=== PATIENT | female | born 1935 | race Caucasian/White ===

== ENCOUNTER 2017-09-20 12:05 | Inpatient (IN) ==
[2017-09-20] MEDS ORDERED: 0.9 % Sodium Chloride 1,000 ML IVC ONE (13:29)
--- NOTE | 2017-09-20 13:34 | Emergency Department Note ---
Disposition Clinical Impression: Confusion, Acute kidney injury, Weakness of both lower extremities, Cannot walk , NSTEMI (non-ST elevated myocardial infarction) Disposition: Admitted As Inpatient Condition: Fair Time of Disposition: 15:50 Weakness HPI - General Chief complaint: ED Weakness Stated complaint: Unable to ambulate x1 days Time Seen by Provider: 09/20/17 13:05 Source: patient, family Limitations: physical limitation Nursing Notes Reviewed: Yes Vital Signs Reviewed: Yes - History of Present Illness HPI Narrative: 82-year-old female brought in by family members for worsening weakness over the past 2 days. Patient is diagnosed with a UTI 2 days ago at [facility] after complains of abdominal pain for which she received a CT scan of her abdomen and pelvis. CT scan was negative but they were able to find a UTI. Patient is placed on Keflex. After starting the Keflex patient's symptoms continue to worsen. One day ago patient was taken back to emergency department at [facility] for complaint of worsening weakness, confusion, and reviewing of the right corner of patient's mouth and hematuria earlier that day. Patient was discharged home. They returned today because he stated patient is unable to stand and worsening confusion today. He also knows the patient's bilateral lower extremities are very swollen. He stated patient's symptoms presenting are with a seen in the past when patient has had a very bad UTI. They spoke to her PCP Dr. Bermeo last night who changed her antibiotics. Patient has not started the new antibiotics Patient patient continues to complain about her bilateral lower extremity edema , and the family states that she is far from her normal baseline concerning her mental state. Pain Scale: 0 - Related Data Home Medications Medication Instructions Recorded Confirmed Carvedilol 12.5 mg PO BID 04/22/15 09/20/17 Furosemide [Lasix] 40 mg PO BID 04/22/15 09/20/17 Pregabalin [Lyrica] 75 mg PO BID 04/22/15 09/20/17 Simvastatin [Zocor] 20 mg PO HS 04/22/15 09/20/17 SitaGLIPtin [Januvia] 100 mg PO DAILY 04/22/15 09/20/17 Capsaicin [Capsaicin Hot Patch] 1 patch TP BID 09/20/17 09/20/17 Insulin Glargine [Lantus] 76 unit IJ BID 04/12/18 04/12/18 Allergies Allergy/AdvReac Type Severity Reaction Status Date / Time canagliflozin [From Invokana] Allergy Hives Verified 09/20/17 16:03 gabapentin Allergy See Verified 09/20/17 14:11 Comments All systems ED: reviewed and negative except as stated. Review of Systems: As Per HPI Constitutional: Denies: fever, chills, weakness ENT ED: Denies: congestion Cardiovascular: Denies: chest pain, palpitations Respiratory: Denies: cough, dyspnea Gastrointestinal: Reports: abdominal pain. Denies: nausea, vomiting, diarrhea Genitourinary: Reports: hematuria Neurological: Reports: weakness Past Medical History - Past Medical History Attestation: Yes The following information was validated with the patient. Source: patient, nursing notes reviewed Medical history: Reports: diabetes, hyperlipidemia, hypertension Surgical history: Reports: , cholecystectomy, other Psychiatric history: Reports: no psych history CUSTOMER LOYALTY REPRESENTATIVE history: Reports: no CUSTOMER LOYALTY REPRESENTATIVE history - Social History Smoking Status: Never smoker Smokeless Tobacco Status: No Alcohol use: Reports: none Drug use: Reports: none Physical Exam Vital Signs Temperature 98.6 F 09/20/17 12:09 Pulse Rate 78 09/20/17 12:09 Respiratory Rate 18 09/20/17 12:09 Blood Pressure 110/53 09/20/17 12:09 O2 Sat by Pulse Oximetry 91 09/20/17 12:09 Temperature 98.6 F 09/20/17 12:09 Pulse Rate 78 09/20/17 12:09 Respiratory Rate 18 09/20/17 12:09 Blood Pressure 110/53 09/20/17 12:09 O2 Sat by Pulse Oximetry 91 09/20/17 12:09 Oxygen Delivery Oxygen Delivery Room Air CONSTITUTIONAL: Well-appearing; well-nourished; A&O X 3, in no apparent distress. Patient is morbidly obese 44.9 BMI, and is 126 kilograms. HEAD: Normocephalic; atraumatic EYES: PERRL, no scleral icterus NOSE: The nose is normal in appearance without rhinorrhea NECK: No JVD or distended neck veins RESP: Normal chest excursion with respiration; breath sounds clear on the right but has basilar rales on the left. Upper lung angel clear to auscultation bilaterally no wheezing. CARD: Regular rhythm, without murmurs, rub or gallop ABD: Non-distended; non-tender, soft, without rigidity, rebound or guarding,no pulsatile mass CHEST: No pain with palpation SKIN: Normal for age and race; warm and dry without diaphoresis ; no apparent lesions EXTREMITIES: Pulses are 2 plus and equal times upper extremities, bilateral lower extremities swollen and has very mild pitting edema less than 1+. There are petechiae on both lower extremities just past the knee. Skin on the bilateral lower extremities have thickened skin for venous insufficiency. Pulses intact bilaterally. NEUROLOGICAL: Patient is alert and oriented times three. Cranial nerves III- XII are intact. Sensory and motor functions are intact. Strength is 5/5 for flexion and extension in bilateral upper extremities, but patient is unable to move her lower extremities. Finger to nose testing is equal and normal bilaterally. No dysdiadochokinesis - General Limitations: physical limitation General appearance: alert, in no apparent distress Course - Reevaluation(s) Reevaluation #1: Patient still well. No pain symptoms. Patient is being transferred from all bed to telemetry bed in room 3. Time: 14:11 Reevaluation #2: Lab called for troponin is critically high at 0.72. Patient has no change in her condition. And has no chest pain Time: 14:53 - Consultations Consultation #1: Patient was accepted for admission by Dr. Lea to a telemetry bed. Time: 15:48 Consultation #2: Dr. Loza of cardiology has been notified of patient's condition. He states that he will see the patient and trend her troponins to investigate her NSTEMI. Time: 15:58 Vital Signs Temperature 98.6 F 09/20/17 12:09 Pulse Rate 78 09/20/17 12:09 Respiratory Rate 18 09/20/17 12:09 Blood Pressure 110/53 09/20/17 12:09 O2 Sat by Pulse Oximetry 91 09/20/17 12:09 Temperature 97.9 F 09/20/17 16:46 Pulse Rate 70 09/20/17 16:46 Respiratory Rate 18 09/20/17 16:46 Blood Pressure 96/60 09/20/17 16:46 O2 Sat by Pulse Oximetry 93 09/20/17 16:46 Oxygen Delivery Oxygen Delivery Room Air Weakness - MDM Narrative Medical decision making narrative: Multiple mental status of bilateral lower extremity weakness. Suspected worsening UTI since family states that this has happened before, but he did not mention some neurologic deficit one night ago. Patient will receive head CT as well as CBC, BMP, LFTs, electrolytes, ammonia, EKG and chest x-ray as well as troponin workup. Patient will need Moreno catheter due to patient's bilateral lower externa new weakness which impairs her ability to walk. Patient is also confused. Patient's labs resulted with a critical high troponin is 0.72. No acute ischemic changes on EKG. Patient has an NSTEMI, and has been given full dose aspirin, and started on low-dose heparin. Patient and family has been updated on patient's progress and understands that patient needs to be admitted. Patient does not have a UTI, seen on urinalysis most likely because patient has been on antibiotic treatment for her UTI 2 days ago. Patient does have newly elevated creatinine for acute kidney injury with a reduction in her GFR. Chest x-ray per radiology shows: Enlarged cardiac silhouette with mild vascular congestion. No overt pulmonary edema. Head CT per radiology shows no acute intracranial abnormalities. Patient's currently doing well and asymptomatic of chest pain, with the exception that patient is unable to walk at this time due to bilateral lower extremity weakness. Vital signs have remained in good ranges. Patient was accepted for admission by Dr. Lea to a telemetry bed. Dr. Loza of cardiology has been consulted. - Lab Data Lab results reviewed: Yes I reviewed the patient's lab results. Lab results narrative: Short CBC 09/20/17 Range/Units 13:51 WBC 7.0 (4.3-11.1) K/mcL Hgb 12.7 (11.5-15.4) g/dL Hct 39.9 (35.3-44.9) % Plt Count 165 (140-400) K/mcL Neutrophils # 5.0 (1.6-8.9) K/mcL BMP 09/20/17 Range/Units 13:51 Sodium 135 L (136-145) mEq/L Potassium 4.0 (3.5-5.1) mEq/L Chloride 98 (98-107) mEq/L Carbon Dioxide 30 H (23-29) mEq/L BUN 27 H (8-23) mg/dL Creatinine 1.74 H (0.60-1.20) mg/dL Glucose 312 H (70-105) mg/dL Calcium 8.9 (8.6-10.3) mg/dL Cardiac Enzymes 09/20/17 Range/Units 13:51 Troponin I 0.72 H* (< 0.04) ng/mL Liver Function 09/20/17 Range/Units 13:51 Total Bilirubin 0.6 (0.3-1.0) mg/dL AST 33 (13-39) Units/L ALT 20 (7-52) Units/L Alkaline Phosphatase 81 (34-104) Units/L Albumin 3.4 L (3.5-5.7) g/dL Urine 09/20/17 Range/Units 14:50 Urine Color Dark Yellow (Yellow) Urine Clarity Slightly Hazy (Clear) Urine pH 5.0 (5.0-8.0) pH Units Ur Specific [place] 1.023 (1.010-1.025) Urine Protein Negative (Neg-Trace) mg/dL Urine Glucose (UA) Normal (Normal) mg/dL Result diagrams: 09/20/17 15:29 09/20/17 13:51 Lab Results 09/20/17 09/20/17 09/20/17 Range/Units 13:51 13:51 14:50 WBC 7.0 (4.3-11.1) K/mcL RBC 4.49 (3.82-4.97) M/mcL Hgb 12.7 (11.5-15.4) g/dL Hct 39.9 (35.3-44.9) % MCV 88.9 (83.0-100.0) fL MCH 28.3 (28.0-33.3) pg MCHC 31.8 (31.6-35.5) g/dL RDW 15.7 H (11.5-14.5) % Plt Count 165 (140-400) K/mcL MPV 11.1 (9.4-12.4) fL Immature Gran % 1.0 (0-4) % Seg Neutrophils % 71.4 % Lymphocytes % 6.6 % Monocytes % 15.0 % Eosinophils % 5.6 % Basophils % 0.4 % Neutrophils # 5.0 (1.6-8.9) K/mcL Lymphocytes # 0.5 L (0.6-4.6) K/mcL Monocytes # 1.1 (0.0-1.3) K/mcL Eosinophils # 0.4 (0.0-0.6) K/mcL Basophils # 0.0 (0.0-0.2) K/mcL PT (9.4-12.1) Seconds INR APTT (26.0-36.0) Seconds Sodium 135 L (136-145) mEq/L Potassium 4.0 (3.5-5.1) mEq/L Chloride 98 (98-107) mEq/L Carbon Dioxide 30 H (23-29) mEq/L BUN 27 H (8-23) mg/dL Creatinine 1.74 H (0.60-1.20) mg/dL Est GFR ( Amer) 34 L (> 60) Est GFR (Non-Af Amer) 28 L (> 60) BUN/Creatinine Ratio 16 (6-26) Glucose 312 H (70-105) mg/dL Calculated Osmolality 297 (280-300) Calcium 8.9 (8.6-10.3) mg/dL Phosphorus 3.6 (2.7-4.5) mg/dL Magnesium 2.3 (1.6-2.6) mg/dL Total Bilirubin 0.6 (0.3-1.0) mg/dL AST 33 (13-39) Units/L ALT 20 (7-52) Units/L Alkaline Phosphatase 81 (34-104) Units/L Troponin I 0.72 H* (< 0.04) ng/mL B-Natriuretic Peptide (Less than 100) pg/mL Serum Total Protein 6.4 (6.4-8.9) g/dL Albumin 3.4 L (3.5-5.7) g/dL Globulin 3.0 (2.4-3.5) g/dL Albumin/Globulin Ratio 1.1 (1.1-2.2) TSH 2.927 (0.340-5.600) mcIU/mL Urine Color Dark Yellow (Yellow) Urine Clarity Slightly Hazy (Clear) Urine pH 5.0 (5.0-8.0) pH Units Ur Specific [place] 1.023 (1.010-1.025) Urine Protein Negative (Neg-Trace) mg/dL Urine Glucose (UA) Normal (Normal) mg/dL Urine Ketones Negative (Negative) mg/dL Urine Blood Negative (Negative) Urine Nitrite Negative (Negative) Urine Bilirubin Small H (Negative) Urine Urobilinogen Normal (Normal) mg/dL Ur Leukocyte Esterase Small H (Negative) Urine Microscopic RBC 0-3 (0-3) per hpf Urine Microscopic WBC 5-15 H (0-3) per hpf Ur Squamous Epith Cells Many H (None-Few) per lpf Amorphous Sediment Moderate H (Few) Urine Bacteria None Seen (None-Few) per hpf Hyaline Casts Many H (None-Few) per lpf Ur Culture Indicated? NO. (NO) 09/20/17 09/20/17 09/20/17 Range/Units 15:29 15:29 15:35 WBC 6.8 (4.3-11.1) K/mcL RBC 4.60 (3.82-4.97) M/mcL Hgb 12.9 (11.5-15.4) g/dL Hct 40.8 (35.3-44.9) % MCV 88.7 (83.0-100.0) fL MCH 28.0 (28.0-33.3) pg MCHC 31.6 (31.6-35.5) g/dL RDW 15.7 H (11.5-14.5) % Plt Count 171 (140-400) K/mcL MPV 11.2 (9.4-12.4) fL Immature Gran % (0-4) % Seg Neutrophils % % Lymphocytes % % Monocytes % % Eosinophils % % Basophils % % Neutrophils # (1.6-8.9) K/mcL Lymphocytes # (0.6-4.6) K/mcL Monocytes # (0.0-1.3) K/mcL Eosinophils # (0.0-0.6) K/mcL Basophils # (0.0-0.2) K/mcL PT 13.7 H (9.4-12.1) Seconds INR 1.3 APTT 32.9 (26.0-36.0) Seconds Sodium (136-145) mEq/L Potassium (3.5-5.1) mEq/L Chloride (98-107) mEq/L Carbon Dioxide (23-29) mEq/L BUN (8-23) mg/dL Creatinine (0.60-1.20) mg/dL Est GFR ( Amer) (> 60) Est GFR (Non-Af Amer) (> 60) BUN/Creatinine Ratio (6-26) Glucose (70-105) mg/dL Calculated Osmolality (280-300) Calcium (8.6-10.3) mg/dL Phosphorus (2.7-4.5) mg/dL Magnesium (1.6-2.6) mg/dL Total Bilirubin (0.3-1.0) mg/dL AST (13-39) Units/L ALT (7-52) Units/L Alkaline Phosphatase (34-104) Units/L Troponin I (< 0.04) ng/mL B-Natriuretic Peptide 267 H (Less than 100) pg/mL Serum Total Protein (6.4-8.9) g/dL Albumin (3.5-5.7) g/dL Globulin (2.4-3.5) g/dL Albumin/Globulin Ratio (1.1-2.2) TSH (0.340-5.600) mcIU/mL Urine Color (Yellow) Urine Clarity (Clear) Urine pH (5.0-8.0) pH Units Ur Specific [place] (1.010-1.025) Urine Protein (Neg-Trace) mg/dL Urine Glucose (UA) (Normal) mg/dL Urine Ketones (Negative) mg/dL Urine Blood (Negative) Urine Nitrite (Negative) Urine Bilirubin (Negative) Urine Urobilinogen (Normal) mg/dL Ur Leukocyte Esterase (Negative) Urine Microscopic RBC (0-3) per hpf Urine Microscopic WBC (0-3) per hpf Ur Squamous Epith Cells (None-Few) per lpf Amorphous Sediment (Few) Urine Bacteria (None-Few) per hpf Hyaline Casts (None-Few) per lpf Ur Culture Indicated? (NO) - Radiology Data Radiology results reviewed: Yes I reviewed the patient's radiology results. Chest X-Ray 09/20/17 13:29 IMPRESSION: Enlarged cardiac silhouette with mild vascular congestion. No overt pulmonary edema. D/ / Richie Brantley MD / Richie Brantley MD Interpreting Provider: Richie Brantley MD Head CT 09/20/17 13:31 IMPRESSION: No acute intracranial abnormality. D/ / Maksim Zambrano MD / Maksim Zambrano MD Interpreting Provider: Maksim Zambrano MD - EKG Data EKG attestation: Yes I reviewed and interpreted this EKG. EKG results narrative: EKG taken 09/20/2017 at 1413 hrs. shows sinus rhythm at a rate of 75 bpm with a first-degree AV block, mild ST elevation in V2 but does not meet STEMI criteria , and mild depression in V5 and V6 leads 2, and aVL. EKG when compared to previous EKG taken 09/19/2017 shows no changes.
--- NOTE | 2017-09-20 13:47 | Emergency Department Note ---
Disposition Clinical Impression: Edema extremities, Confusion Disposition: Still a Patient Forms: ED Satisfaction Letter General Adult HPI - General Chief complaint: ED Weakness Stated complaint: Unable to ambulate x1 days Time Seen by Provider: 09/20/17 13:05 Source: patient, family Limitations: physical limitation - History of Present Illness Pain Scale: 0 - Related Data Home Medications Medication Instructions Recorded Confirmed Carvedilol 12.5 mg PO BID 04/22/15 09/19/17 Furosemide [Lasix] 40 mg PO BID 04/22/15 09/19/17 Pregabalin [Lyrica] 75 mg PO BID 04/22/15 09/19/17 Simvastatin [Zocor] 20 mg PO HS 04/22/15 09/19/17 SitaGLIPtin [Januvia] 100 mg PO DAILY 04/22/15 09/19/17 Previous Rx's Medication Instructions Recorded Capsaicin [Capsaicin Hot Patch] 1 each TP BID #1 pack 09/18/17 Nitrofurantoin (BID) [Macrobid] 100 mg PO BID #10 capsule 09/20/17 Allergies Allergy/AdvReac Type Severity Reaction Status Date / Time gabapentin Allergy See Verified 09/20/17 12:08 Comments Constitutional: Denies: fever, chills, weakness ENT ED: Denies: congestion Cardiovascular: Denies: chest pain, palpitations Respiratory: Denies: cough, dyspnea Gastrointestinal: Reports: abdominal pain. Denies: nausea, vomiting, diarrhea Genitourinary: Reports: hematuria Neurological: Reports: weakness Past Medical History - Past Medical History Medical history: Reports: diabetes, hyperlipidemia, hypertension Surgical history: Reports: , cholecystectomy, other Psychiatric history: Reports: no psych history REPORT MANAGER history: Reports: no REPORT MANAGER history - Social History Smoking Status: Never smoker Smokeless Tobacco Status: No Alcohol use: Reports: none Drug use: Reports: none Physical Exam - General Limitations: physical limitation General appearance: alert, in no apparent distress Course - Reevaluation(s) Reevaluation #1: Attestation note I examined this patient and my medical decision-making was reviewed with the emergency medicine resident. I agree with the documented findings, disposition and treatment plan as described except to the extent set forth below. Patient seen with emergency medicine resident Dr. Stanley Stallworth, Please see a copy of his note for details of the H&P, ED evaluation, management and disposition. I have independently evaluated the patient and confirmed appropriate portions of the history and physical exam. Briefly: 82-year-old female presents a Holter with family members for 2 days of increasing difficulty walking leg swelling and some confusion. Family states she gets when she has a bladder infection. Patient denies dysuria at this time. Physical examination is otherwise benign aside from the 4+ edema to the mid thigh. Slight basilar rales. Patient EKG chest x-ray screening labs and catheter UA. Disposition pending with admission anticipated. Time: 13:42 Vital Signs Temperature 98.6 F 09/20/17 12:09 Pulse Rate 78 09/20/17 12:09 Respiratory Rate 18 09/20/17 12:09 Blood Pressure 110/53 09/20/17 12:09 O2 Sat by Pulse Oximetry 91 09/20/17 12:09 Temperature 98.6 F 09/20/17 12:09 Pulse Rate 78 09/20/17 12:09 Respiratory Rate 18 09/20/17 12:09 Blood Pressure 110/53 09/20/17 12:09 O2 Sat by Pulse Oximetry 91 09/20/17 12:09 Oxygen Delivery Oxygen Delivery Room Air
[2017-09-20 14:17] LABS: Basophils % 0.4 %; Eosinophils # 0.4 K/mcL (0.0-0.6); Eosinophils % 5.6 %; Hematocrit 39.9 % (35.3-44.9); Hemoglobin 12.7 g/dL (11.5-15.4); Lymphocytes # 0.5 K/mcL (0.6-4.6); Lymphocytes % 6.6 %; Mean Corpuscular HGB Conc 31.8 g/dL (31.6-35.5); Mean Corpuscular Hemoglobin 28.3 pg (28.0-33.3); Mean Corpuscular Volume 88.9 fL (83.0-100.0); Mean Platelet Volume 11.1 fL (9.4-12.4); Monocytes # 1.1 K/mcL (0.0-1.3); Platelet Count 165 K/mcL (140-400); Red Blood Count 4.49 M/mcL (3.82-4.97); Red Cell Distribution Width 15.7 % (11.5-14.5); Segmented Neutrophils % 71.4 %
[2017-09-20 14:44] LABS: Albumin 3.4 g/dL (3.5-5.7); Albumin/Globulin Ratio 1.1 (1.1-2.2); Bilirubin,Total 0.6 mg/dL (0.3-1.0); Calcium 8.9 mg/dL (8.6-10.3); Magnesium 2.3 mg/dL (1.6-2.6); Phosphorous 3.6 mg/dL (2.7-4.5); Total Protein 6.4 g/dL (6.4-8.9)
[2017-09-20 14:50] LABS: Troponin I 0.72 ng/mL (< 0.04)
[2017-09-20] MEDS ORDERED: Aspirin 81 MG TAB.CHEW PO STA (14:54)
[2017-09-20 14:56] LABS: Bilirubin,Urine Small (Negative); Blood,Urine Negative (Negative); Color,Urine Dark Yellow (Yellow); Glucose,Urine (UA) Normal (Normal); Ketones,Urine Negative (Negative); Leukocyte Esterase,Urine Small (Negative); Nitrite,Urine Negative (Negative); Protein,Urine Negative (Neg-Trace); Specific Gravity,Urine 1.023 (1.010-1.025); Urobilinogen,Urine Normal (Normal)
[2017-09-20 14:57] LABS: Thyroid Stimulating Hormone 2.927 mcIU/mL (0.340-5.600)
[2017-09-20 14:59] LABS: Bacteria,Urine None Seen per hpf (None-Few); RBC,Urine 0-3 per hpf (0-3); Squamous Epithelial Cell,Urine Many per lpf (None-Few)
[2017-09-20 15:00] LABS: Clarity,Urine Slightly Hazy (Clear)
[2017-09-20] MEDS ORDERED: *HR* Heparin 5,000 UNIT/ML VIAL IVP PRN ×2 (15:13)
[2017-09-20] MEDS ORDERED: *HR* Heparin 5,000 UNIT/ML VIAL IVP ONE (15:13)
[2017-09-20 15:18] LABS: Hyaline Casts,Urine Many per lpf (None-Few)
[2017-09-20 15:19] LABS: Amorphous Sediment,Urine Moderate (Few)
[2017-09-20 16:12] LABS: Hematocrit 40.8 % (35.3-44.9); Hemoglobin 12.9 g/dL (11.5-15.4); Mean Corpuscular HGB Conc 31.6 g/dL (31.6-35.5); Mean Corpuscular Volume 88.7 fL (83.0-100.0); Mean Platelet Volume 11.2 fL (9.4-12.4); Platelet Count 171 K/mcL (140-400); Red Cell Distribution Width 15.7 % (11.5-14.5)
[2017-09-20 16:21] LABS: INR 1.3; Prothrombin Time 13.7 Seconds (9.4-12.1)
[2017-09-20 16:24] LABS: Activated Partial Thrombo Time 32.9 Seconds (26.0-36.0)
[2017-09-20] MEDS: Heparin 25,000 UNIT/500 ML D5W 25,000 UNIT/500 ML BAG IVC SCH (18:50)
[2017-09-20] MEDS ORDERED: Naloxone 0.4 MG/ML INJ IVP PRN (22:31)
[2017-09-20] MEDS ORDERED: *HR* Dextrose 50 % in Water (Syg) 50 ML SYRINGE IVP PRN (22:37)
[2017-09-20] MEDS ORDERED: Dextrose Gel 15 GM/37.5 ML TUBE PO PRN ×2 (22:37)
[2017-09-20] MEDS ORDERED: D5% in Water 1,000 ML IVC PRN (22:37)
--- NOTE | 2017-09-20 22:49 | Internal Med History&Physical ---
Date of Encounter: 09/20/17 Time of Encounter: 22:40 Internal Medicine - H&P: HPI Chief complaint: difficulty in ambulation. Admitted From: Emergency Dept Plans for Post Hospital Care: Home History of present illness: Ms. Pop is a 82 year old female who has a background medical history of her diabetes, hypertension, hyperlipidemia,. It was noted that patient has a worsening urinary tract infection since Sunday. Patient contacted her primary care doctor Dr. Alarcon who recommended antibiotics. Patient was gradually worsening. Since last 24-36 hours it was difficult for patient to even ambulate. For this worsening fatigue/inability to ambulate family decided to get patient to the emergency room for further evaluation. Patient denies chest pain, nausea, vomiting, abdominal pain, diarrhea and dizziness. Workup in the emergency room: Patient was evaluated in the emergency room. Basic labs were drawn. Noted that patient's troponin was 0.7. Also noted that patient has a UA if positive for urinary tract infection. Cardiology was consulted. Reason for admission: Non-ST elevation CT, possible demand ischemia: Reason for elevated troponin, urinary tract infection. Past Med Surg Social Fam HX - Past Medical History Medical history: diabetes, hyperlipidemia, hypertension Psychiatric history: no psych history - Past Surgical History Surgical History: , cholecystectomy, other - Social History Smoking Status: Never smoker Smokeless Tobacco Status: No Alcohol use: none Drug use: none - Family History Mother Hx Family Cancer: Yes Sister Hx Family Cancer: Yes Internal Medicine - H&P: Meds Carvedilol 12.5 mg PO BID 04/22/15 [History] Furosemide [Lasix] 40 mg PO BID 04/22/15 [History] Pregabalin [Lyrica] 75 mg PO BID 04/22/15 [History] Simvastatin [Zocor] 20 mg PO HS 04/22/15 [History] SitaGLIPtin [Januvia] 100 mg PO DAILY 04/22/15 [History] Capsaicin [Capsaicin Hot Patch] 1 patch TP BID 09/20/17 [History] Insulin Glargine [Lantus] 76 unit IJ BID 09/20/17 [History] 3 Allergy/AdvReac Type Severity Reaction Status Date / Time canagliflozin [From Invokana] Allergy Hives Verified 09/20/17 16:03 gabapentin Allergy See Verified 09/20/17 14:11 Comments All Systems PM: A 10-system review of systems was performed and is negative for pertinent findings except as documented above in the HPI. - Constitutional Constitutional: fatigue, lethargy, no chills, no fever(s), no night sweats - EENT Eyes: no change in vision, no discharge, no pain, no photophobia Ears: no ear discharge, no ear pain, no tinnitus Nose, mouth and throat: no dysphagia, no nasal discharge, no neck pain, no sore throat - Cardiovascular Cardiovascular ROS IM: dyspnea, no chest pain, no diaphoresis, no lightheadedness, no palpitations, no syncope - Respiratory Respiratory: cough, dyspnea, no wheezing, no excessive phlegm production - Gastrointestinal Gastrointestinal: no abdominal pain, no diarrhea, no hematemesis, no hematochezia, no melena, no nausea, no vomiting - Genitourinary Genitourinary: no change in urinary stream, no dysuria, no flank pain, no hematuria - Musculoskeletal Musculoskeletal ROS IM: no numbness, no tingling - Integumentary Integumentary IM: no rash, no unusual bruising - Neurological Neurological ROS: no confusion, no convulsions, no focal weakness, no numbness, no tingling, no tremor(s) - Hematologic/Lymphatic Hematologic/Lymphatic: no easy bruising - Constitutional Vitals: Temp Pulse Resp BP Pulse Ox 98.1 F 75 16 107/48 90 09/20/17 19:51 09/20/17 19:51 09/20/17 19:51 09/20/17 19:51 09/20/17 19:51 General appearance: Present: A&O X 3, pleasant, no acute distress, answers questions appropriately - Head Head exam: Present: atraumatic, normocephalic - Eye Eye exam: Present: PERRL, conjuntiva pink, sclera anicteric Pupils: Present: PERRL - Neck Neck exam general surgery: Present: supple, trachea midline. Absent: lymphadenopathy - Respiratory Respiratory exam: Present: CTAB. Absent: accessory muscle use, rales, rhonchi, wheezes - Cardiovascular Cardiovascular exam: Present: RRR, +S1, +S2. Absent: diastolic murmur, gallop, rubs, systolic murmur - GI/Abdominal GI/Abdominal exam: Present: normal bowel sounds, soft, no peritoneal signs. Absent: distended, tenderness - Extremities Exam Extremities exam: Present: warm, radial pulses palpable and symmetrical. Absent : calf tenderness, cyanotic, pedal edema - Neurological Exam Neurological exam: Present: CN II-XII intact, oriented X3, no focal deficits. Absent: pronater drift, facial droop, speech deficit - Skin Skin exam: Present: dry, intact Internal Med - H&P Results - Labs CBC & Chem 7: 09/20/17 15:29 09/20/17 13:51 - Assessment and plan (1) NSTEMI (non-ST elevated myocardial infarction) Current Visit: Yes Status: Acute Assessment and plan: 82/female Admitted with profound weakness. Noted that patient has elevated troponin. Emergency room physician started on heparin drip. And his chest pain-free now. Heparin drip/statin/beta gena Cardiology on the board. We will follow the recommendations from cardiology. (2) UTI (urinary tract infection) Current Visit: No Status: Acute Assessment and plan: See below Qualifiers: Urinary tract infection type: acute cystitis Hematuria presence: without hematuria Qualified Code(s): N30.00 - Acute cystitis without hematuria (3) Cystitis Current Visit: No Status: Acute Assessment and plan: Patient does likely have a cystitis. We will continue ceftriaxone. Blood cultures/urine culture ordered. (4) Weakness of both lower extremities Current Visit: Yes Status: Acute Assessment and plan: Bilateral lower extremity weakness is likely secondary to the fatigue. If the weakness progressively gets worse then we will consider neurology opinion. (5) Diabetes Current Visit: No Status: Acute Assessment and plan: Patient is known to have a type 2 diabetes mellitus. We will closely monitoring her blood sugar. We will follow the recommendations from subcutaneous insulin order chart. Qualifiers: Diabetes mellitus type: type 2 Diabetes mellitus group home insulin use: without group home use Diabetes mellitus complication status: with unspecified complications Qualified Code(s): E11.8 - Type 2 diabetes mellitus with unspecified complications (6) Hypertension Current Visit: No Status: Acute Assessment and plan: Patient is known to have hypertension. We will resume home medication. Close monitoring of the blood pressure. Qualifiers: Hypertension type: essential hypertension Qualified Code(s): I10 - Essential (primary) hypertension (7) DVT prophylaxis Current Visit: No Status: Acute Assessment and plan: Heparin drip Rayna making: This patient has a moderate to severe risk of worsening in spite of being on appropriate medication due to the underlying chronic comorbid conditions. - Time Spent With Patient Total time spent is greater than 50% in coordination of care (as documented) at patient's floor/unit and/or counseling patient:
[2017-09-21] MEDS ORDERED: cefTRIAXone 1,000 MG in Water for inj. (sterile) 20 ML 10 ML IVP SCH
[2017-09-21 06:14] LABS: Basophils % 0.8 %; Eosinophils # 0.4 K/mcL (0.0-0.6); Eosinophils % 8.7 %; Hematocrit 38.7 % (35.3-44.9); Hemoglobin 12.3 g/dL (11.5-15.4); Lymphocytes # 0.9 K/mcL (0.6-4.6); Lymphocytes % 17.8 %; Mean Corpuscular HGB Conc 31.8 g/dL (31.6-35.5); Mean Corpuscular Hemoglobin 28.1 pg (28.0-33.3); Mean Corpuscular Volume 88.4 fL (83.0-100.0); Mean Platelet Volume 11.1 fL (9.4-12.4); Monocytes # 0.9 K/mcL (0.0-1.3); Monocytes % 19.1 %; Neutrophils # 2.6 K/mcL (1.6-8.9); Platelet Count 137 K/mcL (140-400); Red Blood Count 4.38 M/mcL (3.82-4.97); Red Cell Distribution Width 15.6 % (11.5-14.5); Segmented Neutrophils % 52.6 %
[2017-09-21 06:30] LABS: Platelet Estimate Normal (Normal)
[2017-09-21 06:39] LABS: Albumin 3.1 g/dL (3.5-5.7); Albumin/Globulin Ratio 1.1 (1.1-2.2); Bilirubin,Total 0.5 mg/dL (0.3-1.0); Calcium 8.3 mg/dL (8.6-10.3); Chol/HDL Ratio 4.5 (0-4.9); Globulin 2.9 g/dL (2.4-3.5); Magnesium 2.2 mg/dL (1.6-2.6); Potassium 3.7 mEq/L (3.5-5.1)
[2017-09-21] MEDS: Insulin LISPRO 300 UNITS/3 ML VIAL SQ SCH ×4 (08:32→21:20)
[2017-09-21 08:33] LABS: Estimated Average Glucose 229 mg/dl; Hemoglobin A1C 9.6 %
[2017-09-21] MEDS: Pregabalin 75 MG CAPSULE PO SCH ×2 (08:34→20:44)
[2017-09-21] MEDS: Insulin DETEMIR 100 UNIT/ML X5UNITS SQ SCH ×2 (08:34→20:44)
--- NOTE | 2017-09-21 10:18 | Cardiology Consult Note ---
<Neha Cortez Jim - Last Filed: 09/21/17 10:14> Date of Encounter: 09/21/17 Time of Encounter: 09:30 Assessment and Plan (1) Elevated troponin Current Visit: Yes Status: Acute Elevated troponin 0.72, 0.71, and 0.50 in the setting of UTI and CHRISTIAN on CKD; suspect demand ischemia. No ST/T wave changes noted on ECG. Patient is pain free upon exam. Can d/c heparin gtt after 24 hours. Will add asa. Continue betablocker, statin. No indication for cardiac rehab at this time. Recommend medical mgmt. Check TTE to eval LVEF. Of note, patient reports she only wants medical therapy. If no significant abnormalities on echo noted, anticipate sign-off. (2) Acute kidney injury Current Visit: Yes Status: Acute CHRISTIAN on CKD upon admission, 1.74. SCr today 1.66. Baseline appears to be 1.3-1.4 (3) Peripheral edema Current Visit: Yes Status: Chronic Significant LE edema with possible cellulitis. Upon review, appears chronic in etiology. Defer further mgmt to primary service. Discussion w patient/family: The assessment and plan as outlined above was discussed with the patient and/or family members who expressed understanding and agreement. All questions were answered. Thank you for involving us in the care of your patient. Please call with any questions. The patient will be discussed and reviewed with Dr. Loza; changes to be made accordingly. History of Present Illness Consult date: 09/21/17 Requesting physician: Ramiro Molina Consult reason: Elevated troponin Chief complaint: AMS History of present illness: Ms. Pop is a 82 year old female with PMHx significant for DMII, HTN, and HLD who was brought to [facility] ED for AMS. Reportedly was treated as outpatient for UTI several days ago with Keflex; symptoms--weakness, confusion--worsened and which prompted evaluation. Upon exam, she is alert to self and location only. She denies chest pain or discomfort. Troponin level was checked and found to be elevation with peak 0.72. No acute ST /T wave changes noted. Prior CV testing: TTE 03/2015: LVEF 60%, mild LVDD, mild PH, mildly enlarged LA size, normal wall motion Past Med Surg Social Fam HX - Past Medical History Attestation: Yes The following information was validated with the patient. Source: patient, old records reviewed Medical history: diabetes, hyperlipidemia, hypertension Psychiatric history: no psych history - Past Surgical History Surgical History: , cholecystectomy, other - Social History Smoking Status: Never smoker Smokeless Tobacco Status: No Alcohol use: none Drug use: none - Family History Mother Hx Family Cancer: Yes Sister Hx Family Cancer: Yes Medications and Allergies Carvedilol 12.5 mg PO BID 04/22/15 [History] Furosemide [Lasix] 40 mg PO BID 04/22/15 [History] Pregabalin [Lyrica] 75 mg PO BID 04/22/15 [History] Simvastatin [Zocor] 20 mg PO HS 04/22/15 [History] SitaGLIPtin [Januvia] 100 mg PO DAILY 04/22/15 [History] Capsaicin [Capsaicin Hot Patch] 1 patch TP BID 09/20/17 [History] Insulin Glargine [Lantus] 76 unit IJ BID 09/20/17 [History] 3 Allergy/AdvReac Type Severity Reaction Status Date / Time canagliflozin [From Invokana] Allergy Hives Verified 09/20/17 16:03 gabapentin Allergy See Verified 09/20/17 14:11 Comments All Systems Review: The remainder of the systems were reviewed and are negative - Cardiovascular Cardiovascular: as per HPI Physical Examination Vital Signs, Last 4 Hours Temp Pulse Resp BP Pulse Ox 09/21/17 08:40 94 09/21/17 07:15 97.8 F 67 17 125/65 94 General: Conversant, Other (morbily obese) HEENT: Atraumatic, Normocephaly Cardiac: Reg Rate and Rhythm, Normal S1 and S2 Lungs: Normal Breath Sounds Neuro: Alert and responsive (x2) Abdomen: Soft Musculoskeletal: No Chest Wall Tenderness Extremities: Other (large LE, redness, with 2-3+ pitting edema. ) Results 09/21/17 05:42 09/21/17 05:42 Lab Results 09/20/17 09/21/17 09/21/17 23:51 01:41 05:42 WBC 4.9 Hgb 12.3 Hct 38.7 Plt Count 137 L APTT 59.7 H D Sodium Potassium Chloride Carbon Dioxide BUN Creatinine Glucose Calcium Magnesium Total Bilirubin AST ALT Alkaline Phosphatase Troponin I 0.71 H* B-Natriuretic Peptide 09/21/17 09/21/17 09/21/17 05:42 05:42 05:42 WBC Hgb Hct Plt Count APTT Sodium 137 Potassium 3.7 Chloride 100 Carbon Dioxide 28 BUN 28 H Creatinine 1.66 H Glucose 304 H Calcium 8.3 L Magnesium 2.2 Total Bilirubin 0.5 AST 29 ALT 21 Alkaline Phosphatase 70 Troponin I 0.50 H* B-Natriuretic Peptide 141 H 09/21/17 09:09 WBC Hgb Hct Plt Count APTT 48.2 H Sodium Potassium Chloride Carbon Dioxide BUN Creatinine Glucose Calcium Magnesium Total Bilirubin AST ALT Alkaline Phosphatase Troponin I B-Natriuretic Peptide Active Medications Atorvastatin Calcium (Lipitor) 40 mg PO HS RICARDA Stop: 03/22/18 22:46 Last Admin: 09/21/17 00:00 Dose: Not Given Carvedilol (Coreg) 12.5 mg PO BIDWM RICARDA Stop: 03/23/18 08:01 Last Admin: 09/21/17 08:34 Dose: 12.5 mg Dextrose/Water (Dextrose 50% (Syg)) 25 ml IVP AD PRN PRN Reason: Hypoglycemia Stop: 03/22/18 22:38 Glucagon (Glucagen) 1 mg IM ONCE PRN PRN Reason: Hypoglycemia Stop: 03/22/18 22:38 Glucose (Gluctose) 15 gm PO ONCE PRN PRN Reason: Hypoglycemia Stop: 03/22/18 22:38 Glucose (Gluctose) 30 gm PO ONCE PRN PRN Reason: Hypoglycemia Stop: 03/22/18 22:38 Heparin Sodium (Porcine) (Heparin) 4,000 unit IVP Q6HR PRN PRN Reason: SEE COMMENTS Stop: 03/22/18 15:14 Heparin Sodium (Porcine) (Heparin) 2,000 unit IVP Q6H PRN PRN Reason: SEE COMMENTS Stop: 03/22/18 15:14 Heparin Sodium/Dextrose (Heparin 25,000 Unit/500 Ml D5w) 25,000 unit in 500 mls @ 19.997 mls/hr IVC .Q24H RICARDA; 7.922 UNIT/KG/HR PRN Reason: Protocol Stop: 03/22/18 15:16 Last Admin: 09/20/17 18:50 Dose: 7.922 unit/kg/hr, 19.997 mls/hr Dextrose (Dextrose 5%) 1,000 mls @ 100 mls/hr IVC .Q10H PRN PRN Reason: HYPOGLYCEMIA Stop: 03/22/18 22:38 Ceftriaxone Sodium 1,000 mg/ (Sterile Water) 10 mls @ 300 mls/hr IVP Q24H RICARDA Stop: 03/24/18 06:01 Insulin Detemir (Levemir) 76 unit SQ BID RICARDA Stop: 03/23/18 09:01 Last Admin: 09/21/17 08:34 Dose: 38 unit Insulin Human Lispro (Humalog) 0 units SQ TIDAC RICARDA PRN Reason: Protocol Stop: 03/23/18 07:31 Last Admin: 09/21/17 08:32 Dose: 8 units Insulin Human Lispro (Humalog) 0 units SQ HS RICARDA PRN Reason: Protocol Stop: 03/23/18 21:01 Naloxone HCl (Narcan) 0.4 mg IVP Q2MIN PRN PRN Reason: SEE COMMENTS Stop: 03/22/18 22:32 Pregabalin (Lyrica) 75 mg PO BID [facility] Stop: 03/23/18 09:01 Last Admin: 09/21/17 08:34 Dose: 75 mg - Imaging and Cardiology Echo: report reviewed Other Results: 12 hour tele: avg HR=67 SR with RBBB. No event noted. - EKG Interpretation EKG results cardiology: personally reviewed Consult Discharge Plan - Plan Referrals: Stevan Bermeo MD [Primary Care Provider] - <Booker Loza - Last Filed: 09/22/17 19:37> Date of Encounter: 09/22/17 Time of Encounter: 17:00 - Attending Attestation I have personally performed a face to face evaluation on this patient. I have reviewed and agree with the care plan. History and Exam by me shows: CC: confusion Pt brought to ER for acute mental status changes. She is not a reliable historian, hx from medical records. She denies chest pain or palpitations at present, is not sure how she ended up in hospital. In the course of her evaluation was found to have elevated troponins, we are consulted for evaluation of NSTEMI. PMH: reviewed PE: pt seen and examined, agree with above. IMP:plan 1.Elevated Troponin: minimal elevation most consistent with demand ischemia and poor renal clearence due to acute on chronic kidney injury. No acute changes on EKG, however will trend overnight. She is declining any consideration of invasive strategy, medical management only. 2. Acute kidney injury: hold potential nephrotoxins, continue to monitor. 3. UTI: recovering, with recent undefined course of antibiotics. REC: 1. Trend enzemes, medical tx only' 2. Obtain old records 3. Repeat echocardiogram. Assessment and Plan Discussion w patient/family: The assessment and plan as outlined above was discussed with the patient and/or family members who expressed understanding and agreement. All questions were answered. Thank you for involving us in the care of your patient. Please call with any questions. History of Present Illness History of present illness: Ms. Pop is a 82 year old female All Systems Review: The remainder of the systems were reviewed and are negative Physical Examination Vital Signs, Last 4 Hours Temp Pulse Resp BP Pulse Ox 09/22/17 18:50 97.6 F 60 18 135/63 92 09/22/17 15:41 97.5 F L 64 18 158/77 92 Results 09/22/17 05:52 09/22/17 05:52 Lab Results 09/21/17 09/22/17 09/22/17 22:15 05:52 05:52 WBC 6.2 Hgb 12.2 Hct 38.0 Plt Count 169 APTT 58.2 H Sodium 137 Potassium 3.5 Chloride 103 Carbon Dioxide 28 BUN 27 H Creatinine 1.33 H Glucose 205 H Calcium 8.7 Magnesium 2.2
[2017-09-21] MEDS: Aspirin Enteric Coated 81 MG Tablet PO SCH (12:01)
[2017-09-21 12:04] LABS: Bilirubin,Urine Negative (Negative); Blood,Urine Large (Negative); Clarity,Urine Cloudy (Clear); Color,Urine Yellow (Yellow); Glucose,Urine (UA) Normal (Normal); Ketones,Urine Negative (Negative); Leukocyte Esterase,Urine Trace (Negative); Nitrite,Urine Negative (Negative); PH,Urine 5.5 pH Units (5.0-8.0); Protein,Urine 30 mg/dL (Neg-Trace); Specific Gravity,Urine 1.023 (1.010-1.025); Urobilinogen,Urine Normal (Normal)
[2017-09-21 12:10] LABS: Bacteria,Urine None Seen per hpf (None-Few); Hyaline Casts,Urine None Seen per lpf (None-Few); RBC,Urine TNTC per hpf (0-3); Squamous Epithelial Cell,Urine Few per lpf (None-Few)
--- NOTE | 2017-09-21 12:54 | Internal Med Progress Note ---
Date of Encounter: 09/21/17 Time of Encounter: 12:54 - Assessment and plan (1) NSTEMI (non-ST elevated myocardial infarction) Current Visit: Yes Status: Acute Assessment and plan: Continue heparin drip for 24 hours. According to cardiology we will just do medical management. Echo pending. Aspirin and Plavix. Continue with Coreg. (2) Edema Current Visit: Yes Status: Acute Assessment and plan: Patient has lower extremity edema. She takes Lasix 40 mg at home. We will start Lasix IV 40 twice a day and see how she does. Qualifiers: Edema type: unspecified Qualified Code(s): R60.9 - Edema, unspecified (3) Acute kidney injury Current Visit: Yes Status: Acute Assessment and plan: Patient has what seems like chronic kidney disease based on labs. We will see if some diuresis would help her kidneys. She had a creatinine of 1.12 back on however her kidney function has always been around which she is at today. I suspect she has some underlying kidney disease and this may be her baseline. (4) UTI (urinary tract infection) Current Visit: No Status: Acute Assessment and plan: Continue with ceftriaxone. Follow up on cultures. Qualifiers: Urinary tract infection type: acute cystitis Hematuria presence: without hematuria Qualified Code(s): N30.00 - Acute cystitis without hematuria (5) Diabetes Current Visit: No Status: Acute Assessment and plan: Patient is on Levemir 76 units twice a day as well as sliding scale. Glucose is uncontrolled. Patient was nothing by mouth and we only gave half the dose of her Levemir this morning. We will see what her glucoses like this in the day. A1c 9.6. 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 Continue home meds. Qualifiers: Hypertension type: essential hypertension Qualified Code(s): I10 - Essential (primary) hypertension (7) Weakness of both lower extremities Current Visit: Yes Status: Acute Assessment and plan: Bilateral lower extremity weakness is likely secondary to the fatigue and edema. PTOT to see. (8) DVT prophylaxis Current Visit: No Status: Acute Assessment and plan: Heparin drip - Time Spent With Patient Total time spent is greater than 50% in coordination of care (as documented) at patient's floor/unit and/or counseling patient: - Subjective Interval history: Patient was seen and examined. No acute events overnight. Afebrile. On room air. Feels well. Patient is admitted with NSTEMI and UTI. Currently on heparin drip. - Constitutional Vitals: Temp Pulse Resp BP Pulse Ox 98.2 F 58 17 134/73 92 09/21/17 11:24 09/21/17 11:24 09/21/17 11:24 09/21/17 11:24 09/21/17 11:24 General appearance: Present: A&O X 3, pleasant, no acute distress, answers questions appropriately Exam: GEN: NAD CVS: RRR. S1, S2, No m/r/g RESP: CTAB ABD: Soft, NT, ND, +BS EXT: 2+ edema. 2+ DP. No rashes NEURO: Nonfocal Internal Medicine: Result - Labs CBC & Chem 7: 09/21/17 05:42 09/21/17 05:42 Labs: Short CBC 09/21/17 Range/Units 05:42 WBC 4.9 (4.3-11.1) K/mcL Hgb 12.3 (11.5-15.4) g/dL Hct 38.7 (35.3-44.9) % Plt Count 137 L (140-400) K/mcL Neutrophils # 2.6 (1.6-8.9) K/mcL BMP 09/21/17 05:42 Sodium 137 Potassium 3.7 Chloride 100 Carbon Dioxide 28 BUN 28 H Creatinine 1.66 H Glucose 304 H Calcium 8.3 L Cardiac Enzymes 09/20/17 09/21/17 Range/Units 23:51 05:42 Troponin I 0.71 H* 0.50 H* (< 0.04) ng/mL Liver Function 09/21/17 Range/Units 05:42 Total Bilirubin 0.5 (0.3-1.0) mg/dL AST 29 (13-39) Units/L ALT 21 (7-52) Units/L Alkaline Phosphatase 70 (34-104) Units/L Albumin 3.1 L (3.5-5.7) g/dL Urine 09/21/17 Range/Units 11:50 Urine Color Yellow (Yellow) Urine Clarity Cloudy A (Clear) Urine pH 5.5 (5.0-8.0) pH Units Ur Specific [place] 1.023 (1.010-1.025) Urine Protein 30 H (Neg-Trace) mg/dL Urine Glucose (UA) Normal (Normal) mg/dL - ABG Interpretation ABG results: PT/INR, D-dimer PT 13.7 Seconds (9.4-12.1) H 09/20/17 15:29 Consult Discharge Plan - Plan Referrals: Stevan Bermeo MD [Primary Care Provider] -
[2017-09-21] MEDS ORDERED: Insulin DETEMIR 100 UNIT/ML X5UNITS SQ ONE (12:58)
[2017-09-21] MEDS: Furosemide 40 MG/4 ML VIAL IVP SCH ×2 (14:30→20:44)
[2017-09-21] MEDS: Heparin 25,000 UNIT/500 ML D5W 25,000 UNIT/500 ML BAG IVC SCH (18:11)
[2017-09-21] MEDS ORDERED: Perflutren Lipid Microsphere 1.3 ML in 0.9 % Sodium Chloride 8.7 ML IVP ONE (19:57)
[2017-09-22] MEDS: cefTRIAXone 1,000 MG in Water for inj. (sterile) 20 ML 10 ML IVP SCH (05:46)
[2017-09-22 06:05] LABS: Basophils % 0.6 %; Eosinophils # 0.4 K/mcL (0.0-0.6); Eosinophils % 7.1 %; Hemoglobin 12.2 g/dL (11.5-15.4); Immature Granulocytes % 1.5 % (0-4); Lymphocytes # 1.5 K/mcL (0.6-4.6); Lymphocytes % 24.5 %; Mean Corpuscular HGB Conc 32.1 g/dL (31.6-35.5); Mean Corpuscular Hemoglobin 28.2 pg (28.0-33.3); Mean Corpuscular Volume 87.8 fL (83.0-100.0); Mean Platelet Volume 11.1 fL (9.4-12.4); Monocytes # 0.9 K/mcL (0.0-1.3); Monocytes % 14.2 %; Neutrophils # 3.2 K/mcL (1.6-8.9); Nucleated Red Blood Cells 0.6 /100 WBC (0); Platelet Count 169 K/mcL (140-400); Red Blood Count 4.33 M/mcL (3.82-4.97); Red Cell Distribution Width 15.2 % (11.5-14.5); Segmented Neutrophils % 52.1 %
[2017-09-22 06:30] LABS: Calcium 8.7 mg/dL (8.6-10.3); Magnesium 2.2 mg/dL (1.6-2.6); Potassium 3.5 mEq/L (3.5-5.1)
--- NOTE | 2017-09-22 07:04 | Electrocardiograph Report ---
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 : [id number] Requested By: Stanley Stallworth Order Number: [id number] Reading MD: Estella Forman Measurements Intervals [place] Rate: 75 P: 38 DC: 243 QRS: -52 QRSD: 171 T: 30 QT: 415 QTc: 443 Interpretive Statements SINUS RHYTHM WITH FIRST DEGREE AV BLOCK RIGHT BUNDLE BRANCH BLOCK [120+ ms QRS DURATION, UPRIGHT V1, 40+ ms S IN I/aVL/V4/V5/V6] LEFT ANTERIOR FASCICULAR BLOCK [QRS AXIS <= -45, QR IN I, RS IN II] MODERATE VOLTAGE CRITERIA FOR LVH, CONSIDER NORMAL VARIANT [MEETS CRITERIA IN ONE OF: R(aVL), S(V1), R(V5), R(V5/V6)+S(V1)] Left axis deviation POOR R WAVE PROGRESSION Electronically Signed On 09-22-2017 7:02:55 EDT by Estella Forman
[2017-09-22] MEDS: Pregabalin 75 MG CAPSULE PO SCH ×2 (09:32→22:50)
[2017-09-22] MEDS: Insulin LISPRO 300 UNITS/3 ML VIAL SQ SCH ×4 (09:32→23:00)
[2017-09-22] MEDS: Furosemide 40 MG/4 ML VIAL IVP SCH ×2 (09:32→22:49)
[2017-09-22] MEDS: Aspirin Enteric Coated 81 MG Tablet PO SCH (09:32)
[2017-09-22] MEDS: Insulin DETEMIR 100 UNIT/ML X5UNITS SQ SCH ×2 (09:32→22:49)
--- NOTE | 2017-09-22 12:03 | Internal Med Progress Note ---
Date of Encounter: 09/22/17 Time of Encounter: 12:01 - Assessment and plan (1) NSTEMI (non-ST elevated myocardial infarction) Current Visit: Yes Status: Acute Assessment and plan: Stop heparin drip. According to cardiology we will just do medical management. Echo still pending. Aspirin and Plavix. Continue with Coreg. (2) Edema Current Visit: Yes Status: Acute Assessment and plan: Patient has lower extremity edema. c/w Lasix IV 40 BID Qualifiers: Edema type: unspecified Qualified Code(s): R60.9 - Edema, unspecified (3) Acute kidney injury Current Visit: Yes Status: Acute Assessment and plan: Patient has what seems like chronic kidney disease based on labs. Improving with diuresis. will continue. She had a creatinine of 1.12 back on 09/18 however her kidney function has always been around what she is at this visit. I suspect she has some underlying kidney disease and this may be her baseline. (4) UTI (urinary tract infection) Current Visit: No Status: Acute Assessment and plan: Continue with ceftriaxone. Follow up on cultures. Qualifiers: Urinary tract infection type: acute cystitis Hematuria presence: without hematuria Qualified Code(s): N30.00 - Acute cystitis without hematuria (5) Diabetes Current Visit: No Status: Acute Assessment and plan: Patient is on Levemir 76 units twice a day as well as sliding scale. Glucose is uncontrolled. Patient was nothing by mouth and we only gave half the dose of her Levemir this morning. We will see what her glucoses like this in the day. A1c 9.6. Qualifiers: Diabetes mellitus type: type 2 Diabetes mellitus long-term insulin use: without long-term use Diabetes mellitus complication status: with unspecified complications Qualified Code(s): E11.8 - Type 2 diabetes mellitus with unspecified complications (6) Hypertension Current Visit: No Status: Acute Qualifiers: Hypertension type: essential hypertension Qualified Code(s): I10 - Essential (primary) hypertension (7) Weakness of both lower extremities Current Visit: Yes Status: Acute (8) DVT prophylaxis Current Visit: No Status: Acute - Time Spent With Patient Total time spent is greater than 50% in coordination of care (as documented) at patient's floor/unit and/or counseling patient: - Subjective Interval history: Patient was seen and examined. No acute events overnight. Afebrile. On room air. Feels well again. Patient is admitted with NSTEMI and UTI. Currently on heparin drip. - Constitutional Vitals: Temp Pulse Resp BP Pulse Ox 97.5 F L 60 20 158/63 94 09/22/17 11:28 09/22/17 11:28 09/22/17 11:28 09/22/17 11:28 09/22/17 11:28 General appearance: Present: A&O X 3, pleasant, no acute distress, answers questions appropriately Exam: GEN: NAD CVS: RRR. S1, S2, No m/r/g RESP: CTAB ABD: Soft, NT, ND, +BS EXT: 2+ edema. 2+ DP. No rashes NEURO: Nonfocal Internal Medicine: Result - Labs CBC & Chem 7: 09/22/17 05:52 09/22/17 05:52 Labs: Short CBC 09/22/17 Range/Units 05:52 WBC 6.2 (4.3-11.1) K/mcL Hgb 12.2 (11.5-15.4) g/dL Hct 38.0 (35.3-44.9) % Plt Count 169 (140-400) K/mcL Neutrophils # 3.2 (1.6-8.9) K/mcL BMP 09/22/17 05:52 Sodium 137 Potassium 3.5 Chloride 103 Carbon Dioxide 28 BUN 27 H Creatinine 1.33 H Glucose 205 H Calcium 8.7 Cardiac Enzymes 09/21/17 Range/Units 12:11 Troponin I 0.43 H* (< 0.04) ng/mL Urine 09/21/17 Range/Units 11:50 Urine Color Yellow (Yellow) Urine Clarity Cloudy A (Clear) Urine pH 5.5 (5.0-8.0) pH Units Ur Specific [place] 1.023 (1.010-1.025) Urine Protein 30 H (Neg-Trace) mg/dL Urine Glucose (UA) Normal (Normal) mg/dL - ABG Interpretation ABG results: PT/INR, D-dimer PT 13.7 Seconds (9.4-12.1) H 09/20/17 15:29 Consult Discharge Plan - Plan Referrals: Stevan Bermeo MD [Primary Care Provider] -
[2017-09-22] MEDS ORDERED: *HR* Heparin 5,000 UNIT/ML VIAL SQ SCH (14:00)
[2017-09-22] MEDS: *HR* Heparin 5,000 UNIT/ML VIAL SQ SCH ×2 (15:12→22:50)
[2017-09-23] MEDS: cefTRIAXone 1,000 MG in Water for inj. (sterile) 20 ML 10 ML IVP SCH (06:57)
[2017-09-23] MEDS: *HR* Heparin 5,000 UNIT/ML VIAL SQ SCH ×3 (06:57→21:33)
[2017-09-23] MEDS: Pregabalin 75 MG CAPSULE PO SCH ×2 (08:08→21:32)
[2017-09-23] MEDS: Insulin DETEMIR 100 UNIT/ML X5UNITS SQ SCH ×2 (08:08→21:33)
[2017-09-23] MEDS: Furosemide 40 MG/4 ML VIAL IVP SCH ×2 (08:08→21:33)
[2017-09-23] MEDS: Aspirin Enteric Coated 81 MG Tablet PO SCH (08:08)
[2017-09-23] MEDS: Insulin LISPRO 300 UNITS/3 ML VIAL SQ SCH ×4 (08:09→21:34)
[2017-09-23] MEDS ORDERED: Insulin DETEMIR 100 UNIT/ML X5UNITS SQ ONE (11:07)
--- NOTE | 2017-09-23 11:07 | Internal Med Progress Note ---
Date of Encounter: 09/23/17 Time of Encounter: 11:05 - Assessment and plan (1) Goals of care, counseling/discussion Current Visit: Yes Status: Acute Assessment and plan: Patient will need placement. (2) NSTEMI (non-ST elevated myocardial infarction) Current Visit: Yes Status: Acute Assessment and plan: Stopped heparin drip 09/22. According to cardiology we will just do medical management. Echo still pending. Aspirin and Plavix. Continue with Coreg. (3) Edema Current Visit: Yes Status: Acute Assessment and plan: Patient has lower extremity edema. c/w Lasix IV 40 BID. net neg about 5L for stay. f/u on todays kidney function and electrolytes. Qualifiers: Edema type: unspecified Qualified Code(s): R60.9 - Edema, unspecified (4) Acute kidney injury Current Visit: Yes Status: Acute Assessment and plan: Patient has what seems like chronic kidney disease based on labs. Improving with diuresis. will continue. She had a creatinine of 1.12 back on 09/18 however her kidney function has always been around what she is at this visit. I suspect she has some underlying kidney disease and this may be her baseline. (5) UTI (urinary tract infection) Current Visit: No Status: Acute Assessment and plan: Continue with ceftriaxone. Follow up on cultures. Qualifiers: Urinary tract infection type: acute cystitis Hematuria presence: without hematuria Qualified Code(s): N30.00 - Acute cystitis without hematuria (6) Diabetes Current Visit: No Status: Acute Assessment and plan: Patient is on Levemir 76 units twice a day as well as sliding scale. Will give 10 more units this morning. Glucose is in the 200s. A1c 9.6. Qualifiers: Diabetes mellitus type: type 2 Diabetes mellitus nursing home insulin use: without ferry terminal agent use Diabetes mellitus complication status: with unspecified complications Qualified Code(s): E11.8 - Type 2 diabetes mellitus with unspecified complications (7) Hypertension Current Visit: No Status: Acute Assessment and plan: Blood pressure can be better controlled. Will add norvasc 5 mg. c/w current coreg 12.5 mg BID. HR is borderline and I will not increase it. Qualifiers: Hypertension type: essential hypertension Qualified Code(s): I10 - Essential (primary) hypertension (8) Weakness of both lower extremities Current Visit: Yes Status: Acute Assessment and plan: Bilateral lower extremity weakness is likely secondary to the fatigue and edema. PTOT to see. (9) DVT prophylaxis Current Visit: No Status: Acute Assessment and plan: Heparin drip - Time Spent With Patient Total time spent is greater than 50% in coordination of care (as documented) at patient's floor/unit and/or counseling patient: - Subjective Interval history: Patient was seen and examined. No acute events overnight. Afebrile. On room air. Feels well again. Patient is admitted with NSTEMI and UTI. Currently on heparin drip. - Constitutional Vitals: Temp Pulse Resp BP Pulse Ox 97.6 F 64 17 163/69 93 09/23/17 10:52 09/23/17 10:52 09/23/17 10:52 09/23/17 10:52 09/23/17 10:52 General appearance: Present: A&O X 3, pleasant, no acute distress, answers questions appropriately Exam: GEN: NAD CVS: RRR. S1, S2, No m/r/g RESP: CTAB ABD: Soft, NT, ND, +BS EXT: 2+ edema. 2+ DP. No rashes NEURO: Nonfocal Internal Medicine: Result - Labs CBC & Chem 7: 09/22/17 05:52 09/22/17 05:52 - ABG Interpretation ABG results: PT/INR, D-dimer PT 13.7 Seconds (9.4-12.1) H 09/20/17 15:29 Consult Discharge Plan - Plan Referrals: Stevan Bermeo MD [Primary Care Provider] -
[2017-09-23] MEDS: amLODIPine 5 MG TABLET PO SCH (12:09)
[2017-09-23 13:40] LABS: Calcium 9.3 mg/dL (8.6-10.3); Potassium 4.5 mEq/L (3.5-5.1)
--- NOTE | 2017-09-23 14:25 | Cardiology Progress Note ---
Date of Encounter: 09/23/17 Time of Encounter: 14:00 Assessment and Plan (1) Elevated troponin Current Visit: Yes Status: Acute Elevated troponin 0.72, 0.71, and 0.50 in the setting of UTI and CHRISTIAN on CKD; suspect demand ischemia. No ST/T wave changes noted on ECG. Patient is pain free upon exam. Can d/c heparin gtt after 24 hours. Will add asa. Continue betablocker, statin. No indication for cardiac rehab at this time. Recommend medical mgmt. Prelim TTE findings reviewed with Dr. Loza, EF normal. No further inpatient recommendations from CV standpoint, will sign-off. (2) Acute kidney injury Current Visit: Yes Status: Acute CHRISTIAN on CKD upon admission, 1.74. Baseline appears to be 1.3-1.4 (3) Peripheral edema Current Visit: Yes Status: Chronic Significant LE edema with possible cellulitis. Upon review, appears chronic in etiology. Defer further mgmt to primary service. Discussion w patient/family: The assessment and plan as outlined above was discussed with the patient and/or family members who expressed understanding and agreement. All questions were answered. Thank you for involving us in the care of your patient. Please call with any questions. The patient will be discussed and reviewed with Dr. Loza; changes to be made accordingly. Subjective Principal diagnosis: Elevated troponin, UTI Interval history: Seen and examined. No chest pain reported. Concern with bilateral lower extremity redness Objective Vital Signs, Last 4 Hours Temp Pulse Resp BP Pulse Ox 09/23/17 10:52 97.6 F 64 17 163/69 93 General: Conversant HEENT: Atraumatic, Normocephaly Cardiac: Reg Rate and Rhythm, Normal S1 and S2 Lungs: Normal Breath Sounds Neuro: Alert and responsive Abdomen: Soft Skin: No rashes noted on visualized skin Musculoskeletal: No Chest Wall Tenderness Extremities: Other (BLE edema/redness) Results 09/22/17 05:52 09/23/17 12:54 Lab Results 09/23/17 12:54 Sodium 141 Potassium 4.5 Chloride 102 Carbon Dioxide 32 H BUN 26 H Creatinine 1.42 H Glucose 253 H Calcium 9.3 Active Medications Amlodipine Besylate (Norvasc) 5 mg PO DAILY [facility] PRN Reason: Protocol Stop: 03/25/18 11:16 Last Admin: 09/23/17 12:09 Dose: 5 mg Aspirin (Aspirin Ec) 81 mg PO DAILY [facility] Stop: 03/23/18 10:31 Last Admin: 09/23/17 08:08 Dose: 81 mg Atorvastatin Calcium (Lipitor) 40 mg PO HS [facility] Stop: 03/22/18 22:46 Last Admin: 09/22/17 22:50 Dose: 40 mg Carvedilol (Coreg) 12.5 mg PO BIDWM [facility] Stop: 03/23/18 08:01 Last Admin: 09/23/17 08:09 Dose: Not Given Dextrose/Water (Dextrose 50% (Syg)) 25 ml IVP AD PRN PRN Reason: Hypoglycemia Stop: 03/22/18 22:38 Furosemide (Lasix) 40 mg IVP BID [facility] Stop: 03/23/18 13:01 Last Admin: 09/23/17 08:08 Dose: 40 mg Glucagon (Glucagen) 1 mg IM ONCE PRN PRN Reason: Hypoglycemia Stop: 03/22/18 22:38 Glucose (Gluctose) 15 gm PO ONCE PRN PRN Reason: Hypoglycemia Stop: 03/22/18 22:38 Glucose (Gluctose) 30 gm PO ONCE PRN PRN Reason: Hypoglycemia Stop: 03/22/18 22:38 Heparin Sodium (Porcine) (Heparin) 5,000 unit SQ Q8HCO [facility] Stop: 03/24/18 14:01 Last Admin: 09/23/17 06:57 Dose: 5,000 unit Dextrose (Dextrose 5%) 1,000 mls @ 100 mls/hr IVC .Q10H PRN PRN Reason: HYPOGLYCEMIA Stop: 03/22/18 22:38 Ceftriaxone Sodium 1,000 mg/ (Sterile Water) 10 mls @ 300 mls/hr IVP Q24H [facility] Stop: 03/24/18 06:01 Last Admin: 09/23/17 06:57 Dose: 300 mls/hr Insulin Detemir (Levemir) 76 unit SQ BID [facility] Stop: 03/23/18 09:01 Last Admin: 09/23/17 08:08 Dose: 76 unit Insulin Human Lispro (Humalog) 0 units SQ TIDAC [facility] PRN Reason: Protocol Stop: 03/23/18 07:31 Last Admin: 09/23/17 12:09 Dose: 6 units Insulin Human Lispro (Humalog) 0 units SQ HS [facility] PRN Reason: Protocol Stop: 03/23/18 21:01 Last Admin: 09/22/17 23:00 Dose: 2 units Naloxone HCl (Narcan) 0.4 mg IVP Q2MIN PRN PRN Reason: SEE COMMENTS Stop: 03/22/18 22:32 Pregabalin (Lyrica) 75 mg PO BID [facility] Stop: 03/23/18 09:01 Last Admin: 09/23/17 08:08 Dose: 75 mg - Imaging and Cardiology Echo: report reviewed - EKG Interpretation EKG results cardiology: personally reviewed Consult Discharge Plan - Plan Referrals: Stevan Bermeo MD [Primary Care Provider] -
[2017-09-24 04:08] LABS: Basophils # 0.1 K/mcL (0.0-0.2); Eosinophils # 0.3 K/mcL (0.0-0.6); Eosinophils % 3.9 %; Hemoglobin 13.4 g/dL (11.5-15.4); Immature Granulocytes % 1.6 % (0-4); Lymphocytes # 2.3 K/mcL (0.6-4.6); Mean Corpuscular HGB Conc 31.9 g/dL (31.6-35.5); Mean Corpuscular Hemoglobin 27.9 pg (28.0-33.3); Mean Corpuscular Volume 87.5 fL (83.0-100.0); Mean Platelet Volume 11.2 fL (9.4-12.4); Monocytes # 0.8 K/mcL (0.0-1.3); Platelet Count 204 K/mcL (140-400); Red Cell Distribution Width 15.1 % (11.5-14.5); Segmented Neutrophils % 52.5 %
[2017-09-24 04:39] LABS: Potassium 3.6 mEq/L (3.5-5.1)
[2017-09-24] MEDS: cefTRIAXone 1,000 MG in Water for inj. (sterile) 20 ML 10 ML IVP SCH (06:29)
[2017-09-24] MEDS: *HR* Heparin 5,000 UNIT/ML VIAL SQ SCH ×3 (06:30→20:44)
[2017-09-24] MEDS: Furosemide 40 MG/4 ML VIAL IVP SCH ×2 (08:18→17:42)
[2017-09-24] MEDS: Aspirin Enteric Coated 81 MG Tablet PO SCH (08:18)
[2017-09-24] MEDS: Pregabalin 75 MG CAPSULE PO SCH ×2 (08:18→20:44)
[2017-09-24] MEDS: amLODIPine 5 MG TABLET PO SCH (08:18)
[2017-09-24] MEDS: Insulin DETEMIR 100 UNIT/ML X5UNITS SQ SCH ×2 (08:18→21:42)
[2017-09-24] MEDS: Insulin LISPRO 300 UNITS/3 ML VIAL SQ SCH ×4 (08:19→20:45)
--- NOTE | 2017-09-24 11:49 | Internal Med Progress Note ---
Date of Encounter: 09/24/17 Time of Encounter: 11:47 - Assessment and plan (1) Goals of care, counseling/discussion Current Visit: Yes Status: Acute Assessment and plan: Patient will need placement. (2) NSTEMI (non-ST elevated myocardial infarction) Current Visit: Yes Status: Acute Assessment and plan: Stopped heparin drip 09/22. According to cardiology we will just do medical management. Echo was a difficult study. EF 60%. mild LVH. trace MR. Aspirin and Plavix. Continue with Coreg. (3) Edema Current Visit: Yes Status: Acute Assessment and plan: Patient has lower extremity edema. c/w Lasix IV 40 BID. net neg about 7L for stay. will keep going with IV lasix as long as she is here and her kidneys tolerate. Qualifiers: Edema type: unspecified Qualified Code(s): R60.9 - Edema, unspecified (4) Abdominal pain Current Visit: No Status: Acute Assessment and plan: Unclear etiology. Not tender. Will get a CT A/P. Qualifiers: Abdominal location: left upper quadrant Qualified Code(s): R10.12 - Left upper quadrant pain (5) Acute kidney injury Current Visit: Yes Status: Acute Assessment and plan: Patient has what seems like chronic kidney disease based on labs. Improving with diuresis. will continue. She had a creatinine of 1.12 back on 09/18 however her kidney function has always been around what she is at this visit. I suspect she has some underlying kidney disease and this may be her baseline. (6) CKD (chronic kidney disease) stage 3, GFR 30-59 ml/min Current Visit: Yes Status: Acute Assessment and plan: Improving with diuresis. As above (7) UTI (urinary tract infection) Current Visit: No Status: Acute Assessment and plan: Continue with ceftriaxone. Follow up on cultures. Qualifiers: Urinary tract infection type: acute cystitis Hematuria presence: without hematuria Qualified Code(s): N30.00 - Acute cystitis without hematuria (8) Diabetes Current Visit: No Status: Acute Assessment and plan: Patient is on Levemir 76 units twice a day as well as sliding scale. Will increase to 85 units BID. A1c 9.6. Qualifiers: Diabetes mellitus type: type 2 Diabetes mellitus [facility] insulin use: without [facility] use Diabetes mellitus complication status: with unspecified complications Qualified Code(s): E11.8 - Type 2 diabetes mellitus with unspecified complications (9) Hypertension Current Visit: No Status: Acute Assessment and plan: Blood pressure better controlled. c/w norvasc 5 mg added 09/23. c/w current coreg 12.5 mg BID. HR is borderline and I will not increase it. Qualifiers: Hypertension type: essential hypertension Qualified Code(s): I10 - Essential (primary) hypertension (10) Weakness of both lower extremities Current Visit: Yes Status: Acute Assessment and plan: Bilateral lower extremity weakness is likely secondary to the fatigue and edema. PTOT to see. (11) DVT prophylaxis Current Visit: No Status: Acute Assessment and plan: Heparin drip - Time Spent With Patient Total time spent is greater than 50% in coordination of care (as documented) at patient's floor/unit and/or counseling patient: - Subjective Interval history: Patient was seen and examined. No acute events overnight. She is complaining of left sided flank pain that goes into below the rib cage. No nausea. Afebrile. On room air. Feels well again. continues to diurese well. Patient is admitted with NSTEMI and UTI. Currently on heparin drip. - Constitutional Vitals: Temp Pulse Resp BP Pulse Ox 97.5 F L 59 20 159/78 94 09/24/17 07:44 09/24/17 07:44 09/24/17 07:44 09/24/17 07:44 09/24/17 09:28 General appearance: Present: A&O X 3, pleasant, no acute distress, answers questions appropriately Exam: GEN: NAD CVS: RRR. S1, S2, No m/r/g RESP: CTAB ABD: Soft, NT, ND, +BS EXT: No edema. 2+ DP. No rashes NEURO: Nonfocal Internal Medicine: Result - Labs CBC & Chem 7: 09/24/17 03:38 09/24/17 03:38 Labs: Short CBC 09/24/17 Range/Units 03:38 WBC 7.7 (4.3-11.1) K/mcL Hgb 13.4 (11.5-15.4) g/dL Hct 42.0 (35.3-44.9) % Plt Count 204 (140-400) K/mcL Neutrophils # 4.0 (1.6-8.9) K/mcL BMP 09/23/17 09/24/17 12:54 03:38 Sodium 141 140 Potassium 4.5 3.6 Chloride 102 101 Carbon Dioxide 32 H 33 H BUN 26 H 26 H Creatinine 1.42 H 1.22 H Glucose 253 H 216 H Calcium 9.3 9.0 - ABG Interpretation ABG results: PT/INR, D-dimer PT 13.7 Seconds (9.4-12.1) H 09/20/17 15:29 - Impressions Impressions Echocardiogram 09/21/17 10:26 Impressions: Findings: ADDENDUM: 09/24/17 0927 Impressions: Technically sub-optimal due to poor echocardiographic windows. Paced rhythm. Mildly dilated left atrium. Trileaflet aortic valve. Trileaflet aortic valve with normal function. Trace mitral regurgitation. Mild mitral annular calcification Mild concentric left ventricular hypertrophy. Definity used, no thrombus Trace tricuspid regurgitation. LVEF 60%., mild diastolic dysfunction Left Ventricular Wall Motion: Rest Echo Findings All wall segments showed normal motion. Findings: Study Quality * Technically adequate exam. * Technically sub-optimal due to poor echocardiographic windows. ECG Findings * Paced rhythm. Left Ventricle * LVEF 60%. * Mild concentric left ventricular hypertrophy. * There is no LV thrombus. Right Ventricle * Normal right ventricular structure and function. Left Atrium * Mildly dilated left atrium. Right Atrium * Normal right atrial size. Aortic Valve * Trileaflet aortic valve. * Trileaflet aortic valve with normal function. Mitral Valve * Normal mitral valve structure. * Trace mitral regurgitation. * Mild mitral annular calcification Tricuspid Valve * Normal tricuspid valve structure. * Trace tricuspid regurgitation. Pulmonic Valve * Pulmonic valve is not well visualized. Aorta * Normally sized aortic root. Pericardium * The pericardium appears normal. Consult Discharge Plan - Plan Referrals: Stevan Bermeo MD [Primary Care Provider] -
[2017-09-24] MEDS ORDERED: Insulin DETEMIR 100 UNIT/ML X5UNITS SQ ONE (11:52)
--- NOTE | 2017-09-25 00:19 | Event Note ---
Date of Encounter: 09/25/17 Time of Encounter: 21:41 Alerted by patient's nurse of bright red blood in patient's [place] and slight confusion which was new. Patient was on heparin drip on 09/22/17 but has since been discontinued. Patient also has subcutaneous heparin for DVT prophylaxis. Subcutaneous heparin discontinued and replaced with bilateral SCDs on LEs for DVT prophylaxis. Stat CT of the head ordered. Urology consult ordered. CT of head shows no acute abnormality. Patient will continue to be monitored closely.
[2017-09-25] MEDS: cefTRIAXone 1,000 MG in Water for inj. (sterile) 20 ML 10 ML IVP SCH (04:58)
[2017-09-25 06:25] LABS: Basophils # 0.1 K/mcL (0.0-0.2); Basophils % 0.9 %; Eosinophils # 0.3 K/mcL (0.0-0.6); Eosinophils % 3.3 %; Hematocrit 45.7 % (35.3-44.9); Hemoglobin 14.5 g/dL (11.5-15.4); Immature Granulocytes % 1.5 % (0-4); Lymphocytes # 2.3 K/mcL (0.6-4.6); Lymphocytes % 28.2 %; Mean Corpuscular HGB Conc 31.7 g/dL (31.6-35.5); Mean Corpuscular Hemoglobin 28.1 pg (28.0-33.3); Mean Corpuscular Volume 88.6 fL (83.0-100.0); Monocytes # 0.7 K/mcL (0.0-1.3); Monocytes % 8.6 %; Neutrophils # 4.6 K/mcL (1.6-8.9); Platelet Count 225 K/mcL (140-400); Red Blood Count 5.16 M/mcL (3.82-4.97); Red Cell Distribution Width 15.1 % (11.5-14.5); Segmented Neutrophils % 57.5 %
[2017-09-25 06:50] LABS: Calcium 9.6 mg/dL (8.6-10.3); Magnesium 2.4 mg/dL (1.6-2.6); Potassium 3.9 mEq/L (3.5-5.1)
--- NOTE | 2017-09-25 07:33 | Urology - Consult Note ---
Date of Encounter: 09/25/17 Time of Encounter: 07:33 - Assessment and Plan (1) Gross hematuria Current Visit: Yes Status: Acute Assessment and plan: gross hematuria has resolved today after stopping anticoagulation. recommend holding anticoagulation in future if possible. ASA should be OK. Agree with ABX but do not see a urine culture result. will send today but likely will not be positive bc ABX started prior. continue for 7 days (PO ok). Unsure why cath is iin place (immobility?). OK to remove catheter per standpoint when primary service feels no longer clinically necessary. I reviewed CT scan and agree no concerning findings. renal function has improved. no urgent cystoscopy needed. OK to follow in urology office nonurgently 4-8 weeks. will recheck urine, if persistant microhematuria may consider outpatient cystoscopy. Urology CN:CLARA Consult date: 09/25/17 Reason for consult Urology: Gross Hematuria History of present illness: new pt to the urology service. pt was on heparin drip and developed bright red blood in rhoades cath yesterday. some reported confusion. pt states that she has never seen blood in the urine. rhoades was placed at admission. ct scan yesterday was neg for any concerning abnormalities. Past Med Surg Social Fam HX - Past Medical History Medical history: diabetes, hyperlipidemia, hypertension Psychiatric history: no psych history - Past Surgical History Surgical History: , cholecystectomy, other - Social History Smoking Status: Never smoker Smokeless Tobacco Status: No Alcohol use: none Drug use: none - Family History Mother Hx Family Cancer: Yes Sister Hx Family Cancer: Yes Medications and Allergies Carvedilol 12.5 mg PO BID 04/22/15 [History] Furosemide [Lasix] 40 mg PO BID 04/22/15 [History] Pregabalin [Lyrica] 75 mg PO BID 04/22/15 [History] Simvastatin [Zocor] 20 mg PO HS 04/22/15 [History] SitaGLIPtin [Januvia] 100 mg PO DAILY 04/22/15 [History] Capsaicin [Capsaicin Hot Patch] 1 patch TP BID 09/20/17 [History] Insulin Glargine [Lantus] 76 unit IJ BID 09/20/17 [History] 3 Allergy/AdvReac Type Severity Reaction Status Date / Time canagliflozin [From Invokana] Allergy Hives Verified 09/20/17 16:03 gabapentin Allergy See Verified 09/20/17 14:11 Comments Review of Systems - Constitutional fatigue, weakness, no chills, no fever(s) - EENT Nose, mouth and throat: no dizziness - Cardiovascular no chest pain - Gastrointestinal no abdominal pain - Genitourinary Genitourinary: difficulty voiding - Musculoskeletal back pain - Integumentary no erythema - Neurological confusion - Psychiatric confusion - Hematologic/Lymphatic easy bleeding - Allergic/Immunologic no throat swelling Exam Initial Vital Signs Temp Pulse Resp BP Pulse Ox 98.6 F 78 18 110/53 91 09/20/17 12:09 09/20/17 12:09 09/20/17 12:09 09/20/17 12:09 09/20/17 12:09 - General physical appearance Present: no distress, chronically ill - Eyes Present: PERRL, conjunctiva is clear - ENT Present: normal nares, no hearing loss - Neck Present: no masses, no lymphadenopathy - Respiratory Present: normal respiratory effort - Abdomen Abdomen: Present: soft - Genitourinary Present: other (rhoades cath in place with clear urine. ) - Integumentary Present: no rash - Neurologic Present: normal coordination. Absent: disoriented, confused - Additional Findings obese. Urology Results - Labs 09/25/17 06:07 09/25/17 06:07 Abnormal lab results RBC 5.16 M/mcL (3.82-4.97) H 09/25/17 06:07 Hct 45.7 % (35.3-44.9) H 09/25/17 06:07 RDW 15.1 % (11.5-14.5) H 09/25/17 06:07 Nucleated RBCs/100 WBC 0.6 /100 WBC (0) H 09/22/17 05:52 PT 13.7 Seconds (9.4-12.1) H 09/20/17 15:29 APTT 58.2 Seconds (26.0-36.0) H 09/21/17 22:15 Carbon Dioxide 33 mEq/L (23-29) H 09/25/17 06:07 BUN 27 mg/dL (8-23) H 09/25/17 06:07 Creatinine 1.26 mg/dL (0.60-1.20) H 09/25/17 06:07 Est GFR ( Amer) 50 (> 60) L 09/25/17 06:07 Est GFR (Non-Af Amer) 41 (> 60) L 09/25/17 06:07 Glucose 137 mg/dL (70-105) H 09/25/17 06:07 POC Glucose 184 mg/dL (70-99) H 09/24/17 17:23 Hemoglobin A1c 9.6 % (-5.6) H 09/20/17 23:51 Troponin I 0.43 ng/mL (< 0.04) H* 09/21/17 12:11 B-Natriuretic Peptide 141 pg/mL (Less than 100) H 09/21/17 05:42 Serum Total Protein 6.0 g/dL (6.4-8.9) L 09/21/17 05:42 Albumin 3.1 g/dL (3.5-5.7) L 09/21/17 05:42 Triglycerides 154 mg/dL (< 150) H 09/21/17 05:42 VLDL Cholesterol, Calc 31 mg/dL (< 31) H 09/21/17 05:42 HDL Cholesterol 21 mg/dL (40-59) L 09/21/17 05:42 Urine Clarity Cloudy (Clear) A 09/21/17 11:50 Urine Protein 30 mg/dL (Neg-Trace) H 09/21/17 11:50 Urine Blood Large (Negative) H 09/21/17 11:50 Ur Leukocyte Esterase Trace (Negative) H 09/21/17 11:50 Urine Microscopic RBC TNTC per hpf (0-3) H 09/21/17 11:50 Urine Microscopic WBC 3-5 per hpf (0-3) H 09/21/17 11:50 Amorphous Sediment Moderate (Few) H 09/20/17 14:50 Ur Culture Indicated? YES (NO) A 09/21/17 11:50 Diabetes panel 09/25/17 Range/Units 06:07 Sodium 141 (136-145) mEq/L Potassium 3.9 (3.5-5.1) mEq/L Chloride 100 (98-107) mEq/L Carbon Dioxide 33 H (23-29) mEq/L BUN 27 H (8-23) mg/dL Creatinine 1.26 H (0.60-1.20) mg/dL Glucose 137 H (70-105) mg/dL Calcium 9.6 (8.6-10.3) mg/dL Calcium panel 09/25/17 Range/Units 06:07 Calcium 9.6 (8.6-10.3) mg/dL Pituitary panel 09/25/17 Range/Units 06:07 Sodium 141 (136-145) mEq/L Potassium 3.9 (3.5-5.1) mEq/L Chloride 100 (98-107) mEq/L Carbon Dioxide 33 H (23-29) mEq/L BUN 27 H (8-23) mg/dL Creatinine 1.26 H (0.60-1.20) mg/dL Glucose 137 H (70-105) mg/dL Calcium 9.6 (8.6-10.3) mg/dL Adrenal panel 09/25/17 Range/Units 06:07 Sodium 141 (136-145) mEq/L Potassium 3.9 (3.5-5.1) mEq/L Chloride 100 (98-107) mEq/L Carbon Dioxide 33 H (23-29) mEq/L BUN 27 H (8-23) mg/dL Creatinine 1.26 H (0.60-1.20) mg/dL Glucose 137 H (70-105) mg/dL Calcium 9.6 (8.6-10.3) mg/dL All other labs normal. Consult Discharge Plan - Plan Referrals: Stevan Bermeo MD [Primary Care Provider] -
[2017-09-25] MEDS: Insulin LISPRO 300 UNITS/3 ML VIAL SQ SCH ×3 (08:15→17:09)
[2017-09-25] MEDS: Aspirin Enteric Coated 81 MG Tablet PO SCH (08:16)
[2017-09-25] MEDS: amLODIPine 5 MG TABLET PO SCH (08:16)
[2017-09-25] MEDS: Furosemide 40 MG/4 ML VIAL IVP SCH ×2 (08:16→16:05)
[2017-09-25] MEDS: Pregabalin 75 MG CAPSULE PO SCH (08:16)
[2017-09-25] MEDS: Insulin DETEMIR 100 UNIT/ML X5UNITS SQ SCH (08:22)
[2017-09-25] MEDS ORDERED: Nystatin POWDER 30 GM BOTTLE TP SCH (09:00)
--- NOTE | 2017-09-25 09:22 | Discharge Summary ---
Orders not resulted at time of discharge: Pending orders 09/20/17 23:51 Culture,Blood [BC] Routine Culture,Blood,Additional [BC] Routine 09/25/17 07:39 Culture,Urine [RM] Routine Date of Encounter: 09/25/17 Time of Encounter: 09:20 - Discharge Diagnosis (1) NSTEMI (non-ST elevated myocardial infarction) Priority: Primary Status: Acute (2) Edema Priority: Primary Status: Acute Qualifiers: Edema type: unspecified Qualified Code(s): R60.9 - Edema, unspecified (3) Abdominal pain Priority: Primary Status: Acute Qualifiers: Abdominal location: left upper quadrant Qualified Code(s): R10.12 - Left upper quadrant pain (4) Acute kidney injury Priority: Primary Status: Acute (5) CKD (chronic kidney disease) stage 3, GFR 30-59 ml/min Priority: Secondary Status: Acute (6) UTI (urinary tract infection) Priority: Primary Status: Acute Qualifiers: Urinary tract infection type: acute cystitis Hematuria presence: without hematuria Qualified Code(s): N30.00 - Acute cystitis without hematuria (7) Diabetes Priority: Secondary Status: Acute Qualifiers: Diabetes mellitus type: type 2 Diabetes mellitus half-way insulin use: without half-way use Diabetes mellitus complication status: with unspecified complications Qualified Code(s): E11.8 - Type 2 diabetes mellitus with unspecified complications (8) Hypertension Priority: Secondary Status: Acute Qualifiers: Hypertension type: essential hypertension Qualified Code(s): I10 - Essential (primary) hypertension (9) Weakness of both lower extremities Priority: Secondary Status: Acute Hospital course: Ms. Pop is a 82 year old female who past medical history diabetes, hypertension, hyperlipidemia who presented with worsening UTI. She was being treated as a urinary tract infection by her primary care and noticed that his symptoms were worsening and was feeling more weak. When she presented to the emergency department she had workup that showed elevated troponins as well as a positive UA. She was put on IV antibiotics but cultures remained negative. She was admitted with a consult to cardiology. An echocardiogram showed an EF of 60%. Cardiology suspected that the patient's elevation in her troponins were in the setting of UTI, CHRISTIAN on CKD representing demand ischemia. Heparin drip that was started on initial presentation was stopped 24 hours later. Aspirin was added to her beta gena and statin. They had no further recommendations from their standpoint. As hospitalist we continue to treat her urine infection and ended up discharging her on oral Levaquin. She only has 2 more doses of that. The patient was also noted to have some generalized edema for which she was diuresed. Initial chest x-ray did show some signs of mild vascular congestion. The patient had initial CT head that was negative. She also had a repeat of the CT had while she was hospitalized for signs of confusion that happen at night which was also negative. The patient had some episode of hematuria while hospitalized for which urology saw and the hematuria was transient and resolved. She was on aspirin and urology had no issues with continuing that. She was discharged to half-way facility on 09/25 in a stable condition. - Time Spent with Patient Total time spent providing and/or coordinating discharge services: Greater than 30 minutes - Discharge Medications Prescriptions: Aspirin Enteric Coated [Aspirin EC] 81 mg PO DAILY #30 tablet. Levofloxacin [Levaquin] 500 mg PO DAILY #2 tablet Home Medications: Carvedilol 12.5 mg PO BID 04/22/15 [History] Furosemide [Lasix] 40 mg PO BID 04/22/15 [History] Pregabalin [Lyrica] 75 mg PO BID 04/22/15 [History] Simvastatin [Zocor] 20 mg PO HS 04/22/15 [History] SitaGLIPtin [Januvia] 100 mg PO DAILY 04/22/15 [History] Capsaicin [Capsaicin Hot Patch] 1 patch TP BID 09/20/17 [History] Insulin Glargine [Lantus] 76 unit IJ BID 09/20/17 [History] Aspirin Enteric Coated [Aspirin EC] 81 mg PO DAILY #30 tablet. 09/25/17 [Rx] Levofloxacin [Levaquin] 500 mg PO DAILY #2 tablet 09/25/17 [Rx] Allergies/Adverse Reactions: 3 Allergy/AdvReac Type Severity Reaction Status Date / Time canagliflozin [From Invokana] Allergy Hives Verified 09/20/17 16:03 gabapentin Allergy See Verified 09/20/17 14:11 Comments Date of admission: 09/20/17 15:55 Primary care physician: Stevan Bermeo MD Consults: 09/20/17 15:56 Consult to Cardiology [CONS] Stat Comment: Consulting Provider: [facility] [place] Reason for Consult: NSTEMI Trop 0.72 Time Notified: 15:56 Call Completed: Yes 09/21/17 08:38 Consult to Occupational Therapy [CONS] Routine Comment: Evaluate, develop and implement POC Reason for Consult: ble weak and cannot amb now Does patient have active BEDREST order?: No Is patient medically & hemodynamically stable?: Yes Consult to Physical Therapy [CONS] Routine Comment: Evaluate, develop and implement POC Reason for Consult: ble weak and cannot walk now Does patient have active BEDREST order?: No Is patient medically & hemodynamically stable?: Yes 09/24/17 21:49 Consult to Urology [CONS] Routine Consulting Provider: Urology [facility] Reason for Consult: Patient is beginning to have bright red in [place] bag. Admitted w/UTI. Was on heparin drip that was DCd on the . SQ heparin stopped for DVT prophylaxis and replaced w/SCDs bilaterally. Call Completed: Yes - Constitutional Vitals: Temp Pulse Resp BP Pulse Ox 97.5 F L 60 20 123/69 92 09/25/17 06:40 09/25/17 06:40 09/25/17 06:40 09/25/17 06:40 09/25/17 06:40 General appearance: Present: A&O X 3, pleasant, no acute distress, answers questions appropriately Exam: GEN: NAD CVS: RRR. S1, S2, No m/r/g RESP: CTAB ABD: Soft, NT, ND, +BS EXT: No edema. 2+ DP. No rashes NEURO: Nonfocal - Patient Status Disposition: Transfer SNF Condition: Fair Overall status at discharge: patient is progressing back to baseline - Discharge Instructions Follow Up With: Booker Loza DO [Partnered Physician] - (2 weeks) Stevan Bermeo MD [Primary Care Provider] - (Please follow up as schedule... Office will call patient for an appt.) - Diet and Activity Activity: increase activity as tolerated Diet: diabetic diet, low salt diet - VTE Documentation of Mechanical Device: Intermittent pneumatic compression device
[2017-09-25 15:15] VITALS: BP 132/70
--- NOTE | 2017-09-25 15:56 | Physician Discharge Referral ---
ExtendedCare Referral Info Institutional Level of Care: Skilled - Diagnosis (1) NSTEMI (non-ST elevated myocardial infarction) Priority: Primary Status: Acute (2) Edema Priority: Primary Status: Acute (3) Abdominal pain Priority: Primary Status: Acute (4) Acute kidney injury Priority: Primary Status: Acute (5) CKD (chronic kidney disease) stage 3, GFR 30-59 ml/min Priority: Secondary Status: Acute (6) UTI (urinary tract infection) Priority: Primary Status: Acute (7) Diabetes Priority: Secondary Status: Acute (8) Hypertension Priority: Secondary Status: Acute (9) Weakness of both lower extremities Priority: Primary Status: Acute - Transfer Medications Prescriptions: Aspirin Enteric Coated [Aspirin EC] 81 mg PO DAILY #30 tablet. Levofloxacin [Levaquin] 500 mg PO DAILY #2 tablet Home Medications: Carvedilol 12.5 mg PO BID 04/22/15 [History] Furosemide [Lasix] 40 mg PO BID 04/22/15 [History] Pregabalin [Lyrica] 75 mg PO BID 04/22/15 [History] Simvastatin [Zocor] 20 mg PO HS 04/22/15 [History] SitaGLIPtin [Januvia] 100 mg PO DAILY 04/22/15 [History] Capsaicin [Capsaicin Hot Patch] 1 patch TP BID 09/20/17 [History] Insulin Glargine [Lantus] 76 unit IJ BID 09/20/17 [History] Aspirin Enteric Coated [Aspirin EC] 81 mg PO DAILY #30 tablet. 09/25/17 [Rx] Levofloxacin [Levaquin] 500 mg PO DAILY #2 tablet 09/25/17 [Rx] Allergies/Adverse Reactions: 3 Allergy/AdvReac Type Severity Reaction Status Date / Time canagliflozin [From Invokana] Allergy Hives Verified 09/20/17 16:03 gabapentin Allergy See Verified 09/20/17 14:11 Comments - Respiratory Orders Smoking Cessation: Smoking cessation has been advised. For more information, call the [place] [employer] Quit Line at 4-179-QLWG-NOW. - Diet Orders Regular (Diabetic/cardiac diet), Cardiac CERTIFICATION: I certify that the transfer of the above named patient to an Extended Care Facility is necessary for the continuing treatment of the diagnosis listed. The above information is true and accurate reflection of patient's current condition. Confidential - Redisclosure prohibited without a patient's written consent.
--- NOTE | 2017-09-28 12:10 | Electrocardiograph Report ---
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
== END 2017-09-25 17:55 | DRG 281 ==
LOC: EMEROO 12:05 → 2ANU 15:55
PROVIDERS: ADMIT Internal Medicine; ATTEND Internal Medicine

== ENCOUNTER 2017-10-31 10:01 | Inpatient (IN) ==
[2017-10-31] MEDS ORDERED: Nitroglycerin 1 INCH/GM PACKET TP ONE (10:26)
[2017-10-31] MEDS ORDERED: Nitroglycerin 0.4 MG TAB.SUBL SL ONE (10:26)
[2017-10-31] MEDS ORDERED: Furosemide 40 MG/4 ML VIAL IVP ONE (10:27)
[2017-10-31 10:43] LABS: Basophils % 0.5 %; Eosinophils % 0.5 %; Hematocrit 41.9 % (35.3-44.9); Hemoglobin 13.5 g/dL (11.5-15.4); Immature Granulocytes % 1.1 % (0-4); Lymphocytes # 0.9 K/mcL (0.6-4.6); Lymphocytes % 13.5 %; Mean Corpuscular HGB Conc 32.2 g/dL (31.6-35.5); Mean Corpuscular Hemoglobin 28.8 pg (28.0-33.3); Mean Corpuscular Volume 89.3 fL (83.0-100.0); Mean Platelet Volume 11.5 fL (9.4-12.4); Monocytes # 0.9 K/mcL (0.0-1.3); Monocytes % 14.6 %; Neutrophils # 4.4 K/mcL (1.6-8.9); Platelet Count 186 K/mcL (140-400); Red Blood Count 4.69 M/mcL (3.82-4.97); Red Cell Distribution Width 15.6 % (11.5-14.5); Segmented Neutrophils % 69.8 %
[2017-10-31 10:54] LABS: Troponin I < 0.03 ng/mL (< 0.04)
[2017-10-31 10:55] LABS: BUN/Creatinine Ratio 36 (6-26); Blood Urea Nitrogen 69 mg/dL (8-23); Calcium 9.4 mg/dL (8.6-10.3); Carbon Dioxide 35 mEq/L (23-29); Chloride 93 mEq/L (98-107); Glucose 220 mg/dL (70-105); Osmolality,Calculated 311 (280-300); Potassium 3.7 mEq/L (3.5-5.1); Sodium 137 mEq/L (136-145); eGFR For African Americans 31 (> 60); eGFR For Non-African Americans 25 (> 60)
[2017-10-31 11:06] LABS: Bilirubin,Urine Negative (Negative); Blood,Urine Negative (Negative); Clarity,Urine Clear (Clear); Color,Urine Yellow (Yellow); Glucose,Urine (UA) Normal (Normal); Ketones,Urine Negative (Negative); Leukocyte Esterase,Urine Negative (Negative); Nitrite,Urine Negative (Negative); Protein,Urine Negative (Neg-Trace); Specific Gravity,Urine 1.021 (1.010-1.025); Urobilinogen,Urine Normal (Normal)
--- NOTE | 2017-10-31 11:38 | Emergency Department Note ---
Disposition Clinical Impression: Second degree AV block, Peripheral edema, CKD (chronic kidney disease) stage 4 , GFR 15-29 ml/min Toe injury Qualifiers: Encounter type: initial encounter Laterality: left Qualified Code(s): S99.922A - Unspecified injury of left foot, initial encounter CHF exacerbation Qualifiers: Heart failure type: unspecified Qualified Code(s): I50.9 - Heart failure, unspecified Disposition: Admitted As Inpatient Condition: Good General Adult HPI - General Chief complaint: ED Shortness of Breath/Dyspnea Stated complaint: BRENDAN Time Seen by Provider: 10/31/17 10:14 Source: patient, family Limitations: no limitations - History of Present Illness Pain Scale: 0 - Related Data Home Medications Medication Instructions Recorded Confirmed Carvedilol 12.5 mg PO BID 04/22/15 10/31/17 Insulin Glargine [Lantus] 68 unit SQ DAILY PRN 09/20/17 10/31/17 Albuterol Sulfate [Proair Hfa] 2 puff IH Q4-6H PRN 10/31/17 10/31/17 Bumetanide 2 mg PO BID 10/31/17 10/31/17 Donepezil [Aricept] 10 mg PO HS 10/31/17 10/31/17 Guaifenesin [Mucinex] 600 - 1,200 mg PO QPM 10/31/17 10/31/17 Pregabalin [Lyrica] 75 mg PO BID 10/31/17 10/31/17 Simvastatin [Zocor] 20 mg PO HS 10/31/17 10/31/17 SitaGLIPtin [Januvia] 100 mg PO DAILY 10/31/17 10/31/17 Previous Rx's Medication Instructions Recorded Aspirin Enteric Coated [Aspirin EC] 81 mg PO DAILY #30 tablet. 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: Reports: no MANAGER [employer] history - Social History Smoking Status: Never smoker Smokeless Tobacco Status: No Alcohol use: Reports: none Drug use: Reports: none Physical Exam - General Limitations: no limitations General appearance: alert, in no apparent distress Course Vital Signs Temperature 97.7 F 10/31/17 10:02 Pulse Rate 70 10/31/17 10:02 Respiratory Rate 22 10/31/17 10:02 Blood Pressure 156/62 10/31/17 10:02 O2 Sat by Pulse Oximetry 75 10/31/17 10:02 Temperature 97.5 F L 10/31/17 16:45 Pulse Rate 63 10/31/17 16:45 Respiratory Rate 18 10/31/17 17:14 Blood Pressure 148/76 10/31/17 16:45 O2 Sat by Pulse Oximetry 98 10/31/17 17:14 Oxygen Delivery Oxygen Delivery Nasal Cannula Medical Decision Making - Lab Data Result diagrams: 10/31/17 10:20 10/31/17 10:20 Lab Results 10/31/17 10/31/17 10/31/17 Range/Units 10:20 10:20 10:20 WBC 6.3 (4.3-11.1) K/mcL RBC 4.69 (3.82-4.97) M/mcL Hgb 13.5 (11.5-15.4) g/dL Hct 41.9 (35.3-44.9) % MCV 89.3 (83.0-100.0) fL MCH 28.8 (28.0-33.3) pg MCHC 32.2 (31.6-35.5) g/dL RDW 15.6 H (11.5-14.5) % Plt Count 186 (140-400) K/mcL MPV 11.5 (9.4-12.4) fL Immature Gran % 1.1 (0-4) % Seg Neutrophils % 69.8 % Lymphocytes % 13.5 % Monocytes % 14.6 % Eosinophils % 0.5 % Basophils % 0.5 % Neutrophils # 4.4 (1.6-8.9) K/mcL Lymphocytes # 0.9 (0.6-4.6) K/mcL Monocytes # 0.9 (0.0-1.3) K/mcL Eosinophils # 0.0 (0.0-0.6) K/mcL Basophils # 0.0 (0.0-0.2) K/mcL Sodium 137 (136-145) mEq/L Potassium 3.7 (3.5-5.1) mEq/L Chloride 93 L (98-107) mEq/L Carbon Dioxide 35 H (23-29) mEq/L BUN 69 H (8-23) mg/dL Creatinine 1.90 H (0.60-1.20) mg/dL Est GFR ( Amer) 31 L (> 60) Est GFR (Non-Af Amer) 25 L (> 60) BUN/Creatinine Ratio 36 H (6-26) Glucose 220 H (70-105) mg/dL Calculated Osmolality 311 H (280-300) Lactic Acid (0.5-2.2) mmol/L Calcium 9.4 (8.6-10.3) mg/dL Troponin I < 0.03 (< 0.04) ng/mL B-Natriuretic Peptide 287 H (Less than 100) pg/mL Urine Color (Yellow) Urine Clarity (Clear) Urine pH (5.0-8.0) pH Units Ur Specific [place] (1.010-1.025) Urine Protein (Neg-Trace) mg/dL Urine Glucose (UA) (Normal) mg/dL Urine Ketones (Negative) mg/dL Urine Blood (Negative) Urine Nitrite (Negative) Urine Bilirubin (Negative) Urine Urobilinogen (Normal) mg/dL Ur Leukocyte Esterase (Negative) Ur Culture Indicated? (NO) 10/31/17 10/31/17 Range/Units 10:33 10:45 WBC (4.3-11.1) K/mcL RBC (3.82-4.97) M/mcL Hgb (11.5-15.4) g/dL Hct (35.3-44.9) % MCV (83.0-100.0) fL MCH (28.0-33.3) pg MCHC (31.6-35.5) g/dL RDW (11.5-14.5) % Plt Count (140-400) K/mcL MPV (9.4-12.4) fL Immature Gran % (0-4) % Seg Neutrophils % % Lymphocytes % % Monocytes % % Eosinophils % % Basophils % % Neutrophils # (1.6-8.9) K/mcL Lymphocytes # (0.6-4.6) K/mcL Monocytes # (0.0-1.3) K/mcL Eosinophils # (0.0-0.6) K/mcL Basophils # (0.0-0.2) K/mcL Sodium (136-145) mEq/L Potassium (3.5-5.1) mEq/L Chloride (98-107) mEq/L Carbon Dioxide (23-29) mEq/L BUN (8-23) mg/dL Creatinine (0.60-1.20) mg/dL Est GFR ( Amer) (> 60) Est GFR (Non-Af Amer) (> 60) BUN/Creatinine Ratio (6-26) Glucose (70-105) mg/dL Calculated Osmolality (280-300) Lactic Acid 0.9 (0.5-2.2) mmol/L Calcium (8.6-10.3) mg/dL Troponin I (< 0.04) ng/mL B-Natriuretic Peptide (Less than 100) pg/mL Urine Color Yellow (Yellow) Urine Clarity Clear (Clear) Urine pH 5.0 (5.0-8.0) pH Units Ur Specific [place] 1.021 (1.010-1.025) Urine Protein Negative (Neg-Trace) mg/dL Urine Glucose (UA) Normal (Normal) mg/dL Urine Ketones Negative (Negative) mg/dL Urine Blood Negative (Negative) Urine Nitrite Negative (Negative) Urine Bilirubin Negative (Negative) Urine Urobilinogen Normal (Normal) mg/dL Ur Leukocyte Esterase Negative (Negative) Ur Culture Indicated? NO (NO) Attestation Statement - Attestation Attestation: I examined this patient and my medical decision-making was reviewed with the COMMERCIAL REAL ESTATE ASSOCIATE/PA/Advanced Practice Nurse/Resident Physician. I agree with the documented findings, disposition and treatment plan as described except to the extent set forth below. I did see the patient is spoke with an examine her. Bilateral wheezing and crackles, I did review the past record, recent echocardiogram 60% ejection fraction however the patient has had a 40 pound weight gain in the last 1-2 weeks and she does have massive lower extremity edema and cardiomegaly with vascular congestion on her chest x-ray and the patient did receive IV Lasix, sublingual nitroglycerin, nitroglycerin paste will be admitted to the hospital. Initial oxygen saturation 70%. She is not on home oxygen. [id number]
--- NOTE | 2017-10-31 12:11 | Emergency Department Note ---
Disposition Clinical Impression: Second degree AV block, Peripheral edema, CKD (chronic kidney disease) stage 4 , GFR 15-29 ml/min Toe injury Qualifiers: Encounter type: initial encounter Laterality: left Qualified Code(s): S99.922A - Unspecified injury of left foot, initial encounter CHF exacerbation Qualifiers: Heart failure type: unspecified Qualified Code(s): I50.9 - Heart failure, unspecified Disposition: Admitted As Inpatient Condition: Good Referrals: Stevan Bermeo [Other] - 11/09/17 3:00 pm Time of Disposition: 13:00 General Adult HPI - General Chief complaint: ED Shortness of Breath/Dyspnea Stated complaint: BRENDAN Time Seen by Provider: 10/31/17 10:14 Source: patient, family Limitations: no limitations Nursing Notes Reviewed: Yes Vital Signs Reviewed: Yes - History of Present Illness HPI Narrative: Patient is an 82-year-old female that presents the emergency department for shortness of breath. Patient states that she has had increase in weight gain, increased swelling in her legs and her symptoms are worse when she lays flat. Patient denies any chest pain but states that she has been feeling more short of breath over the past few days. Family at bedside says that she has a history of CHF. Patient does state that she has been coughing. Family member states that she has been having to sleep in a recliner due to becoming short of breath when she lays completely flat. Patient denies any fevers or chills or any other symptoms at this time. Pain Scale: 0 - Related Data Home Medications Medication Instructions Recorded Confirmed Carvedilol 12.5 mg PO BID 04/22/15 09/20/17 Insulin Glargine [Lantus] 76 unit IJ BID 09/20/17 09/20/17 Albuterol Sulfate [Proair Hfa] 2 puff IH Q4-6H PRN 10/31/17 10/31/17 Bumetanide 2 mg PO BID 10/31/17 10/31/17 Donepezil [Aricept] 10 mg PO HS 10/31/17 10/31/17 Guaifenesin [Mucinex] 600 - 1,200 mg PO QPM 10/31/17 10/31/17 Pregabalin [Lyrica] 75 mg PO BID 10/31/17 10/31/17 Simvastatin [Zocor] 20 mg PO HS 10/31/17 10/31/17 SitaGLIPtin [Januvia] 100 mg PO DAILY 10/31/17 10/31/17 Previous Rx's Medication Instructions Recorded Aspirin Enteric Coated [Aspirin EC] 81 mg PO DAILY #30 tablet. 09/25/17 Allergies Allergy/AdvReac Type Severity Reaction Status Date / Time canagliflozin [From Invokana] Allergy Hives Verified 10/31/17 10:05 gabapentin Allergy See Verified 10/31/17 10:05 Comments All systems ED: reviewed and negative except as stated. Constitutional: Denies: fever, chills Cardiovascular: Reports: dyspnea on exertion, orthopnea, edema. 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 history - Social History Smoking Status: Never smoker Smokeless Tobacco Status: No Alcohol use: Reports: none Drug use: Reports: none Physical Exam - General Limitations: no limitations General appearance: alert, in no apparent distress - Head Head exam: atraumatic, normocephalic - Eye Eye exam: Present: normal appearance, EOMI - Neck Neck exam: Present: normal inspection, full ROM, trachea midline - Respiratory Respiratory exam: Present: other (crackels bilaterally) - Cardiovascular Cardiovascular exam: Present: irregular rhythm, normal heart sounds, +S2 - Abdominal Exam Abdominal exam: Present: soft, Non-Tender, normal bowel sounds - Extremities Exam Extremities exam: Present: other (She has 2+ pedal edema bilateral lower extremities with chronic stasis changes to bilateral lower extremities. Patient does have an injury to the left great toe.) - Neurological Exam Neurological exam: Present: alert, oriented X3 - Psychiatric Psychiatric exam: Present: normal affect, normal mood - Skin Skin exam: Present: warm, dry, other (break in the skin on the left great toe) Course - Consultations Consultation #1: Called and spoke with Dr. Vanessa and he is aware of the patient and stated that he would see her in consult. A consult has been placed in [facility] Time: 14:34 Vital Signs Temperature 97.7 F 10/31/17 10:02 Pulse Rate 70 10/31/17 10:02 Respiratory Rate 22 10/31/17 10:02 Blood Pressure 156/62 10/31/17 10:02 O2 Sat by Pulse Oximetry 75 10/31/17 10:02 Temperature 97.5 F L 10/31/17 16:45 Pulse Rate 63 10/31/17 16:45 Respiratory Rate 18 10/31/17 17:14 Blood Pressure 148/76 10/31/17 16:45 O2 Sat by Pulse Oximetry 98 10/31/17 17:14 Oxygen Delivery Oxygen Delivery Nasal Cannula Medical Decision Making - MDM Narrative Medical decision making narrative: Due to the patient having significant worsening of her shortness of breath and requiring oxygen upon arrival here at the emergency Department feel that the patient will need admission to the hospital for further evaluation and management. Basic laboratory testing will be obtained. CBC, BMP, troponin chest x-ray and EKG. The patient has a negative troponin, an elevated BNP, her creatinine is elevated this appears to be chronic for her. The patient's EKG showed possible second-degree AV block. There is intermittent second degree type I versus second-degree type II AV block. Cardiology was called and notified that there was concern for possible second-degree AV block. The patient was placed on pacer pads and atropine was brought to bedside. The patient will need to be admitted to the hospital for further evaluation and management. I spoke with Dr. Allen and she has accepted the patient to their service. The patient will be admitted to the hospital for further evaluation and management. Due to the patient also having a injury to her left great toe patient was started on IV antibiotics here in the emergency department and podiatry was consult and. Dr. Vanessa was called and notified of the patient he stated that he would see the patient in consult. - Medical Records Medical records reviewed: Yes I reviewed the patient's medical records. - Lab Data Lab results reviewed: Yes I reviewed the patient's lab results. Result diagrams: 10/31/17 10:20 10/31/17 10:20 Lab Results 10/31/17 10/31/17 10/31/17 Range/Units 10:20 10:20 10:20 WBC 6.3 (4.3-11.1) K/mcL RBC 4.69 (3.82-4.97) M/mcL Hgb 13.5 (11.5-15.4) g/dL Hct 41.9 (35.3-44.9) % MCV 89.3 (83.0-100.0) fL MCH 28.8 (28.0-33.3) pg MCHC 32.2 (31.6-35.5) g/dL RDW 15.6 H (11.5-14.5) % Plt Count 186 (140-400) K/mcL MPV 11.5 (9.4-12.4) fL Immature Gran % 1.1 (0-4) % Seg Neutrophils % 69.8 % Lymphocytes % 13.5 % Monocytes % 14.6 % Eosinophils % 0.5 % Basophils % 0.5 % Neutrophils # 4.4 (1.6-8.9) K/mcL Lymphocytes # 0.9 (0.6-4.6) K/mcL Monocytes # 0.9 (0.0-1.3) K/mcL Eosinophils # 0.0 (0.0-0.6) K/mcL Basophils # 0.0 (0.0-0.2) K/mcL Sodium 137 (136-145) mEq/L Potassium 3.7 (3.5-5.1) mEq/L Chloride 93 L (98-107) mEq/L Carbon Dioxide 35 H (23-29) mEq/L BUN 69 H (8-23) mg/dL Creatinine 1.90 H (0.60-1.20) mg/dL Est GFR ( Amer) 31 L (> 60) Est GFR (Non-Af Amer) 25 L (> 60) BUN/Creatinine Ratio 36 H (6-26) Glucose 220 H (70-105) mg/dL Calculated Osmolality 311 H (280-300) Lactic Acid (0.5-2.2) mmol/L Calcium 9.4 (8.6-10.3) mg/dL Troponin I < 0.03 (< 0.04) ng/mL B-Natriuretic Peptide 287 H (Less than 100) pg/mL Urine Color (Yellow) Urine Clarity (Clear) Urine pH (5.0-8.0) pH Units Ur Specific [place] (1.010-1.025) Urine Protein (Neg-Trace) mg/dL Urine Glucose (UA) (Normal) mg/dL Urine Ketones (Negative) mg/dL Urine Blood (Negative) Urine Nitrite (Negative) Urine Bilirubin (Negative) Urine Urobilinogen (Normal) mg/dL Ur Leukocyte Esterase (Negative) Ur Culture Indicated? (NO) 10/31/17 10/31/17 10/31/17 Range/Units 10:33 10:45 15:42 WBC (4.3-11.1) K/mcL RBC (3.82-4.97) M/mcL Hgb (11.5-15.4) g/dL Hct (35.3-44.9) % MCV (83.0-100.0) fL MCH (28.0-33.3) pg MCHC (31.6-35.5) g/dL RDW (11.5-14.5) % Plt Count (140-400) K/mcL MPV (9.4-12.4) fL Immature Gran % (0-4) % Seg Neutrophils % % Lymphocytes % % Monocytes % % Eosinophils % % Basophils % % Neutrophils # (1.6-8.9) K/mcL Lymphocytes # (0.6-4.6) K/mcL Monocytes # (0.0-1.3) K/mcL Eosinophils # (0.0-0.6) K/mcL Basophils # (0.0-0.2) K/mcL Sodium (136-145) mEq/L Potassium (3.5-5.1) mEq/L Chloride (98-107) mEq/L Carbon Dioxide (23-29) mEq/L BUN (8-23) mg/dL Creatinine (0.60-1.20) mg/dL Est GFR ( Amer) (> 60) Est GFR (Non-Af Amer) (> 60) BUN/Creatinine Ratio (6-26) Glucose (70-105) mg/dL Calculated Osmolality (280-300) Lactic Acid 0.9 (0.5-2.2) mmol/L Calcium (8.6-10.3) mg/dL Troponin I 0.03 (< 0.04) ng/mL B-Natriuretic Peptide (Less than 100) pg/mL Urine Color Yellow (Yellow) Urine Clarity Clear (Clear) Urine pH 5.0 (5.0-8.0) pH Units Ur Specific [place] 1.021 (1.010-1.025) Urine Protein Negative (Neg-Trace) mg/dL Urine Glucose (UA) Normal (Normal) mg/dL Urine Ketones Negative (Negative) mg/dL Urine Blood Negative (Negative) Urine Nitrite Negative (Negative) Urine Bilirubin Negative (Negative) Urine Urobilinogen Normal (Normal) mg/dL Ur Leukocyte Esterase Negative (Negative) Ur Culture Indicated? NO (NO) - Radiology Data Radiology results reviewed: Yes I reviewed the patient's radiology results. Chest X-Ray 10/31/17 10:22 IMPRESSION: Cardiomegaly with vascular congestion. D/ / 10/31/2017 10:53:54 Jerome Hillman MD / bcarter Interpreting Provider: Jerome Hillman MD - EKG Data EKG #1 EKG attestation: Yes I reviewed and interpreted this EKG. EKG results narrative: EKG showed a second degree type II AV block at a rate of 65 bpm, QRS duration of 172, QTC of 475 with a right bundle branch block. No evidence of STEMI on EKG. There was question whether or not this was a second-degree AV block so obtained a continuous EKG at 1202. On the continuous EKG strip it appears that the patient alternates between winky block and second degree type II AV block.
[2017-10-31] MEDS ORDERED: Piperacillin/Tazobactam 3.375 GM in 0.9 % Sodium Chloride Mini Bag 100 ML IVPB ONE (13:01)
--- NOTE | 2017-10-31 13:08 | Cardiology Consult Note ---
Date of Encounter: 10/31/17 Time of Encounter: 13:04 Assessment and Plan (1) Second degree atrioventricular block, Mobitz (type) I Current Visit: Yes Status: Acute Intermittent second degree mobitz type I (wenckebach). Recommend decreasing carvedilol. TTE 09/21/17 showed preserved EF 60%, mild LVH. Noted at recent out-pt visit that LISBET is suspected. Denies prior sleep study. Consider overnight pulse ox. Continue to monitor to correlate symptoms. Plan for stress test tomorrow. (2) CHF (congestive heart failure) Current Visit: Yes Status: Acute Fluid overload on exam. May have some diastolic dysfunction. EF 60% on recent echo. CHFpEF , also noted to have CHRISTIAN. IV lasix given today and responding well, rhoades catheter in place. Monitor BMP. Low sodium diet and daily weights. Qualifiers: Heart failure type: diastolic Heart failure chronicity: acute on chronic Qualified Code(s): I50.33 - Acute on chronic diastolic (congestive) heart failure (3) Peripheral edema Current Visit: No Status: Chronic Noted to have BLE pedal and leg edema, appears to be associated with cellulitis and left foot big toe wound. (4) Acute kidney injury Current Visit: No Status: Acute Monitor BMP. Consider nephrology consult. Discussion w patient/family: The assessment and plan as outlined above was discussed with the patient and/or family members who expressed understanding and agreement. All questions were answered. Thank you for involving us in the care of your patient. Please call with any questions. History of Present Illness Consult date: 10/31/17 Requesting physician: Otto Dorman Consult reason: type II AV block Chief complaint: SOB, dizziness, weakenss History of present illness: Ms. Pop is a 82 year old female with past medical history of HTN. HLD, obesity, DM, and CKD who presents with the c/o weakness, dizziness, and SOB. She states "I just can't push my cart anymore." She uses a walker at home and she has difficulty moving around her home due to her symptoms. She lives with her daughter who is at her bedside. She states that her mother becomes diaphoretic and pale. She denies chest pain. Denies syncopal event. Cardiology consulted for second degree AV block and fluid overload concerning for CHF. Denies previous cardiac history. She was seen in September of this year with CHRISTIAN/ CKD and was noted to have elevated troponin up to 0.72. Medical management was recommended for demand ischemia. At her cardiology f/u visit on 10/24/17 a stress test was ordered. Past Med Surg Social Fam HX - Past Medical History Medical history: diabetes, hyperlipidemia, hypertension Psychiatric history: no psych history - Past Surgical History Surgical History: , cholecystectomy, other - Social History Smoking Status: Never smoker Smokeless Tobacco Status: No Alcohol use: none Drug use: none - Family History Mother Hx Family Cancer: Yes Sister Hx Family Cancer: Yes Medications and Allergies Carvedilol 12.5 mg PO BID 04/22/15 [History] Insulin Glargine [Lantus] 68 unit SQ DAILY PRN 09/20/17 [History] Aspirin Enteric Coated [Aspirin EC] 81 mg PO DAILY #30 tablet. 09/25/17 [Rx] Albuterol Sulfate [Proair Hfa] 2 puff IH Q4-6H PRN 10/31/17 [History] Bumetanide 2 mg PO BID 10/31/17 [History] Donepezil [Aricept] 10 mg PO HS 10/31/17 [History] Furosemide [Lasix] 40 mg PO BID 10/31/17 [History] Guaifenesin [Mucinex] 600 - 1,200 mg PO QPM 10/31/17 [History] Pregabalin [Lyrica] 75 mg PO BID 10/31/17 [History] Simvastatin [Zocor] 20 mg PO HS 10/31/17 [History] SitaGLIPtin [Januvia] 100 mg PO DAILY 10/31/17 [History] 3 Allergy/AdvReac Type Severity Reaction Status Date / Time canagliflozin [From Invokana] Allergy Hives Verified 10/31/17 10:05 gabapentin Allergy See Verified 10/31/17 10:05 Comments All Systems Review: The remainder of the systems were reviewed and are negative Physical Examination Vital Signs, Last 4 Hours Temp Pulse Resp BP Pulse Ox 10/31/17 12:08 65 18 142/103 98 10/31/17 10:40 78 18 140/99 99 10/31/17 10:06 80 10/31/17 10:02 97.7 F 70 22 156/62 75 General: Conversant, No Apparent Distress HEENT: Atraumatic, Normocephaly, Mucus Membranes Moist Neck: No JVD, Normal carotid pulses Cardiac: Reg Rate and Rhythm, Normal S1 and S2, No Murmur, Other (Intermittent second degree mobitz type I AV block.) Lungs: Normal Breath Sounds, No Wheeze, Rales, Rhonchi Neuro: Alert and responsive, No focal deficits noted Abdomen: Soft, Non-Tender Skin: Other (BLE with redness and swelling. Noted to have cellulitis.) Musculoskeletal: No Chest Wall Tenderness Extremities: No Clubbing, No Cyanosis, Normal Pulses, Other (2+ pedal edema, BLE redness and swelling. Redness noted RLE.) Results 10/31/17 10:20 10/31/17 10:20 Lab Results 10/31/17 10/31/17 10/31/17 10:20 10:20 10:20 WBC 6.3 Hgb 13.5 Hct 41.9 Plt Count 186 Sodium 137 Potassium 3.7 Chloride 93 L Carbon Dioxide 35 H BUN 69 H Creatinine 1.90 H Glucose 220 H Calcium 9.4 Troponin I < 0.03 B-Natriuretic Peptide 287 H - Imaging and Cardiology Echo: report reviewed - EKG Interpretation EKG results cardiology: personally reviewed Consult Discharge Plan - Plan Referrals: Stevan Bermeo MD [Primary Care Provider] -
--- NOTE | 2017-10-31 13:22 | Internal Med History&Physical ---
Date of Encounter: 10/31/17 Time of Encounter: 13:22 Internal Medicine - H&P: HPI Chief complaint: SOB History of present illness: Patient is an 82-year-old female that presents the emergency department for progressive worsening of shortness of breath associated with progressive worsening of lower Extremities and weight gain. she also complaining of erythema and redness and tenderness of left big toe. she was evaluated by the ER staff and had EKGs shows second-degree heart block, a cutaneous pacer was placed and cardiology was consulted for further evaluation and management Past Med Surg Social Fam HX - Past Medical History Medical history: diabetes, hyperlipidemia, hypertension Psychiatric history: no psych history - Past Surgical History Surgical History: , cholecystectomy, other - Social History Smoking Status: Never smoker Smokeless Tobacco Status: No Alcohol use: none Drug use: none - Family History Mother Hx Family Cancer: Yes Sister Hx Family Cancer: Yes Internal Medicine - H&P: Meds Carvedilol 12.5 mg PO BID 04/22/15 [History] Insulin Glargine [Lantus] 68 unit SQ DAILY PRN 09/20/17 [History] Aspirin Enteric Coated [Aspirin EC] 81 mg PO DAILY #30 tablet. 09/25/17 [Rx] Albuterol Sulfate [Proair Hfa] 2 puff IH Q4-6H PRN 10/31/17 [History] Bumetanide 2 mg PO BID 10/31/17 [History] Donepezil [Aricept] 10 mg PO HS 10/31/17 [History] Guaifenesin [Mucinex] 600 - 1,200 mg PO QPM 10/31/17 [History] Pregabalin [Lyrica] 75 mg PO BID 10/31/17 [History] Simvastatin [Zocor] 20 mg PO HS 10/31/17 [History] SitaGLIPtin [Januvia] 100 mg PO DAILY 10/31/17 [History] 3 Allergy/AdvReac Type Severity Reaction Status Date / Time canagliflozin [From Invokana] Allergy Hives Verified 10/31/17 10:05 gabapentin Allergy See Verified 10/31/17 10:05 Comments All Systems PM: A 10-system review of systems was performed and is negative for pertinent findings except as documented above in the HPI. - Constitutional Constitutional: fatigue, no chills, no fever(s), no night sweats - Cardiovascular Cardiovascular ROS IM: dyspnea, dyspnea on exertion, edema, paroxysmal nocturnal dyspnea, no chest pain, no diaphoresis, no lightheadedness, no palpitations, no syncope - Respiratory Respiratory: dyspnea, no cough, no wheezing, no excessive phlegm production - Gastrointestinal Gastrointestinal: no abdominal pain, no diarrhea, no hematemesis, no hematochezia, no melena, no nausea, no vomiting - Neurological Neurological ROS: no confusion, no convulsions, no focal weakness, no numbness, no tingling, no tremor(s) - Constitutional Vitals: Temp Pulse Resp BP Pulse Ox 97.7 F 61 16 142/54 99 10/31/17 10:02 10/31/17 13:14 10/31/17 13:14 10/31/17 13:14 10/31/17 13:14 General appearance: Present: A&O X 3 - Head Head exam: Present: atraumatic, normocephalic - Neck Neck exam general surgery: Present: supple, trachea midline. Absent: lymphadenopathy - Respiratory Respiratory exam: Present: decreased breath sounds, rales. Absent: accessory muscle use, rhonchi, wheezes - Cardiovascular Cardiovascular exam: Present: RRR, +S1, +S2. Absent: diastolic murmur, gallop, rubs, systolic murmur - GI/Abdominal GI/Abdominal exam: Present: normal bowel sounds, soft, no peritoneal signs. Absent: distended, tenderness - Extremities Exam Extremities exam: Present: pedal edema, warm, radial pulses palpable and symmetrical. Absent: calf tenderness, cyanotic Internal Med - H&P Results - Labs CBC & Chem 7: 11/08/17 04:05 11/08/17 04:05 Labs: Short CBC 10/31/17 Range/Units 10:20 WBC 6.3 (4.3-11.1) K/mcL Hgb 13.5 (11.5-15.4) g/dL Hct 41.9 (35.3-44.9) % Plt Count 186 (140-400) K/mcL Neutrophils # 4.4 (1.6-8.9) K/mcL BMP 10/31/17 10:20 Sodium 137 Potassium 3.7 Chloride 93 L Carbon Dioxide 35 H BUN 69 H Creatinine 1.90 H Glucose 220 H Calcium 9.4 Cardiac Enzymes 10/31/17 Range/Units 10:20 Troponin I < 0.03 (< 0.04) ng/mL Urine 10/31/17 Range/Units 10:45 Urine Color Yellow (Yellow) Urine Clarity Clear (Clear) Urine pH 5.0 (5.0-8.0) pH Units Ur Specific [place] 1.021 (1.010-1.025) Urine Protein Negative (Neg-Trace) mg/dL Urine Glucose (UA) Normal (Normal) mg/dL - Impressions ITS Impressions Chest X-Ray 10/31/17 10:22 IMPRESSION: Cardiomegaly with vascular congestion. D/ / 10/31/2017 10:53:54 Jerome Hillman MD / [email or web address] Interpreting Provider: Jerome Hillman MD - Assessment and plan (1) Second degree atrioventricular block, Mobitz (type) I Current Visit: Yes Status: Acute Assessment and plan: Intermittent second degree mobitz type I (wenckebach). creatinine pacing was started by Cardiolohy recommended decreasing carvedilol. TTE 09/21/17 showed preserved EF 60%, mild LVH. Plan for stress test tomorrow. 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 use Diabetes mellitus complication status: with unspecified complications Qualified Code(s): E11.8 - Type 2 diabetes mellitus with unspecified complications (4) Hypertension Current Visit: No Status: Acute Assessment and plan: We will continue home meds Qualifiers: Hypertension type: essential hypertension Qualified Code(s): I10 - Essential (primary) hypertension (5) CHF (congestive heart failure) Current Visit: Yes Status: Acute Assessment and plan: Most likely secondary to decreased flow in the sitting of cardiorenal syndrome , we will start Bumex IV dose for volume control , may consider adding metolazone optimize fluid control Qualifiers: Heart failure type: diastolic Heart failure chronicity: acute on chronic Qualified Code(s): I50.33 - Acute on chronic diastolic (congestive) heart failure (6) Left foot infection Current Visit: Yes Status: Acute Assessment and plan: We will start ABs , consult Dr. Vanessa for further evaluation. (7) CKD (chronic kidney disease) Current Visit: Yes Status: Acute Assessment and plan: Most likely secondary to diabetic nephropathy, renal dosing of medication but current EGFR, strict I and O's, avoid nephrotoxic drugs Qualifiers: Qualified Code(s): N18.9 - Chronic kidney disease, unspecified (8) DVT prophylaxis Current Visit: Yes Status: Acute Assessment and plan: SC heparin - Time Spent With Patient Total time spent is greater than 50% in coordination of care (as documented) at patient's floor/unit and/or counseling patient:
[2017-10-31] MEDS ORDERED: SODIUM CHLORIDE 0.9% IVPB SCH (14:00)
[2017-10-31] MEDS ORDERED: VANCOMYCIN IVPB SCH (14:00)
[2017-10-31] MEDS ORDERED: Insulin DETEMIR 100 UNIT/ML X5UNITS SQ PRN (15:18)
[2017-10-31] MEDS ORDERED: Naloxone 0.4 MG/ML INJ IVP PRN (15:28)
[2017-10-31] MEDS ORDERED: Dextrose Gel 15 GM/37.5 ML TUBE PO PRN ×2 (17:36)
[2017-10-31] MEDS ORDERED: *HR* Dextrose 50 % in Water (Syg) 50 ML SYRINGE IVP PRN (17:36)
[2017-10-31] MEDS ORDERED: D5% in Water 1,000 ML IVC PRN (17:36)
[2017-10-31] MEDS: Insulin LISPRO 300 UNITS/3 ML VIAL SQ SCH (17:52)
[2017-10-31] MEDS: *HR* Heparin 5,000 UNIT/ML VIAL SQ SCH (17:52)
[2017-10-31] MEDS ORDERED: Chloraseptic Spray 177 ML BOTTLE MM PRN (18:25)
[2017-10-31 18:32] LABS: Bilirubin,Urine Negative (Negative); Blood,Urine Moderate (Negative); Clarity,Urine Clear (Clear); Color,Urine Yellow (Yellow); Glucose,Urine (UA) Normal (Normal); Ketones,Urine Negative (Negative); Leukocyte Esterase,Urine Negative (Negative); Nitrite,Urine Negative (Negative); Protein,Urine Negative (Neg-Trace); Specific Gravity,Urine 1.019 (1.010-1.025); Urobilinogen,Urine Normal (Normal)
[2017-10-31 18:35] LABS: Bacteria,Urine None Seen per hpf (None-Few); Hyaline Casts,Urine None Seen per lpf (None-Few); RBC,Urine 15-30 per hpf (0-3); Squamous Epithelial Cell,Urine Moderate per lpf (None-Few); WBC,Urine 0-3 per hpf (0-3)
[2017-10-31] MEDS: Pregabalin 75 MG CAPSULE PO SCH (20:38)
[2017-10-31] MEDS ORDERED: Furosemide 40 MG TABLET PO SCH (21:00)
[2017-10-31] MEDS ORDERED: Bumetanide 1 MG TABLET PO SCH (21:00)
[2017-10-31] MEDS: Nitroglycerin 25 MG/250 ML INFUS..BTL IVC SCH (23:06)
[2017-11-01] MEDS ORDERED: Albuterol 2.5 MG/3 ML NEBULIZER IH SCH
[2017-11-01] MEDS: Insulin LISPRO 300 UNITS/3 ML VIAL SQ SCH ×4 (00:24→16:34)
[2017-11-01 04:24] LABS: Basophils % 0.6 %; Eosinophils % 0.4 %; Hematocrit 43.2 % (35.3-44.9); Hemoglobin 13.3 g/dL (11.5-15.4); Immature Granulocytes % 1.7 % (0-4); Lymphocytes # 1.1 K/mcL (0.6-4.6); Lymphocytes % 15.9 %; Mean Corpuscular HGB Conc 30.8 g/dL (31.6-35.5); Mean Corpuscular Hemoglobin 27.7 pg (28.0-33.3); Mean Corpuscular Volume 89.8 fL (83.0-100.0); Mean Platelet Volume 11.2 fL (9.4-12.4); Monocytes % 14.9 %; Neutrophils # 4.6 K/mcL (1.6-8.9); Platelet Count 191 K/mcL (140-400); Red Blood Count 4.81 M/mcL (3.82-4.97); Red Cell Distribution Width 15.4 % (11.5-14.5); Segmented Neutrophils % 66.5 %
[2017-11-01 04:34] LABS: INR 1.2; Prothrombin Time 12.8 Seconds (9.4-12.1)
[2017-11-01 04:37] LABS: Activated Partial Thrombo Time 34.8 Seconds (26.0-36.0)
[2017-11-01 04:49] LABS: Albumin/Globulin Ratio 1.1 (1.1-2.2); Bilirubin,Total 0.4 mg/dL (0.3-1.0); Calcium 9.2 mg/dL (8.6-10.3); Chol/HDL Ratio 3.9 (0-4.9); Globulin 3.6 g/dL (2.4-3.5); Magnesium 2.9 mg/dL (1.6-2.6); Phosphorous 5.5 mg/dL (2.7-4.5); Potassium 3.3 mEq/L (3.5-5.1); Total Protein 7.6 g/dL (6.4-8.9)
[2017-11-01] MEDS: *HR* Heparin 5,000 UNIT/ML VIAL SQ SCH ×2 (05:23→16:34)
[2017-11-01] MEDS ORDERED: Regadenoson 0.4 MG/5 ML SYRINGE IVP ONE (05:37)
[2017-11-01] MEDS ORDERED: Piperacillin/Tazobactam 3.375 GM in 0.9 % Sodium Chloride Mini Bag 100 ML IVPB SCH (08:00)
[2017-11-01] MEDS ORDERED: *HR* SitaGLIPtin 100 MG TABLET PO SCH (09:00)
[2017-11-01] MEDS ORDERED: Aminoglycoside Consult 1 EACH MC ONE (09:04)
--- NOTE | 2017-11-01 10:14 | Cardiology Progress Note ---
Date of Encounter: 11/01/17 Time of Encounter: 09:30 Assessment and Plan (1) Second degree atrioventricular block, Mobitz (type) I Current Visit: Yes Status: Acute Intermittent second degree mobitz type I (wenckebach). Carvedilol held. Telemetry review shows avg HR 58 bpm. Less mobitz type I block seen overnight. Occasional 2:1 block seen. TTE 09/21/17 showed preserved EF 60%, mild LVH. Noted at recent out-pt visit that LISBET is suspected. Denies prior sleep study. Consider overnight pulse ox. Continue to monitor to correlate symptoms. Plan for stress test when able. (2) CHF (congestive heart failure) Current Visit: Yes Status: Acute Fluid overload on exam. May have some diastolic dysfunction. EF 60% on recent echo. CHFpEF , also noted to have CHRISTIAN. IV lasix given yesterday and responding well, rhoades catheter in place. Net negative 1100ml. Continue IV lasix. Scr mildly improved. Low sodium diet and daily weights. Qualifiers: Heart failure type: diastolic Heart failure chronicity: acute on chronic Qualified Code(s): I50.33 - Acute on chronic diastolic (congestive) heart failure (3) Peripheral edema Current Visit: Yes Status: Chronic Noted to have BLE pedal and leg edema, appears to be associated with cellulitis and left foot big toe wound. (4) Acute kidney injury Current Visit: No Status: Acute Monitor BMP. Consider nephrology consult. Discussion w patient/family: The assessment and plan as outlined above was discussed with the patient and/or family members who expressed understanding and agreement. All questions were answered. Thank you for involving us in the care of your patient. Please call with any questions. Subjective Principal diagnosis: second degree AV block, mobitz type II, dyspnea Interval history: Ms. Pop was placed on bipap overnight due to low oxygen saturation per nurse. Now spo2 98% on 5l NC. Patient denies chest pain or SOB. Denies dizziness. Objective Vital Signs, Last 4 Hours Temp Pulse Resp BP Pulse Ox 11/01/17 08:06 94.2 F L 55 19 161/73 98 General: Conversant, No Apparent Distress HEENT: Atraumatic, Normocephaly, Mucus Membranes Moist Neck: No JVD, Normal carotid pulses Cardiac: Reg Rate and Rhythm, Normal S1 and S2, No Murmur, Other (sinus bradycardia) Lungs: Other (Rhonci scattered throughout.) Neuro: Alert and responsive, No focal deficits noted Abdomen: Soft, Non-Tender Skin: Other (BLE with redness and scaling) Musculoskeletal: No Chest Wall Tenderness Extremities: Other (2+ BLE edema. ) Results 11/01/17 04:02 11/01/17 04:02 Lab Results 10/31/17 10/31/17 11/01/17 15:42 22:08 04:02 WBC Hgb Hct Plt Count INR APTT Sodium Potassium Chloride Carbon Dioxide BUN Creatinine Glucose Calcium Magnesium Total Bilirubin AST ALT Alkaline Phosphatase Troponin I 0.03 0.03 0.03 B-Natriuretic Peptide 11/01/17 11/01/17 11/01/17 04:02 04:02 04:02 WBC 6.9 Hgb 13.3 Hct 43.2 Plt Count 191 INR 1.2 APTT 34.8 Sodium 139 Potassium 3.3 L Chloride 92 L Carbon Dioxide 38 H BUN 69 H Creatinine 1.76 H Glucose 188 H Calcium 9.2 Magnesium 2.9 H Total Bilirubin 0.4 AST 47 H ALT 40 Alkaline Phosphatase 98 Troponin I B-Natriuretic Peptide 11/01/17 04:02 WBC Hgb Hct Plt Count INR APTT Sodium Potassium Chloride Carbon Dioxide BUN Creatinine Glucose Calcium Magnesium Total Bilirubin AST ALT Alkaline Phosphatase Troponin I B-Natriuretic Peptide 338 H - Imaging and Cardiology Stress Test: pending - EKG Interpretation EKG results cardiology: personally reviewed - VTE Documentation of Mechanical Device: Graduated compression elastic hosiery Consult Discharge Plan - Plan Referrals: Stevan Bermeo [Other] - 11/09/17 3:00 pm
[2017-11-01] MEDS: Bumetanide 1 MG/4 ML VIAL IVP SCH ×2 (10:17→16:33)
[2017-11-01] MEDS: Aspirin Enteric Coated 81 MG Tablet PO SCH (10:17)
[2017-11-01] MEDS: Pregabalin 75 MG CAPSULE PO SCH ×2 (10:17→20:48)
[2017-11-01] MEDS ORDERED: Menthol 9.1 MG LOZENGE PO PRN (15:47)
--- NOTE | 2017-11-01 16:07 | Electrocardiograph Report ---
[place] [id number] Test Date: 2017-10-31 Pat Name: Subha Pop Department: 104 Room: 2N10 Gender: F Clinical Support Associate: JODI : 1935 Requested By: Mp Godinez Order Number: [id number] Reading MD: Paula Turner Measurements Intervals [place] Rate: 65 P: ME: 0 QRS: -46 QRSD: 172 T: 17 QT: 464 QTc: 475 Interpretive Statements SINUS RHYTHM, FIRST DEGREE AVB RIGHT BUNDLE BRANCH BLOCK LEFT ANTERIOR FASCICULAR BLOCK POSSIBLE LEFT VENTRICULAR HYPERTROPHY Electronically Signed On 11-01-2017 16:05:54 EDT by Paula Turner
--- NOTE | 2017-11-01 17:39 | Podiatry Consult Note ---
Date of Encounter: 11/01/17 Time of Encounter: 12:00 Assessment and Plan (1) Diabetes Current visit: No Status: Acute Qualifiers: Diabetes mellitus type: type 2 Diabetes mellitus correction insulin use: without feeder loader use Diabetes mellitus complication status: with unspecified complications Qualified Code(s): E11.8 - Type 2 diabetes mellitus with unspecified complications (2) Peripheral edema Current visit: Yes Status: Chronic (3) Toe injury Current visit: Yes Status: Acute Left great toe with erythema, ecchymosis, edema, and dried blood to the proximal nail plate secondary to traumatic injury. X-ray of the left foot ordered and reviewed with Dr. Joseph, tiny avulsion fracture of the medial base of the 1st proximal phalanx, only seen on one view. Plan: Wound care to include cleansing the left great toe daily with mild soap and water pat dry, apply triple antibiotic ointment and bandaid to the proximal nail border. No intervention is needed for the fracture. Recommend wearing a post op shoe or a shoe with a non flexible sole with ambulation. We will continue to follow patient closely. Contact office if increased redness, swelling, bleeding, pain, toe nail is loose or any other questions or concerns. Follow up in Podiatry clinic with aLlo Escobar CNP Podiatry one week after discharge from the hospital. Called patients room to follow up in regards to x ray results and discuss plan of care. Spoke with daughter. Qualifiers: Encounter type: initial encounter Laterality: left Qualified Code(s): S99.922A - Unspecified injury of left foot, initial encounter (4) CKD (chronic kidney disease) stage 4, GFR 15-29 ml/min Current visit: Yes Status: Acute History of Present Illness HPI: Ms. Pop is a 82 year old female admitted to [facility] for SOB. Patient has a medical history significant for diabetes, neuropathy, hyperlipidemia, hypertension. Podiatry was consulted for an injury to the left great toe. Patient states on Sunday she stubbed her left great toe and heard a crack. Since the injury patient has had bruising, redness and swelling. Daughter states her toe was bleeding when she injured it. Patient was evaluated by her PCP on the following day and was instructed to soak the left great toe daily with epsom salt. Patient lives with her daughter and uses a walker and wheel chair. Patient denies any history of ulcerations or surgeries to her feet. No c/ o pain currently. Patient admits to numbness and tingling in her feet. Past Med Surg Social Fam HX - Past Medical History Medical history: diabetes, hyperlipidemia, hypertension Psychiatric history: no psych history - Past Surgical History Surgical History: , cholecystectomy, other - Social History Smoking Status: Never smoker Smokeless Tobacco Status: No Alcohol use: none Drug use: none - Family History Mother Hx Family Cancer: Yes Sister Hx Family Cancer: Yes Medications and Allergies Carvedilol 12.5 mg PO BID 04/22/15 [History] Insulin Glargine [Lantus] 68 unit SQ DAILY PRN 09/20/17 [History] Aspirin Enteric Coated [Aspirin EC] 81 mg PO DAILY #30 tablet. 09/25/17 [Rx] Albuterol Sulfate [Proair Hfa] 2 puff IH Q4-6H PRN 10/31/17 [History] Bumetanide 2 mg PO BID 10/31/17 [History] Donepezil [Aricept] 10 mg PO HS 10/31/17 [History] Guaifenesin [Mucinex] 600 - 1,200 mg PO QPM 10/31/17 [History] Pregabalin [Lyrica] 75 mg PO BID 10/31/17 [History] Simvastatin [Zocor] 20 mg PO HS 10/31/17 [History] SitaGLIPtin [Januvia] 100 mg PO DAILY 10/31/17 [History] 3 Allergy/AdvReac Type Severity Reaction Status Date / Time canagliflozin [From [facility]] Allergy Hives Verified 10/31/17 10:05 gabapentin Allergy See Verified 10/31/17 10:05 Comments Physical Exam - Constitutional Vitals: Temp Pulse Resp BP Pulse Ox 96.5 F L 61 20 144/61 96 11/01/17 15:39 11/01/17 15:39 11/01/17 15:39 11/01/17 15:39 11/01/17 15:39 Exam: General appearance: alert awake oriented X 3. Calm and pleasant, no acute distress.. Vascular: unable to palpate pedal pulses secondary to edema. No evidence of cyanosis, pallor or rubor, Edema graded at 4+/4, Skin Temperature warm, capillary refill time is immediate to digits. Neurologic: Sensation intact with light touch to feet. Musculoskeletal: Left great toe with erythema and ecchymosis to the dorsal aspect at the IP joint. Toe is edematous. Dried blood observed to the proximal nail plate. Nail plate is attached and does not appear loose upon palpation. No pus, no odor. No pain with passive ROM. No fluctuance, no streaking. Results - Labs Result Diagrams: 11/01/17 04:02 11/01/17 04:02 Labs: Abnormal lab results MCH 27.7 pg (28.0-33.3) L 11/01/17 04:02 MCHC 30.8 g/dL (31.6-35.5) L 11/01/17 04:02 RDW 15.4 % (11.5-14.5) H 11/01/17 04:02 PT 12.8 Seconds (9.4-12.1) H 11/01/17 04:02 Potassium 3.3 mEq/L (3.5-5.1) L 11/01/17 04:02 Chloride 92 mEq/L (98-107) L 11/01/17 04:02 Carbon Dioxide 38 mEq/L (23-29) H 11/01/17 04:02 BUN 69 mg/dL (8-23) H 11/01/17 04:02 Creatinine 1.76 mg/dL (0.60-1.20) H 11/01/17 04:02 Est GFR ( Amer) 34 (> 60) L 11/01/17 04:02 Est GFR (Non-Af Amer) 28 (> 60) L 11/01/17 04:02 BUN/Creatinine Ratio 39 (6-26) H 11/01/17 04:02 Glucose 188 mg/dL (70-105) H 11/01/17 04:02 POC Glucose 193 mg/dL (70-99) H 11/01/17 00:03 Calculated Osmolality 313 (280-300) H 11/01/17 04:02 Phosphorus 5.5 mg/dL (2.7-4.5) H 11/01/17 04:02 Magnesium 2.9 mg/dL (1.6-2.6) H 11/01/17 04:02 AST 47 Units/L (13-39) H 11/01/17 04:02 B-Natriuretic Peptide 338 pg/mL (Less than 100) H 11/01/17 04:02 Globulin 3.6 g/dL (2.4-3.5) H 11/01/17 04:02 HDL Cholesterol 25 mg/dL (40-59) L 11/01/17 04:02 Urine Blood Moderate (Negative) H 10/31/17 18:05 Urine Microscopic RBC 15-30 per hpf (0-3) H 10/31/17 18:05 Ur Squamous Epith Cells Moderate per lpf (None-Few) H 10/31/17 18:05 Vancomycin Trough 14 mcg/mL (5-10) H 11/01/17 04:02 H & H 11/01/17 Range/Units 04:02 Hgb 13.3 (11.5-15.4) g/dL Hct 43.2 (35.3-44.9) % All other labs normal. Consult Discharge Plan - Plan Referrals: Stevan Bermeo [Other] - 11/09/17 3:00 pm
[2017-11-01] MEDS: Ipratropium/Albuterol Neb 3 ML IH SCH ×2 (20:03→23:58)
[2017-11-01] MEDS: cephALEXin 500 MG CAPSULE PO SCH (20:48)
--- NOTE | 2017-11-01 21:08 | Internal Med Progress Note ---
Date of Encounter: 11/01/17 Time of Encounter: 19:00 - Assessment and plan (1) Acute on chronic diastolic (congestive) heart failure Current Visit: Yes Status: Acute Assessment and plan: Her echocardiogram shows ejection fraction of 55-60%. We will continue IV Bumex. (2) Acute respiratory failure with hypoxemia Current Visit: Yes Status: Acute Assessment and plan: It is secondary to pulmonary congestion. Will continue treatments mentioned above. Will continue supplemental oxygen. The patient may have underlying obesity hyperventilation syndrome. (3) Acute hypokalemia Current Visit: Yes Status: Acute Assessment and plan: I gave her 40 mEq of the PO potassium chloride. She will be taking 20 mEq of potassium chloride twice a day. (4) Type 2 diabetes mellitus with renal complication Current Visit: Yes Status: Chronic Assessment and plan: She is likely CKD 3/4. Will be watching her urinary output/creatinine closely. Qualifiers: Diabetes mellitus longterm insulin use: with termite control service representative use Diabetes mellitus complication detail: with chronic kidney disease Chronic kidney disease stage: stage 4 (severe) Qualified Code(s): E11.22 - Type 2 diabetes mellitus with diabetic chronic kidney disease; N18.4 - Chronic kidney disease, stage 4 (severe); Z79.4 - MCC (current) use of insulin (5) Hypertensive renal disease with renal failure Current Visit: Yes Status: Acute Assessment and plan: Her blood pressure is under control. Will continue carvedilol. (6) Cellulitis Current Visit: Yes Status: Acute Assessment and plan: I will start this patient on Keflex. Qualifiers: Site of cellulitis of extremity: toe Laterality: left Qualified Code(s): L03.032 - Cellulitis of left toe - Time Spent With Patient Total time spent is greater than 50% in coordination of care (as documented) at patient's floor/unit and/or counseling patient: 25 - 35 minutes - Subjective Interval history: The patient feels weak and tired. She's on 4 L per minute nasal cannula oxygen. She was not using oxygen at home.Denies chest pain.She does have mild cough but not wheezing. Denies abdominal pain, nausea and vomiting.The swelling of her lower legs is nearly gone. - Constitutional Vitals: Temp Pulse Resp BP Pulse Ox 97.5 F L 65 14 156/83 99 11/01/17 19:17 11/01/17 19:17 11/01/17 20:07 11/01/17 19:17 11/01/17 20:07 General appearance: Present: A&O X 3, no acute distress, answers questions appropriately - Respiratory Respiratory exam: Present: CTAB. Absent: accessory muscle use, rales, rhonchi, wheezes - Cardiovascular Cardiovascular exam: Present: RRR, +S1, +S2. Absent: diastolic murmur, gallop, rubs, systolic murmur - GI/Abdominal GI/Abdominal exam: Present: normal bowel sounds, soft, no peritoneal signs. Absent: distended, tenderness Additional comments: Her abdomen is obese. - Skin Skin exam: Present: dry, intact Additional comments: She has a superficial abrasion of left great toe. Internal Medicine: Result - Labs CBC & Chem 7: 11/08/17 04:05 11/08/17 04:05 Labs: Short CBC 11/01/17 Range/Units 04:02 WBC 6.9 (4.3-11.1) K/mcL Hgb 13.3 (11.5-15.4) g/dL Hct 43.2 (35.3-44.9) % Plt Count 191 (140-400) K/mcL Neutrophils # 4.6 (1.6-8.9) K/mcL BMP 11/01/17 04:02 Sodium 139 Potassium 3.3 L Chloride 92 L Carbon Dioxide 38 H BUN 69 H Creatinine 1.76 H Glucose 188 H Calcium 9.2 Cardiac Enzymes 10/31/17 11/01/17 Range/Units 22:08 04:02 Troponin I 0.03 0.03 (< 0.04) ng/mL Liver Function 11/01/17 Range/Units 04:02 Total Bilirubin 0.4 (0.3-1.0) mg/dL AST 47 H (13-39) Units/L ALT 40 (7-52) Units/L Alkaline Phosphatase 98 (34-104) Units/L Albumin 4.0 (3.5-5.7) g/dL - ABG Interpretation ABG results: PT/INR, D-dimer PT 12.8 Seconds (9.4-12.1) H 11/01/17 04:02 - Impressions Impressions Echocardiogram 10/31/17 15:31 Impressions: LVEF 55-60%. Mild concentric left ventricular hypertrophy. Mild left ventricular diastolic dysfunction. Normal right ventricular structure and function. Mild mitral regurgitation. Mild-moderate tricuspid regurgitation. Borderline pulmonary hypertension by TR gradient. IVC is not visualized. Left Ventricular Wall Motion: Rest Echo Findings All wall segments showed normal motion. Findings: Study Quality * Technically challenging due to body habitus. Left Ventricle * LVEF 55-60%. * Mild concentric left ventricular hypertrophy. * Normal LV chamber size. * Mild left ventricular diastolic dysfunction. Right Ventricle * Normal right ventricular structure and function. Left Atrium * Normal left atrial size. Right Atrium * Normal right atrial size. Aortic Valve * Aortic valve not well visualized. * No aortic stenosis. * Trace aortic regurgitation. Mitral Valve * Mild-moderate mitral annular calcification * No mitral stenosis. * Mild mitral regurgitation. Tricuspid Valve * Tricuspid valve not well visualized. * Mild-moderate tricuspid regurgitation. Pulmonic Valve * Pulmonic valve is not well visualized. * No pulmonic stenosis. * Trace pulmonic regurgitation. Pulmonary Artery * Pulmonary artery not well visualized. Aorta * Normally sized aortic root. Pericardium * There is no pericardial effusion present. Interatrial Septum * Interatrial septum not well evaluated. IVC * The IVC is not well evaluated. ECG Findings * Normal sinus rhythm. Chest X-Ray 10/31/17 22:15 IMPRESSION: Grossly clear lungs. Cardiomegaly. D/ / Maciej Barklye MD / Maciej Barkley MD Interpreting Provider: Maciej Barkley MD Foot X-Ray 11/01/17 13:05 IMPRESSION: 1. Questionable fracture involving the medial base of the 1st proximal phalanx, only seen on one view. 2. Extensive soft tissue swelling noted in the left foot which could be related to a contusion. D/ / 11/01/2017 16:12:32 Navjot Chan MD / jordna Interpreting Provider: Navjot Chan MD - VTE Documentation of Mechanical Device: Intermittent pneumatic compression device Consult Discharge Plan - Plan Referrals: Stevan Bermeo [Other] (Patient is going to rehab no PCP appointment needed) Diallo Hernandez, AUDIOVISUAL TECHNICIAN [Advanced Practice Nurse] - (Office will call patient at home with follow up appointment SENT WEB REQUEST ON 11-05-17 @ [id number])
[2017-11-02] MEDS: Insulin LISPRO 300 UNITS/3 ML VIAL SQ SCH ×4 (00:37→16:47)
[2017-11-02] MEDS: Ipratropium/Albuterol Neb 3 ML IH SCH ×5 (03:48→19:54)
[2017-11-02] MEDS: *HR* Heparin 5,000 UNIT/ML VIAL SQ SCH ×2 (06:10→16:48)
[2017-11-02] MEDS: Nitroglycerin 25 MG/250 ML INFUS..BTL IVC SCH ×2 (07:15→15:20)
[2017-11-02] MEDS: cephALEXin 500 MG CAPSULE PO SCH ×2 (07:48→21:40)
[2017-11-02] MEDS: Pregabalin 75 MG CAPSULE PO SCH ×2 (07:48→21:40)
[2017-11-02] MEDS: Bumetanide 1 MG/4 ML VIAL IVP SCH ×2 (07:48→16:47)
[2017-11-02] MEDS: Aspirin Enteric Coated 81 MG Tablet PO SCH (07:48)
[2017-11-02] MEDS: *HR* SitaGLIPtin 100 MG TABLET PO SCH (07:58)
[2017-11-02 08:57] LABS: Basophils % 0.3 %; Eosinophils # 0.1 K/mcL (0.0-0.6); Eosinophils % 1.1 %; Hematocrit 41.9 % (35.3-44.9); Hemoglobin 13.3 g/dL (11.5-15.4); Immature Granulocytes % 0.6 % (0-4); Lymphocytes # 0.3 K/mcL (0.6-4.6); Lymphocytes % 2.5 %; Mean Corpuscular HGB Conc 31.7 g/dL (31.6-35.5); Mean Corpuscular Hemoglobin 28.9 pg (28.0-33.3); Mean Corpuscular Volume 90.9 fL (83.0-100.0); Mean Platelet Volume 11.1 fL (9.4-12.4); Monocytes # 0.4 K/mcL (0.0-1.3); Monocytes % 3.4 %; Neutrophils # 9.4 K/mcL (1.6-8.9); Platelet Count 165 K/mcL (140-400); Red Blood Count 4.61 M/mcL (3.82-4.97); Red Cell Distribution Width 15.3 % (11.5-14.5); Segmented Neutrophils % 92.1 %
--- NOTE | 2017-11-02 09:27 | Cardiology Progress Note ---
Date of Encounter: 11/02/17 Time of Encounter: 09:26 Assessment and Plan (1) Second degree atrioventricular block, Mobitz (type) I Current Visit: Yes Status: Acute Intermittent second degree mobitz type I (wenckebach) on admit and yesterday. Carvedilol held. HR improved. AVg HR 68 bpm over last 24 hours. Less mobitz type I block seen overnight. Min HR 35 BPM at 0345 am. TTE 09/21/17 showed preserved EF 60%, mild LVH. Noted at recent out-pt visit that LISBET is suspected. Denies prior sleep study. Using bipap during hospital stay. Continue to monitor to correlate symptoms. Denies recurrent dizziness. Ambulate when able. Plan for stress test when able from respiratory standpoint. (2) CHF (congestive heart failure) Current Visit: Yes Status: Acute Fluid overload on exam. May have some diastolic dysfunction. EF 60% on recent echo. CHFpEF , also noted to have CHRISTIAN. Re-peat echo shows preserved EF 55-60%, mild LVH, mild mR, mild to moderate TR, and borderline PAH. Continue IV lasix. Scr mildly improved yesterday, potassium 3.3 and replaced, continue tomonitor. Labs pending. Net negative 3160. SOB multifactoral, increasing rhonci from bronchitis? Hospitalist following. CXR showed grossly clear lungs. Low sodium diet and daily weights. Qualifiers: Heart failure type: diastolic Heart failure chronicity: acute on chronic Qualified Code(s): I50.33 - Acute on chronic diastolic (congestive) heart failure (3) Peripheral edema Current Visit: Yes Status: Chronic Noted to have BLE pedal and leg edema, appears to be associated with cellulitis and left foot big toe wound. (4) Acute kidney injury Current Visit: No Status: Acute Monitor BMP. Consider nephrology consult. Discussion w patient/family: The assessment and plan as outlined above was discussed with the patient and/or family members who expressed understanding and agreement. All questions were answered. Thank you for involving us in the care of your patient. Please call with any questions. Subjective Principal diagnosis: second degree AV block, mobitz type II, dyspnea Interval history: Ms. Pop states that she did not sleep well last night. C/o moist cough. Denies chest pain Objective Vital Signs, Last 4 Hours Temp Pulse Resp BP Pulse Ox 11/02/17 08:00 68 11/02/17 07:45 16 100 11/02/17 07:41 94.7 F L 60 20 156/72 96 General: Conversant, Other (Restless) HEENT: Atraumatic, Normocephaly, Mucus Membranes Moist Neck: No JVD, Normal carotid pulses Cardiac: Reg Rate and Rhythm, Normal S1 and S2, No Murmur Lungs: Other (Respirations mildly labored with rhonci throughout, moist cough. ) Neuro: Alert and responsive, No focal deficits noted Abdomen: Soft, Non-Tender Skin: No rashes noted on visualized skin Musculoskeletal: No Chest Wall Tenderness Extremities: No Clubbing, No Cyanosis, Normal Pulses, Other (Edema improved, BLE redness and scaling, left great toe and foot with redness and dressing.) Results 11/02/17 08:41 11/01/17 04:02 Lab Results 11/02/17 08:41 WBC 10.2 Hgb 13.3 Hct 41.9 Plt Count 165 - Imaging and Cardiology Echo: report reviewed - EKG Interpretation EKG results cardiology: personally reviewed - VTE Documentation of Mechanical Device: Intermittent pneumatic compression device Consult Discharge Plan - Plan Referrals: Stevan Bermeo [Other] - 11/09/17 3:00 pm
[2017-11-02 10:19] LABS: Calcium 9.2 mg/dL (8.6-10.3); Potassium 3.4 mEq/L (3.5-5.1)
[2017-11-02] MEDS: Neosporin OINT 1 APPL PACKET TP SCH (10:42)
[2017-11-02 13:07] LABS: ABG Base Excess 14 mEq/L (-2 to 3); ABG HCO3 43 mEq/L (21-27); ABG Oxygen Saturation 97 % (95-98); ABG PCO2 68 mmHg (35-45); ABG PH 7.41 pH Units (7.32-7.45); ABG PO2 95 mmHg (85-104); ABG TCO2 45 mEq/L (20-26)
[2017-11-02 14:49] LABS: Bilirubin,Urine Negative (Negative); Blood,Urine Large (Negative); Clarity,Urine Turbid (Clear); Color,Urine Red (Yellow); Glucose,Urine (UA) Normal (Normal); Ketones,Urine Negative (Negative); Leukocyte Esterase,Urine Moderate (Negative); Nitrite,Urine Negative (Negative); PH,Urine 5.5 pH Units (5.0-8.0); Protein,Urine 30 mg/dL (Neg-Trace); Urobilinogen,Urine Normal (Normal)
[2017-11-02 14:52] LABS: Bacteria,Urine None Seen per hpf (None-Few); Hyaline Casts,Urine Few per lpf (None-Few); RBC,Urine 15-30 per hpf (0-3); Squamous Epithelial Cell,Urine Moderate per lpf (None-Few)
[2017-11-02] MEDS ORDERED: Insulin LISPRO 300 UNITS/3 ML VIAL SQ SCH (21:00)
[2017-11-03] MEDS: Ipratropium/Albuterol Neb 3 ML IH SCH ×7 (00:18→23:17)
[2017-11-03 04:06] LABS: ABG Base Excess 19 mEq/L (-2 to 3); ABG HCO3 47 mEq/L (21-27); ABG Oxygen Saturation 94 % (95-98); ABG PCO2 66 mmHg (35-45); ABG PH 7.46 pH Units (7.32-7.45); ABG PO2 70 mmHg (85-104); ABG TCO2 49 mEq/L (20-26); Blood Gas PEEP 8 cm H2O; Blood Gas Pressure Support 12 cm H2O
[2017-11-03] MEDS: *HR* Heparin 5,000 UNIT/ML VIAL SQ SCH ×2 (05:47→18:24)
[2017-11-03 07:55] LABS: Hematocrit 39.6 % (35.3-44.9); Hemoglobin 12.9 g/dL (11.5-15.4); Mean Corpuscular HGB Conc 32.6 g/dL (31.6-35.5); Mean Platelet Volume 11.3 fL (9.4-12.4); Platelet Count 180 K/mcL (140-400); Red Blood Count 4.45 M/mcL (3.82-4.97); Red Cell Distribution Width 15.5 % (11.5-14.5)
[2017-11-03] MEDS: Insulin LISPRO 300 UNITS/3 ML VIAL SQ SCH ×3 (08:08→17:56)
[2017-11-03] MEDS: Neosporin OINT 1 APPL PACKET TP SCH (08:16)
[2017-11-03 08:58] LABS: Calcium 9.1 mg/dL (8.6-10.3); Potassium 3.9 mEq/L (3.5-5.1)
--- NOTE | 2017-11-03 09:09 | Pulmonology Consult Note ---
<Terry Perdomo - Last Filed: 11/03/17 11:49> Date of Encounter: 11/03/17 Time of Encounter: 09:09 Assessment and Plan (1) Acute respiratory failure Current Visit: Yes Status: Acute - On presentation, likely related to CHF exacerbation vs bronchitis - ABG shows combined metabolic alkalosis with respiratory acidosis, likely chronic - pH 7.46/CO2 66/ HCO3 37 - Suspect overdiuresis causing met alkalosis. Unsure baseline CO2 but calculates to chronic compensation. - Peripheral edema likely related to cellulitis vs lymphadema. Reportedly was chronic - CXR shows mild vascular congestion. Plan - Recommend discontinuing Bumex, gentle IV hydration with 100 mL/hr x 1 bag - Add diamox x 2 doses to correct alkylosis - BiPAP rest - Will obtain b/l venous dopplers to r/o PE - If patient continues to be somulent and ABG does not improve, will consider intubation. Also consider steroids and abx Qualifiers: Respiratory failure complication: hypoxia and hypercapnia Qualified Code(s) : J96.01 - Acute respiratory failure with hypoxia; J96.02 - Acute respiratory failure with hypercapnia (2) CHF exacerbation Current Visit: Yes Status: Acute - Echo on 11/01/17 shows EF 55-60% with mild diastolic dysfunction - Mild vascular congestion on CXR - Has been getting diuresed with bumex since admission - Admits to orthopnea and LE swelling and weight gain - ABG shows metabolic alkalosis in addition to respiratory acidosis, likely a result of overdiuresis Plan - Recommend gentle IV hydration, diamox, holding bumex. Qualifiers: Heart failure type: diastolic Qualified Code(s): I50.33 - Acute on chronic diastolic (congestive) heart failure (3) Metabolic encephalopathy Current Visit: Yes Status: Acute - Hypersomulence on exam today - Possibly related to fatigue vs lesser suspicion of hypercapnea. - Patient placed on BiPAP due to AMS, will monitor. Oxygenating well - If no improvement, will consider intubation (4) Edema Current Visit: Yes Status: Acute - Appears to be chronic from chart review. - On exam today, minimal swelling which is at least partly related to cellulitis and lymphadema - Wells Score 1 for DVT, low probability however will obtain dopplers to rule out given respiratory symptoms and concern for possible PE. - Unable to go for CTA given kidney function. - Futher management per primary team. - Recommend stopping bumex due to contraction alkalosis and worsening kidney function. Qualifiers: Edema type: unspecified Qualified Code(s): R60.9 - Edema, unspecified (5) Gross hematuria Current Visit: Yes Status: Acute - Per primary team (6) Second degree atrioventricular block, Mobitz (type) I Current Visit: Yes Status: Acute - Management per primary team and cardiology (7) CKD (chronic kidney disease) stage 4, GFR 15-29 ml/min Current Visit: Yes Status: Acute BUN/Cr of 65/1.92, which is worsened from previous. - baseline Cr of 1.2-1.4 - Likely a result of diuresis - Will allow for gentle hydration and hold bumex - further management per primary team. History of Present Illness Consult date: 11/03/17 Requesting physician: Fabrice Wills Reason for consult: COPD Chief complaint: High CO2, SOB, weight gain History of present illness: 82-year-old female with past medical history of COPD,HFpEF, CAD, type 2 diabetes , HLD, HTN presented to emergency room with complaint of shortness breath, lower extremity swelling, weight gain over the previous couple days. She states her shortness breath was exacerbated with lying flat. Family also stated at this time that she had been complaining of coughing and has seen her primary care physician a couple days prior and was being treated for bronchitis. Hypoxic on presentation with SpO2 of 75% on RA, no home O2 requirement. RR of 22 , vitals otherwise wnl. Labs show CHRISTIAN, negative troponin. CXr show mild vascular congestion. Past Med Surg Social Fam HX - Past Medical History Medical history: diabetes, hyperlipidemia, hypertension Psychiatric history: no psych history - Past Surgical History Surgical History: , cholecystectomy, other - Social History Smoking Status: Never smoker Smokeless Tobacco Status: No Alcohol use: none Drug use: none - Family History Mother Hx Family Cancer: Yes Sister Hx Family Cancer: Yes Medications and Allergies Carvedilol 12.5 mg PO BID 04/22/15 [History] Insulin Glargine [Lantus] 68 unit SQ DAILY PRN 09/20/17 [History] Aspirin Enteric Coated [Aspirin EC] 81 mg PO DAILY #30 tablet. 09/25/17 [Rx] Albuterol Sulfate [Proair Hfa] 2 puff IH Q4-6H PRN 10/31/17 [History] Bumetanide 2 mg PO BID 10/31/17 [History] Donepezil [Aricept] 10 mg PO HS 10/31/17 [History] Guaifenesin [Mucinex] 600 - 1,200 mg PO QPM 10/31/17 [History] Pregabalin [Lyrica] 75 mg PO BID 10/31/17 [History] Simvastatin [Zocor] 20 mg PO HS 10/31/17 [History] SitaGLIPtin [Januvia] 100 mg PO DAILY 10/31/17 [History] 3 Allergy/AdvReac Type Severity Reaction Status Date / Time canagliflozin [From Invokana] Allergy Hives Verified 10/31/17 10:05 gabapentin Allergy See Verified 10/31/17 10:05 Comments ROS unobtainable: due to mental status All Systems: The remainder of the systems were reviewed and are negative Physical Examination Vital Signs: Vital Signs, Last 4 Hours Temp Pulse Resp BP Pulse Ox 11/03/17 08:32 84 11/03/17 07:43 22 94 11/03/17 06:56 99.1 F 83 18 131/66 96 Gen.: Vitals noted. No acute distress. AAOx0. Responds to painful stimuli HEENT: PERRL/EOMI, oropharynx clear, Normocephalic, atraumatic, dry mucous membranes, BiPAP on. Cardiac: RRR, no murmur, +S1/S2 Pulmonary: Course breath sounds, otherwise CTAB without wheeze or rales. equal chest expansion Abdomen: soft, nontender, BS noted, no guarding, no rebound. : Moreno in place with red urine. Extremities: BLE edema present with erythema and evidence of venous stasis possible cellulitis, nontender calf, no cyanosis or clubbing Neuro: A&Ox0, moves all extremities, unable to assess further due to mental status Psych:Unable to assess Results - Laboratory Findings CBC and BMP: 11/03/17 07:26 11/03/17 07:26 ABG ABG pH 7.46 pH Units (7.32-7.45) H 11/03/17 04:02 ABG pCO2 66 mmHg (35-45) H 11/03/17 04:02 ABG pO2 70 mmHg (85-104) L 11/03/17 04:02 ABG O2 Saturation 94 % (95-98) L 11/03/17 04:02 PT/INR, D-dimer PT 12.8 Seconds (9.4-12.1) H 11/01/17 04:02 Abnormal lab findings: Abnormal lab results RDW 15.5 % (11.5-14.5) H 11/03/17 07:26 Neutrophils # 9.4 K/mcL (1.6-8.9) H 11/02/17 08:41 Lymphocytes # 0.3 K/mcL (0.6-4.6) L 11/02/17 08:41 PT 12.8 Seconds (9.4-12.1) H 11/01/17 04:02 ABG pH 7.46 pH Units (7.32-7.45) H 11/03/17 04:02 ABG pCO2 66 mmHg (35-45) H 11/03/17 04:02 ABG pO2 70 mmHg (85-104) L 11/03/17 04:02 ABG HCO3 47 mEq/L (21-27) H 11/03/17 04:02 ABG Total CO2 49 mEq/L (20-26) H 11/03/17 04:02 ABG O2 Saturation 94 % (95-98) L 11/03/17 04:02 ABG Base Excess 19 mEq/L (-2 to 3) H 11/03/17 04:02 Chloride 90 mEq/L (98-107) L 11/03/17 07:26 Carbon Dioxide 37 mEq/L (23-29) H 11/03/17 07:26 BUN 65 mg/dL (8-23) H 11/03/17 07:26 Creatinine 1.92 mg/dL (0.60-1.20) H 11/03/17 07:26 Est GFR ( Amer) 30 (> 60) L 11/03/17 07:26 Est GFR (Non-Af Amer) 25 (> 60) L 11/03/17 07:26 BUN/Creatinine Ratio 34 (6-26) H 11/03/17 07:26 Glucose 188 mg/dL (70-105) H 11/03/17 07:26 POC Glucose 279 mg/dL (70-99) H 11/02/17 21:19 Calculated Osmolality 308 (280-300) H 11/03/17 07:26 Phosphorus 5.5 mg/dL (2.7-4.5) H 11/01/17 04:02 Magnesium 2.9 mg/dL (1.6-2.6) H 11/01/17 04:02 AST 47 Units/L (13-39) H 11/01/17 04:02 B-Natriuretic Peptide 338 pg/mL (Less than 100) H 11/01/17 04:02 Globulin 3.6 g/dL (2.4-3.5) H 11/01/17 04:02 HDL Cholesterol 25 mg/dL (40-59) L 11/01/17 04:02 Urine Color Red (Yellow) A 11/02/17 14:25 Urine Clarity Turbid (Clear) A 11/02/17 14:25 Urine Protein 30 mg/dL (Neg-Trace) H 11/02/17 14:25 Urine Blood Large (Negative) H 11/02/17 14:25 Ur Leukocyte Esterase Moderate (Negative) H 11/02/17 14:25 Urine Microscopic RBC 15-30 per hpf (0-3) H 11/02/17 14:25 Urine Microscopic WBC 5-15 per hpf (0-3) H 11/02/17 14:25 Ur Squamous Epith Cells Moderate per lpf (None-Few) H 11/02/17 14:25 Vancomycin Trough 14 mcg/mL (5-10) H 11/01/17 04:02 - Clinical Findings Intake & Output: Intake & Output 11/02/17 11/03/17 11/03/17 23:59 07:59 15:59 Intake Total 800 / 800 450 / 450 Output Total 350 / 350 100 / 100 Balance 450 / 450 350 / 350 Consult Discharge Plan - Plan Referrals: Stevan Bermeo [Other] - 11/09/17 3:00 pm <Amber Coulter - Last Filed: 11/03/17 14:55> Date of Encounter: 11/03/17 All Systems: The remainder of the systems were reviewed and are negative Physical Examination Vital Signs: Vital Signs, Last 4 Hours Temp Pulse Resp BP Pulse Ox 11/03/17 11:30 99.3 F 77 18 137/40 96 11/03/17 11:04 84 11/03/17 11:02 20 95 Results - Laboratory Findings CBC and BMP: 11/03/17 07:26 11/03/17 07:26 ABG ABG pH 7.43 pH Units (7.32-7.45) 11/03/17 11:04 ABG pCO2 63 mmHg (35-45) H 11/03/17 11:04 ABG pO2 62 mmHg (85-104) L 11/03/17 11:04 ABG O2 Saturation 91 % (95-98) L 11/03/17 11:04 PT/INR, D-dimer PT 12.8 Seconds (9.4-12.1) H 11/01/17 04:02 Abnormal lab findings: Abnormal lab results RDW 15.5 % (11.5-14.5) H 11/03/17 07:26 Neutrophils # 9.4 K/mcL (1.6-8.9) H 11/02/17 08:41 Lymphocytes # 0.3 K/mcL (0.6-4.6) L 11/02/17 08:41 PT 12.8 Seconds (9.4-12.1) H 11/01/17 04:02 ABG pCO2 63 mmHg (35-45) H 11/03/17 11:04 ABG pO2 62 mmHg (85-104) L 11/03/17 11:04 ABG HCO3 42 mEq/L (21-27) H 11/03/17 11:04 ABG Total CO2 44 mEq/L (20-26) H 11/03/17 11:04 ABG O2 Saturation 91 % (95-98) L 11/03/17 11:04 ABG Base Excess 15 mEq/L (-2 to 3) H 11/03/17 11:04 Chloride 90 mEq/L (98-107) L 11/03/17 07:26 Carbon Dioxide 37 mEq/L (23-29) H 11/03/17 07:26 BUN 65 mg/dL (8-23) H 11/03/17 07:26 Creatinine 1.92 mg/dL (0.60-1.20) H 11/03/17 07:26 Est GFR ( Amer) 30 (> 60) L 11/03/17 07:26 Est GFR (Non-Af Amer) 25 (> 60) L 11/03/17 07:26 BUN/Creatinine Ratio 34 (6-26) H 11/03/17 07:26 Glucose 188 mg/dL (70-105) H 11/03/17 07:26 POC Glucose 199 mg/dL (70-99) H 11/03/17 11:36 Calculated Osmolality 308 (280-300) H 11/03/17 07:26 Phosphorus 5.5 mg/dL (2.7-4.5) H 11/01/17 04:02 Magnesium 2.9 mg/dL (1.6-2.6) H 11/01/17 04:02 AST 47 Units/L (13-39) H 11/01/17 04:02 B-Natriuretic Peptide 338 pg/mL (Less than 100) H 11/01/17 04:02 Globulin 3.6 g/dL (2.4-3.5) H 11/01/17 04:02 HDL Cholesterol 25 mg/dL (40-59) L 11/01/17 04:02 Urine Color Red (Yellow) A 11/02/17 14:25 Urine Clarity Turbid (Clear) A 11/02/17 14:25 Urine Protein 30 mg/dL (Neg-Trace) H 11/02/17 14:25 Urine Blood Large (Negative) H 11/02/17 14:25 Ur Leukocyte Esterase Moderate (Negative) H 11/02/17 14:25 Urine Microscopic RBC 15-30 per hpf (0-3) H 11/02/17 14:25 Urine Microscopic WBC 5-15 per hpf (0-3) H 11/02/17 14:25 Ur Squamous Epith Cells Moderate per lpf (None-Few) H 11/02/17 14:25 Vancomycin Trough 14 mcg/mL (5-10) H 11/01/17 04:02 - Clinical Findings Intake & Output: Intake & Output 11/02/17 11/03/17 11/03/17 23:59 07:59 15:59 Intake Total 800 / 800 450 / 450 Output Total 350 / 350 100 / 100 150 / 150 Balance 450 / 450 350 / 350 -150 / -150 - Attending Attestation I examined this patient and my medical decision-making was reviewed with the Resident Physician. I agree with the documented findings, disposition and treatment plan as described except to the extent set forth below. Patient seen and examined. Labs, radiology, chart personally reviewed. I was called by the hospitalist to evaluate patient in 2 N. and she was initially evaluated by me and the resident and subsequently reevaluated with no significant improvement in mental status and decided to transfer patient to ICU for close monitoring since her condition might deteriorate. Agree with resident's history and physical, assessment, plan with following comments: MANAGER PRACTICE: Patient follows simple commands, patient is lethargic and somnolent, it is not clear exactly the etiology, it could be metabolic with worsening of her renal function and also side effect of medications as well as sleep deprivation for multiple nights according to the family. Patient will need head CT to evaluate any intracranial abnormalities. Pulmonary: Patient most likely has obesity hypoventilation syndrome and possibly undiagnosed obstructive sleep apnea. Patient has been having chronic bronchitis according to the family and I have taken her off BiPAP because her PCO2 needs to be higher according to her ABG with evidence of metabolic alkalosis and compensated chronic respiratory acidosis and follow-up ABG showed some improvement. She will need noninvasive ventilation intermittently. I have explained to the family if her condition deteriorate she will need invasive mechanical ventilation due to her mental status noninvasive ventilation would not be appropriate for her. Cardiovascular: stable GI: Nutrition per dietary and GI prophylaxis per routine. Keep patient nothing by mouth for now due to risk of aspiration Heme: DVT prophylaxis per routine ID: it is not clear at this time obvious source of infection, however sepsis in the differential diagnosis and broad-spectrum antibiotics for now. Renal; urine out put and renal funtion reviewed. Patient with acute kidney injury could be from aggressive diuresis for that reason we will hold Bumex and gentle hydration and trial of Diamox. Endorcine: blood glucose is monitored Lines: all lines checked and no evidence of infections Skin: skin care to prevent pressure ulcers per nursing routine care Discussed with the family at the bedside and explained to them plan of care. Discussed also with primary team. I spent 40 min of Critical Care time with this patient. It involved decision making of high complexity to assess, manipulate, and support vital organ system failure and/or to prevent further life threatening deterioration of the patient' s condition. The time involved in the performance of separately reportable procedures was not counted toward critical care time.
[2017-11-03] MEDS ORDERED: 0.9 % Sodium Chloride 1,000 ML IVC ONE (09:55)
[2017-11-03] MEDS: Aspirin Enteric Coated 81 MG Tablet PO SCH (10:29)
[2017-11-03] MEDS: Pregabalin 75 MG CAPSULE PO SCH (10:29)
[2017-11-03] MEDS: cephALEXin 500 MG CAPSULE PO SCH (10:29)
[2017-11-03] MEDS: *HR* SitaGLIPtin 100 MG TABLET PO SCH (10:29)
[2017-11-03 11:13] LABS: ABG Base Excess 15 mEq/L (-2 to 3); ABG HCO3 42 mEq/L (21-27); ABG Oxygen Saturation 91 % (95-98); ABG PCO2 63 mmHg (35-45); ABG PH 7.43 pH Units (7.32-7.45); ABG PO2 62 mmHg (85-104); ABG TCO2 44 mEq/L (20-26)
[2017-11-03] MEDS ORDERED: cefTRIAXone 1,000 MG in Water for inj. (sterile) 20 ML 10 ML IVP SCH (15:00)
[2017-11-03] MEDS ORDERED: Naloxone 0.4 MG/ML INJ IVP PRN (15:51)
[2017-11-03] MEDS ORDERED: *HR* Dextrose 50 % in Water (Syg) 50 ML SYRINGE IVP PRN (15:51)
[2017-11-03] MEDS ORDERED: D5% in Water 1,000 ML IVC PRN (15:51)
[2017-11-03] MEDS ORDERED: Chloraseptic Spray 177 ML BOTTLE MM PRN (15:51)
[2017-11-03] MEDS ORDERED: Dextrose Gel 15 GM/37.5 ML TUBE PO PRN ×2 (15:51)
[2017-11-03] MEDS ORDERED: Menthol 9.1 MG LOZENGE PO PRN (15:51)
--- NOTE | 2017-11-03 15:51 | Cardiology Progress Note ---
Date of Encounter: 11/03/17 Time of Encounter: 08:20 Assessment and Plan (1) Second degree atrioventricular block, Mobitz (type) I Current Visit: Yes Status: Acute Intermittent second degree mobitz type I (wenckebach) on admit. Carvedilol held. HR improved. AVg HR 68 bpm over last 24 hours. Minimal mobitzI seen. HR 60 NSr currently. TTE 09/21/17 showed preserved EF 60%, mild LVH. Noted at recent out-pt visit that LISBET is suspected. Denies prior sleep study. Using bipap during hospital stay. Consider overnight pulse ox. Avoid AV jesús blockade. No indication for PPM at this time. Was going to attempt stress test inpatient (ordered in-out-pt setting for general cardiac work-up). Unable to complete due to respiratory status. Can reconsider in future. No urgent need to complete in-patient. Cardiology will sign off. Call with questions. Out-pt f/u will be scheduled. (2) CHF (congestive heart failure) Current Visit: Yes Status: Acute Fluid overload on admit. May have some diastolic dysfunction. EF 60% on recent echo. CHFpEF , also noted to have CHRISTIAN. Re-peat echo shows preserved EF 55-60%, mild LVH, mild mR, mild to moderate TR, and borderline PAH. Stop lasix due to Scr elevation. Improved from fluid overload standpoint. Net negative 3085. Low sodium diet and daily weights. SOB multifactoral, increasing rhonci from bronchitis? Lethargic today with increased CO2 levels. Hospitalist following. CXR showed grossly clear lungs. Qualifiers: Heart failure type: diastolic Heart failure chronicity: acute on chronic Qualified Code(s): I50.33 - Acute on chronic diastolic (congestive) heart failure (3) Peripheral edema Current Visit: Yes Status: Chronic Noted to have BLE pedal and leg edema, appears to be associated with cellulitis and left foot big toe wound. (4) Acute kidney injury Current Visit: No Status: Acute Monitor BMP. Consider nephrology consult. Discussion w patient/family: The assessment and plan as outlined above was discussed with the patient and/or family members who expressed understanding and agreement. All questions were answered. Thank you for involving us in the care of your patient. Please call with any questions. Subjective Principal diagnosis: second degree AV block, mobitz type II, dyspnea Interval history: Ms. Pop is lethargic this morning. Nurse is notifying primary team of change in mental status. Family at bedside. Objective Vital Signs Temp Pulse Resp BP Pulse Ox 11/03/17 11:30 99.3 F 77 18 137/40 96 11/03/17 11:04 84 11/03/17 11:02 20 95 11/03/17 08:32 84 11/03/17 07:43 22 94 11/03/17 06:56 99.1 F 83 18 131/66 96 11/03/17 04:39 98.3 F 79 18 137/54 96 11/03/17 03:59 19 97 11/03/17 00:18 98.3 F 73 20 146/52 99 11/02/17 21:04 98.6 F 72 18 150/61 99 11/02/17 19:54 15 98 11/02/17 19:43 21 98 11/02/17 16:13 97.8 F 71 18 144/52 98 11/02/17 15:57 20 96 Intake and Output 11/02/17 11/03/17 11/03/17 23:59 07:59 15:59 Intake Total 800 / 800 450 / 450 Output Total 350 / 350 100 / 100 150 / 150 Balance 450 / 450 350 / 350 -150 / -150 Intake: Oral 800 / 800 450 / 450 Output: Catheter 350 / 350 100 / 100 150 / 150 Other: Blood Glucose* 279 196 199 General: Other (lethargic) HEENT: Atraumatic, Normocephaly, Mucus Membranes Moist Neck: No JVD, Normal carotid pulses Cardiac: Reg Rate and Rhythm, Normal S1 and S2, No Murmur Lungs: Other (Respirations easy, rhonci scattered throughout) Neuro: Other (Responds but does not open eyes. Hands grasps. ) Abdomen: Soft, Non-Tender Skin: Other (BLE with redness) Extremities: Other (BLE edema improving) Results 11/03/17 07:26 11/03/17 07:26 Lab Results 11/03/17 11/03/17 07:26 07:26 WBC 9.3 Hgb 12.9 Hct 39.6 Plt Count 180 Sodium 137 Potassium 3.9 Chloride 90 L Carbon Dioxide 37 H BUN 65 H Creatinine 1.92 H Glucose 188 H Calcium 9.1 - VTE Documentation of Mechanical Device: Intermittent pneumatic compression device Consult Discharge Plan - Plan Referrals: Stevan Bermeo [Other] - 11/09/17 3:00 pm
[2017-11-03] MEDS ORDERED: Ipratropium/Albuterol Neb 3 ML ONE (16:03)
[2017-11-03 17:22] LABS: Calcium 8.8 mg/dL (8.6-10.3); Potassium 3.7 mEq/L (3.5-5.1)
[2017-11-03] MEDS: cefTRIAXone 1,000 MG in Water for inj. (sterile) 20 ML 10 ML IVP SCH (17:55)
[2017-11-03] MEDS ORDERED: Insulin LISPRO 300 UNITS/3 ML VIAL SQ SCH (21:00)
--- NOTE | 2017-11-03 23:04 | Internal Med Progress Note ---
Date of Encounter: 11/02/17 Time of Encounter: 18:30 - Assessment and plan (1) Acute on chronic diastolic (congestive) heart failure Current Visit: Yes Status: Acute Assessment and plan: The patient is an IV Bumex. It is difficult to treat this problem due to her underlying CKD 3/4. (2) Acute on chronic respiratory failure with hypoxia and hypercapnia Current Visit: Yes Status: Acute Assessment and plan: This is secondary to diastolic heart failure and at the past kidney disease. She may have underlying Obesity hyperventilation syndrome. Will continue BiPAP and oxygen. (3) Acute hypokalemia Current Visit: Yes Status: Acute Assessment and plan: Her potassium is getting better. She's on supplemental potassium chloride. (4) Type 2 diabetes mellitus with renal complication Current Visit: Yes Status: Chronic Assessment and plan: She's on long-acting Levemir and PRN Humalog. She CKD 3/4. Qualifiers: Diabetes mellitus prison insulin use: with long term care pharmacist use Diabetes mellitus complication detail: with chronic kidney disease Chronic kidney disease stage: stage 4 (severe) Qualified Code(s): E11.22 - Type 2 diabetes mellitus with diabetic chronic kidney disease; N18.4 - Chronic kidney disease, stage 4 (severe); Z79.4 - [facility] (current) use of insulin (5) Hypertensive renal disease with renal failure Current Visit: Yes Status: Acute Assessment and plan: She's taking carvedilol. - Time Spent With Patient Total time spent is greater than 50% in coordination of care (as documented) at patient's floor/unit and/or counseling patient: 25 - 35 minutes - Subjective Interval history: She seems to be a little bit drowsy today. She answer simple questions. She follows simple commands. She is basically bedbound. On supplemental oxygen. We started her on BiPAP. Denies chest pain. Denies abdominal pain. She makes good amounts of urine. - Constitutional Vitals: Temp Pulse Resp BP Pulse Ox 98.1 F 69 16 134/46 99 11/03/17 18:35 11/03/17 22:00 11/03/17 22:00 11/03/17 22:00 11/03/17 22:00 General appearance: Present: cooperative, A&O X 2, A&O X 3, morbidly obese - Respiratory Respiratory exam: Present: decreased breath sounds, CTAB. Absent: rales, respiratory distress, wheezes - Cardiovascular Cardiovascular exam: Present: RRR, +S1, +S2. Absent: diastolic murmur, gallop, rubs, systolic murmur - GI/Abdominal GI/Abdominal exam: Present: normal bowel sounds, soft, no peritoneal signs. Absent: distended, tenderness - Skin Skin exam: Present: dry, intact Additional comments: The swelling of her left great toe is basically gone. There is a small skin tear in this area. Internal Medicine: Result - Labs CBC & Chem 7: 11/08/17 04:05 11/08/17 04:05 Labs: Short CBC 11/03/17 Range/Units 07:26 WBC 9.3 (4.3-11.1) K/mcL Hgb 12.9 (11.5-15.4) g/dL Hct 39.6 (35.3-44.9) % Plt Count 180 (140-400) K/mcL BMP 11/03/17 11/03/17 07:26 16:51 Sodium 137 137 Potassium 3.9 3.7 Chloride 90 L 91 L Carbon Dioxide 37 H 37 H BUN 65 H 69 H Creatinine 1.92 H 2.16 H Glucose 188 H 216 H Calcium 9.1 8.8 - ABG Interpretation ABG results: ABG ABG pH 7.43 pH Units (7.32-7.45) 11/03/17 11:04 ABG pCO2 63 mmHg (35-45) H 11/03/17 11:04 ABG pO2 62 mmHg (85-104) L 11/03/17 11:04 ABG O2 Saturation 91 % (95-98) L 11/03/17 11:04 PT/INR, D-dimer PT 12.8 Seconds (9.4-12.1) H 11/01/17 04:02 - Impressions Impressions Abdomen/Pelvis CT 11/03/17 14:31 IMPRESSION: Right thyroid gland appears enlarged and heterogeneous. 2.1 x 1.4 cm nodule which may be exophytic from the right lobe of the thyroid gland or potentially be an enlarged node. Recommend follow-up ultrasound. A few pulmonary nodules measuring up to 4 mm. In a low-risk patient, no routine follow-up recommended. In a high-risk patient, optional CT at 12 months. Diverticulosis. No evidence of acute diverticulitis. 3.6 x 3.6 cm left ovarian cyst which contains septations and appears somewhat complex. This is stable slightly increased since previous exam. Recommend further evaluation with ultrasound. D/ / Rayna Lowe MD / Rayna Lowe MD Interpreting Provider: Rayna Lowe MD Chest CT 11/03/17 14:31 IMPRESSION: Right thyroid gland appears enlarged and heterogeneous. 2.1 x 1.4 cm nodule which may be exophytic from the right lobe of the thyroid gland or potentially be an enlarged node. Recommend follow-up ultrasound. A few pulmonary nodules measuring up to 4 mm. In a low-risk patient, no routine follow-up recommended. In a high-risk patient, optional CT at 12 months. Diverticulosis. No evidence of acute diverticulitis. 3.6 x 3.6 cm left ovarian cyst which contains septations and appears somewhat complex. This is stable slightly increased since previous exam. Recommend further evaluation with ultrasound. D/ / Rayna Lowe MD / Rayna Lowe MD Interpreting Provider: Rayna Lowe MD Head CT 11/03/17 14:31 IMPRESSION: 1. No acute intracranial abnormality. 2. Air-fluid levels within left frontal sinus and bilateral sphenoid sinuses. Opacification of ethmoid air cells. Correlate with symptoms of sinusitis. D/ / 11/03/2017 15:49:09 Lupillo Walters MD / jordan Interpreting Provider: Lupillo Walters MD - VTE Documentation of Mechanical Device: Intermittent pneumatic compression device Consult Discharge Plan - Plan Referrals: Stevan Bermeo [Other] (Patient is going to rehab no PCP appointment needed) Diallo Hernandez, [employer] [Advanced Practice Nurse] - (Office will call patient at home with follow up appointment SENT WEB REQUEST ON 11-05-17 @ [id number])
[2017-11-04] MEDS: Ipratropium/Albuterol Neb 3 ML IH SCH ×6 (03:37→20:28)
[2017-11-04] MEDS: *HR* Heparin 5,000 UNIT/ML VIAL SQ SCH ×2 (05:37→17:14)
[2017-11-04 06:52] LABS: Calcium 8.7 mg/dL (8.6-10.3); Potassium 3.7 mEq/L (3.5-5.1)
[2017-11-04 06:59] LABS: Basophils % 0.4 %; Eosinophils # 0.4 K/mcL (0.0-0.6); Eosinophils % 5.5 %; Hematocrit 38.8 % (35.3-44.9); Hemoglobin 12.2 g/dL (11.5-15.4); Immature Granulocytes % 0.9 % (0-4); Lymphocytes # 0.8 K/mcL (0.6-4.6); Lymphocytes % 10.5 %; Mean Corpuscular HGB Conc 31.4 g/dL (31.6-35.5); Mean Platelet Volume 11.7 fL (9.4-12.4); Monocytes # 0.5 K/mcL (0.0-1.3); Neutrophils # 5.8 K/mcL (1.6-8.9); Platelet Count 173 K/mcL (140-400); Red Blood Count 4.36 M/mcL (3.82-4.97); Red Cell Distribution Width 15.9 % (11.5-14.5); Segmented Neutrophils % 76.7 %
--- NOTE | 2017-11-04 07:33 | Pulmonology Progress Note ---
<Terry Perdomo - Last Filed: 11/04/17 09:43> Date of Encounter: 11/04/17 Time of Encounter: 07:33 Assessment and Plan (1) Acute respiratory failure Current Visit: Yes Status: Acute - On presentation, likely related to CHF exacerbation vs bronchitis - ABG shows combined metabolic alkalosis with respiratory acidosis, likely chronic - pH 7.46/CO2 66/ HCO3 37 - Suspect overdiuresis causing met alkalosis. Unsure baseline CO2 but calculates to chronic compensation. - Peripheral edema likely related to cellulitis vs lymphadema. Reportedly was chronic - CXR shows mild vascular congestion. - Dopplers negative for DVT bilaterally. Plan - Patient is clinically improved this morning on 4L with intermittent BiPAP - Continue to hold diuretics, goal of fluid net zero today and recommend restarting diuretics tomorrow. - Continue BiPAP rest - Stable for transfer to telemetry today Qualifiers: Respiratory failure complication: hypoxia and hypercapnia Qualified Code(s) : J96.01 - Acute respiratory failure with hypoxia; J96.02 - Acute respiratory failure with hypercapnia (2) CHF exacerbation Current Visit: Yes Status: Acute - Echo on 11/01/17 shows EF 55-60% with mild diastolic dysfunction - Mild vascular congestion on CXR - Has been getting diuresed with bumex since admission - Admits to orthopnea and LE swelling and weight gain - ABG shows metabolic alkalosis in addition to respiratory acidosis, likely a result of overdiuresis Plan - Recommend net fluid balance 0 today for overdiuresis. - Clinically improved with gentle hydration Qualifiers: Heart failure type: diastolic Qualified Code(s): I50.33 - Acute on chronic diastolic (congestive) heart failure (3) Metabolic encephalopathy Current Visit: Yes Status: Acute - AOx2 on exam today, unsure baseline but history of dementia - Possibly related to fatigue vs lesser suspicion of hypercapnea. - Oxygenating well and improving. - If no improvement, will consider intubation (4) Edema Current Visit: Yes Status: Acute - Appears to be chronic from chart review. - On exam today, minimal swelling which is at least partly related to cellulitis and lymphadema - Wells Score 1 for DVT, low probability however will obtain dopplers to rule out given respiratory symptoms and concern for possible PE. - Unable to go for CTA given kidney function. Plan - Continue to monitor for time being and continue rocephin - Hold diuretics as above Qualifiers: Edema type: unspecified Qualified Code(s): R60.9 - Edema, unspecified (5) Gross hematuria Current Visit: Yes Status: Acute (6) Second degree atrioventricular block, Mobitz (type) I Current Visit: Yes Status: Acute - mangement per cardiology who is following - Appreciate recommendations - HR wnl (7) CKD (chronic kidney disease) stage 4, GFR 15-29 ml/min Current Visit: Yes Status: Acute BUN/Cr of 72/2.10, which is worsened mildly improved from 2.16 - baseline Cr of 1.2-1.4 - Likely a result of diuresis - Will allow for gentle hydration and hold bumex -Avoid nephrotoxins and monitor. (8) Type 2 diabetes mellitus with renal complication Current Visit: Yes Status: Acute - BS of 339, was previously better controlled in 180s. - Insulin dependent at home. - Consider basal insulin if it remains elevated. - SSI on medium - A1c of 9.9% on 09/26/17 Qualifiers: Diabetes mellitus terminal operations supervisor insulin use: with terminal operations supervisor use Diabetes mellitus complication detail: with chronic kidney disease Chronic kidney disease stage: stage 4 (severe) Qualified Code(s): E11.22 - Type 2 diabetes mellitus with diabetic chronic kidney disease; N18.4 - Chronic kidney disease, stage 4 (severe); Z79.4 - custodial (current) use of insulin (9) DVT prophylaxis Current Visit: Yes Status: Acute Heparin subQ Subjective Principal diagnosis: second degree AV block, mobitz type II, dyspnea Interval history: patient seen and examined at bedside. She is more awake and alert this morning. She states that overall she feels "OK" and is wondering how much longer she will have to be here. No complaints of SOB, chest pain, nausea, vomiting, fevers , chills. She does complain of LE swelling and tenderness but states this is a chronic problem. No overnight events. Objective PUL Vital signs: Last Vital Signs Temp 98.2 F 11/04/17 03:24 Pulse 68 11/04/17 06:00 Resp 16 11/04/17 06:00 BP 125/87 11/04/17 06:00 Pulse Ox 96 11/04/17 06:00 Gen.: Vitals noted. No acute distress. AAOx2. Awake and alert sitting up at bedside. HEENT: PERRL/EOMI, oropharynx clear, Normocephalic, atraumatic, MMM. Cardiac: RRR, no murmur, +S1/S2 Pulmonary: CTAB without wheeze or rales. equal chest expansion Abdomen: soft, nontender, BS noted, no guarding, no rebound. : Moreno in place with yellow urine. Extremities: BLE edema present with erythema and evidence of venous stasis possible cellulitis, nontender calf, no cyanosis or clubbing Neuro: A&Ox2, moves all extremities, no focal defecits. Psych:Appears confused with some questions but overall improved. Results - Laboratory Findings CBC and BMP: 11/04/17 05:59 11/04/17 05:59 ABG ABG pH 7.43 pH Units (7.32-7.45) 11/03/17 11:04 ABG pCO2 63 mmHg (35-45) H 11/03/17 11:04 ABG pO2 62 mmHg (85-104) L 11/03/17 11:04 ABG O2 Saturation 91 % (95-98) L 11/03/17 11:04 PT/INR, D-dimer PT 12.8 Seconds (9.4-12.1) H 11/01/17 04:02 Abnormal lab findings: Abnormal lab results MCHC 31.4 g/dL (31.6-35.5) L 11/04/17 05:59 RDW 15.9 % (11.5-14.5) H 11/04/17 05:59 PT 12.8 Seconds (9.4-12.1) H 11/01/17 04:02 ABG pCO2 63 mmHg (35-45) H 11/03/17 11:04 ABG pO2 62 mmHg (85-104) L 11/03/17 11:04 ABG HCO3 42 mEq/L (21-27) H 11/03/17 11:04 ABG Total CO2 44 mEq/L (20-26) H 11/03/17 11:04 ABG O2 Saturation 91 % (95-98) L 11/03/17 11:04 ABG Base Excess 15 mEq/L (-2 to 3) H 11/03/17 11:04 Chloride 91 mEq/L (98-107) L 11/04/17 05:59 Carbon Dioxide 38 mEq/L (23-29) H 11/04/17 05:59 BUN 72 mg/dL (8-23) H 11/04/17 05:59 Creatinine 2.10 mg/dL (0.60-1.20) H 11/04/17 05:59 Est GFR ( Amer) 27 (> 60) L 11/04/17 05:59 Est GFR (Non-Af Amer) 23 (> 60) L 11/04/17 05:59 BUN/Creatinine Ratio 34 (6-26) H 11/04/17 05:59 Glucose 339 mg/dL (70-105) H 11/04/17 05:59 POC Glucose 184 mg/dL (70-99) H 11/03/17 20:20 Calculated Osmolality 317 (280-300) H 11/04/17 05:59 Phosphorus 5.5 mg/dL (2.7-4.5) H 11/01/17 04:02 Magnesium 2.9 mg/dL (1.6-2.6) H 11/01/17 04:02 AST 47 Units/L (13-39) H 11/01/17 04:02 B-Natriuretic Peptide 338 pg/mL (Less than 100) H 11/01/17 04:02 Globulin 3.6 g/dL (2.4-3.5) H 11/01/17 04:02 HDL Cholesterol 25 mg/dL (40-59) L 11/01/17 04:02 Urine Color Red (Yellow) A 11/02/17 14:25 Urine Clarity Turbid (Clear) A 11/02/17 14:25 Urine Protein 30 mg/dL (Neg-Trace) H 11/02/17 14:25 Urine Blood Large (Negative) H 11/02/17 14:25 Ur Leukocyte Esterase Moderate (Negative) H 11/02/17 14:25 Urine Microscopic RBC 15-30 per hpf (0-3) H 11/02/17 14:25 Urine Microscopic WBC 5-15 per hpf (0-3) H 11/02/17 14:25 Ur Squamous Epith Cells Moderate per lpf (None-Few) H 11/02/17 14:25 Vancomycin Trough 14 mcg/mL (5-10) H 11/01/17 04:02 - Clinical Findings Intake & Output: Intake & Output 0511/03/17 11/04/17 15:59 23:59 07:59 Output Total 150 / 150 300 / 300 200 / 200 Balance -150 / -150 -300 / -300 -200 / -200 Weight 131.5 kg - VTE Documentation of Mechanical Device: Intermittent pneumatic compression device Consult Discharge Plan - Plan Referrals: Stevan Bermeo [Other] - 11/09/17 3:00 pm <Robby Bourgeois W - Last Filed: 11/04/17 10:34> Date of Encounter: 11/04/17 Objective PUL Vital signs: Last Vital Signs Temp 98.2 F 11/04/17 03:24 Pulse 68 11/04/17 06:00 Resp 16 11/04/17 07:31 BP 125/87 11/04/17 06:00 Pulse Ox 98 11/04/17 07:31 Results - Laboratory Findings CBC and BMP: 11/04/17 05:59 11/04/17 05:59 ABG ABG pH 7.43 pH Units (7.32-7.45) 11/03/17 11:04 ABG pCO2 63 mmHg (35-45) H 11/03/17 11:04 ABG pO2 62 mmHg (85-104) L 11/03/17 11:04 ABG O2 Saturation 91 % (95-98) L 11/03/17 11:04 PT/INR, D-dimer PT 12.8 Seconds (9.4-12.1) H 11/01/17 04:02 Abnormal lab findings: Abnormal lab results MCHC 31.4 g/dL (31.6-35.5) L 11/04/17 05:59 RDW 15.9 % (11.5-14.5) H 11/04/17 05:59 PT 12.8 Seconds (9.4-12.1) H 11/01/17 04:02 ABG pCO2 63 mmHg (35-45) H 11/03/17 11:04 ABG pO2 62 mmHg (85-104) L 11/03/17 11:04 ABG HCO3 42 mEq/L (21-27) H 11/03/17 11:04 ABG Total CO2 44 mEq/L (20-26) H 11/03/17 11:04 ABG O2 Saturation 91 % (95-98) L 11/03/17 11:04 ABG Base Excess 15 mEq/L (-2 to 3) H 11/03/17 11:04 Chloride 91 mEq/L (98-107) L 11/04/17 05:59 Carbon Dioxide 38 mEq/L (23-29) H 11/04/17 05:59 BUN 72 mg/dL (8-23) H 11/04/17 05:59 Creatinine 2.10 mg/dL (0.60-1.20) H 11/04/17 05:59 Est GFR ( Amer) 27 (> 60) L 11/04/17 05:59 Est GFR (Non-Af Amer) 23 (> 60) L 11/04/17 05:59 BUN/Creatinine Ratio 34 (6-26) H 11/04/17 05:59 Glucose 339 mg/dL (70-105) H 11/04/17 05:59 POC Glucose 184 mg/dL (70-99) H 11/03/17 20:20 Calculated Osmolality 317 (280-300) H 11/04/17 05:59 Phosphorus 5.5 mg/dL (2.7-4.5) H 11/01/17 04:02 Magnesium 2.9 mg/dL (1.6-2.6) H 11/01/17 04:02 AST 47 Units/L (13-39) H 11/01/17 04:02 B-Natriuretic Peptide 338 pg/mL (Less than 100) H 11/01/17 04:02 Globulin 3.6 g/dL (2.4-3.5) H 11/01/17 04:02 HDL Cholesterol 25 mg/dL (40-59) L 11/01/17 04:02 Urine Color Red (Yellow) A 11/02/17 14:25 Urine Clarity Turbid (Clear) A 11/02/17 14:25 Urine Protein 30 mg/dL (Neg-Trace) H 11/02/17 14:25 Urine Blood Large (Negative) H 11/02/17 14:25 Ur Leukocyte Esterase Moderate (Negative) H 11/02/17 14:25 Urine Microscopic RBC 15-30 per hpf (0-3) H 11/02/17 14:25 Urine Microscopic WBC 5-15 per hpf (0-3) H 11/02/17 14:25 Ur Squamous Epith Cells Moderate per lpf (None-Few) H 11/02/17 14:25 Vancomycin Trough 14 mcg/mL (5-10) H 11/01/17 04:02 - Clinical Findings Intake & Output: Intake & Output 11/03/17 11/03/17 11/04/17 15:59 23:59 07:59 Output Total 150 / 150 300 / 300 200 / 200 Balance -150 / -150 -300 / -300 -200 / -200 Weight 131.5 kg - Attending Attestation I examined this patient and my medical decision-making was reviewed with the Resident Physician. I agree with the documented findings, disposition and treatment plan as described except to the extent set forth below. We independently had [id number] contact with the patient Patient seen and examined at bedside Labs, radiology, chart personally reviewed. Management was reviewed during multidisciplinary critical care rounds. LINE SERVICE TECHNICIAN: Acute encephalopathy improving this is likely secondary to metabolic derangements complicated by underlying advanced dementia continue to avoid sensory deprivation focus on sleep wake cycle baptism and avoid LINE SERVICE TECHNICIAN depressant medications as able Pulm: Acceptable oxygenation on nasal cannula. Patient continues BiPAP at night as needed she has chronic respiratory failure which is compensated today Cards: Heart failure with preserved ejection fraction hold diuresis for contraction alkalosis can likely resume diuretic tomorrow FEN-GI: Advance diet as tolerated after bedside speech and swallow eval Renal: Urine output monitored she has acute kidney injury which is improving would avoid aggressive diuresis. She has a metabolic alkalosis which is responded to Diamox. ID: She is on antibiotics and planned to de-escalate Heme/Onc: DVT prophylaxis given Endo: Glucose Monitored Integ/MSK: Skin Care per routine ICU Nursing Protocol to prevent ulcers. Lines: All lines examined without evidence of infection : Dispo: Stable for transfer to [facility] for ongoing care CODE: Full
[2017-11-04] MEDS: cefTRIAXone 1,000 MG in Water for inj. (sterile) 20 ML 10 ML IVP SCH (08:08)
[2017-11-04] MEDS: Insulin LISPRO 300 UNITS/3 ML VIAL SQ SCH ×4 (08:09→21:22)
[2017-11-04] MEDS ORDERED: Aspirin Enteric Coated 81 MG Tablet PO SCH (09:00)
[2017-11-04] MEDS ORDERED: Neosporin OINT 1 APPL PACKET TP SCH (09:00)
[2017-11-04] MEDS ORDERED: *HR* Dextrose 50 % in Water (Syg) 50 ML SYRINGE IVP PRN (11:25)
[2017-11-04] MEDS ORDERED: Chloraseptic Spray 177 ML BOTTLE MM PRN (11:25)
[2017-11-04] MEDS ORDERED: Menthol 9.1 MG LOZENGE PO PRN (11:25)
[2017-11-04] MEDS ORDERED: Dextrose Gel 15 GM/37.5 ML TUBE PO PRN ×2 (11:25)
[2017-11-04] MEDS ORDERED: Naloxone 0.4 MG/ML INJ IVP PRN (11:25)
[2017-11-04] MEDS ORDERED: D5% in Water 1,000 ML IVC PRN (11:25)
[2017-11-05] MEDS: Ipratropium/Albuterol Neb 3 ML IH SCH ×6 (00:15→20:01)
[2017-11-05 02:27] LABS: Calcium 8.9 mg/dL (8.6-10.3); Potassium 3.4 mEq/L (3.5-5.1)
[2017-11-05 02:31] LABS: Basophils # 0.1 K/mcL (0.0-0.2); Basophils % 0.8 %; Eosinophils # 0.5 K/mcL (0.0-0.6); Eosinophils % 7.1 %; Hematocrit 38.3 % (35.3-44.9); Hemoglobin 12.1 g/dL (11.5-15.4); Immature Granulocytes % 1.7 % (0-4); Lymphocytes # 0.9 K/mcL (0.6-4.6); Lymphocytes % 14.1 %; Mean Corpuscular HGB Conc 31.6 g/dL (31.6-35.5); Mean Corpuscular Hemoglobin 27.9 pg (28.0-33.3); Mean Corpuscular Volume 88.2 fL (83.0-100.0); Mean Platelet Volume 11.4 fL (9.4-12.4); Monocytes # 0.4 K/mcL (0.0-1.3); Monocytes % 6.4 %; Neutrophils # 4.5 K/mcL (1.6-8.9); Platelet Count 167 K/mcL (140-400); Red Blood Count 4.34 M/mcL (3.82-4.97); Red Cell Distribution Width 15.4 % (11.5-14.5); Segmented Neutrophils % 69.9 %
[2017-11-05] MEDS: *HR* Heparin 5,000 UNIT/ML VIAL SQ SCH ×2 (06:51→16:52)
[2017-11-05] MEDS: Aspirin Enteric Coated 81 MG Tablet PO SCH (07:41)
[2017-11-05] MEDS: Insulin LISPRO 300 UNITS/3 ML VIAL SQ SCH ×4 (07:41→21:20)
[2017-11-05] MEDS: Neosporin OINT 1 APPL PACKET TP SCH (07:42)
[2017-11-05] MEDS: cefTRIAXone 1,000 MG in 0.9 % Sodium Chloride Mini Bag 100 ML IVP SCH (07:42)
[2017-11-05] MEDS: Insulin DETEMIR 100 UNIT/ML X5UNITS SQ SCH (21:20)
--- NOTE | 2017-11-05 22:21 | Internal Med Progress Note ---
Date of Encounter: 11/05/17 Time of Encounter: 19:00 - Assessment and plan (1) Acute on chronic diastolic (congestive) heart failure Current Visit: Yes Status: Acute Assessment and plan: The patient has underlying diastolic heart failure. It is associated with CKD 3/ 4. She's not taking antidiuretics at this time. (2) Obesity hypoventilation syndrome Current Visit: Yes Status: Acute Assessment and plan: Will continue BiPAP treatments and supplemental oxygen. (3) CKD (chronic kidney disease) stage 4, GFR 15-29 ml/min Current Visit: Yes Status: Chronic Assessment and plan: This problem seems to be stable. She will need outpatient nephrology follow-up. (4) Acute on chronic respiratory failure with hypoxia and hypercapnia Current Visit: Yes Status: Acute Assessment and plan: Will continue BiPAP treatments and supplemental oxygen. She will likely need those at the time of discharge. (5) Acute hypokalemia Current Visit: Yes Status: Acute Assessment and plan: She's on supplemental potassium chloride. (6) Type 2 diabetes mellitus with renal complication Current Visit: Yes Status: Chronic Assessment and plan: Under federal control. To continue diabetic diet. To continue Levemir and prn Humalog. 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 She's not drowsy anymore. She continues to use supplemental oxygen and BiPAP treatments. She's not using diuretics anymore.She gets breathing treatments with Duoneb.She denies chest pain. She does have mild cough but not wheezing. Nurse abdominal pain, nausea and vomiting. She makes for amounts of urine. - Constitutional Vitals: Temp Pulse Resp BP Pulse Ox 97.7 F 70 72 156/64 97 11/05/17 19:09 11/05/17 19:09 11/05/17 20:01 11/05/17 19:09 11/05/17 20:01 General appearance: Present: A&O X 3, morbidly obese, no acute distress - Respiratory Respiratory exam: Present: decreased breath sounds, CTAB. Absent: rales, rhonchi, wheezes - Cardiovascular Cardiovascular exam: Present: RRR, +S1, +S2. Absent: diastolic murmur, gallop, rubs, systolic murmur - GI/Abdominal GI/Abdominal exam: Present: normal bowel sounds, soft, no peritoneal signs. Absent: distended, tenderness Additional comments: It is obese. - Skin Skin exam: Present: dry, intact Additional comments: There is an abrasion in the area of left great toe. Internal Medicine: Result - Labs CBC & Chem 7: 11/08/17 04:05 11/08/17 04:05 Labs: Short CBC 11/05/17 Range/Units 01:30 WBC 6.5 (4.3-11.1) K/mcL Hgb 12.1 (11.5-15.4) g/dL Hct 38.3 (35.3-44.9) % Plt Count 167 (140-400) K/mcL Neutrophils # 4.5 (1.6-8.9) K/mcL BMP 11/05/17 01:30 Sodium 137 Potassium 3.4 L Chloride 95 L Carbon Dioxide 34 H BUN 64 H Creatinine 1.66 H Glucose 296 H Calcium 8.9 - ABG Interpretation ABG results: ABG ABG pH 7.43 pH Units (7.32-7.45) 11/03/17 11:04 ABG pCO2 63 mmHg (35-45) H 11/03/17 11:04 ABG pO2 62 mmHg (85-104) L 11/03/17 11:04 ABG O2 Saturation 91 % (95-98) L 11/03/17 11:04 PT/INR, D-dimer PT 12.8 Seconds (9.4-12.1) H 11/01/17 04:02 - VTE Documentation of Mechanical Device: Intermittent pneumatic compression device Consult Discharge Plan - Plan Referrals: Stevan Bermeo [Other] (Patient is going to rehab no PCP appointment needed) Diallo Hernandez, [employer] [Advanced Practice Nurse] - (Office will call patient at home with follow up appointment SENT WEB REQUEST ON 11-05-17 @ [phone])
[2017-11-06] MEDS: Ipratropium/Albuterol Neb 3 ML IH SCH ×6 (00:06→20:33)
[2017-11-06 04:15] LABS: ABG Base Excess 9 mEq/L (-2 to 3); ABG HCO3 36 mEq/L (21-27); ABG Oxygen Saturation 95 % (95-98); ABG PCO2 62 mmHg (35-45); ABG PH 7.37 pH Units (7.32-7.45); ABG PO2 83 mmHg (85-104); ABG TCO2 38 mEq/L (20-26)
[2017-11-06] MEDS: *HR* Heparin 5,000 UNIT/ML VIAL SQ SCH ×2 (05:47→16:47)
[2017-11-06 06:11] LABS: Hematocrit 37.1 % (35.3-44.9); Hemoglobin 11.9 g/dL (11.5-15.4); Mean Corpuscular HGB Conc 32.1 g/dL (31.6-35.5); Mean Corpuscular Volume 90.3 fL (83.0-100.0); Mean Platelet Volume 10.7 fL (9.4-12.4); Platelet Count 168 K/mcL (140-400); Red Blood Count 4.11 M/mcL (3.82-4.97); Red Cell Distribution Width 15.2 % (11.5-14.5)
[2017-11-06] MEDS: cefTRIAXone 1,000 MG in 0.9 % Sodium Chloride Mini Bag 100 ML IVP SCH (07:24)
[2017-11-06] MEDS: Aspirin Enteric Coated 81 MG Tablet PO SCH (07:25)
[2017-11-06] MEDS: Neosporin OINT 1 APPL PACKET TP SCH (07:26)
[2017-11-06] MEDS: Insulin LISPRO 300 UNITS/3 ML VIAL SQ SCH ×4 (07:28→20:18)
[2017-11-06 08:21] LABS: Calcium 9.1 mg/dL (8.6-10.3); Potassium 3.7 mEq/L (3.5-5.1)
--- NOTE | 2017-11-06 10:14 | Nephrology Consult Note ---
Date of Encounter: 11/06/17 Time of Encounter: 09:30 Assessment and Plan (1) Acute kidney injury Current Visit: No Status: Acute CHRISTIAN in setting of fluid overload, CHF and diuresis superimposed on CKD most likely in setting of diabetes, hypertension, diuretics and advanced age contributing. Edema- chronic cellulitis versus lymphedema, home medication Lyrica contributing. Avoid nephrotoxins, Accurate I&O, will continue to monitor. History of Present Illness - Reason for Consult Acute Kidney Injury - History of Present Illness Ms. Pop is an 82 year old female who presented on October 31 for dyspnea, increased LE swelling and and incidental finding second degree heart block- wenkebach. She had a cutaneous pacer placed and Cardiology consulted. Ms. Pop was admitted with CHF, fluid overload and diuresed. Other PMH-CAD, COPD , CHF, diabetes, hyperlipidemia, hypertension, , cholecystectomy. Nephrology consulted for CHRISTIAN. At time of consult Ms. Pop is sitting up in chair, she denies shortness of breath and states LE swelling is her usual. She is a very poor healthcare or medical and HPI obtained from prior notes. Creat peaked 2.16 on November 03, she was given gentle IV hydration and diuretics held. Today creat 1.28. Prior labs indicate CKD with baseline creat 1.2-1.7. Also CHRISTIAN/ CKD during prior hospital stays in setting of diuresis. Home medications list Bumex 2 mg BID. Has indwelling rhoades catheter with documented urine output 2550 cc. Past Med Surg Social Fam HX - Past Medical History Medical history: diabetes, hyperlipidemia, hypertension Psychiatric history: no psych history - Past Surgical History Surgical History: , cholecystectomy, other - Social History Smoking Status: Never smoker Smokeless Tobacco Status: No Alcohol use: none Drug use: none - Family History Mother Hx Family Cancer: Yes Sister Hx Family Cancer: Yes Medications and Allergies Carvedilol 12.5 mg PO BID 04/22/15 [History] Insulin Glargine [Lantus] 68 unit SQ DAILY PRN 09/20/17 [History] Aspirin Enteric Coated [Aspirin EC] 81 mg PO DAILY #30 tablet. 09/25/17 [Rx] Albuterol Sulfate [Proair Hfa] 2 puff IH Q4-6H PRN 10/31/17 [History] Bumetanide 2 mg PO BID 10/31/17 [History] Donepezil [Aricept] 10 mg PO HS 10/31/17 [History] Guaifenesin [Mucinex] 600 - 1,200 mg PO QPM 10/31/17 [History] Pregabalin [Lyrica] 75 mg PO BID 10/31/17 [History] Simvastatin [Zocor] 20 mg PO HS 10/31/17 [History] SitaGLIPtin [Januvia] 100 mg PO DAILY 10/31/17 [History] 3 Allergy/AdvReac Type Severity Reaction Status Date / Time canagliflozin [From Invokana] Allergy Hives Verified 10/31/17 10:05 gabapentin Allergy See Verified 10/31/17 10:05 Comments Review of Systems All Systems: reviewed and no additional remarkable complaints except as stated Exam - Vital Signs Vital signs: Initial Vital Signs Temp Pulse Resp BP Pulse Ox 97.7 F 70 22 156/62 75 10/31/17 10:02 10/31/17 10:02 10/31/17 10:02 10/31/17 10:02 10/31/17 10:02 Vital Signs - Last 8 Hours Temp Pulse Resp BP Pulse Ox 11/06/17 07:22 97.6 F 84 18 162/62 95 11/06/17 07:13 18 97 11/06/17 07:00 76 11/06/17 04:26 98.6 F 84 18 145/49 96 11/06/17 03:48 19 98 Intake and Output 11/05/17 11/06/17 11/06/17 23:59 07:59 15:59 Intake Total 120 / 120 120 / 120 Output Total 900 / 900 1200 / 1200 Balance -780 / -780 -1200 / -1200 120 / 120 Intake: Oral 120 / 120 120 / 120 Output: Urine 250 / 250 Catheter 650 / 650 1200 / 1200 Other: Meal Dinner Breakfast Percent of Meal Consumed 25% 20% Weight 129.6 kg Blood Glucose* 354 263 Patient Weight 11/06/17 23:59 Weight 129.6 kg - General Appearance General appearance: well-developed, well-nourished, appears started age, obese EENT: mucous membranes moist Neck: no JVD Respiratory: clear Cardiology: edema, regular rate, regular rhythm Additional Comments: 1+, chronic vascular skin changes, pedal edema. Gastrointestinal: normoactive bowel sounds, no tenderness Integumentary: warm and dry Psychiatric: mood/affect appropriate, cooperative Results - Lab Results 11/06/17 05:59 11/06/17 05:59 Most recent lab results ABG pH 7.37 pH Units (7.32-7.45) 11/06/17 04:10 ABG pCO2 62 mmHg (35-45) H 11/06/17 04:10 ABG pO2 83 mmHg (85-104) L 11/06/17 04:10 ABG HCO3 36 mEq/L (21-27) H 11/06/17 04:10 ABG O2 Saturation 95 % (95-98) 11/06/17 04:10 Calcium 9.1 mg/dL (8.6-10.3) 11/06/17 05:59 Phosphorus 5.5 mg/dL (2.7-4.5) H 11/01/17 04:02 Magnesium 2.9 mg/dL (1.6-2.6) H 11/01/17 04:02 Consult Discharge Plan - Plan Referrals: Stevan Bermeo [Other] - 11/09/17 3:00 pm (sent fax over to get an appointment/ and to cancel this one) Diallo Hernandez, SEWER [Advanced Practice Nurse] - (Office will call patient at home with follow up appointment SENT WEB REQUEST ON 11-05-17 @ [phone])
--- NOTE | 2017-11-06 14:13 | Internal Med Progress Note ---
Date of Encounter: 11/06/17 Time of Encounter: 13:17 - Assessment and plan (1) Acute respiratory failure Current Visit: Yes Status: Acute Assessment and plan: Improved. Weaned today down to 1L by NC. Continue to wean to room air as tolerated. Treating CHF and CKD as per below. Qualifiers: Respiratory failure complication: hypoxia and hypercapnia Qualified Code(s) : J96.01 - Acute respiratory failure with hypoxia; J96.02 - Acute respiratory failure with hypercapnia (2) CHF exacerbation Current Visit: Yes Status: Acute Assessment and plan: Still with good urine output despite holding diuretics last few days. Will hold home bumex for now, as we are monitoring CHRISTIAN/CKD. Euvolemic on examination. No respiratory distress. Continue strict I&Os and daily weights. Will monitor closely. Consider removal of rhoades cathether with voiding trial tomorrow if stable. Qualifiers: Heart failure type: diastolic Qualified Code(s): I50.33 - Acute on chronic diastolic (congestive) heart failure (3) CKD (chronic kidney disease) stage 4, GFR 15-29 ml/min Current Visit: Yes Status: Acute Assessment and plan: CHRISTIAN on CKD. Nephrology consulted; appreciate input. Creatinine is improving. Continuing to hold diuretics for now as per above. Recheck BMP in AM. (4) Edema Current Visit: Yes Status: Acute Qualifiers: Edema type: unspecified Qualified Code(s): R60.9 - Edema, unspecified (5) Gross hematuria Current Visit: Yes Status: Resolved (6) Second degree atrioventricular block, Mobitz (type) I Current Visit: Yes Status: Acute Assessment and plan: Intermittent second degree mobitz type I (wenckebach). Once stable from CHF/ respiratory and CHRISTIAN/CKD perspective, will reconsult cardiology about stress test. Family is adamant about getting stress test done inpatient prior to discharge. (7) Metabolic encephalopathy Current Visit: Yes Status: Resolved (8) Type 2 diabetes mellitus with renal complication Current Visit: Yes Status: Chronic Assessment and plan: Continue accuchecks and SSI QID AC/HS. Qualifiers: Diabetes mellitus custodial insulin use: with custodial use Diabetes mellitus complication detail: with chronic kidney disease Chronic kidney disease stage: stage 4 (severe) Qualified Code(s): E11.22 - Type 2 diabetes mellitus with diabetic chronic kidney disease; N18.4 - Chronic kidney disease, stage 4 (severe); Z79.4 - intermediate accountant (current) use of insulin (9) DVT prophylaxis Current Visit: Yes Status: Acute Assessment and plan: Continue SQ heparin. - Time Spent With Patient Total time spent is greater than 50% in coordination of care (as documented) at patient's floor/unit and/or counseling patient: 25 - 35 minutes - Subjective Interval history: Patient had no acute events overnight. She is sitting up in chair today. She is in good spirits. She wants to go home. Family is in room today. I addressed all questions in regards to patient's care, including stress test. Family is adamant about getting stress test done inpatient. I explained that this would be up to cardiology, and that once patient is more stable from CHF and CHRISTIAN/CKD perspective, I will talk to cardiology. Patient denies chest pain, SOB, fever, chills, nausea, vomiting, and abdominal pain. She has no complaints at this time. - Constitutional Vitals: Temp Pulse Resp BP Pulse Ox 97.5 F L 73 18 138/46 95 11/06/17 11:23 11/06/17 11:23 11/06/17 11:23 11/06/17 11:23 11/06/17 11:23 General appearance: Present: cooperative, A&O X 3, pleasant, no acute distress, answers questions appropriately - Respiratory Respiratory exam: Present: CTAB. Absent: accessory muscle use, rales, rhonchi, wheezes Additional comments: Normal WOB - Cardiovascular Cardiovascular exam: Present: RRR, +S1, +S2. Absent: diastolic murmur, gallop, rubs, systolic murmur Additional comments: 2+ pitting BLE edema with lymphedematous skin changes - GI/Abdominal GI/Abdominal exam: Present: normal bowel sounds, soft. Absent: distended, hepatomegaly, mass, splenomegaly, tenderness - Psychiatric Psychiatric exam: Present: normal affect, normal mood. Absent: agitated, anxious, depressed - Skin Skin exam: Present: dry, intact, warm. Absent: cyanosis, rash Internal Medicine: Result - Labs CBC & Chem 7: 11/06/17 05:59 11/06/17 05:59 Labs: Short CBC 11/06/17 Range/Units 05:59 WBC 5.8 (4.3-11.1) K/mcL Hgb 11.9 (11.5-15.4) g/dL Hct 37.1 (35.3-44.9) % Plt Count 168 (140-400) K/mcL BMP 11/06/17 05:59 Sodium 140 Potassium 3.7 Chloride 100 Carbon Dioxide 33 H BUN 46 H Creatinine 1.28 H Glucose 262 H Calcium 9.1 - ABG Interpretation ABG results: ABG ABG pH 7.37 pH Units (7.32-7.45) 11/06/17 04:10 ABG pCO2 62 mmHg (35-45) H 11/06/17 04:10 ABG pO2 83 mmHg (85-104) L 11/06/17 04:10 ABG O2 Saturation 95 % (95-98) 11/06/17 04:10 PT/INR, D-dimer PT 12.8 Seconds (9.4-12.1) H 11/01/17 04:02 Consult Discharge Plan - Plan Referrals: Stevan Bermeo [Other] - 11/09/17 3:00 pm (sent fax over to get an appointment/ and to cancel this one) Diallo Hernandez, DESKTOP PUBLISHING ASSOCIATE [Advanced Practice Nurse] - (Office will call patient at home with follow up appointment SENT WEB REQUEST ON 11-05-17 @ [phone])
[2017-11-06] MEDS: Insulin DETEMIR 100 UNIT/ML X5UNITS SQ SCH (20:19)
[2017-11-07] MEDS: Ipratropium/Albuterol Neb 3 ML IH SCH ×6 (00:23→20:09)
[2017-11-07 05:22] LABS: Hematocrit 39.2 % (35.3-44.9); Hemoglobin 12.2 g/dL (11.5-15.4); Mean Corpuscular HGB Conc 31.1 g/dL (31.6-35.5); Mean Corpuscular Hemoglobin 27.6 pg (28.0-33.3); Mean Corpuscular Volume 88.7 fL (83.0-100.0); Mean Platelet Volume 10.7 fL (9.4-12.4); Platelet Count 197 K/mcL (140-400); Red Blood Count 4.42 M/mcL (3.82-4.97); Red Cell Distribution Width 15.6 % (11.5-14.5)
[2017-11-07 05:23] LABS: Basophils # 0.1 K/mcL (0.0-0.2); Basophils % 1.8 %; Eosinophils # 0.3 K/mcL (0.0-0.6); Eosinophils % 5.8 %; Hematocrit 38.4 % (35.3-44.9); Hemoglobin 12.4 g/dL (11.5-15.4); Lymphocytes # 1.4 K/mcL (0.6-4.6); Lymphocytes % 25.2 %; Mean Corpuscular HGB Conc 32.3 g/dL (31.6-35.5); Mean Corpuscular Hemoglobin 28.8 pg (28.0-33.3); Mean Corpuscular Volume 89.3 fL (83.0-100.0); Monocytes # 0.9 K/mcL (0.0-1.3); Monocytes % 15.4 %; Neutrophils # 2.5 K/mcL (1.6-8.9); Platelet Count 196 K/mcL (140-400); Red Cell Distribution Width 15.4 % (11.5-14.5); Segmented Neutrophils % 45.8 %
[2017-11-07 05:39] LABS: Calcium 9.4 mg/dL (8.6-10.3)
[2017-11-07 05:55] LABS: Platelet Estimate Normal (Normal)
[2017-11-07] MEDS: *HR* Heparin 5,000 UNIT/ML VIAL SQ SCH ×2 (06:24→16:52)
[2017-11-07] MEDS: Aspirin Enteric Coated 81 MG Tablet PO SCH (07:40)
[2017-11-07] MEDS: cefTRIAXone 1,000 MG in 0.9 % Sodium Chloride Mini Bag 100 ML IVP SCH (07:40)
[2017-11-07] MEDS: Insulin LISPRO 300 UNITS/3 ML VIAL SQ SCH ×4 (07:41→21:09)
[2017-11-07] MEDS: Neosporin OINT 1 APPL PACKET TP SCH (07:41)
--- NOTE | 2017-11-07 13:39 | Nephrology Progress Note ---
Date of Encounter: 11/07/17 Time of Encounter: 13:20 - Assessment and Plan (1) Acute kidney injury Current Visit: No Status: Acute CHRISTIAN in setting of fluid overload, CHF and diuresis superimposed on CKD most likely in setting of diabetes, hypertension, diuretics and advanced age contributing. Edema- chronic cellulitis versus lymphedema, home medication Lyrica contributing. Renal fct at baseline. May have to accept higher azotemia related to diuretics related to CHF. Avoid nephrotoxins, Accurate I&O, Will sign off, call again if needed. Subjective Principal diagnosis: second degree AV block, mobitz type II, dyspnea Interval history: Sitting up in chair. Denies shortness of breath. Objective - Vital Signs Vital signs: Vital Signs Temp Pulse Resp BP Pulse Ox 11/07/17 11:36 16 94 11/07/17 11:27 97.5 F L 74 16 11/07/17 07:33 97.5 F L 78 16 146/56 94 11/07/17 07:29 19 95 11/07/17 07:00 71 11/07/17 04:25 19 95 11/07/17 04:15 97.6 F 77 16 135/80 94 11/07/17 00:23 18 95 11/06/17 23:16 97.6 F 80 16 153/49 94 11/06/17 20:33 18 92 11/06/17 19:08 97.5 F L 76 16 141/52 94 11/06/17 16:39 97.5 F L 80 18 160/69 92 11/06/17 15:25 20 92 Intake and Output 11/06/17 11/07/17 11/07/17 23:59 07:59 15:59 Intake Total 400 / 400 200 / 200 Output Total 650 / 650 650 / 650 200 / 200 Balance -250 / -250 -650 / -650 0 / 0 Intake: Oral 400 / 400 200 / 200 Output: Catheter 650 / 650 650 / 650 200 / 200 Other: Meal Breakfast Percent of Meal Consumed 15% Weight 130.1 kg Blood Glucose* 359 244 287 Patient Weight 11/07/17 23:59 Weight 130.1 kg - General Appearance General appearance: Present: well-developed, well-nourished, appears started age , obese EENT: Present: mucous membranes moist Neck: Present: no JVD Respiratory: Present: clear Cardiology: Present: edema, regular rate, regular rhythm Additional Comments: mild pitting, chronic venous changes, pedal edema Gastrointestinal: Present: normoactive bowel sounds, no tenderness Integumentary: Present: warm and dry Psychiatric: Present: mood/affect appropriate, cooperative - Lab 11/07/17 04:43 11/07/17 04:43 Most recent lab results ABG pH 7.37 pH Units (7.32-7.45) 11/06/17 04:10 ABG pCO2 62 mmHg (35-45) H 11/06/17 04:10 ABG pO2 83 mmHg (85-104) L 11/06/17 04:10 ABG HCO3 36 mEq/L (21-27) H 11/06/17 04:10 ABG O2 Saturation 95 % (95-98) 11/06/17 04:10 Calcium 9.4 mg/dL (8.6-10.3) 11/07/17 04:43 Phosphorus 5.5 mg/dL (2.7-4.5) H 11/01/17 04:02 Magnesium 2.9 mg/dL (1.6-2.6) H 11/01/17 04:02 - VTE Documentation of Mechanical Device: Intermittent pneumatic compression device Consult Discharge Plan - Plan Referrals: Stevan Bermeo [Other] (Patient is going to rehab no PCP appointment needed) Diallo Hernandez, ENTERTAINMENT PRODUCTION PROFESSIONAL [Advanced Practice Nurse] - (Office will call patient at home with follow up appointment SENT WEB REQUEST ON 11-05-17 @ [phone])
--- NOTE | 2017-11-07 17:12 | Internal Med Progress Note ---
Date of Encounter: 11/07/17 Time of Encounter: 16:56 - Assessment and plan (1) Acute respiratory failure Current Visit: Yes Status: Resolved Assessment and plan: Resolved. Weaned to RA today without any issues. Treating CHF and CKD as per below. Qualifiers: Respiratory failure complication: hypoxia and hypercapnia Qualified Code(s) : J96.01 - Acute respiratory failure with hypoxia; J96.02 - Acute respiratory failure with hypercapnia (2) CHF exacerbation Current Visit: Yes Status: Acute Assessment and plan: Still with good urine output despite holding diuretics last few days. Will hold home bumex for now, as we are monitoring CHRISTIAN/CKD. Euvolemic on examination. No respiratory distress. Weaned to RA today. Continue strict I& Os and daily weights. Will monitor closely. Moreno cathether removed today with no issues voiding. Qualifiers: Heart failure type: diastolic Qualified Code(s): I50.33 - Acute on chronic diastolic (congestive) heart failure (3) CKD (chronic kidney disease) stage 4, GFR 15-29 ml/min Current Visit: Yes Status: Chronic Assessment and plan: CHRISTIAN resolved. Nephrology consulted; appreciate input. Continuing to hold diuretics for now as per above. Recheck BMP in AM. (4) Edema Current Visit: Yes Status: Acute Qualifiers: Edema type: unspecified Qualified Code(s): R60.9 - Edema, unspecified (5) Gross hematuria Current Visit: Yes Status: Resolved (6) Second degree atrioventricular block, Mobitz (type) I Current Visit: Yes Status: Acute Assessment and plan: Intermittent second degree mobitz type I (wenckebach). Now stable from CHF/ respiratory and CHRISTIAN/CKD perspective, so cardiology reconsulted about stress test. Cardiology agrees for inpatient stress test tomorrow. (7) Metabolic encephalopathy Current Visit: Yes Status: Resolved (8) Type 2 diabetes mellitus with renal complication Current Visit: Yes Status: Chronic Assessment and plan: Continue accuchecks and SSI QID AC/HS. Qualifiers: Diabetes mellitus float phlebotomist insulin use: with float phlebotomist use Diabetes mellitus complication detail: with chronic kidney disease Chronic kidney disease stage: stage 4 (severe) Qualified Code(s): E11.22 - Type 2 diabetes mellitus with diabetic chronic kidney disease; N18.4 - Chronic kidney disease, stage 4 (severe); Z79.4 - half-way (current) use of insulin (9) Poor diet Current Visit: Yes Status: Acute Assessment and plan: Generator Man consulted. Added ensure shakes with meals. (10) DVT prophylaxis Current Visit: Yes Status: Acute Assessment and plan: Continue SQ heparin. - Time Spent With Patient Total time spent is greater than 50% in coordination of care (as documented) at patient's floor/unit and/or counseling patient: less than 15 minutes - Subjective Interval history: Patient had no acute events overnight. She is sitting up in chair today. She is in good spirits. She wants to go home. Family is in room today. I addressed all questions in regards to patient's care, including stress test scheduled for tomorrow. Cardiology has agreed to perform stress test as inpatient. I have reconsulted them. Patient denies chest pain, SOB, fever, chills, nausea, vomiting, and abdominal pain. She has no complaints at this time. - Constitutional Vitals: Temp Pulse Resp BP Pulse Ox 97.5 F L 76 18 158/63 92 11/07/17 16:34 11/07/17 16:34 11/07/17 16:34 11/07/17 16:34 11/07/17 16:34 General appearance: Present: cooperative, A&O X 3, morbidly obese, pleasant, no acute distress, answers questions appropriately - Respiratory Respiratory exam: Present: CTAB. Absent: accessory muscle use, rales, rhonchi, wheezes Additional comments: Normal WOB - Cardiovascular Cardiovascular exam: Present: RRR, +S1, +S2. Absent: diastolic murmur, gallop, rubs, systolic murmur Additional comments: Trace BLE edema - GI/Abdominal GI/Abdominal exam: Present: normal bowel sounds, soft. Absent: distended, hepatomegaly, mass, splenomegaly, tenderness - Psychiatric Psychiatric exam: Present: normal affect, normal mood. Absent: agitated, anxious, depressed - Skin Skin exam: Present: dry, intact, warm. Absent: cyanosis, rash Internal Medicine: Result - Labs CBC & Chem 7: 11/07/17 04:43 11/07/17 04:43 Labs: Short CBC 11/07/17 11/07/17 Range/Units 04:43 04:43 WBC 5.7 5.5 (4.3-11.1) K/mcL Hgb 12.2 12.4 (11.5-15.4) g/dL Hct 39.2 38.4 (35.3-44.9) % Plt Count 197 196 (140-400) K/mcL Neutrophils # 2.5 (1.6-8.9) K/mcL BMP 11/07/17 04:43 Sodium 138 Potassium 4.0 Chloride 102 Carbon Dioxide 32 H BUN 37 H Creatinine 1.15 Glucose 289 H Calcium 9.4 - ABG Interpretation ABG results: ABG ABG pH 7.37 pH Units (7.32-7.45) 11/06/17 04:10 ABG pCO2 62 mmHg (35-45) H 11/06/17 04:10 ABG pO2 83 mmHg (85-104) L 11/06/17 04:10 ABG O2 Saturation 95 % (95-98) 11/06/17 04:10 PT/INR, D-dimer PT 12.8 Seconds (9.4-12.1) H 11/01/17 04:02 Consult Discharge Plan - Plan Referrals: Stevan Bermeo [Other] (Patient is going to rehab no PCP appointment needed) Diallo Hernandez, BILL ADJUSTER [Advanced Practice Nurse] - (Office will call patient at home with follow up appointment SENT WEB REQUEST ON 11-05-17 @ [phone])
[2017-11-07] MEDS: Insulin DETEMIR 100 UNIT/ML X5UNITS SQ SCH (21:08)
[2017-11-08] MEDS: Ipratropium/Albuterol Neb 3 ML IH SCH ×6 (00:03→20:20)
[2017-11-08 04:22] LABS: Basophils # 0.1 K/mcL (0.0-0.2); Basophils % 1.4 %; Eosinophils # 0.3 K/mcL (0.0-0.6); Eosinophils % 5.3 %; Hematocrit 39.9 % (35.3-44.9); Hemoglobin 12.9 g/dL (11.5-15.4); Immature Granulocytes % 6.3 % (0-4); Lymphocytes # 1.5 K/mcL (0.6-4.6); Lymphocytes % 26.4 %; Mean Corpuscular HGB Conc 32.3 g/dL (31.6-35.5); Mean Corpuscular Hemoglobin 29.1 pg (28.0-33.3); Mean Corpuscular Volume 89.9 fL (83.0-100.0); Mean Platelet Volume 10.7 fL (9.4-12.4); Monocytes # 0.8 K/mcL (0.0-1.3); Monocytes % 13.4 %; Platelet Count 213 K/mcL (140-400); Red Blood Count 4.44 M/mcL (3.82-4.97); Red Cell Distribution Width 15.7 % (11.5-14.5); Segmented Neutrophils % 47.2 %
[2017-11-08 04:28] LABS: Neutrophils # 2.7 K/mcL (1.6-8.9)
[2017-11-08 04:39] LABS: Calcium 9.6 mg/dL (8.6-10.3); Potassium 4.5 mEq/L (3.5-5.1)
[2017-11-08 04:46] LABS: Large Platelets Present (Not Present); Platelet Estimate Normal (Normal); Reactive Lymphocytes Present (Not Present); Toxic Granulation Present (Not Present)
[2017-11-08] MEDS ORDERED: Regadenoson 0.4 MG/5 ML SYRINGE IVP ONE (05:39)
[2017-11-08] MEDS: *HR* Heparin 5,000 UNIT/ML VIAL SQ SCH ×2 (06:28→16:49)
[2017-11-08] MEDS: Insulin LISPRO 300 UNITS/3 ML VIAL SQ SCH ×4 (07:58→20:21)
[2017-11-08] MEDS: Aspirin Enteric Coated 81 MG Tablet PO SCH (07:59)
[2017-11-08] MEDS: Neosporin OINT 1 APPL PACKET TP SCH (07:59)
[2017-11-08] MEDS ORDERED: Ondansetron 4 MG/2 ML VIAL IVP STA (11:13)
[2017-11-08] MEDS ORDERED: Ondansetron 4 MG/2 ML VIAL IVP PRN (11:13)
--- NOTE | 2017-11-08 16:26 | Internal Med Progress Note ---
Date of Encounter: 11/08/17 Time of Encounter: 16:24 - Assessment and plan (1) Acute respiratory failure Current Visit: Yes Status: Resolved Assessment and plan: Resolved. Has been stable RA for greater than 24 hours now. Treating CHF and CKD as per below. Qualifiers: Respiratory failure complication: hypoxia and hypercapnia Qualified Code(s) : J96.01 - Acute respiratory failure with hypoxia; J96.02 - Acute respiratory failure with hypercapnia (2) CHF exacerbation Current Visit: Yes Status: Acute Assessment and plan: Still with good urine output despite holding diuretics last few days. Will hold home bumex for now, as we are monitoring CKD. Euvolemic on examination. No respiratory distress. On RA for more than 24 hours. Continue strict I&Os and daily weights. Will monitor closely. Qualifiers: Heart failure type: diastolic Qualified Code(s): I50.33 - Acute on chronic diastolic (congestive) heart failure (3) CKD (chronic kidney disease) stage 4, GFR 15-29 ml/min Current Visit: Yes Status: Chronic Assessment and plan: CHRISTIAN resolved. Nephrology consulted; appreciate input. Continuing to hold diuretics for now as per above. Recheck BMP in AM. (4) Edema Current Visit: Yes Status: Chronic Qualifiers: Edema type: unspecified Qualified Code(s): R60.9 - Edema, unspecified (5) Gross hematuria Current Visit: Yes Status: Resolved (6) Second degree atrioventricular block, Mobitz (type) I Current Visit: Yes Status: Acute Assessment and plan: Intermittent second degree mobitz type I (wenckebach). Now stable from CHF/ respiratory and CKD perspective, so cardiology reconsulted; appreciate input. Will complete part 2 of stress test tomorrow and await cardiology recommendations. (7) Metabolic encephalopathy Current Visit: Yes Status: Resolved (8) Type 2 diabetes mellitus with renal complication Current Visit: Yes Status: Chronic Assessment and plan: Continue accuchecks and SSI QID AC/HS. Blood glucoses improved after increasing to high dose SSI. Qualifiers: Diabetes mellitus long term acute care registered nurse insulin use: with long term acute care registered nurse use Diabetes mellitus complication detail: with chronic kidney disease Chronic kidney disease stage: stage 4 (severe) Qualified Code(s): E11.22 - Type 2 diabetes mellitus with diabetic chronic kidney disease; N18.4 - Chronic kidney disease, stage 4 (severe); Z79.4 - jail (current) use of insulin (9) Poor diet Current Visit: Yes Status: Acute Assessment and plan: Refractory Furnace Designer consulted. Continue ensure shakes with meals. (10) DVT prophylaxis Current Visit: Yes Status: Acute Assessment and plan: Continue SQ heparin. - Time Spent With Patient Total time spent is greater than 50% in coordination of care (as documented) at patient's floor/unit and/or counseling patient: less than 15 minutes - Subjective Interval history: Patient had no acute events overnight. She is sitting up in chair today. She states that stress test went OK, but she had some diarrhea during it. Nursing staff reports that stool today is formed and not loose. She had some nausea earlier. Patient denies chest pain, SOB, fever, chills, nausea, vomiting, and abdominal pain at this time. She has no other complaints at this time. - Constitutional Vitals: Temp Pulse Resp BP Pulse Ox 97.6 F 70 18 164/62 90 11/08/17 11:35 11/08/17 11:35 11/08/17 11:35 11/08/17 11:35 11/08/17 11:35 General appearance: Present: cooperative, A&O X 3, morbidly obese, pleasant, no acute distress, answers questions appropriately - Respiratory Respiratory exam: Present: CTAB. Absent: accessory muscle use, rales, rhonchi, wheezes Additional comments: Normal WOB - Cardiovascular Cardiovascular exam: Present: RRR, +S1, +S2. Absent: diastolic murmur, gallop, rubs, systolic murmur Additional comments: Trace BLE edema - GI/Abdominal GI/Abdominal exam: Present: normal bowel sounds, soft. Absent: distended, hepatomegaly, mass, splenomegaly, tenderness - Psychiatric Psychiatric exam: Present: normal affect, normal mood. Absent: agitated, anxious, depressed - Skin Skin exam: Present: dry, intact, warm. Absent: cyanosis, rash Internal Medicine: Result - Labs CBC & Chem 7: 11/08/17 04:05 11/08/17 04:05 Labs: Short CBC 11/08/17 Range/Units 04:05 WBC 5.8 (4.3-11.1) K/mcL Hgb 12.9 (11.5-15.4) g/dL Hct 39.9 (35.3-44.9) % Plt Count 213 (140-400) K/mcL Neutrophils # 2.7 (1.6-8.9) K/mcL BMP 11/08/17 04:05 Sodium 140 Potassium 4.5 Chloride 104 Carbon Dioxide 30 H BUN 27 H Creatinine 1.14 Glucose 228 H Calcium 9.6 - ABG Interpretation ABG results: ABG ABG pH 7.37 pH Units (7.32-7.45) 11/06/17 04:10 ABG pCO2 62 mmHg (35-45) H 11/06/17 04:10 ABG pO2 83 mmHg (85-104) L 11/06/17 04:10 ABG O2 Saturation 95 % (95-98) 11/06/17 04:10 PT/INR, D-dimer PT 12.8 Seconds (9.4-12.1) H 11/01/17 04:02 Consult Discharge Plan - Plan Referrals: Stevan Bermeo [Other] (Patient is going to rehab no PCP appointment needed) Diallo Hernandez, DIRECTOR OF CLINICAL APPLICATIONS [Advanced Practice Nurse] - (Office will call patient at home with follow up appointment SENT WEB REQUEST ON 11-05-17 @ [phone])
[2017-11-08] MEDS: Insulin DETEMIR 100 UNIT/ML X5UNITS SQ SCH (20:29)
[2017-11-09] MEDS: Ipratropium/Albuterol Neb 3 ML IH SCH ×5 (01:25→15:52)
[2017-11-09 05:03] LABS: Hemoglobin 12.4 g/dL (11.5-15.4); Mean Corpuscular Hemoglobin 28.1 pg (28.0-33.3); Mean Corpuscular Volume 90.7 fL (83.0-100.0); Mean Platelet Volume 10.9 fL (9.4-12.4); Platelet Count 215 K/mcL (140-400); Red Blood Count 4.41 M/mcL (3.82-4.97)
[2017-11-09 05:20] LABS: Potassium 5.1 mEq/L (3.5-5.1)
[2017-11-09 05:21] LABS: Calcium 9.4 mg/dL (8.6-10.3)
[2017-11-09] MEDS: *HR* Heparin 5,000 UNIT/ML VIAL SQ SCH (05:34)
[2017-11-09 05:43] LABS: Eosinophils # 0.6 K/mcL (0.0-0.6); Lymphocytes # 2.1 K/mcL (0.6-4.6); Monocytes # 0.7 K/mcL (0.0-1.3); Neutrophils # 3.7 K/mcL (1.6-8.9); Platelet Estimate Normal (Normal); Reactive Lymphocytes Present (Not Present); Toxic Granulation Present (Not Present)
[2017-11-09] MEDS: Aspirin Enteric Coated 81 MG Tablet PO SCH (09:07)
[2017-11-09] MEDS: Neosporin OINT 1 APPL PACKET TP SCH (09:07)
[2017-11-09] MEDS: Insulin LISPRO 300 UNITS/3 ML VIAL SQ SCH ×2 (09:12→12:32)
--- NOTE | 2017-11-09 11:30 | Cardiology Progress Note ---
Date of Encounter: 11/09/17 Time of Encounter: 10:00 Assessment and Plan (1) Abnormal stress test Current Visit: Yes Status: Acute Per cardiology: -Stress test with medium sized, moderate intensity mostly reversible defect in mid anterior, apical, and apex segments. Findings representing ischemia. -Patient denies chest pain. -ON ASA, statin. NOt on BB due to bradycardia. -Recommend LHC, however patient declines at this time. Patient reports she would like to follow up as outpatient and discuss LHC with at that time. -Patient educated to return to ER/call 911 for chest pain, worsening symptoms. -Discussed and reviewed with . Will arrange close outpatient follow up. (2) Second degree atrioventricular block, Mobitz (type) I Current Visit: Yes Status: Acute Per cardiology: -Intermittent second degree mobitz type I (milancjovanbach) on admit. -Carvedilol held. HR improved. AVg HR 75, SR previous 12 hours. No mobitz type I noted previous 12 hours. -TTE 09/21/17 showed preserved EF 60%, mild LVH. -Noted at recent out-pt visit that LISBET is suspected. Denies prior sleep study. Using bipap during hospital stay. Consider overnight pulse ox. -Avoid AV jesús blockade. No indication for PPM at this time. -Will continue to monitor in outpatient setting. (3) CHF (congestive heart failure) Current Visit: Yes Status: Acute Per cardiology: -Fluid overload on admit. May have some diastolic dysfunction. EF 60% on recent echo. CHFpEF , also noted to have CHRISTIAN. -Re-peat echo shows preserved EF 55-60%, mild LVH, mild mR, mild to moderate TR , and borderline PAH. -Net negative 8800ml. -Low sodium diet and daily weights. -Reports breathing much better today. Reports edema improved. Bilateral lower extremity edema noted, however pateint states chronic. -CHF education reinforced with patient. -Will arrange close outpatient follow up. Qualifiers: Heart failure type: diastolic Heart failure chronicity: acute on chronic Qualified Code(s): I50.33 - Acute on chronic diastolic (congestive) heart failure Discussion w patient/family: The assessment and plan as outlined above was discussed with the patient who expressed understanding and agreement. All questions were answered. Thank you for involving us in the care of your patient. Please call with any questions. Discussed and reviewed with . Subjective Principal diagnosis: second degree AV block, mobitz type II, dyspnea Interval history: Patient sitting in chair, at time of evaluation. Denies chest pain. Reports breathing is much imrpoved. Patient states she is ready to go home. Objective Vital Signs, Last 4 Hours Resp Pulse Ox 11/09/17 11:02 18 97 General: Conversant, No Apparent Distress HEENT: Atraumatic, Normocephaly, Mucus Membranes Moist Neck: No JVD, Normal carotid pulses Cardiac: Reg Rate and Rhythm, Normal S1 and S2, No Murmur Lungs: Normal Breath Sounds, No Wheeze, Rales, Rhonchi Neuro: Alert and responsive, No focal deficits noted Abdomen: Soft, Non-Tender Skin: No rashes noted on visualized skin Musculoskeletal: No Chest Wall Tenderness Extremities: No Clubbing, No Cyanosis, Normal Pulses, Other (Lower extremity edema noted. ) Results 11/09/17 04:41 11/09/17 04:41 Lab Results Active Medications Albuterol Sulfate (Albuterol Inhaler) 2 puff IH Q4HR PRN PRN Reason: Shortness Of Breath Stop: 05/02/18 16:01 Albuterol/Ipratropium (Duoneb) 3 ml IH [id number] RICARDA Stop: 05/03/18 20:01 Last Admin: 11/09/17 11:02 Dose: 3 ml Aspirin (Aspirin Ec) 81 mg PO DAILY RICARDA Stop: 05/03/18 09:01 Last Admin: 11/09/17 09:07 Dose: 81 mg Dextrose/Water (Dextrose 50% (Syg)) 25 ml IVP AD PRN PRN Reason: Hypoglycemia Stop: 05/02/18 17:37 Donepezil HCl (Aricept) 10 mg PO HS RICARDA Stop: 05/02/18 21:01 Last Admin: 11/08/17 20:19 Dose: 10 mg Glucagon (Glucagen) 1 mg IM ONCE PRN PRN Reason: Hypoglycemia Stop: 05/02/18 17:37 Glucose (Gluctose) 15 gm PO ONCE PRN PRN Reason: Hypoglycemia Stop: 05/02/18 17:37 Glucose (Gluctose) 30 gm PO ONCE PRN PRN Reason: Hypoglycemia Stop: 05/02/18 17:37 Guaifenesin (Mucinex) 600 mg PO QPM [facility] Stop: 05/02/18 18:01 Last Admin: 11/08/17 16:48 Dose: 600 mg Heparin Sodium (Porcine) (Heparin) 5,000 unit SQ Q12HCO [facility] Stop: 05/05/18 18:01 Last Admin: 11/09/17 05:34 Dose: 5,000 unit Dextrose (Dextrose 5%) 1,000 mls @ 100 mls/hr IVC .Q10H PRN PRN Reason: HYPOGLYCEMIA Stop: 05/02/18 17:37 Insulin Detemir (Levemir) 68 unit SQ HS [facility] Stop: 05/07/18 21:01 Last Admin: 11/08/17 20:29 Dose: 68 unit Insulin Human Lispro (Humalog) 0 units SQ HS [facility] PRN Reason: Protocol Stop: 05/09/18 21:01 Last Admin: 11/08/17 20:21 Dose: 4 units Insulin Human Lispro (Humalog) 0 units SQ TIDAC [facility] PRN Reason: Protocol Stop: 05/09/18 16:31 Last Admin: 11/09/17 09:12 Dose: 8 units Menthol (Cough Drops) 9.1 mg PO Q2H PRN PRN Reason: Cough Stop: 05/03/18 15:48 Last Admin: 11/07/17 00:03 Dose: 9.1 mg Multi-Ingredient Mucositis [facility] (Chloraseptic) 2 spray MM QID PRN PRN Reason: Sore Throat Stop: 05/02/18 18:26 Naloxone HCl (Narcan) 0.4 mg IVP Q2MIN PRN PRN Reason: SEE COMMENTS Stop: 05/02/18 15:29 Neomycin/Polymyxin/Bacitracin (Triple Antibiotic Ointment) 1 appl TP DAILY [facility] Stop: 05/04/18 09:01 Last Admin: 11/09/17 09:07 Dose: 1 appl Ondansetron HCl (Zofran) 4 mg IVP Q6HR PRN; Protocol PRN Reason: Nausea And Vomiting Stop: 05/10/18 11:14 Potassium Chloride (Potassium Chloride) 20 meq PO QID [facility] Stop: 05/07/18 17:01 Last Admin: 11/09/17 09:07 Dose: 20 meq Simvastatin (Zocor) 20 mg PO [facility] PRN Reason: Protocol Stop: 05/02/18 21:01 Last Admin: 11/08/17 20:19 Dose: 20 mg Laboratory Tests 11/08/17 11/09/17 11/09/17 04:05 04:41 04:41 Hgb 12.4 Creatinine 1.14 1.37 H - Imaging and Cardiology Chest Xray: report reviewed Stress Test: report reviewed Echo: report reviewed - EKG Interpretation EKG results cardiology: other (Telemetry reviewed with average HR previous 12 hours noted to be 75, SR. PVCs and PACs noted.) - VTE Documentation of Mechanical Device: Intermittent pneumatic compression device Consult Discharge Plan - Plan Referrals: Stevan Bermeo [Other] (Patient is going to rehab no PCP appointment needed) Diallo Hernandez, BUSINESS INVESTOR [Advanced Practice Nurse] - (Office will call patient at home with follow up appointment SENT WEB REQUEST ON 11-05-17 @ [id number])
[2017-11-09 11:42] VITALS: BP 169/53
--- NOTE | 2017-11-09 14:24 | Discharge Summary ---
- NOTES TO OUTPATIENT PROVIDER Notes to Outpatient Provider: Follow up with SNF physician in 2-3 days after discharge. Recheck BMP (CHRISTIAN) at that time. Adjust diuretics as necessary. Follow up with cardiology as directed. Orders not resulted at time of discharge: Pending orders 11/03/17 14:34 Culture,Sputum with Gram Stain [RM] Routine Respiratory Infection Panel [MOLMIC] Routine 11/07/17 16:55 NM charbel perf SPECT multi [NM] Routine Date of Encounter: 11/09/17 Time of Encounter: 14:22 - Discharge Diagnosis (1) CHF (congestive heart failure) Priority: Primary Status: Acute Qualifiers: Heart failure type: diastolic Heart failure chronicity: acute on chronic Qualified Code(s): I50.33 - Acute on chronic diastolic (congestive) heart failure (2) Acute kidney injury Priority: Secondary Status: Acute (3) Diabetes Priority: Secondary Status: Chronic Qualifiers: Diabetes mellitus type: type 2 Diabetes mellitus mcc insulin use: without long term care pharmacist use Diabetes mellitus complication status: with unspecified complications Qualified Code(s): E11.8 - Type 2 diabetes mellitus with unspecified complications (4) Hypertension Priority: Secondary Status: Chronic Qualifiers: Hypertension type: essential hypertension Qualified Code(s): I10 - Essential (primary) hypertension (5) Second degree atrioventricular block, Mobitz (type) I Priority: Secondary Status: Chronic (6) Left foot infection Priority: Secondary Status: Chronic (7) CKD (chronic kidney disease) Priority: Secondary Status: Chronic Qualifiers: Qualified Code(s): N18.9 - Chronic kidney disease, unspecified (8) DVT prophylaxis Priority: Secondary Status: Acute Hospital course: Ms. Pop is a 82 year old female admitted for CHF exacerbation and second- degree heart block. She was admitted to step down unit with telemetry. Cutaneous pacer was placed and cardiology consulted. She was diuresed with bumex. Home coreg was held due to bradycardia. Stress test was deferred until respiratory status improved. Patient's respiratory status improved with diuresis. Pulmonology was consulted and managed intermittent BiPAP. She had some CHRISTIAN on CKD, and nephrology was consulted. Creatinine improved with holding diuretic; respiratory status remained stable without diuretic. Podiatry was consulted for left toe injury, and they recommended post-op shoe and wound care, and follow up in podiatry clinic in 1 week after discharge. Cardiology performed stress test, which showed medium sized, moderate intensity mostly reversible defect in mid anterior, apical, and apex segments - findings representing ischemia. Cardiology recommended LHC inpatient, but patient declined at this time. She will continue aspirin and statin, and follow up with cardiology as outpatient to discuss LHC with Dr. Loza. Patient will follow up with SNF physician in 2-3 days after discharge. BMP (CHRISTIAN on CKD) can be rechecked at that time. She will be discharged on 1/2 dose of bumex daily. SNF physician can adjust diuretic as necessary. Patient has met maximum benefit of this hospitalization and will be discharged to [facility] in stable condition. Discharge discussed with: patient, nurse, other (Pharmacist) - Time Spent with Patient Total time spent providing and/or coordinating discharge services: Greater than 30 minutes - Discharge Medications Prescriptions: Bumetanide 2 mg PO DAILY 3 Days #3 tablet Pregabalin [Lyrica] 75 mg PO BID 3 Days #6 capsule Home Medications: Insulin Glargine [Lantus] 68 unit SQ DAILY PRN 09/20/17 [History] Aspirin Enteric Coated [Aspirin EC] 81 mg PO DAILY #30 tablet. 09/25/17 [Rx] Albuterol Sulfate [Proair Hfa] 2 puff IH Q4-6H PRN 10/31/17 [History] Donepezil [Aricept] 10 mg PO HS 10/31/17 [History] Guaifenesin [Mucinex] 600 - 1,200 mg PO QPM 10/31/17 [History] Simvastatin [Zocor] 20 mg PO HS 10/31/17 [History] SitaGLIPtin [Januvia] 100 mg PO DAILY 10/31/17 [History] Bumetanide 2 mg PO DAILY 3 Days #3 tablet 11/09/17 [Rx] Pregabalin [Lyrica] 75 mg PO BID 3 Days #6 capsule 11/09/17 [Rx] Allergies/Adverse Reactions: 3 Allergy/AdvReac Type Severity Reaction Status Date / Time canagliflozin [From Invokana] Allergy Hives Verified 10/31/17 10:05 gabapentin Allergy See Verified 10/31/17 10:05 Comments Date of admission: 10/31/17 13:42 Primary care physician: Stevan Bermeo MD Consults: 10/31/17 14:06 Consult to Podiatry [CONS] Routine Consulting Provider: Pod[facility] Reason for Consult: toe injury and possible infection Call Completed: Yes 10/31/17 14:58 Consult to Offset Press Operator [CONS] Routine Reason for SW Consult: RECENT STAY AT [facility]. HOME WITH DAUGHTER WHO WORKS DURING THE DAY. POSSIBLE NEED FOR HOME HEALTH VS REHAB. POSS O2. 11/01/17 06:30 Consult to Physician [CONS] Routine Consulting Provider: Armen Vanessa Reason for Consult: left foot infection Time Notified: 06:31 Call Completed: No 11/01/17 07:36 Consult to Physical Therapy [CONS] Routine Comment: Evaluate, develop and implement POC Reason for Consult: d/c planning Does patient have active BEDREST order?: Yes Is patient medically & hemodynamically stable?: No Patient assessed for mobility or mobilized this visit?: No OT [Consult to Occupational Therapy] [CONS] Routine Comment: Evaluate, develop and implement POC Reason for Consult: d/c planning Does patient have active BEDREST order?: Yes Is patient medically & hemodynamically stable?: No Patient assessed for mobility or mobilized this visit?: No 11/03/17 08:58 Consult to Pulmonology [CONS] Routine Consulting Provider: Pulm [facility] Reason for Consult: AC/CHR RESPIRATORY FAIL W HYPOXIA/HYPERKAPNIA Time Notified: 09:00 Call Completed: Yes 11/06/17 08:39 Consult to Nephrology [CONS] Routine Consulting Provider: Kidney [facility] HTN Spcemani GARCIA Reason for Consult: CKD Stage IV Time Notified: 08:39 Call Completed: Yes 11/07/17 16:54 Consult to Cardiology [CONS] Routine Comment: Consulting Provider: Cardiology Parul Reason for Consult: Stress Test Call Completed: Yes 11/07/17 16:56 consult to forestry foreman [Consult to Nutrition] [CONS] Routine Comment: Poor PO intake Consulting Provider: NUTRITION Reason for Dietary Consult: Diet Education PO Supplementation Other:: Poor PO intake Discharging clinician: Akira Thompson Anticipated date of discharge: 11/09/17 - Constitutional Vitals: Temp Pulse Resp BP Pulse Ox 97.5 F L 73 18 169/53 96 11/09/17 11:39 11/09/17 11:39 11/09/17 11:39 11/09/17 11:39 11/09/17 11:39 General appearance: Present: cooperative, A&O X 3, morbidly obese, pleasant, no acute distress, answers questions appropriately - Respiratory Respiratory exam: Present: CTAB. Absent: accessory muscle use, rales, rhonchi, wheezes Additional comments: Normal WOB - Cardiovascular Cardiovascular exam: Present: RRR, +S1, +S2. Absent: diastolic murmur, gallop, rubs, systolic murmur Additional comments: Trace BLE edema - GI/Abdominal GI/Abdominal exam: Present: normal bowel sounds, soft. Absent: distended, hepatomegaly, mass, splenomegaly, tenderness - Psychiatric Psychiatric exam: Present: normal affect, normal mood. Absent: agitated, anxious, depressed - Skin Skin exam: Present: dry, intact, warm. Absent: cyanosis, rash - Patient Status Disposition: Transfer SNF Condition: Good Overall status at discharge: patient is progressing back to baseline - Discharge Instructions Follow Up With: Stevan Bermeo [Other] (Patient is going to rehab no PCP appointment needed) Diallo Hernandez, CLIENT SERVICE EXECUTIVE [Advanced Practice Nurse] - (Office will call patient at home with follow up appointment SENT WEB REQUEST ON 11-05-17 @ 0422) Additional Instructions: Follow up with SNF physician in 2-3 days after discharge. Recheck BMP (CHRISTIAN) at that time. Adjust diuretics as necessary. Follow up with cardiology as directed. - Diet and Activity Activity: as per physical therapy Diet: diabetic diet, low fat, low cholesterol, low salt diet, other (Cardiac Diet)
--- NOTE | 2017-11-09 14:43 | Physician Discharge Referral ---
ExtendedCare Referral Info Transfer To: [facility] Provider in Charge after Transfer: Other (SNF Physician) Institutional Level of Care: Skilled - Diagnosis (1) CHF (congestive heart failure) Priority: Primary Status: Acute (2) Acute kidney injury Priority: Secondary Status: Acute (3) Diabetes Priority: Secondary Status: Chronic (4) Hypertension Priority: Secondary Status: Chronic (5) Second degree atrioventricular block, Mobitz (type) I Priority: Secondary Status: Chronic (6) Left foot infection Priority: Secondary Status: Chronic (7) CKD (chronic kidney disease) Priority: Secondary Status: Chronic (8) DVT prophylaxis Priority: Secondary Status: Acute Prognosis: Fair Aware of Diagnosis: Patient, Family Aware of Prognosis: Patient, Family - Transfer Medications Prescriptions: Bumetanide 2 mg PO DAILY 3 Days #3 tablet Pregabalin [Lyrica] 75 mg PO BID 3 Days #6 capsule Home Medications: Insulin Glargine [Lantus] 68 unit SQ DAILY PRN 09/20/17 [History] Aspirin Enteric Coated [Aspirin EC] 81 mg PO DAILY #30 tablet. 09/25/17 [Rx] Albuterol Sulfate [Proair Hfa] 2 puff IH Q4-6H PRN 10/31/17 [History] Donepezil [Aricept] 10 mg PO HS 10/31/17 [History] Guaifenesin [Mucinex] 600 - 1,200 mg PO QPM 10/31/17 [History] Simvastatin [Zocor] 20 mg PO HS 10/31/17 [History] SitaGLIPtin [Januvia] 100 mg PO DAILY 10/31/17 [History] Bumetanide 2 mg PO DAILY 3 Days #3 tablet 11/09/17 [Rx] Pregabalin [Lyrica] 75 mg PO BID 3 Days #6 capsule 11/09/17 [Rx] Allergies/Adverse Reactions: 3 Allergy/AdvReac Type Severity Reaction Status Date / Time canagliflozin [From Invokana] Allergy Hives Verified 10/31/17 10:05 gabapentin Allergy See Verified 10/31/17 10:05 Comments - Respiratory Orders Oxygen / L per min (2L NC PRN SOB) Smoking Cessation: Smoking cessation has been advised. For more information, call the [place] Tobacco Quit Line at 7-416-UZLB-NOW. - Lab Orders Lab Orders: Other (include drug levels w/frequency) (BMP in 2-3 days after discharge) - Advance Directives Code Status: Full Code - Mobility Orders Other (Per physical therapy) - Rehabiliation Orders Rehab Potential: Fair Rehab Orders: Evaluation for Physical Therapy, Evaluation for Occupational Therapy - Diet Orders No Added Salt (SAMANTHA), No Concentrated Sweets, Renal, Cardiac CERTIFICATION: I certify that the transfer of the above named patient to an Extended Care Facility is necessary for the continuing treatment of the diagnosis listed. The above information is true and accurate reflection of patient's current condition. Confidential - Redisclosure prohibited without a patient's written consent.
== END 2017-11-09 16:40 | DRG 291 ==
LOC: EMEROO 10:01 → 2NNU 13:42 → SUATTDRO 13:42 → 2NNU 14:43 → ICNU 11-03 15:49 → 2NNU 11-04 19:20
PROVIDERS: ADMIT Internal Medicine Nephrology; ATTEND Internal Medicine

== ENCOUNTER 2019-05-31 11:27 | Inpatient (IN) ==
[2019-05-31 12:13] LABS: Bilirubin,Urine Negative (Negative); Blood,Urine Negative (Negative); Clarity,Urine Cloudy (Clear); Color,Urine Yellow (Yellow); Glucose,Urine (UA) Normal (Normal); Ketones,Urine Negative (Negative); Leukocyte Esterase,Urine Negative (Negative); Nitrite,Urine Negative (Negative); Protein,Urine 100 mg/dL (Neg-Trace); Specific Gravity,Urine 1.025 (1.010-1.025); Urobilinogen,Urine Normal (Normal)
[2019-05-31 12:16] LABS: ABG Base Excess 4 mEq/L (-2 to 3); ABG HCO3 31 mEq/L (21-27); ABG Oxygen Saturation 87 % (95-98); ABG PCO2 55 mmHg (35-45); ABG PH 7.36 pH Units (7.32-7.45); ABG PO2 56 mmHg (85-104); ABG TCO2 33 mEq/L (20-26)
[2019-05-31 12:16] LABS: Bacteria,Urine None Seen per hpf (None-Few); Squamous Epithelial Cell,Urine Many per lpf (None-Few); WBC,Urine 0-3 per hpf (0-3)
[2019-05-31 12:25] LABS: Amphetamine Screen,Urine Negative ng/mL (Cutoff=1000); Barbiturate Screen,Urine Negative ng/mL (Cutoff=200); Benzodiazepines Screen,Urine Negative ng/mL (Cutoff=200); Cannabinoid Screen,Urine Negative ng/mL (Cutoff = 50); Cocaine Screen,Urine Negative ng/mL (Cutoff= 300); Opiate Screen,Urine Negative ng/mL (Cutoff=300); Phencyclidine Screen,Urine Negative ng/mL (Cutoff=25)
[2019-05-31 12:27] LABS: Amorphous Sediment,Urine Moderate per hpf (Few); Hyaline Casts,Urine Few per lpf (None-Few)
[2019-05-31 12:29] LABS: Transitional Epi Cells,Urine Few per hpf (None-Few)
[2019-05-31 12:45] LABS: Basophils % 0.5 %; Eosinophils # 0.2 K/mcL (0.0-0.6); Eosinophils % 3.1 %; Hematocrit 39.7 % (35.3-44.9); Hemoglobin 12.6 g/dL (11.5-15.4); Immature Granulocytes % 0.3 % (0-4); Lymphocytes % 16.8 %; Mean Corpuscular HGB Conc 31.7 g/dL (31.6-35.5); Mean Corpuscular Hemoglobin 28.5 pg (28.0-33.3); Mean Corpuscular Volume 89.8 fL (83.0-100.0); Monocytes # 0.5 K/mcL (0.0-1.3); Monocytes % 8.8 %; Neutrophils # 4.2 K/mcL (1.6-8.9); Platelet Count 180 K/mcL (140-400); Red Blood Count 4.42 M/mcL (3.82-4.97); Red Cell Distribution Width 16.2 % (11.5-14.5); Segmented Neutrophils % 70.5 %; White Blood Count 5.9 K/mcL (4.3-11.1)
[2019-05-31] MEDS ORDERED: 0.9 % Sodium Chloride 1,000 ML IVC ONE (12:50)
[2019-05-31 12:51] LABS: INR 1.1; Prothrombin Time 12.7 Seconds (9.4-12.1)
[2019-05-31 12:54] LABS: Activated Partial Thrombo Time 48.2 Seconds (26.0-36.0)
[2019-05-31 13:07] LABS: Alanine Aminotransferase 11 Units/L (7-52); Albumin 3.7 g/dL (3.5-5.7); Albumin/Globulin Ratio 1.3 (1.1-2.2); Alkaline Phosphatase 105 Units/L (34-104); Aspartate Amino Transferase 16 Units/L (13-39); BUN/Creatinine Ratio 21 (6-26); Bilirubin,Direct 0.2 mg/dL (0.0-0.2); Bilirubin,Indirect 0.2 mg/dL (0.0-1.0); Bilirubin,Total 0.4 mg/dL (0.3-1.0); Blood Urea Nitrogen 27 mg/dL (8-23); Carbon Dioxide 29 mEq/L (23-29); Chloride 109 mEq/L (98-107); Creatine Kinase 50 Units/L (30-223); Globulin 2.8 g/dL (2.4-3.5); Glucose 111 mg/dL (70-105); Osmolality,Calculated 308 (280-300); Potassium 4.4 mEq/L (3.5-5.1); Sodium 146 mEq/L (136-145); Total Protein 6.5 g/dL (6.4-8.9); Troponin I < 0.03 ng/mL (< 0.04); eGFR For African Americans 48 (> 60); eGFR For Non-African Americans 40 (> 60)
[2019-05-31 13:20] LABS: Thyroid Stimulating Hormone 5.963 mcIU/mL (0.340-5.600)
[2019-05-31] MEDS ORDERED: Piperacillin/Tazobactam 3.375 GM in 0.9 % Sodium Chloride Mini Bag 100 ML IVPB ONE (13:22)
[2019-05-31] MEDS ORDERED: levoFLOXacin 750 MG/150 ML 750 MG/150 ML BAG IVPB ONE (13:22)
[2019-05-31] MEDS ORDERED: Isovue-370 500 ML BOTTLE IVP ONE (14:29)
[2019-05-31 14:49] LABS: Triiodothyronine (T3) Free 2.65 pg/mL (2.50-3.90)
[2019-05-31 14:54] LABS: Triiodothyronine (T3) Total 0.85 ng/mL (0.87-1.78)
[2019-05-31] MEDS ORDERED: Naloxone 0.4 MG/ML INJ IVP PRN (16:18)
[2019-05-31] MEDS ORDERED: Mag Hydrox/Al Hydrox/Simeth 30 ML UDC PO PRN (17:08)
[2019-05-31] MEDS ORDERED: Bisacodyl 10 MG RECTAL SUPPOSITORY RC PRN (17:15)
[2019-05-31] MEDS ORDERED: Dextrose Gel 15 GM/37.5 ML TUBE PO PRN ×2 (17:16)
[2019-05-31] MEDS ORDERED: D5% in Water 1,000 ML IVC PRN (17:16)
[2019-05-31] MEDS ORDERED: *HR* Dextrose 50 % in Water (Syg) 50 ML SYRINGE IVP PRN (17:16)
[2019-05-31] MEDS ORDERED: Vancomycin (wt based) 1,000 MG VIAL IVPB SCH (18:00)
[2019-05-31 18:12] LABS: Estimated Average Glucose 186 mg/dl
[2019-05-31] MEDS: Insulin LISPRO 300 UNITS/3 ML VIAL SQ SCH (20:45)
[2019-05-31] MEDS: Furosemide 20 MG/2 ML VIAL IVP SCH (21:35)
[2019-06-01] MEDS: Cefepime HCl 2,000 MG in Water for inj. (sterile) 20 ML IVP SCH ×3 (00:19→23:46)
[2019-06-01 00:51] LABS: Hematocrit 36.7 % (35.3-44.9); Hemoglobin 11.6 g/dL (11.5-15.4); Mean Corpuscular HGB Conc 31.6 g/dL (31.6-35.5); Mean Corpuscular Hemoglobin 28.5 pg (28.0-33.3); Mean Corpuscular Volume 90.2 fL (83.0-100.0); Mean Platelet Volume 12.4 fL (9.4-12.4); Platelet Count 170 K/mcL (140-400); Red Blood Count 4.07 M/mcL (3.82-4.97); Red Cell Distribution Width 16.2 % (11.5-14.5); White Blood Count 5.4 K/mcL (4.3-11.1)
[2019-06-01 01:02] LABS: Calcium 8.8 mg/dL (8.6-10.3); Chol/HDL Ratio 2.3 (0-4.9); Magnesium 2.3 mg/dL (1.6-2.6); Phosphorous 3.5 mg/dL (2.7-4.5); Potassium 4.2 mEq/L (3.5-5.1)
[2019-06-01] MEDS: Nystatin POWDER 30 GM BOTTLE TP SCH ×4 (03:37→22:46)
[2019-06-01] MEDS: Aspirin Enteric Coated 81 MG Tablet PO SCH (07:51)
[2019-06-01] MEDS: Furosemide 20 MG/2 ML VIAL IVP SCH ×2 (07:52→16:48)
[2019-06-01] MEDS: Cholecalciferol (D-3) 1,000 UNIT (25MCG) TABLET PO SCH (07:52)
[2019-06-01] MEDS: Insulin LISPRO 300 UNITS/3 ML VIAL SQ SCH ×4 (08:08→22:25)
[2019-06-01] MEDS: Insulin DETEMIR 100 UNIT/ML X5UNITS SQ SCH (08:08)
[2019-06-01] MEDS ORDERED: Perflutren Lipid Microsphere 1.3 ML in 0.9 % Sodium Chloride 8.7 ML IVP ONE (13:05)
[2019-06-01] MEDS: *HR* Heparin 5,000 UNIT/ML VIAL SQ SCH (17:01)
[2019-06-02] MEDS: *HR* Heparin 5,000 UNIT/ML VIAL SQ SCH ×2 (05:05→17:11)
[2019-06-02 06:38] LABS: Hematocrit 37.4 % (35.3-44.9); Hemoglobin 11.4 g/dL (11.5-15.4); Mean Corpuscular HGB Conc 30.5 g/dL (31.6-35.5); Mean Corpuscular Hemoglobin 28.2 pg (28.0-33.3); Mean Corpuscular Volume 92.6 fL (83.0-100.0); Mean Platelet Volume 12.4 fL (9.4-12.4); Platelet Count 150 K/mcL (140-400); Red Blood Count 4.04 M/mcL (3.82-4.97); Red Cell Distribution Width 16.5 % (11.5-14.5); White Blood Count 5.9 K/mcL (4.3-11.1)
[2019-06-02 07:07] LABS: Calcium 9.4 mg/dL (8.6-10.3)
[2019-06-02] MEDS: Insulin LISPRO 300 UNITS/3 ML VIAL SQ SCH ×4 (08:26→20:38)
[2019-06-02] MEDS: Cholecalciferol (D-3) 1,000 UNIT (25MCG) TABLET PO SCH (09:41)
[2019-06-02] MEDS: Aspirin Enteric Coated 81 MG Tablet PO SCH (09:41)
[2019-06-02] MEDS: Insulin DETEMIR 100 UNIT/ML X5UNITS SQ SCH (09:42)
[2019-06-02] MEDS: Nystatin POWDER 30 GM BOTTLE TP SCH ×3 (09:42→21:08)
[2019-06-02] MEDS: Furosemide 20 MG/2 ML VIAL IVP SCH (10:01)
[2019-06-02] MEDS: Cefepime HCl 2,000 MG in Water for inj. (sterile) 20 ML IVP SCH (12:10)
[2019-06-02] MEDS ORDERED: Furosemide 20 MG/2 ML VIAL IVP ONE (15:43)
[2019-06-02] MEDS ORDERED: Albumin 25% 25gram/100mL 25 GM/100 ML IV.SOLN IVPB ONE (15:43)
[2019-06-03] MEDS: Cefepime HCl 2,000 MG in Water for inj. (sterile) 20 ML IVP SCH ×2 (00:04→11:56)
[2019-06-03] MEDS: *HR* Heparin 5,000 UNIT/ML VIAL SQ SCH ×2 (04:59→17:12)
[2019-06-03 05:26] LABS: Hematocrit 39.3 % (35.3-44.9); Hemoglobin 12.2 g/dL (11.5-15.4); Mean Corpuscular Hemoglobin 28.1 pg (28.0-33.3); Mean Corpuscular Volume 90.6 fL (83.0-100.0); Mean Platelet Volume 12.9 fL (9.4-12.4); Platelet Count 169 K/mcL (140-400); Red Blood Count 4.34 M/mcL (3.82-4.97); Red Cell Distribution Width 16.4 % (11.5-14.5); White Blood Count 6.2 K/mcL (4.3-11.1)
[2019-06-03 05:39] LABS: Calcium 9.7 mg/dL (8.6-10.3); Magnesium 2.2 mg/dL (1.6-2.6); Potassium 3.8 mEq/L (3.5-5.1)
[2019-06-03] MEDS ORDERED: Aminoglycoside Consult 1 EACH MC ONE (08:45)
[2019-06-03] MEDS: Insulin LISPRO 300 UNITS/3 ML VIAL SQ SCH ×4 (09:07→20:20)
[2019-06-03] MEDS: Aspirin Enteric Coated 81 MG Tablet PO SCH (09:07)
[2019-06-03] MEDS: Furosemide 20 MG/2 ML VIAL IVP SCH (09:07)
[2019-06-03] MEDS: Cholecalciferol (D-3) 1,000 UNIT (25MCG) TABLET PO SCH (09:07)
[2019-06-03] MEDS: Nystatin POWDER 30 GM BOTTLE TP SCH ×3 (09:08→20:20)
[2019-06-03] MEDS: Insulin DETEMIR 100 UNIT/ML X5UNITS SQ SCH (09:16)
[2019-06-03] MEDS ORDERED: Doxycycline 100 MG in 0.9 % Sodium Chloride Mini Bag 100 ML IVPB SCH (18:00)
[2019-06-04] MEDS: *HR* Heparin 5,000 UNIT/ML VIAL SQ SCH ×2 (04:58→16:46)
[2019-06-04 06:58] LABS: Hematocrit 38.8 % (35.3-44.9); Hemoglobin 11.7 g/dL (11.5-15.4); Mean Corpuscular HGB Conc 30.2 g/dL (31.6-35.5); Mean Corpuscular Hemoglobin 28.1 pg (28.0-33.3); Mean Corpuscular Volume 93.3 fL (83.0-100.0); Mean Platelet Volume 12.6 fL (9.4-12.4); Platelet Count 148 K/mcL (140-400); Red Blood Count 4.16 M/mcL (3.82-4.97); Red Cell Distribution Width 16.4 % (11.5-14.5); White Blood Count 5.6 K/mcL (4.3-11.1)
[2019-06-04 07:19] LABS: Calcium 9.8 mg/dL (8.6-10.3); Magnesium 2.3 mg/dL (1.6-2.6)
[2019-06-04] MEDS: Insulin LISPRO 300 UNITS/3 ML VIAL SQ SCH ×4 (08:13→20:32)
[2019-06-04] MEDS: Insulin DETEMIR 100 UNIT/ML X5UNITS SQ SCH (08:30)
[2019-06-04] MEDS: Aspirin Enteric Coated 81 MG Tablet PO SCH (08:30)
[2019-06-04] MEDS: Furosemide 20 MG/2 ML VIAL IVP SCH ×2 (08:30→20:34)
[2019-06-04] MEDS: Cholecalciferol (D-3) 1,000 UNIT (25MCG) TABLET PO SCH (08:30)
[2019-06-04] MEDS: Nystatin POWDER 30 GM BOTTLE TP SCH ×3 (08:31→20:34)
[2019-06-04] MEDS: Acetaminophen 325 MG TABLET PO PRN (16:45)
[2019-06-05 00:33] LABS: Hematocrit 40.9 % (35.3-44.9); Hemoglobin 12.4 g/dL (11.5-15.4); Mean Corpuscular HGB Conc 30.3 g/dL (31.6-35.5); Mean Corpuscular Hemoglobin 28.5 pg (28.0-33.3); Mean Platelet Volume 12.7 fL (9.4-12.4); Platelet Count 149 K/mcL (140-400); Red Blood Count 4.35 M/mcL (3.82-4.97); Red Cell Distribution Width 16.4 % (11.5-14.5); White Blood Count 4.8 K/mcL (4.3-11.1)
[2019-06-05 00:37] LABS: INR 1.2; Prothrombin Time 13.5 Seconds (9.4-12.1)
[2019-06-05 00:52] LABS: Albumin 3.5 g/dL (3.5-5.7); Albumin/Globulin Ratio 1.2 (1.1-2.2); Calcium 9.6 mg/dL (8.6-10.3); Globulin 2.9 g/dL (2.4-3.5); Magnesium 2.2 mg/dL (1.6-2.6); Potassium 4.2 mEq/L (3.5-5.1); Total Protein 6.4 g/dL (6.4-8.9)
[2019-06-05] MEDS: *HR* Heparin 5,000 UNIT/ML VIAL SQ SCH ×2 (05:27→17:09)
[2019-06-05] MEDS: Cholecalciferol (D-3) 1,000 UNIT (25MCG) TABLET PO SCH (08:39)
[2019-06-05] MEDS: Aspirin Enteric Coated 81 MG Tablet PO SCH (08:39)
[2019-06-05] MEDS: Insulin DETEMIR 100 UNIT/ML X5UNITS SQ SCH (08:42)
[2019-06-05] MEDS: Furosemide 20 MG/2 ML VIAL IVP SCH ×2 (08:43→20:51)
[2019-06-05] MEDS: Insulin LISPRO 300 UNITS/3 ML VIAL SQ SCH ×4 (08:43→21:29)
[2019-06-05] MEDS: Nystatin POWDER 30 GM BOTTLE TP SCH ×3 (08:43→20:51)
[2019-06-05 13:32] LABS: Glucose,Pleural Fluid 115 mg/dL (No Ref Range); LDH,Pleural Fluid 58 Units/L (No Ref Range); Total Protein,Pleural Fluid < 3.0 g/dL
[2019-06-05 13:38] LABS: RBC,Pleural Fluid < 0.002 M/mcL
[2019-06-05 14:51] LABS: Bilirubin,Urine Negative (Negative); Blood,Urine Negative (Negative); Clarity,Urine Cloudy (Clear); Color,Urine Yellow (Yellow); Glucose,Urine (UA) Normal (Normal); Ketones,Urine Negative (Negative); Leukocyte Esterase,Urine Large (Negative); Nitrite,Urine Negative (Negative); PH,Urine 5.5 pH Units (5.0-8.0); Protein,Urine Trace mg/dL (Neg-Trace); Specific Gravity,Urine 1.015 (1.010-1.025); Urobilinogen,Urine Normal (Normal)
[2019-06-05 14:52] LABS: Bacteria,Urine None Seen per hpf (None-Few); Hyaline Casts,Urine Few per lpf (None-Few); Squamous Epithelial Cell,Urine Many per lpf (None-Few); WBC,Urine 30-50 per hpf (0-3)
[2019-06-05 15:53] LABS: Appearance of Pleural Fl Hazy (Clear)
[2019-06-05 15:58] LABS: Basophils,Pleural Fluid 0 %; Eosinophils,Pleural Fluid 0 %
[2019-06-06 02:29] LABS: Hematocrit 39.1 % (35.3-44.9); Hemoglobin 12.3 g/dL (11.5-15.4); Mean Corpuscular HGB Conc 31.5 g/dL (31.6-35.5); Mean Corpuscular Hemoglobin 28.4 pg (28.0-33.3); Mean Corpuscular Volume 90.3 fL (83.0-100.0); Mean Platelet Volume 11.5 fL (9.4-12.4); Platelet Count 143 K/mcL (140-400); Red Blood Count 4.33 M/mcL (3.82-4.97); Red Cell Distribution Width 16.1 % (11.5-14.5); White Blood Count 5.5 K/mcL (4.3-11.1)
[2019-06-06 02:50] LABS: Calcium 9.7 mg/dL (8.6-10.3)
[2019-06-06] MEDS: *HR* Heparin 5,000 UNIT/ML VIAL SQ SCH ×2 (05:38→19:23)
[2019-06-06] MEDS: Insulin LISPRO 300 UNITS/3 ML VIAL SQ SCH ×4 (08:22→21:15)
[2019-06-06] MEDS: Furosemide 20 MG/2 ML VIAL IVP SCH ×2 (08:27→21:16)
[2019-06-06] MEDS: Cholecalciferol (D-3) 1,000 UNIT (25MCG) TABLET PO SCH (08:28)
[2019-06-06] MEDS: Insulin DETEMIR 100 UNIT/ML X5UNITS SQ SCH (08:28)
[2019-06-06] MEDS: Aspirin Enteric Coated 81 MG Tablet PO SCH (08:29)
[2019-06-06] MEDS: Nystatin POWDER 30 GM BOTTLE TP SCH ×3 (08:32→21:16)
[2019-06-06 13:20] LABS: Fluid Source for Albumin PLEURAL FLUID
[2019-06-07] MEDS: *HR* Heparin 5,000 UNIT/ML VIAL SQ SCH ×2 (05:47→17:14)
[2019-06-07 05:50] LABS: Calcium 9.9 mg/dL (8.6-10.3); Magnesium 2.1 mg/dL (1.6-2.6); Potassium 4.2 mEq/L (3.5-5.1)
[2019-06-07 06:17] LABS: Hematocrit 40.8 % (35.3-44.9); Hemoglobin 12.9 g/dL (11.5-15.4); Immature Platelets 11.7 % (1.1-6.1); Mean Corpuscular HGB Conc 31.6 g/dL (31.6-35.5); Mean Corpuscular Hemoglobin 28.4 pg (28.0-33.3); Mean Corpuscular Volume 89.9 fL (83.0-100.0); Mean Platelet Volume 12.2 fL (9.4-12.4); Red Blood Count 4.54 M/mcL (3.82-4.97); Red Cell Distribution Width 16.3 % (11.5-14.5); White Blood Count 4.8 K/mcL (4.3-11.1)
[2019-06-07] MEDS: Insulin LISPRO 300 UNITS/3 ML VIAL SQ SCH ×4 (07:45→22:37)
[2019-06-07] MEDS: Furosemide 40 MG/4 ML VIAL IVP SCH (09:00)
[2019-06-07] MEDS: Furosemide 20 MG/2 ML VIAL IVP SCH (11:38)
[2019-06-07] MEDS: Cholecalciferol (D-3) 1,000 UNIT (25MCG) TABLET PO SCH (11:38)
[2019-06-07] MEDS: Insulin DETEMIR 100 UNIT/ML X5UNITS SQ SCH (11:38)
[2019-06-07] MEDS: Aspirin Enteric Coated 81 MG Tablet PO SCH (11:38)
[2019-06-07] MEDS: Nystatin POWDER 30 GM BOTTLE TP SCH ×3 (11:39→22:38)
[2019-06-07] MEDS ORDERED: Furosemide 20 MG/2 ML VIAL IVP ONE (17:00)
[2019-06-08 03:14] LABS: Calcium 9.6 mg/dL (8.6-10.3); Potassium 4.1 mEq/L (3.5-5.1)
[2019-06-08 03:15] LABS: Albumin 3.4 g/dL (3.5-5.7); Albumin/Globulin Ratio 1.3 (1.1-2.2); Bilirubin,Direct 0.1 mg/dL (0.0-0.2); Bilirubin,Indirect 0.3 mg/dL (0.0-1.0); Bilirubin,Total 0.4 mg/dL (0.3-1.0); Globulin 2.7 g/dL (2.4-3.5); Total Protein 6.1 g/dL (6.4-8.9)
[2019-06-08] MEDS: *HR* Heparin 5,000 UNIT/ML VIAL SQ SCH ×2 (06:18→18:16)
[2019-06-08] MEDS: Insulin DETEMIR 100 UNIT/ML X5UNITS SQ SCH (10:18)
[2019-06-08] MEDS: Fluconazole 100 MG TABLET PO SCH (10:19)
[2019-06-08] MEDS: Furosemide 40 MG/4 ML VIAL IVP SCH (10:19)
[2019-06-08] MEDS: Cefepime HCl 1,000 MG in Water for inj. (sterile) 10 ML IVP SCH ×2 (10:19→18:16)
[2019-06-08] MEDS: Aspirin Enteric Coated 81 MG Tablet PO SCH (10:19)
[2019-06-08] MEDS: Cholecalciferol (D-3) 1,000 UNIT (25MCG) TABLET PO SCH (10:19)
[2019-06-08] MEDS: Insulin LISPRO 300 UNITS/3 ML VIAL SQ SCH ×4 (10:19→22:09)
[2019-06-08] MEDS: Doxycycline 100 MG in 0.9 % Sodium Chloride Mini Bag 100 ML IVPB SCH ×2 (10:20→18:16)
[2019-06-08] MEDS: Nystatin POWDER 30 GM BOTTLE TP SCH ×3 (10:21→22:13)
[2019-06-09 01:57] LABS: Calcium 9.7 mg/dL (8.6-10.3); Potassium 4.2 mEq/L (3.5-5.1)
[2019-06-09 02:00] LABS: Hematocrit 37.8 % (35.3-44.9); Hemoglobin 11.8 g/dL (11.5-15.4); Mean Corpuscular HGB Conc 31.2 g/dL (31.6-35.5); Mean Corpuscular Hemoglobin 28.2 pg (28.0-33.3); Mean Corpuscular Volume 90.4 fL (83.0-100.0); Mean Platelet Volume 12.7 fL (9.4-12.4); Platelet Count 148 K/mcL (140-400); Red Blood Count 4.18 M/mcL (3.82-4.97); Red Cell Distribution Width 16.2 % (11.5-14.5)
[2019-06-09] MEDS: *HR* Heparin 5,000 UNIT/ML VIAL SQ SCH ×2 (05:31→17:44)
[2019-06-09] MEDS: Cefepime HCl 1,000 MG in Water for inj. (sterile) 10 ML IVP SCH (05:31)
[2019-06-09] MEDS: Doxycycline 100 MG in 0.9 % Sodium Chloride Mini Bag 100 ML IVPB SCH ×2 (05:32→17:43)
[2019-06-09] MEDS: Aspirin Enteric Coated 81 MG Tablet PO SCH (09:43)
[2019-06-09] MEDS: Fluconazole 100 MG TABLET PO SCH (09:43)
[2019-06-09] MEDS: amLODIPine 5 MG TABLET PO SCH (09:43)
[2019-06-09] MEDS: Cholecalciferol (D-3) 1,000 UNIT (25MCG) TABLET PO SCH (09:43)
[2019-06-09] MEDS: Furosemide 40 MG/4 ML VIAL IVP SCH (09:44)
[2019-06-09] MEDS: Insulin LISPRO 300 UNITS/3 ML VIAL SQ SCH ×4 (09:44→22:31)
[2019-06-09] MEDS: Nystatin POWDER 30 GM BOTTLE TP SCH ×3 (09:44→22:49)
[2019-06-09] MEDS: Insulin DETEMIR 100 UNIT/ML X5UNITS SQ SCH (09:44)
[2019-06-09] MEDS ORDERED: Cefepime HCl 2,000 MG in 0.9 % Sodium Chloride Mini Bag 100 ML IVPB SCH (18:00)
[2019-06-09] MEDS: Cefepime HCl 2,000 MG in Water for inj. (sterile) 20 ML IVP SCH (18:06)
[2019-06-10] MEDS: Cefepime HCl 2,000 MG in Water for inj. (sterile) 20 ML IVP SCH ×2 (05:15→18:16)
[2019-06-10] MEDS: Doxycycline 100 MG in 0.9 % Sodium Chloride Mini Bag 100 ML IVPB SCH ×2 (05:23→18:17)
[2019-06-10] MEDS: *HR* Heparin 5,000 UNIT/ML VIAL SQ SCH ×2 (05:26→18:18)
[2019-06-10 05:34] LABS: Hematocrit 39.8 % (35.3-44.9); Hemoglobin 12.1 g/dL (11.5-15.4); Mean Corpuscular HGB Conc 30.4 g/dL (31.6-35.5); Mean Corpuscular Hemoglobin 28.4 pg (28.0-33.3); Mean Corpuscular Volume 93.4 fL (83.0-100.0); Mean Platelet Volume 12.8 fL (9.4-12.4); Platelet Count 158 K/mcL (140-400); Red Blood Count 4.26 M/mcL (3.82-4.97); Red Cell Distribution Width 16.2 % (11.5-14.5)
[2019-06-10 05:56] LABS: BUN/Creatinine Ratio 21 (6-26); Blood Urea Nitrogen 21 mg/dL (8-23); Calcium 10.1 mg/dL (8.6-10.3); Carbon Dioxide 35 mEq/L (23-29); Chloride 101 mEq/L (98-107); Glucose 100 mg/dL (70-105); Osmolality,Calculated 303 (280-300); Sodium 145 mEq/L (136-145); eGFR For African Americans > 60 (> 60); eGFR For Non-African Americans 54 (> 60)
[2019-06-10] MEDS: Insulin LISPRO 300 UNITS/3 ML VIAL SQ SCH ×4 (08:00→22:03)
[2019-06-10] MEDS ORDERED: Bisacodyl 10 MG RECTAL SUPPOSITORY RC PRN (08:26)
[2019-06-10] MEDS: Insulin DETEMIR 100 UNIT/ML X5UNITS SQ SCH (09:00)
[2019-06-10] MEDS: Aspirin Enteric Coated 81 MG Tablet PO SCH (12:30)
[2019-06-10] MEDS: amLODIPine 5 MG TABLET PO SCH (12:30)
[2019-06-10] MEDS: Cholecalciferol (D-3) 1,000 UNIT (25MCG) TABLET PO SCH (12:30)
[2019-06-10] MEDS: Fluconazole 100 MG TABLET PO SCH (12:30)
[2019-06-10] MEDS: Nystatin POWDER 30 GM BOTTLE TP SCH ×3 (12:31→22:30)
[2019-06-10] MEDS: Furosemide 40 MG/4 ML VIAL IVP SCH (12:31)
[2019-06-11 02:55] LABS: Hematocrit 39.4 % (35.3-44.9); Hemoglobin 12.1 g/dL (11.5-15.4); Mean Corpuscular HGB Conc 30.7 g/dL (31.6-35.5); Mean Corpuscular Hemoglobin 28.7 pg (28.0-33.3); Mean Corpuscular Volume 93.6 fL (83.0-100.0); Mean Platelet Volume 12.4 fL (9.4-12.4); Platelet Count 149 K/mcL (140-400); Red Blood Count 4.21 M/mcL (3.82-4.97); Red Cell Distribution Width 16.2 % (11.5-14.5); White Blood Count 5.2 K/mcL (4.3-11.1)
[2019-06-11 03:15] LABS: BUN/Creatinine Ratio 23 (6-26); Blood Urea Nitrogen 22 mg/dL (8-23); Calcium 9.8 mg/dL (8.6-10.3); Carbon Dioxide 33 mEq/L (23-29); Chloride 102 mEq/L (98-107); Glucose 116 mg/dL (70-105); Magnesium 1.9 mg/dL (1.6-2.6); Osmolality,Calculated 300 (280-300); Potassium 4.1 mEq/L (3.5-5.1); Sodium 143 mEq/L (136-145); eGFR For African Americans > 60 (> 60); eGFR For Non-African Americans 56 (> 60)
[2019-06-11] MEDS: Cefepime HCl 2,000 MG in Water for inj. (sterile) 20 ML IVP SCH ×2 (06:40→17:42)
[2019-06-11] MEDS: Doxycycline 100 MG in 0.9 % Sodium Chloride Mini Bag 100 ML IVPB SCH ×2 (06:45→17:45)
[2019-06-11] MEDS: *HR* Heparin 5,000 UNIT/ML VIAL SQ SCH ×2 (06:49→17:57)
[2019-06-11] MEDS: Insulin LISPRO 300 UNITS/3 ML VIAL SQ SCH ×4 (08:00→22:14)
[2019-06-11] MEDS: amLODIPine 5 MG TABLET PO SCH (10:10)
[2019-06-11] MEDS: Furosemide 40 MG/4 ML VIAL IVP SCH (10:10)
[2019-06-11] MEDS: Cholecalciferol (D-3) 1,000 UNIT (25MCG) TABLET PO SCH (10:10)
[2019-06-11] MEDS: Aspirin Enteric Coated 81 MG Tablet PO SCH (10:10)
[2019-06-11] MEDS: Fluconazole 100 MG TABLET PO SCH (10:10)
[2019-06-11] MEDS: Nystatin POWDER 30 GM BOTTLE TP SCH ×3 (10:11→22:18)
[2019-06-11] MEDS: Insulin DETEMIR 100 UNIT/ML X5UNITS SQ SCH (10:11)
[2019-06-11] MEDS ORDERED: amLODIPine 5 MG TABLET PO ONE (17:00)
[2019-06-12] MEDS: *HR* Heparin 5,000 UNIT/ML VIAL SQ SCH ×2 (05:59→17:29)
[2019-06-12] MEDS ORDERED: Doxycycline 100 MG in 0.9 % Sodium Chloride Mini Bag 100 ML IVPB SCH (06:00)
[2019-06-12] MEDS: Cefepime HCl 2,000 MG in Water for inj. (sterile) 20 ML IVP SCH ×2 (06:00→17:29)
[2019-06-12] MEDS: Insulin LISPRO 300 UNITS/3 ML VIAL SQ SCH ×4 (07:59→23:25)
[2019-06-12] MEDS: Cholecalciferol (D-3) 1,000 UNIT (25MCG) TABLET PO SCH (08:06)
[2019-06-12] MEDS: Aspirin Enteric Coated 81 MG Tablet PO SCH (08:06)
[2019-06-12] MEDS: Nystatin POWDER 30 GM BOTTLE TP SCH ×3 (08:07→23:27)
[2019-06-12] MEDS ORDERED: amLODIPine 5 MG TABLET PO SCH (09:00)
[2019-06-12] MEDS ORDERED: Furosemide 40 MG TABLET PO SCH (09:00)
[2019-06-12] MEDS ORDERED: Furosemide 40 MG/4 ML VIAL IVP ONE ×2 (09:45→19:00)
[2019-06-12] MEDS ORDERED: Vancomycin 1,750 MG in 0.9 % Sodium Chloride 250 ML IVPB SCH (11:00)
[2019-06-13] MEDS ORDERED: Melatonin 3 MG TABLET PO PRN (00:49)
[2019-06-13 02:11] LABS: Hemoglobin 12.1 g/dL (11.5-15.4); Mean Corpuscular Hemoglobin 28.5 pg (28.0-33.3); Mean Platelet Volume 12.4 fL (9.4-12.4); Platelet Count 174 K/mcL (140-400); Red Blood Count 4.24 M/mcL (3.82-4.97); Red Cell Distribution Width 16.3 % (11.5-14.5); White Blood Count 5.4 K/mcL (4.3-11.1)
[2019-06-13 02:33] LABS: Albumin 3.6 g/dL (3.5-5.7); Albumin/Globulin Ratio 1.3 (1.1-2.2); Bilirubin,Total 0.6 mg/dL (0.3-1.0); Calcium 9.8 mg/dL (8.6-10.3); Globulin 2.7 g/dL (2.4-3.5); Magnesium 1.8 mg/dL (1.6-2.6); Potassium 3.9 mEq/L (3.5-5.1); Total Protein 6.3 g/dL (6.4-8.9)
[2019-06-13] MEDS: Cefepime HCl 2,000 MG in Water for inj. (sterile) 20 ML IVP SCH ×2 (06:38→16:43)
[2019-06-13] MEDS: *HR* Heparin 5,000 UNIT/ML VIAL SQ SCH ×2 (06:38→16:43)
[2019-06-13] MEDS ORDERED: Albumin 25% 25gram/100mL 25 GM/100 ML IV.SOLN IVPB ONE ×2 (07:36→17:00)
[2019-06-13] MEDS: Insulin LISPRO 300 UNITS/3 ML VIAL SQ SCH ×4 (08:00→21:32)
[2019-06-13] MEDS ORDERED: Aminoglycoside Consult 1 EACH MC ONE (08:50)
[2019-06-13] MEDS: Cholecalciferol (D-3) 1,000 UNIT (25MCG) TABLET PO SCH (09:48)
[2019-06-13] MEDS: Aspirin Enteric Coated 81 MG Tablet PO SCH (09:48)
[2019-06-13] MEDS: Nystatin POWDER 30 GM BOTTLE TP SCH ×3 (09:57→21:30)
[2019-06-13] MEDS ORDERED: Furosemide 40 MG/4 ML VIAL IVP ONE ×2 (10:00→17:30)
[2019-06-14 02:51] LABS: Hemoglobin 11.4 g/dL (11.5-15.4); Immature Platelets 10.3 % (1.1-6.1); Mean Corpuscular HGB Conc 31.7 g/dL (31.6-35.5); Mean Corpuscular Hemoglobin 28.6 pg (28.0-33.3); Mean Corpuscular Volume 90.5 fL (83.0-100.0); Mean Platelet Volume 12.9 fL (9.4-12.4); Red Blood Count 3.98 M/mcL (3.82-4.97); Red Cell Distribution Width 16.2 % (11.5-14.5); White Blood Count 4.7 K/mcL (4.3-11.1)
[2019-06-14 03:05] LABS: Albumin 3.7 g/dL (3.5-5.7); Albumin/Globulin Ratio 1.4 (1.1-2.2); Bilirubin,Total 0.6 mg/dL (0.3-1.0); Calcium 9.8 mg/dL (8.6-10.3); Globulin 2.6 g/dL (2.4-3.5); Magnesium 1.8 mg/dL (1.6-2.6); Potassium 3.7 mEq/L (3.5-5.1); Total Protein 6.3 g/dL (6.4-8.9)
[2019-06-14] MEDS: *HR* Heparin 5,000 UNIT/ML VIAL SQ SCH ×2 (06:05→16:59)
[2019-06-14] MEDS: Cefepime HCl 2,000 MG in Water for inj. (sterile) 20 ML IVP SCH ×2 (06:07→16:58)
[2019-06-14] MEDS: Cholecalciferol (D-3) 1,000 UNIT (25MCG) TABLET PO SCH (07:52)
[2019-06-14] MEDS: Aspirin Enteric Coated 81 MG Tablet PO SCH (07:52)
[2019-06-14] MEDS: Insulin LISPRO 300 UNITS/3 ML VIAL SQ SCH ×4 (07:53→21:01)
[2019-06-14] MEDS: Nystatin POWDER 30 GM BOTTLE TP SCH ×3 (07:53→21:01)
[2019-06-14] MEDS ORDERED: Furosemide 40 MG/4 ML VIAL IVP ONE ×2 (11:09→13:54)
[2019-06-14] MEDS: Nitroglycerin 1 INCH/GM PACKET TP SCH (13:27)
[2019-06-14] MEDS ORDERED: Albumin 25% 25gram/100mL 25 GM/100 ML IV.SOLN IVPB ONE (13:54)
[2019-06-14] MEDS: Furosemide 40 MG/4 ML VIAL IVP SCH (17:00)
[2019-06-15 02:10] LABS: Hematocrit 38.7 % (35.3-44.9); Hemoglobin 11.5 g/dL (11.5-15.4); Mean Corpuscular HGB Conc 29.7 g/dL (31.6-35.5); Mean Corpuscular Hemoglobin 27.8 pg (28.0-33.3); Mean Corpuscular Volume 93.7 fL (83.0-100.0); Mean Platelet Volume 13.2 fL (9.4-12.4); Platelet Count 135 K/mcL (140-400); Red Blood Count 4.13 M/mcL (3.82-4.97); Red Cell Distribution Width 16.3 % (11.5-14.5); White Blood Count 4.5 K/mcL (4.3-11.1)
[2019-06-15 02:24] LABS: Calcium 10.1 mg/dL (8.6-10.3); Potassium 3.7 mEq/L (3.5-5.1)
[2019-06-15] MEDS: Nitroglycerin 1 INCH/GM PACKET TP SCH ×2 (05:01→12:20)
[2019-06-15] MEDS: *HR* Heparin 5,000 UNIT/ML VIAL SQ SCH ×2 (05:01→17:18)
[2019-06-15] MEDS: Insulin LISPRO 300 UNITS/3 ML VIAL SQ SCH ×4 (07:59→20:18)
[2019-06-15] MEDS: Nystatin POWDER 30 GM BOTTLE TP SCH ×2 (09:40→15:57)
[2019-06-15] MEDS: Aspirin Enteric Coated 81 MG Tablet PO SCH (09:40)
[2019-06-15] MEDS: Cholecalciferol (D-3) 1,000 UNIT (25MCG) TABLET PO SCH (09:40)
[2019-06-15] MEDS ORDERED: Albumin 25% 25gram/100mL 25 GM/100 ML IV.SOLN IVPB ONE (13:32)
[2019-06-15] MEDS ORDERED: Furosemide 20 MG/2 ML VIAL IVP ONE (15:00)
[2019-06-16 04:58] LABS: Calcium 10.1 mg/dL (8.6-10.3); Potassium 3.8 mEq/L (3.5-5.1)
[2019-06-16] MEDS: *HR* Heparin 5,000 UNIT/ML VIAL SQ SCH ×2 (05:03→18:13)
[2019-06-16] MEDS: Nystatin POWDER 30 GM BOTTLE TP SCH ×4 (05:04→21:32)
[2019-06-16 05:59] LABS: Hematocrit 37.5 % (35.3-44.9); Hemoglobin 11.5 g/dL (11.5-15.4); Immature Platelets 13.1 % (1.1-6.1); Mean Corpuscular HGB Conc 30.7 g/dL (31.6-35.5); Mean Corpuscular Hemoglobin 27.8 pg (28.0-33.3); Mean Corpuscular Volume 90.6 fL (83.0-100.0); Red Blood Count 4.14 M/mcL (3.82-4.97); Red Cell Distribution Width 16.5 % (11.5-14.5); White Blood Count 5.3 K/mcL (4.3-11.1)
[2019-06-16] MEDS: Insulin LISPRO 300 UNITS/3 ML VIAL SQ SCH ×4 (07:18→21:16)
[2019-06-16] MEDS ORDERED: 0.9 % Sodium Chloride 1,000 ML IVC SCH (08:15)
[2019-06-16] MEDS: Isosorbide MONOnitrate (24 HR) 30 MG TAB.ER.24H PO SCH (08:27)
[2019-06-16] MEDS: Aspirin Enteric Coated 81 MG Tablet PO SCH (08:27)
[2019-06-16] MEDS: Cholecalciferol (D-3) 1,000 UNIT (25MCG) TABLET PO SCH (08:27)
[2019-06-16] MEDS: Acetaminophen 325 MG TABLET PO PRN (11:38)
[2019-06-16] MEDS ORDERED: 0.9 % Sodium Chloride 500 ML IVC SCH (11:45)
[2019-06-17 03:19] LABS: Hematocrit 37.4 % (35.3-44.9); Hemoglobin 11.3 g/dL (11.5-15.4); Mean Corpuscular HGB Conc 30.2 g/dL (31.6-35.5); Mean Corpuscular Volume 92.6 fL (83.0-100.0); Mean Platelet Volume 13.3 fL (9.4-12.4); Platelet Count 153 K/mcL (140-400); Red Blood Count 4.04 M/mcL (3.82-4.97); Red Cell Distribution Width 16.5 % (11.5-14.5)
[2019-06-17 03:41] LABS: Potassium 3.8 mEq/L (3.5-5.1)
[2019-06-17] MEDS: *HR* Heparin 5,000 UNIT/ML VIAL SQ SCH ×2 (05:14→17:13)
[2019-06-17] MEDS: Insulin LISPRO 300 UNITS/3 ML VIAL SQ SCH ×4 (08:41→22:14)
[2019-06-17] MEDS: Cholecalciferol (D-3) 1,000 UNIT (25MCG) TABLET PO SCH (10:02)
[2019-06-17] MEDS: Aspirin Enteric Coated 81 MG Tablet PO SCH (10:02)
[2019-06-17] MEDS: Isosorbide MONOnitrate (24 HR) 30 MG TAB.ER.24H PO SCH (10:02)
[2019-06-17] MEDS: Nystatin POWDER 30 GM BOTTLE TP SCH ×3 (10:02→22:21)
[2019-06-17] MEDS ORDERED: Albumin 25% 25gram/100mL 25 GM/100 ML IV.SOLN IVPB ONE (11:35)
[2019-06-17 16:42] LABS: Calcium 10.1 mg/dL (8.6-10.3)
[2019-06-18 02:51] LABS: Hematocrit 36.8 % (35.3-44.9); Hemoglobin 11.4 g/dL (11.5-15.4); Mean Corpuscular Hemoglobin 28.3 pg (28.0-33.3); Mean Corpuscular Volume 91.3 fL (83.0-100.0); Mean Platelet Volume 13.1 fL (9.4-12.4); Platelet Count 141 K/mcL (140-400); Red Blood Count 4.03 M/mcL (3.82-4.97); Red Cell Distribution Width 16.5 % (11.5-14.5); White Blood Count 4.8 K/mcL (4.3-11.1)
[2019-06-18 03:08] LABS: Calcium 10.1 mg/dL (8.6-10.3)
[2019-06-18] MEDS: *HR* Heparin 5,000 UNIT/ML VIAL SQ SCH ×2 (06:30→17:16)
[2019-06-18] MEDS: Insulin LISPRO 300 UNITS/3 ML VIAL SQ SCH ×3 (07:57→17:15)
[2019-06-18] MEDS ORDERED: Furosemide 40 MG TABLET PO SCH (09:00)
[2019-06-18] MEDS: Isosorbide MONOnitrate (24 HR) 30 MG TAB.ER.24H PO SCH (09:58)
[2019-06-18] MEDS: Cholecalciferol (D-3) 1,000 UNIT (25MCG) TABLET PO SCH (09:58)
[2019-06-18] MEDS: Aspirin Enteric Coated 81 MG Tablet PO SCH (09:58)
[2019-06-18] MEDS: Nystatin POWDER 30 GM BOTTLE TP SCH ×2 (09:59→13:29)
[2019-06-18 16:59] VITALS: BP 162/75
== END 2019-06-18 18:29 | DRG 871 ==
LOC: 2NNU 11:27 → EMEROOARM 11:27 → SUATTDRO 17:48 → 2NNU 18:52 → SUATTDRO 06-01 14:41 → 2NENU 06-06 16:13
PROVIDERS: ADMIT Internal Medicine; ATTEND Internal Medicine

== ENCOUNTER 2019-07-07 11:29 | Observation (INO) ==
[2019-07-07 12:16] LABS: Basophils # 0.1 K/mcL (0.0-0.2); Basophils % 1.2 %; Eosinophils # 0.3 K/mcL (0.0-0.6); Eosinophils % 6.6 %; Hematocrit 37.6 % (35.3-44.9); Hemoglobin 11.3 g/dL (11.5-15.4); Immature Granulocytes % 4.1 % (0-4); Lymphocytes # 0.7 K/mcL (0.6-4.6); Lymphocytes % 13.9 %; Mean Corpuscular HGB Conc 30.1 g/dL (31.6-35.5); Mean Corpuscular Hemoglobin 28.5 pg (28.0-33.3); Mean Corpuscular Volume 94.9 fL (83.0-100.0); Mean Platelet Volume 11.9 fL (9.4-12.4); Monocytes # 0.6 K/mcL (0.0-1.3); Monocytes % 11.4 %; Platelet Count 173 K/mcL (140-400); Red Blood Count 3.96 M/mcL (3.82-4.97); Red Cell Distribution Width 17.3 % (11.5-14.5); Segmented Neutrophils % 62.8 %; White Blood Count 4.8 K/mcL (4.3-11.1)
[2019-07-07 12:44] LABS: BUN/Creatinine Ratio 21 (6-26); Blood Urea Nitrogen 40 mg/dL (8-23); Calcium 9.2 mg/dL (8.6-10.3); Carbon Dioxide 40 mEq/L (23-29); Chloride 97 mEq/L (98-107); Glucose 160 mg/dL (70-105); Osmolality,Calculated 313 (280-300); Potassium 3.9 mEq/L (3.5-5.1); Sodium 145 mEq/L (136-145); Troponin I < 0.03 ng/mL (< 0.04); eGFR For African Americans 30 (> 60); eGFR For Non-African Americans 25 (> 60)
[2019-07-07 12:47] LABS: VBG HCO3 40 mEq/L (21-27); VBG PCO2 72 mmHg (41-51); VBG PH 7.35 pH Units (7.32-7.42); VBG PO2 108 mmHg (25-50)
[2019-07-07 13:40] LABS: Bilirubin,Urine Negative (Negative); Blood,Urine Moderate (Negative); Clarity,Urine Turbid (Clear); Color,Urine Yellow (Yellow); Glucose,Urine (UA) Normal (Normal); Ketones,Urine Negative (Negative); Leukocyte Esterase,Urine Large (Negative); Nitrite,Urine Negative (Negative); PH,Urine 5.5 pH Units (5.0-8.0); Protein,Urine 100 mg/dL (Neg-Trace); Specific Gravity,Urine 1.018 (1.010-1.025); Urobilinogen,Urine Normal (Normal)
[2019-07-07 13:44] LABS: Bacteria,Urine None Seen per hpf (None-Few); Hyaline Casts,Urine None Seen per lpf (None-Few); RBC,Urine 50-100 per hpf (0-3); Squamous Epithelial Cell,Urine Many per lpf (None-Few); WBC,Urine 50-100 per hpf (0-3)
[2019-07-07] MEDS ORDERED: Naloxone 0.4 MG/ML INJ IVP PRN (16:16)
[2019-07-07] MEDS ORDERED: Acetaminophen 325 MG TABLET PO PRN (16:16)
[2019-07-07] MEDS ORDERED: D5% in Water 1,000 ML IVC PRN (16:21)
[2019-07-07] MEDS ORDERED: *HR* Dextrose 50 % in Water (Syg) 50 ML SYRINGE IVP PRN (16:21)
[2019-07-07] MEDS ORDERED: Dextrose Gel 15 GM/37.5 ML TUBE PO PRN ×2 (16:21)
[2019-07-07] MEDS ORDERED: Ertapenem 500 MG in 0.9 % Sodium Chloride Mini Bag 100 ML IVPB SCH ×2 (16:24→18:58)
[2019-07-07] MEDS ORDERED: D5% in 0.9% NACL 1,000 ML IVC SCH (17:15)
[2019-07-07] MEDS ORDERED: Ondansetron ODT 4 MG TAB.RAPDIS PO PRN (17:39)
[2019-07-07] MEDS ORDERED: Nitroglycerin 0.4 MG TAB.SUBL SL PRN (17:39)
[2019-07-07] MEDS ORDERED: *HR* Heparin 5,000 UNIT/ML VIAL SQ SCH (18:00)
[2019-07-07] MEDS ORDERED: MethylPREDNISolone 40 MG/ML VIAL IVP SCH (18:00)
[2019-07-07] MEDS ORDERED: Insulin LISPRO 300 UNITS/3 ML VIAL SQ SCH (18:00)
[2019-07-07] MEDS ORDERED: *HR* LORazepam 0.5 MG TABLET PO SCH (18:00)
[2019-07-07] MEDS ORDERED: Albuterol 2.5 MG/3 ML NEBULIZER IH SCH (18:00)
[2019-07-07 18:44] LABS: ABG Base Excess 13 mEq/L (-2 to 3); ABG HCO3 42 mEq/L (21-27); ABG Oxygen Saturation 94 % (95-98); ABG PCO2 76 mmHg (35-45); ABG PH 7.34 pH Units (7.32-7.45); ABG PO2 82 mmHg (85-104); ABG TCO2 44 mEq/L (20-26)
[2019-07-07 18:51] VITALS: BP 148/61
[2019-07-07] MEDS ORDERED: Ipratropium/Albuterol Neb 3 ML IH SCH (20:00)
[2019-07-07] MEDS ORDERED: hydrALAZINE 25 MG TABLET PO SCH (22:00)
[2019-07-08] MEDS ORDERED: Bumetanide 1 MG/4 ML VIAL IVP SCH (08:00)
== END 2019-07-07 21:13 | disposition critical access hospital (66) ==
LOC: 2NENU 11:29 → EMEROOARM 11:29 → 2NENU 18:44
PROVIDERS: ADMIT Internal Medicine; ATTEND Internal Medicine

== ENCOUNTER 2020-06-07 15:09 | Inpatient (IN) ==
[2020-06-07 16:19] LABS: INR 1.1; Prothrombin Time 12.5 Seconds (9.4-12.1)
[2020-06-07 16:21] LABS: Amphetamine Screen,Urine Negative ng/mL (Cutoff=1000); Barbiturate Screen,Urine Negative ng/mL (Cutoff=200); Benzodiazepines Screen,Urine Negative ng/mL (Cutoff=200); Cannabinoid Screen,Urine Negative ng/mL (Cutoff = 50); Cocaine Screen,Urine Negative ng/mL (Cutoff= 300); Opiate Screen,Urine Negative ng/mL (Cutoff=300); Phencyclidine Screen,Urine Negative ng/mL (Cutoff=25)
[2020-06-07 16:22] LABS: Activated Partial Thrombo Time 32.3 Seconds (26.0-36.0)
[2020-06-07 16:27] LABS: Basophils # 0.1 K/mcL (0.0-0.2); Basophils % 0.7 %; Eosinophils # 0.3 K/mcL (0.0-0.6); Eosinophils % 3.8 %; Hematocrit 40.7 % (35.3-44.9); Immature Granulocytes % 0.4 % (0-4); Lymphocytes # 1.7 K/mcL (0.6-4.6); Lymphocytes % 22.7 %; Mean Corpuscular HGB Conc 31.9 g/dL (31.6-35.5); Mean Corpuscular Hemoglobin 28.8 pg (28.0-33.3); Mean Corpuscular Volume 90.2 fL (83.0-100.0); Mean Platelet Volume 11.2 fL (9.4-12.4); Monocytes # 0.8 K/mcL (0.0-1.3); Monocytes % 10.5 %; Neutrophils # 4.6 K/mcL (1.6-8.9); Platelet Count 248 K/mcL (140-400); Red Blood Count 4.51 M/mcL (3.82-4.97); Red Cell Distribution Width 13.5 % (11.5-14.5); Segmented Neutrophils % 61.9 %; White Blood Count 7.4 K/mcL (4.3-11.1)
[2020-06-07 16:36] LABS: Alanine Aminotransferase 8 Units/L (7-52); Albumin/Globulin Ratio 1.3 (1.1-2.2); Alkaline Phosphatase 98 Units/L (34-104); Aspartate Amino Transferase 15 Units/L (13-39); BUN/Creatinine Ratio 18 (6-26); Bilirubin,Direct 0.1 mg/dL (0.0-0.2); Bilirubin,Indirect 0.4 mg/dL (0.0-1.0); Bilirubin,Total 0.5 mg/dL (0.3-1.0); Blood Urea Nitrogen 26 mg/dL (8-23); Calcium 9.9 mg/dL (8.6-10.3); Carbon Dioxide 29 mEq/L (23-29); Chloride 103 mEq/L (98-107); Ethanol < 10 mg/dL (Less than 10); Glucose 103 mg/dL (70-105); Osmolality,Calculated 295 (280-300); Potassium 4.2 mEq/L (3.5-5.1); Sodium 140 mEq/L (136-145); Troponin I 0.03 ng/mL (< 0.04); eGFR For African Americans 41 (> 60); eGFR For Non-African Americans 34 (> 60)
[2020-06-07 16:46] LABS: Thyroid Stimulating Hormone 2.064 mcIU/mL (0.340-5.600)
[2020-06-07 17:05] LABS: Bilirubin,Urine Negative (Negative); Blood,Urine Negative (Negative); Clarity,Urine Clear (Clear); Color,Urine Light-Yellow (Yellow); Glucose,Urine (UA) 50 mg/dL (Normal); Hyaline Casts,Urine Few per lpf (None Seen); Ketones,Urine Negative (Negative); Leukocyte Esterase,Urine Moderate (Negative); Mucus,Urine Few per lpf (None-Few); Nitrite,Urine Negative (Negative); PH,Urine 6.5 pH Units (5.0-8.0); Protein,Urine 200 mg/dL (Neg-Trace); RBC,Urine 0-3 per hpf (0-3); Specific Gravity,Urine 1.017 (1.010-1.025); Squamous Epithelial Cell,Urine Few per hpf (None-Few); Urobilinogen,Urine Normal (Normal); WBC,Urine 30-50 per hpf (0-3)
[2020-06-07] MEDS ORDERED: Ertapenem 1,000 MG in 0.9 % Sodium Chloride Mini Bag 100 ML IVPB STA (18:37)
[2020-06-07] MEDS ORDERED: Acetaminophen 325 MG TABLET PO PRN (19:13)
[2020-06-07] MEDS ORDERED: Nitroglycerin 0.4 MG TAB.SUBL SL PRN (19:15)
[2020-06-07] MEDS ORDERED: Naloxone 0.4 MG/ML INJ IVP PRN (19:16)
[2020-06-07] MEDS ORDERED: *HR* Dextrose 50 % in Water (Vial) 50 ML VIAL IVP PRN ×2 (19:16→19:18)
[2020-06-07] MEDS ORDERED: Dextrose Gel 15 GM/37.5 ML TUBE PO PRN ×4 (19:16→19:18)
[2020-06-07] MEDS ORDERED: D5% in Water 1,000 ML IVC PRN ×2 (19:16→19:18)
[2020-06-07] MEDS: hydrALAZINE 25 MG TABLET PO SCH (20:52)
[2020-06-07] MEDS: Insulin LISPRO 300 UNITS/3 ML VIAL SUBQ SCH (21:04)
[2020-06-08 02:42] LABS: Basophils # 0.1 K/mcL (0.0-0.2); Basophils % 0.6 %; Eosinophils # 0.3 K/mcL (0.0-0.6); Eosinophils % 3.2 %; Hematocrit 36.6 % (35.3-44.9); Hemoglobin 11.7 g/dL (11.5-15.4); Immature Granulocytes % 0.5 % (0-4); Lymphocytes # 1.7 K/mcL (0.6-4.6); Lymphocytes % 21.6 %; Mean Corpuscular Hemoglobin 28.2 pg (28.0-33.3); Mean Corpuscular Volume 88.2 fL (83.0-100.0); Mean Platelet Volume 10.7 fL (9.4-12.4); Monocytes # 0.7 K/mcL (0.0-1.3); Monocytes % 9.3 %; Neutrophils # 5.1 K/mcL (1.6-8.9); Platelet Count 216 K/mcL (140-400); Red Blood Count 4.15 M/mcL (3.82-4.97); Red Cell Distribution Width 13.3 % (11.5-14.5); Segmented Neutrophils % 64.8 %; White Blood Count 7.9 K/mcL (4.3-11.1)
[2020-06-08 03:02] LABS: Calcium 9.3 mg/dL (8.6-10.3); Potassium 3.9 mEq/L (3.5-5.1)
[2020-06-08] MEDS: *HR* Heparin 5,000 UNIT/ML VIAL SQ SCH ×2 (05:13→17:42)
[2020-06-08] MEDS: hydrALAZINE 25 MG TABLET PO SCH ×3 (08:22→21:13)
[2020-06-08] MEDS: Furosemide 40 MG TABLET PO SCH ×2 (08:22→17:43)
[2020-06-08] MEDS: allopurinoL 100 MG TABLET PO SCH (08:22)
[2020-06-08] MEDS: Insulin LISPRO 300 UNITS/3 ML VIAL SUBQ SCH ×4 (08:23→21:14)
[2020-06-08] MEDS ORDERED: Ertapenem 1,000 MG in 0.9 % Sodium Chloride Mini Bag 100 ML IVPB SCH (18:00)
[2020-06-09] MEDS: *HR* Heparin 5,000 UNIT/ML VIAL SQ SCH (06:13)
[2020-06-09 06:38] LABS: Hematocrit 36.4 % (35.3-44.9); Hemoglobin 11.6 g/dL (11.5-15.4); Mean Corpuscular HGB Conc 31.9 g/dL (31.6-35.5); Mean Corpuscular Hemoglobin 28.7 pg (28.0-33.3); Mean Corpuscular Volume 90.1 fL (83.0-100.0); Mean Platelet Volume 11.3 fL (9.4-12.4); Platelet Count 229 K/mcL (140-400); Red Blood Count 4.04 M/mcL (3.82-4.97); Red Cell Distribution Width 13.5 % (11.5-14.5); White Blood Count 6.6 K/mcL (4.3-11.1)
[2020-06-09 06:58] LABS: Calcium 9.6 mg/dL (8.6-10.3); Potassium 3.7 mEq/L (3.5-5.1)
[2020-06-09 07:26] VITALS: BP 156/73
[2020-06-09] MEDS: Insulin LISPRO 300 UNITS/3 ML VIAL SUBQ SCH ×2 (07:46→11:48)
[2020-06-09] MEDS: allopurinoL 100 MG TABLET PO SCH (09:00)
[2020-06-09] MEDS: hydrALAZINE 25 MG TABLET PO SCH (09:01)
[2020-06-09] MEDS: Furosemide 40 MG TABLET PO SCH (09:01)
== END 2020-06-09 13:15 | DRG 78 ==
LOC: EMEROOARM 15:09 → 3BNU 15:09
PROVIDERS: ADMIT Family Medicine; ATTEND Family Medicine

== ENCOUNTER 2020-06-17 15:29 | Inpatient (IN) ==
[2020-06-17] MEDS ORDERED: Isovue-370 500 ML BOTTLE IVP ONE (15:52)
[2020-06-17 15:56] LABS: VBG HCO3 28 mEq/L (21-27); VBG PCO2 55 mmHg (41-51); VBG PH 7.32 pH Units (7.32-7.42); VBG PO2 54 mmHg (25-50)
[2020-06-17 15:57] LABS: Basophils % 0.5 %; Eosinophils # 0.2 K/mcL (0.0-0.6); Eosinophils % 1.9 %; Hematocrit 40.2 % (35.3-44.9); Hemoglobin 12.7 g/dL (11.5-15.4); Immature Granulocytes % 0.4 % (0-4); Lymphocytes # 0.8 K/mcL (0.6-4.6); Lymphocytes % 9.7 %; Mean Corpuscular HGB Conc 31.6 g/dL (31.6-35.5); Mean Corpuscular Hemoglobin 28.1 pg (28.0-33.3); Mean Corpuscular Volume 88.9 fL (83.0-100.0); Mean Platelet Volume 11.7 fL (9.4-12.4); Monocytes # 0.6 K/mcL (0.0-1.3); Monocytes % 7.5 %; Neutrophils # 6.7 K/mcL (1.6-8.9); Platelet Count 269 K/mcL (140-400); Red Blood Count 4.52 M/mcL (3.82-4.97); Red Cell Distribution Width 13.7 % (11.5-14.5); White Blood Count 8.4 K/mcL (4.3-11.1)
[2020-06-17 16:02] LABS: INR 1.1; Prothrombin Time 13.1 Seconds (9.4-12.1)
[2020-06-17 16:04] LABS: Activated Partial Thrombo Time 36.3 Seconds (26.0-36.0)
[2020-06-17] MEDS ORDERED: 0.9 % Sodium Chloride 1,000 ML IVC STA (16:04)
[2020-06-17 16:05] LABS: Amorphous Sediment,Urine Few per hpf (None-Few); Bilirubin,Urine Negative (Negative); Blood,Urine Negative (Negative); Clarity,Urine Turbid (Clear); Color,Urine Yellow (Yellow); Glucose,Urine (UA) Normal (Normal); Hyaline Casts,Urine Many per lpf (None Seen); Ketones,Urine Negative (Negative); Leukocyte Esterase,Urine Negative (Negative); Mucus,Urine Few per lpf (None-Few); Nitrite,Urine Negative (Negative); Protein,Urine 70 mg/dL (Neg-Trace); RBC,Urine 0-3 per hpf (0-3); Specific Gravity,Urine 1.018 (1.010-1.025); Squamous Epithelial Cell,Urine Few per hpf (None-Few); Urobilinogen,Urine Normal (Normal); WBC,Urine 0-3 per hpf (0-3)
[2020-06-17 16:19] LABS: Albumin/Globulin Ratio 1.3 (1.1-2.2); Bilirubin,Direct 0.1 mg/dL (0.0-0.2); Bilirubin,Indirect 0.4 mg/dL (0.0-1.0); Bilirubin,Total 0.5 mg/dL (0.3-1.0); Calcium 9.8 mg/dL (8.6-10.3); Globulin 3.2 g/dL (2.4-3.5); Magnesium 2.4 mg/dL (1.6-2.6); Phosphorous 5.2 mg/dL (2.7-4.5); Potassium 4.2 mEq/L (3.5-5.1); Total Protein 7.2 g/dL (6.4-8.9); Troponin I 0.03 ng/mL (< 0.04)
[2020-06-17 16:32] LABS: Thyroid Stimulating Hormone 2.045 mcIU/mL (0.340-5.600)
[2020-06-17 17:32] LABS: Adenovirus Not Detected (Not Detect); Bordetella Pertussis Not Detected (Not Detect); Chlamydophila pneumoniae Not Detected (Not Detect); Coronavirus 229E Not Detected (Not Detect); Coronavirus HKU1 Not Detected (Not Detect); Coronavirus NL63 Not Detected (Not Detect); Coronavirus OC43 Not Detected (Not Detect); Human Metapneumovirus Not Detected (Not Detect); Human Rhinovirus/Enterovirus Not Detected (Not Detect); Influenza A Subtype 2009 H1 Not Detected (Not Detect); Influenza B Not Detected (Not Detect); Mycoplasma pneumoniae Not Detected (Not Detect); Parainfluenza Virus 1 Not Detected (Not Detect); Parainfluenza Virus 2 Not Detected (Not Detect); Parainfluenza Virus 3 Not Detected (Not Detect); Parainfluenza Virus 4 Not Detected (Not Detect); Respiratory Syncytial Virus Not Detected (Not Detect); SARS-CoV-2 Not Detected (Not Detect)
[2020-06-17] MEDS ORDERED: Ondansetron ODT 4 MG TAB.RAPDIS SL PRN (20:54)
[2020-06-17] MEDS ORDERED: Naloxone 0.4 MG/ML INJ IVP PRN (20:54)
[2020-06-17] MEDS ORDERED: *HR* Dextrose 50 % in Water (Vial) 50 ML VIAL IVP PRN (20:57)
[2020-06-17] MEDS ORDERED: D5% in Water 1,000 ML IVC PRN (20:57)
[2020-06-17] MEDS ORDERED: Dextrose Gel 15 GM/37.5 ML TUBE PO PRN ×2 (20:57)
[2020-06-17] MEDS ORDERED: Albumin 25% 25gram/100mL 25 GM/100 ML IV.SOLN IVPB ONE (22:37)
[2020-06-17 23:38] LABS: Acetaminophen < 10 mcg/mL (10-20); Ethanol < 10 mg/dL (Less than 10)
[2020-06-18] MEDS: *HR* Heparin 5,000 UNIT/ML VIAL SQ SCH ×4 (00:04→20:55)
[2020-06-18] MEDS ORDERED: Melatonin 3 MG TABLET PO ONE (01:29)
[2020-06-18 02:19] LABS: Amphetamine Screen,Urine Negative ng/mL (Cutoff=1000); Barbiturate Screen,Urine Negative ng/mL (Cutoff=200); Benzodiazepines Screen,Urine Negative ng/mL (Cutoff=200); Cannabinoid Screen,Urine Negative ng/mL (Cutoff = 50); Chloride,Urine 70 mEq/L; Cocaine Screen,Urine Negative ng/mL (Cutoff= 300); Creatinine,Urine 70 mg/dL; Opiate Screen,Urine Negative ng/mL (Cutoff=300); Phencyclidine Screen,Urine Negative ng/mL (Cutoff=25); Potassium,Urine 26.3 mEq/L; Protein/Creatinine Ratio,Urine 0.64 mg/mg (0.00-0.20); Sodium, Urine 83.7 mEq/L
[2020-06-18 02:23] LABS: ABG Base Excess 2 mEq/L (-2 to 3); ABG HCO3 28 mEq/L (21-27); ABG Oxygen Saturation 98 % (95-98); ABG PCO2 49 mmHg (35-45); ABG PH 7.36 pH Units (7.32-7.45); ABG PO2 105 mmHg (85-104); ABG TCO2 29 mEq/L (20-26)
[2020-06-18] MEDS ORDERED: Haloperidol Lactate 5 MG/ML VIAL IVP ONE (03:30)
[2020-06-18 06:08] LABS: Basophils # 0.1 K/mcL (0.0-0.2); Basophils % 0.8 %; Eosinophils # 0.2 K/mcL (0.0-0.6); Hematocrit 37.5 % (35.3-44.9); Hemoglobin 11.7 g/dL (11.5-15.4); Immature Granulocytes % 0.3 % (0-4); Lymphocytes # 1.1 K/mcL (0.6-4.6); Mean Corpuscular HGB Conc 31.2 g/dL (31.6-35.5); Mean Corpuscular Hemoglobin 27.9 pg (28.0-33.3); Mean Corpuscular Volume 89.5 fL (83.0-100.0); Mean Platelet Volume 11.5 fL (9.4-12.4); Monocytes # 0.7 K/mcL (0.0-1.3); Monocytes % 9.9 %; Neutrophils # 4.6 K/mcL (1.6-8.9); Platelet Count 241 K/mcL (140-400); Red Blood Count 4.19 M/mcL (3.82-4.97); Red Cell Distribution Width 13.7 % (11.5-14.5); White Blood Count 6.6 K/mcL (4.3-11.1)
[2020-06-18 06:30] LABS: Albumin 4.1 g/dL (3.5-5.7); Albumin/Globulin Ratio 1.4 (1.1-2.2); Bilirubin,Total 0.6 mg/dL (0.3-1.0); Calcium 9.7 mg/dL (8.6-10.3); Globulin 2.9 g/dL (2.4-3.5); Magnesium 2.4 mg/dL (1.6-2.6); Phosphorous 4.7 mg/dL (2.7-4.5)
[2020-06-18] MEDS: Insulin LISPRO 300 UNITS/3 ML VIAL SUBQ SCH ×3 (08:17→16:24)
[2020-06-19] MEDS: *HR* Heparin 5,000 UNIT/ML VIAL SQ SCH ×3 (05:22→19:58)
[2020-06-19 07:21] LABS: Basophils # 0.1 K/mcL (0.0-0.2); Basophils % 1.1 %; Eosinophils # 0.2 K/mcL (0.0-0.6); Eosinophils % 4.1 %; Hematocrit 34.4 % (35.3-44.9); Hemoglobin 10.6 g/dL (11.5-15.4); Immature Granulocytes % 0.2 % (0-4); Lymphocytes # 1.1 K/mcL (0.6-4.6); Lymphocytes % 20.1 %; Mean Corpuscular HGB Conc 30.8 g/dL (31.6-35.5); Mean Corpuscular Hemoglobin 27.9 pg (28.0-33.3); Mean Corpuscular Volume 90.5 fL (83.0-100.0); Monocytes # 0.5 K/mcL (0.0-1.3); Neutrophils # 3.7 K/mcL (1.6-8.9); Platelet Count 236 K/mcL (140-400); Red Cell Distribution Width 13.9 % (11.5-14.5); Segmented Neutrophils % 65.5 %; White Blood Count 5.7 K/mcL (4.3-11.1)
[2020-06-19 07:43] LABS: Calcium 9.1 mg/dL (8.6-10.3)
[2020-06-19] MEDS: Insulin LISPRO 300 UNITS/3 ML VIAL SUBQ SCH ×3 (08:10→17:33)
[2020-06-19] MEDS: 0.9 % Sodium Chloride 1,000 ML IVC SCH ×3 (10:14→19:57)
[2020-06-19 13:02] LABS: Uric Acid 9.9 mg/dL (2.3-7.6)
[2020-06-20 04:32] LABS: Basophils % 0.8 %; Eosinophils # 0.2 K/mcL (0.0-0.6); Eosinophils % 3.8 %; Hematocrit 32.8 % (35.3-44.9); Hemoglobin 10.3 g/dL (11.5-15.4); Immature Granulocytes % 0.6 % (0-4); Lymphocytes # 1.4 K/mcL (0.6-4.6); Lymphocytes % 25.9 %; Mean Corpuscular HGB Conc 31.4 g/dL (31.6-35.5); Mean Corpuscular Hemoglobin 28.9 pg (28.0-33.3); Mean Corpuscular Volume 92.1 fL (83.0-100.0); Mean Platelet Volume 12.1 fL (9.4-12.4); Monocytes # 0.6 K/mcL (0.0-1.3); Monocytes % 11.8 %; Platelet Count 211 K/mcL (140-400); Red Blood Count 3.56 M/mcL (3.82-4.97); Red Cell Distribution Width 13.8 % (11.5-14.5); Segmented Neutrophils % 57.1 %; White Blood Count 5.3 K/mcL (4.3-11.1)
[2020-06-20 04:55] LABS: Calcium 8.8 mg/dL (8.6-10.3); Potassium 3.9 mEq/L (3.5-5.1)
[2020-06-20] MEDS: *HR* Heparin 5,000 UNIT/ML VIAL SQ SCH ×3 (05:18→19:39)
[2020-06-20] MEDS: Insulin LISPRO 300 UNITS/3 ML VIAL SUBQ SCH ×3 (07:30→17:18)
[2020-06-20] MEDS ORDERED: Acetaminophen 325 MG TABLET PO PRN (14:25)
[2020-06-20] MEDS ORDERED: Nitroglycerin 0.4 MG TAB.SUBL SL PRN (14:25)
[2020-06-20] MEDS: 0.9 % Sodium Chloride 1,000 ML IVC SCH (15:50)
[2020-06-20] MEDS: hydrALAZINE 25 MG TABLET PO SCH ×2 (15:50→19:39)
[2020-06-21] MEDS: *HR* Heparin 5,000 UNIT/ML VIAL SQ SCH ×2 (05:20→15:55)
[2020-06-21 06:02] LABS: Basophils % 0.7 %; Eosinophils # 0.3 K/mcL (0.0-0.6); Eosinophils % 4.5 %; Hematocrit 33.1 % (35.3-44.9); Hemoglobin 10.5 g/dL (11.5-15.4); Immature Granulocytes % 0.3 % (0-4); Lymphocytes # 1.2 K/mcL (0.6-4.6); Lymphocytes % 20.6 %; Mean Corpuscular HGB Conc 31.7 g/dL (31.6-35.5); Mean Corpuscular Hemoglobin 28.8 pg (28.0-33.3); Mean Corpuscular Volume 90.9 fL (83.0-100.0); Mean Platelet Volume 11.8 fL (9.4-12.4); Monocytes # 0.5 K/mcL (0.0-1.3); Monocytes % 8.4 %; Neutrophils # 3.8 K/mcL (1.6-8.9); Platelet Count 207 K/mcL (140-400); Red Blood Count 3.64 M/mcL (3.82-4.97); Red Cell Distribution Width 13.5 % (11.5-14.5); Segmented Neutrophils % 65.5 %; White Blood Count 5.8 K/mcL (4.3-11.1)
[2020-06-21 06:25] LABS: Calcium 8.9 mg/dL (8.6-10.3)
[2020-06-21] MEDS: allopurinoL 100 MG TABLET PO SCH (07:48)
[2020-06-21] MEDS: hydrALAZINE 25 MG TABLET PO SCH ×2 (07:48→15:55)
[2020-06-21] MEDS: 0.9 % Sodium Chloride 1,000 ML IVC SCH ×3 (07:49→21:28)
[2020-06-21] MEDS: Insulin LISPRO 300 UNITS/3 ML VIAL SUBQ SCH ×3 (07:49→15:56)
[2020-06-21] MEDS: QUEtiapine Fumarate 25 MG TABLET PO SCH (23:21)
[2020-06-22] MEDS: hydrALAZINE 25 MG TABLET PO SCH ×4 (00:25→19:44)
[2020-06-22] MEDS: *HR* Heparin 5,000 UNIT/ML VIAL SQ SCH ×4 (00:26→17:43)
[2020-06-22] MEDS ORDERED: *HR* LORazepam 1 MG TABLET PO ONE (03:12)
[2020-06-22] MEDS ORDERED: *HR* LORazepam 2 MG/ML VIAL IVP ONE (08:11)
[2020-06-22] MEDS ORDERED: Haloperidol Lactate 5 MG/ML VIAL IM ONE (09:05)
[2020-06-22] MEDS: Insulin LISPRO 300 UNITS/3 ML VIAL SUBQ SCH ×3 (09:07→16:35)
[2020-06-22] MEDS: allopurinoL 100 MG TABLET PO SCH (09:07)
[2020-06-22] MEDS: 0.9 % Sodium Chloride 1,000 ML IVC SCH (09:07)
[2020-06-22 12:41] LABS: Basophils % 0.6 %; Eosinophils # 0.2 K/mcL (0.0-0.6); Eosinophils % 3.7 %; Hematocrit 36.9 % (35.3-44.9); Hemoglobin 11.7 g/dL (11.5-15.4); Immature Granulocytes % 0.6 % (0-4); Lymphocytes # 1.1 K/mcL (0.6-4.6); Lymphocytes % 16.8 %; Mean Corpuscular HGB Conc 31.7 g/dL (31.6-35.5); Mean Corpuscular Volume 88.3 fL (83.0-100.0); Mean Platelet Volume 11.6 fL (9.4-12.4); Monocytes # 0.5 K/mcL (0.0-1.3); Monocytes % 8.5 %; Neutrophils # 4.4 K/mcL (1.6-8.9); Platelet Count 219 K/mcL (140-400); Red Blood Count 4.18 M/mcL (3.82-4.97); Red Cell Distribution Width 13.6 % (11.5-14.5); Segmented Neutrophils % 69.8 %; White Blood Count 6.2 K/mcL (4.3-11.1)
[2020-06-22 13:00] LABS: Calcium 9.8 mg/dL (8.6-10.3)
[2020-06-22 17:10] LABS: ABG Base Excess 0 mEq/L (-2 to 3); ABG HCO3 25 mEq/L (21-27); ABG Oxygen Saturation 89 % (95-98); ABG PCO2 42 mmHg (35-45); ABG PH 7.39 pH Units (7.32-7.45); ABG PO2 58 mmHg (85-104); ABG TCO2 27 mEq/L (20-26)
[2020-06-22 19:02] LABS: Bacteria,Urine Many per hpf (None-Few); Bilirubin,Urine Negative (Negative); Blood,Urine Negative (Negative); Clarity,Urine Clear (Clear); Color,Urine Light-Yellow (Yellow); Glucose,Urine (UA) Normal (Normal); Ketones,Urine Negative (Negative); Leukocyte Esterase,Urine Negative (Negative); Mucus,Urine Few per lpf (None-Few); Nitrite,Urine Negative (Negative); PH,Urine 6.5 pH Units (5.0-8.0); Protein,Urine 50 mg/dL (Neg-Trace); RBC,Urine 0-3 per hpf (0-3); Specific Gravity,Urine 1.014 (1.010-1.025); Squamous Epithelial Cell,Urine Few per hpf (None-Few); Urobilinogen,Urine Normal (Normal); WBC,Urine 0-3 per hpf (0-3)
[2020-06-22] MEDS: QUEtiapine Fumarate 25 MG TABLET PO SCH (19:37)
[2020-06-23] MEDS: *HR* Heparin 5,000 UNIT/ML VIAL SQ SCH ×2 (04:57→18:04)
[2020-06-23 05:17] LABS: Basophils # 0.1 K/mcL (0.0-0.2); Basophils % 0.9 %; Eosinophils # 0.2 K/mcL (0.0-0.6); Eosinophils % 4.2 %; Hematocrit 34.5 % (35.3-44.9); Hemoglobin 10.8 g/dL (11.5-15.4); Immature Granulocytes % 0.6 % (0-4); Lymphocytes # 1.2 K/mcL (0.6-4.6); Lymphocytes % 21.2 %; Mean Corpuscular HGB Conc 31.3 g/dL (31.6-35.5); Mean Corpuscular Hemoglobin 28.3 pg (28.0-33.3); Mean Corpuscular Volume 90.6 fL (83.0-100.0); Mean Platelet Volume 11.9 fL (9.4-12.4); Monocytes # 0.5 K/mcL (0.0-1.3); Monocytes % 8.5 %; Neutrophils # 3.5 K/mcL (1.6-8.9); Platelet Count 219 K/mcL (140-400); Red Blood Count 3.81 M/mcL (3.82-4.97); Red Cell Distribution Width 13.8 % (11.5-14.5); Segmented Neutrophils % 64.6 %; White Blood Count 5.4 K/mcL (4.3-11.1)
[2020-06-23 05:36] LABS: Calcium 9.3 mg/dL (8.6-10.3); Potassium 3.7 mEq/L (3.5-5.1)
[2020-06-23] MEDS: allopurinoL 100 MG TABLET PO SCH (09:23)
[2020-06-23] MEDS: hydrALAZINE 25 MG TABLET PO SCH ×3 (09:23→20:00)
[2020-06-23] MEDS: Insulin LISPRO 300 UNITS/3 ML VIAL SUBQ SCH ×3 (09:28→18:04)
[2020-06-23] MEDS: QUEtiapine Fumarate 25 MG TABLET PO SCH (20:00)
[2020-06-23] MEDS ORDERED: Chloraseptic Spray 177 ML BOTTLE MM PRN (20:10)
[2020-06-24 04:57] LABS: Basophils % 0.7 %; Eosinophils # 0.2 K/mcL (0.0-0.6); Eosinophils % 3.5 %; Hematocrit 36.5 % (35.3-44.9); Hemoglobin 11.3 g/dL (11.5-15.4); Immature Granulocytes % 0.8 % (0-4); Lymphocytes # 1.2 K/mcL (0.6-4.6); Lymphocytes % 20.1 %; Mean Corpuscular Hemoglobin 28.4 pg (28.0-33.3); Mean Corpuscular Volume 91.7 fL (83.0-100.0); Mean Platelet Volume 11.9 fL (9.4-12.4); Monocytes # 0.5 K/mcL (0.0-1.3); Monocytes % 8.1 %; Neutrophils # 4.1 K/mcL (1.6-8.9); Platelet Count 223 K/mcL (140-400); Red Blood Count 3.98 M/mcL (3.82-4.97); Red Cell Distribution Width 14.2 % (11.5-14.5); Segmented Neutrophils % 66.8 %; White Blood Count 6.1 K/mcL (4.3-11.1)
[2020-06-24] MEDS: *HR* Heparin 5,000 UNIT/ML VIAL SQ SCH (05:11)
[2020-06-24 05:21] LABS: Calcium 9.6 mg/dL (8.6-10.3); Potassium 3.8 mEq/L (3.5-5.1)
[2020-06-24] MEDS: Insulin LISPRO 300 UNITS/3 ML VIAL SUBQ SCH ×2 (08:00→12:03)
[2020-06-24] MEDS: hydrALAZINE 25 MG TABLET PO SCH (08:22)
[2020-06-24] MEDS: allopurinoL 100 MG TABLET PO SCH (08:22)
[2020-06-24 10:42] VITALS: BP 145/66
[2020-06-24 11:53] LABS: Influenza A PCR Negative (Negative); Influenza B PCR Negative (Negative); Resp. Syncytial Virus PCR Negative (Negative)
[2020-06-24 12:12] LABS: SARS-CoV-2 by PCR (In House) Negative (Negative)
== END 2020-06-24 14:36 | DRG 682 ==
LOC: 2ANU 15:29 → EMEROOARM 15:29 → SUATTDRO 18:39 → 2ANU 18:52 → SUATTDRO 06-18 18:43
PROVIDERS: ADMIT Internal Medicine; ATTEND Internal Medicine

== ENCOUNTER 2021-09-06 07:31 | Observation (INO) ==
[2021-09-06] MEDS ORDERED: CeFAZolin Syr 2,000MG/20 ML 2,000 MG/20 ML SYRINGE IVPB ONE (08:53)
[2021-09-06] MEDS ORDERED: Ringers Solution, Lactated 1,000 ML IVC SCH (09:00)
[2021-09-06] MEDS ORDERED: *HR* Labetalol 20 MG/4 ML SYRINGE IVP PRN (09:10)
[2021-09-06] MEDS ORDERED: Acetaminophen IV 1,000 MG/100 ML BAG IVPB ONE ×2 (09:10→17:11)
[2021-09-06] MEDS ORDERED: *HR* OxyCODONE Immed Rel 5 MG TABLET PO PRN ×2 (09:10→20:48)
[2021-09-06] MEDS ORDERED: Famotidine 20 MG/2 ML VIAL IVP ONE (09:10)
[2021-09-06] MEDS ORDERED: Ondansetron 4 MG/2 ML VIAL IVP PRN ×2 (09:10→18:42)
[2021-09-06] MEDS ORDERED: Albuterol 2.5 MG/3 ML NEBULIZER IH PRN (09:10)
[2021-09-06] MEDS ORDERED: Lidocaine -MPF 2% 5 ML VIAL ONE (13:10)
[2021-09-06] MEDS ORDERED: *HR* FentaNYL (PF) 100 MCG/2 ML VIAL ONE ×2 (13:10→14:07)
[2021-09-06] MEDS ORDERED: Ondansetron 4 MG/2 ML VIAL ONE (13:10)
[2021-09-06] MEDS ORDERED: *HR* Succinylcholine 200 MG/10 ML VIAL IVP ONE (13:10)
[2021-09-06] MEDS ORDERED: *HR* Propofol 200 MG/20 ML VIAL IVP ONE (13:11)
[2021-09-06] MEDS ORDERED: Lidocaine -MPF 4% 5 ML AMPUL ONE (13:12)
[2021-09-06] MEDS: *HR* FentaNYL (PF) 100 MCG/2 ML VIAL IVP PRN ×2 (16:50→17:00)
[2021-09-06] MEDS ORDERED: *HR* HYDROmorphone PF 0.5 MG/0.5 ML SYRINGE IVP PRN (18:36)
[2021-09-06] MEDS ORDERED: *HR* HYDROmorphone (PF) 1 MG/ML SYRINGE IVP PRN (18:40)
[2021-09-06] MEDS ORDERED: *HR* Atropine Sulfate 1 MG/10 ML SYRINGE IVP ONE (18:48)
[2021-09-06] MEDS ORDERED: *HR* Promethazine 25 MG/ML VIAL IM ONE (18:49)
[2021-09-06] MEDS ORDERED: WATER FOR INJ IVPB PRN (19:02)
[2021-09-06] MEDS ORDERED: PROMETHAZINE IVPB PRN (19:02)
[2021-09-06] MEDS ORDERED: Naloxone 0.4 MG/ML INJ IVP PRN (20:48)
[2021-09-06] MEDS ORDERED: Acetaminophen 325 MG TABLET PO PRN (20:48)
[2021-09-06] MEDS ORDERED: D5% in 0.45% NACL w KCl 20 MEQ/1,000 ML MLS IVC SCH (21:00)
[2021-09-07 04:05] VITALS: PULSE 70; O2SAT 96
[2021-09-07 07:45] VITALS: BP 134/65
[2021-09-07 07:53] VITALS: TEMP 96
== END 2021-09-07 11:00 | disposition other institution (70) ==
LOC: SAMDAY 07:31 → 2NNU 07:31
PROVIDERS: ADMIT Surgery; ATTEND Surgery

== ENCOUNTER 2021-10-14 18:49 | Inpatient (IN) ==
[2021-10-14] MEDS: Insulin LISPRO 300 UNITS/3 ML VIAL SUBQ SCH (00:20)
[2021-10-14] MEDS ORDERED: D5% in Water 1,000 ML IVC PRN (20:52)
[2021-10-14] MEDS ORDERED: Dextrose 4 GM Chewable Tablets PO PRN ×2 (20:52)
[2021-10-14] MEDS ORDERED: *HR* Dextrose 50 % in Water (Syg) 50 ML SYRINGE IVP PRN (20:52)
[2021-10-14] MEDS ORDERED: Naloxone 0.4 MG/ML INJ IVP PRN (22:49)
[2021-10-14] MEDS ORDERED: Melatonin 3 MG TABLET PO PRN (22:49)
[2021-10-14] MEDS ORDERED: Nystatin POWDER 30 GM BOTTLE TP PRN (22:51)
[2021-10-15] MEDS: Furosemide 20 MG/2 ML VIAL IVP SCH ×2 (01:00→10:25)
[2021-10-15 03:24] LABS: Basophils # 0.1 K/mcL (0.0-0.2); Eosinophils # 0.2 K/mcL (0.0-0.6); Eosinophils % 3.2 %; Hematocrit 30.5 % (35.3-44.9); Hemoglobin 9.4 g/dL (11.5-15.4); Immature Granulocytes % 1.2 % (0-4); Lymphocytes % 16.1 %; Mean Corpuscular HGB Conc 30.8 g/dL (31.6-35.5); Mean Corpuscular Hemoglobin 29.2 pg (28.0-33.3); Mean Corpuscular Volume 94.7 fL (83.0-100.0); Mean Platelet Volume 12.8 fL (9.4-12.4); Monocytes # 0.8 K/mcL (0.0-1.3); Monocytes % 13.8 %; Neutrophils # 3.9 K/mcL (1.6-8.9); Platelet Count 191 K/mcL (140-400); Red Blood Count 3.22 M/mcL (3.82-4.97); Red Cell Distribution Width 17.8 % (11.5-14.5); Segmented Neutrophils % 64.7 %
[2021-10-15 03:47] LABS: Albumin/Globulin Ratio 1.2 (1.1-2.2); Bilirubin,Total 0.4 mg/dL (0.3-1.0); Calcium 9.1 mg/dL (8.6-10.3); Globulin 2.6 g/dL (2.4-3.5); Magnesium 1.9 mg/dL (1.6-2.6); Phosphorous 3.5 mg/dL (2.7-4.5); Potassium 4.8 mEq/L (3.5-5.1); Total Protein 5.6 g/dL (6.4-8.9)
[2021-10-15] MEDS: Ampicillin/Sulbactam 3,000 MG in 0.9 % Sodium Chloride Mini Bag 100 ML IVPB SCH ×4 (04:57→22:59)
[2021-10-15] MEDS: Lactobacillus 1 EACH CAP.SPRINK PO SCH ×2 (08:38→20:45)
[2021-10-15] MEDS: Insulin LISPRO 300 UNITS/3 ML VIAL SUBQ SCH ×4 (08:38→20:46)
[2021-10-15] MEDS: ABEMACICLIB 150 MG PO SCH ×2 (08:47→20:47)
[2021-10-15] MEDS ORDERED: Perflutren Lipid Microsphere 1.3 ML in 0.9 % Sodium Chloride 8.7 ML IVP PRN (15:25)
[2021-10-16] MEDS: Ampicillin/Sulbactam 3,000 MG in 0.9 % Sodium Chloride Mini Bag 100 ML IVPB SCH ×3 (05:20→16:31)
[2021-10-16 06:54] LABS: Basophils # 0.1 K/mcL (0.0-0.2); Basophils % 0.8 %; Eosinophils # 0.2 K/mcL (0.0-0.6); Eosinophils % 2.9 %; Hematocrit 28.9 % (35.3-44.9); Hemoglobin 8.9 g/dL (11.5-15.4); Lymphocytes # 0.9 K/mcL (0.6-4.6); Lymphocytes % 14.8 %; Mean Corpuscular HGB Conc 30.8 g/dL (31.6-35.5); Mean Corpuscular Hemoglobin 29.3 pg (28.0-33.3); Mean Corpuscular Volume 95.1 fL (83.0-100.0); Mean Platelet Volume 12.3 fL (9.4-12.4); Monocytes # 0.8 K/mcL (0.0-1.3); Monocytes % 12.1 %; Neutrophils # 4.3 K/mcL (1.6-8.9); Nucleated Red Blood Cells 0.3 /100 WBC (0); Platelet Count 176 K/mcL (140-400); Red Blood Count 3.04 M/mcL (3.82-4.97); Red Cell Distribution Width 17.8 % (11.5-14.5); Segmented Neutrophils % 68.4 %; White Blood Count 6.2 K/mcL (4.3-11.1)
[2021-10-16 07:13] LABS: Calcium 8.6 mg/dL (8.6-10.3); Magnesium 1.9 mg/dL (1.6-2.6); Phosphorous 3.2 mg/dL (2.7-4.5); Potassium 4.7 mEq/L (3.5-5.1)
[2021-10-16 07:23] LABS: Thyroid Stimulating Hormone 4.621 mcIU/mL (0.340-5.600)
[2021-10-16] MEDS: Insulin LISPRO 300 UNITS/3 ML VIAL SUBQ SCH ×4 (08:51→22:35)
[2021-10-16] MEDS: ABEMACICLIB 150 MG PO SCH ×2 (09:18→21:42)
[2021-10-16] MEDS: Lactobacillus 1 EACH CAP.SPRINK PO SCH ×2 (09:27→21:50)
[2021-10-16] MEDS: Furosemide 40 MG/4 ML VIAL IVP SCH (09:28)
[2021-10-17] MEDS: Ampicillin/Sulbactam 3,000 MG in 0.9 % Sodium Chloride Mini Bag 100 ML IVPB SCH ×2 (04:42→17:28)
[2021-10-17 07:13] LABS: Basophils # 0.1 K/mcL (0.0-0.2); Basophils % 0.9 %; Eosinophils # 0.2 K/mcL (0.0-0.6); Hematocrit 28.8 % (35.3-44.9); Immature Granulocytes % 1.6 % (0-4); Lymphocytes # 0.9 K/mcL (0.6-4.6); Lymphocytes % 17.1 %; Mean Corpuscular HGB Conc 31.3 g/dL (31.6-35.5); Mean Corpuscular Hemoglobin 29.3 pg (28.0-33.3); Mean Corpuscular Volume 93.8 fL (83.0-100.0); Monocytes # 0.7 K/mcL (0.0-1.3); Monocytes % 12.3 %; Neutrophils # 3.5 K/mcL (1.6-8.9); Platelet Count 192 K/mcL (140-400); Red Blood Count 3.07 M/mcL (3.82-4.97); Red Cell Distribution Width 17.4 % (11.5-14.5); Segmented Neutrophils % 64.1 %; White Blood Count 5.5 K/mcL (4.3-11.1)
[2021-10-17 09:03] LABS: Calcium 8.5 mg/dL (8.6-10.3); Magnesium 1.9 mg/dL (1.6-2.6); Potassium 4.3 mEq/L (3.5-5.1)
[2021-10-17 09:49] LABS: Folate 15.7 ng/mL (3.0-16.0)
[2021-10-17] MEDS: Insulin LISPRO 300 UNITS/3 ML VIAL SUBQ SCH ×4 (10:06→20:33)
[2021-10-17] MEDS: Lactobacillus 1 EACH CAP.SPRINK PO SCH ×2 (10:07→20:33)
[2021-10-17] MEDS: Furosemide 40 MG/4 ML VIAL IVP SCH (10:15)
[2021-10-17] MEDS: ABEMACICLIB 150 MG PO SCH ×2 (10:17→20:33)
[2021-10-17] MEDS: Iron Sucrose Complex 250 MG in 0.9 % Sodium Chloride 250 ML IVPB SCH (15:12)
[2021-10-17 15:25] LABS: RBC,Pleural Fluid < 2000 RBC/mcL
[2021-10-17 15:50] LABS: Total Protein,Pleural Fluid 2.2 g/dL
[2021-10-17 16:01] LABS: Appearance of Pleural Fl Clear (Clear)
[2021-10-17 16:11] LABS: Basophils,Pleural Fluid 0 %; Eosinophils,Pleural Fluid 0 %
[2021-10-18] MEDS: Ampicillin/Sulbactam 3,000 MG in 0.9 % Sodium Chloride Mini Bag 100 ML IVPB SCH ×2 (05:49→18:15)
[2021-10-18 05:51] LABS: Basophils # 0.1 K/mcL (0.0-0.2); Basophils % 0.9 %; Eosinophils # 0.3 K/mcL (0.0-0.6); Eosinophils % 5.1 %; Immature Granulocytes % 1.5 % (0-4); Lymphocytes # 0.8 K/mcL (0.6-4.6); Lymphocytes % 15.2 %; Mean Corpuscular Hemoglobin 29.2 pg (28.0-33.3); Mean Corpuscular Volume 94.2 fL (83.0-100.0); Mean Platelet Volume 11.9 fL (9.4-12.4); Monocytes # 0.7 K/mcL (0.0-1.3); Monocytes % 12.3 %; Neutrophils # 3.6 K/mcL (1.6-8.9); Nucleated Red Blood Cells 0.4 /100 WBC (0); Platelet Count 198 K/mcL (140-400); Red Blood Count 3.08 M/mcL (3.82-4.97); Red Cell Distribution Width 17.2 % (11.5-14.5); White Blood Count 5.5 K/mcL (4.3-11.1)
[2021-10-18 06:11] LABS: Calcium 8.5 mg/dL (8.6-10.3); Magnesium 2.1 mg/dL (1.6-2.6); Phosphorous 3.1 mg/dL (2.7-4.5); Potassium 3.9 mEq/L (3.5-5.1)
[2021-10-18] MEDS: Insulin LISPRO 300 UNITS/3 ML VIAL SUBQ SCH ×4 (08:44→21:49)
[2021-10-18] MEDS: Furosemide 40 MG/4 ML VIAL IVP SCH (08:52)
[2021-10-18] MEDS: Iron Sucrose Complex 250 MG in 0.9 % Sodium Chloride 250 ML IVPB SCH (08:52)
[2021-10-18] MEDS: Lactobacillus 1 EACH CAP.SPRINK PO SCH ×2 (08:52→21:52)
[2021-10-18] MEDS: ABEMACICLIB 150 MG PO SCH (08:53)
[2021-10-19 06:06] LABS: Basophils # 0.1 K/mcL (0.0-0.2); Eosinophils # 0.3 K/mcL (0.0-0.6); Eosinophils % 4.5 %; Hematocrit 29.2 % (35.3-44.9); Hemoglobin 8.7 g/dL (11.5-15.4); Immature Granulocytes % 2.3 % (0-4); Lymphocytes # 0.9 K/mcL (0.6-4.6); Lymphocytes % 15.7 %; Mean Corpuscular HGB Conc 29.8 g/dL (31.6-35.5); Mean Corpuscular Hemoglobin 28.2 pg (28.0-33.3); Mean Corpuscular Volume 94.8 fL (83.0-100.0); Mean Platelet Volume 12.1 fL (9.4-12.4); Monocytes # 0.7 K/mcL (0.0-1.3); Monocytes % 11.8 %; Neutrophils # 3.7 K/mcL (1.6-8.9); Nucleated Red Blood Cells 0.5 /100 WBC (0); Platelet Count 192 K/mcL (140-400); Red Blood Count 3.08 M/mcL (3.82-4.97); Red Cell Distribution Width 17.2 % (11.5-14.5); Segmented Neutrophils % 64.7 %; White Blood Count 5.7 K/mcL (4.3-11.1)
[2021-10-19 06:28] LABS: Calcium 8.4 mg/dL (8.6-10.3); Magnesium 1.9 mg/dL (1.6-2.6); Potassium 3.7 mEq/L (3.5-5.1)
[2021-10-19] MEDS: Ampicillin/Sulbactam 3,000 MG in 0.9 % Sodium Chloride Mini Bag 100 ML IVPB SCH ×2 (06:48→17:39)
[2021-10-19 06:49] LABS: Estimated Average Glucose 160 mg/dl; Hemoglobin A1C 7.2 %
[2021-10-19] MEDS: Insulin LISPRO 300 UNITS/3 ML VIAL SUBQ SCH ×4 (07:15→22:10)
[2021-10-19] MEDS: Lactobacillus 1 EACH CAP.SPRINK PO SCH (08:41)
[2021-10-20 05:06] LABS: Basophils # 0.1 K/mcL (0.0-0.2); Basophils % 0.9 %; Eosinophils # 0.3 K/mcL (0.0-0.6); Eosinophils % 5.6 %; Hematocrit 29.9 % (35.3-44.9); Hemoglobin 9.2 g/dL (11.5-15.4); Immature Granulocytes % 2.8 % (0-4); Lymphocytes # 0.9 K/mcL (0.6-4.6); Lymphocytes % 16.7 %; Mean Corpuscular HGB Conc 30.8 g/dL (31.6-35.5); Mean Corpuscular Hemoglobin 28.9 pg (28.0-33.3); Monocytes # 0.7 K/mcL (0.0-1.3); Monocytes % 12.8 %; Neutrophils # 3.3 K/mcL (1.6-8.9); Nucleated Red Blood Cells 0.4 /100 WBC (0); Platelet Count 190 K/mcL (140-400); Red Blood Count 3.18 M/mcL (3.82-4.97); Segmented Neutrophils % 61.2 %; White Blood Count 5.4 K/mcL (4.3-11.1)
[2021-10-20] MEDS: Ampicillin/Sulbactam 3,000 MG in 0.9 % Sodium Chloride Mini Bag 100 ML IVPB SCH (05:19)
[2021-10-20 05:33] LABS: Calcium 8.5 mg/dL (8.6-10.3); Magnesium 1.9 mg/dL (1.6-2.6); Potassium 3.7 mEq/L (3.5-5.1)
[2021-10-20] MEDS: Insulin LISPRO 300 UNITS/3 ML VIAL SUBQ SCH ×2 (08:35→12:24)
[2021-10-20 11:02] VITALS: O2SAT 94
[2021-10-20 11:35] LABS: Influenza A PCR Negative (Negative); Influenza B PCR Negative (Negative); Resp. Syncytial Virus PCR Negative (Negative)
[2021-10-20 11:36] LABS: SARS-CoV-2 by PCR (In House) Negative (Negative)
[2021-10-20 15:27] VITALS: BP 154/67; PULSE 16; TEMP 97.5
== END 2021-10-20 16:50 | DRG 291 ==
LOC: 3ANU → SUATTDRO 22:49
PROVIDERS: ADMIT Internal Medicine; ATTEND Pharmacist

== ENCOUNTER 2021-12-19 22:34 | Inpatient (IN) ==
[2021-12-20] MEDS ORDERED: Naloxone 0.4 MG/ML INJ IVP PRN (02:46)
[2021-12-20] MEDS ORDERED: 0.9 % Sodium Chloride 500 ML IV ONE (03:00)
[2021-12-20] MEDS ORDERED: 0.9 % Sodium Chloride 1,000 ML ONE (03:21)
[2021-12-20] MEDS ORDERED: cefTRIAXone 1,000 MG in 0.9 % Sodium Chloride Mini Bag 100 ML IVPB SCH (03:30)
[2021-12-20 04:14] LABS: Bacteria,Urine Few per hpf (None-Few); Bilirubin,Urine Negative (Negative); Blood,Urine Negative (Negative); Clarity,Urine Turbid (Clear); Color,Urine Yellow (Yellow); Glucose,Urine (UA) 200 mg/dL (Normal); Hyaline Casts,Urine Few per lpf (None Seen); Ketones,Urine Negative (Negative); Leukocyte Esterase,Urine Large (Negative); Mucus,Urine Few per lpf (None-Few); Nitrite,Urine Negative (Negative); PH,Urine 5.5 pH Units (5.0-8.0); Protein,Urine 30 mg/dL (Neg-Trace); Specific Gravity,Urine 1.017 (1.010-1.025); Squamous Epithelial Cell,Urine Few per hpf (None-Few); Urobilinogen,Urine Normal (Normal); WBC,Urine 15-30 per hpf (0-3)
[2021-12-20] MEDS: Norepinephrine 4 MG/254 ML IV.SOLN IVC SCH ×3 (04:51→10:54)
[2021-12-20] MEDS: *HR* Heparin 5,000 UNIT/ML VIAL SQ SCH ×3 (04:51→20:46)
[2021-12-20 05:12] LABS: Albumin 2.8 g/dL (3.5-5.7); Bilirubin,Total 0.3 mg/dL (0.3-1.0); Globulin 2.7 g/dL (2.4-3.5); Potassium 3.3 mEq/L (3.5-5.1); Total Protein 5.5 g/dL (6.4-8.9)
[2021-12-20 05:27] LABS: Basophils % 0.7 %; Eosinophils % 3.3 %; Hematocrit 28.4 % (35.3-44.9); Hemoglobin 9.7 g/dL (11.5-15.4); Mean Corpuscular HGB Conc 34.2 g/dL (31.6-35.5); Red Cell Distribution Width 18.9 % (11.5-14.5)
[2021-12-20 05:29] LABS: Eosinophils # 0.2 K/mcL (0.0-0.6); Immature Platelets 8.4 % (1.1-6.1); Mean Corpuscular Hemoglobin 31.3 pg (28.0-33.3); Mean Corpuscular Volume 91.6 fL (83.0-100.0); Mean Platelet Volume 10.8 fL (9.4-12.4); Segmented Neutrophils % 85.7 %; White Blood Count 5.7 K/mcL (4.3-11.1)
[2021-12-20 05:30] LABS: Immature Granulocytes % 0.5 % (0-4); Lymphocytes # 0.3 K/mcL (0.6-4.6); Lymphocytes % 5.1 %; Monocytes # 0.3 K/mcL (0.0-1.3); Monocytes % 4.7 %; Neutrophils # 4.9 K/mcL (1.6-8.9); Nucleated Red Blood Cells 1.6 /100 WBC (0)
[2021-12-20] MEDS: FentaNYL (PF) 1,000 MCG/100 ML IV.SOLN IVC SCH ×4 (05:30→22:12)
[2021-12-20] MEDS ORDERED: Artificial Tears SOLN 15 ML BOTTLE BOTH EYES PRN (05:31)
[2021-12-20 05:32] LABS: Platelet Count 98 K/mcL (140-400)
[2021-12-20] MEDS ORDERED: Perflutren Lipid Microsphere 1.3 ML in 0.9 % Sodium Chloride 8.7 ML IVP PRN (05:37)
[2021-12-20] MEDS ORDERED: Ipratropium/Albuterol Neb 3 ML ONE (05:38)
[2021-12-20] MEDS: Ipratropium/Albuterol Neb 3 ML IH SCH ×4 (05:39→22:25)
[2021-12-20 05:54] LABS: ABG Base Excess -6 mEq/L (-2 to 3); ABG HCO3 22 mEq/L (21-27); ABG Oxygen Saturation 95 % (95-98); ABG PCO2 53 mmHg (35-45); ABG PH 7.23 pH Units (7.32-7.45); ABG PO2 89 mmHg (85-104); ABG TCO2 24 mEq/L (20-26); Blood Gas VT 400 cc
[2021-12-20 06:09] LABS: Platelet Estimate Decreased (Normal)
[2021-12-20 06:10] LABS: Anisocytosis 1+ (Not Present); Hypochromasia Present (Not Present)
[2021-12-20] MEDS: Artificial Tears SOLN 15 ML BOTTLE BOTH EYES SCH ×4 (08:12→20:46)
[2021-12-20] MEDS: Pantoprazole 40 MG VIAL IVP SCH (08:13)
[2021-12-20 09:39] LABS: ABG Base Excess -3 mEq/L (-2 to 3); ABG HCO3 20 mEq/L (21-27); ABG Oxygen Saturation 100 % (95-98); ABG PCO2 32 mmHg (35-45); ABG PH 7.41 pH Units (7.32-7.45); ABG PO2 228 mmHg (85-104); ABG TCO2 21 mEq/L (20-26); Blood Gas VT 400 cc
[2021-12-20] MEDS: Chlorhexidine Rinse 15 ML MOUTHWASH MM SCH ×2 (10:10→20:46)
[2021-12-20 10:11] LABS: Adenovirus Not Detected (Not Detect); Bordetella Pertussis Not Detected (Not Detect); Chlamydophila pneumoniae Not Detected (Not Detect); Coronavirus 229E Not Detected (Not Detect); Coronavirus HKU1 Not Detected (Not Detect); Coronavirus NL63 Not Detected (Not Detect); Coronavirus OC43 Not Detected (Not Detect); Human Metapneumovirus Not Detected (Not Detect); Human Rhinovirus/Enterovirus Not Detected (Not Detect); Influenza A Subtype 2009 H1 Not Detected (Not Detect); Influenza B Not Detected (Not Detect); Mycoplasma pneumoniae Not Detected (Not Detect); Parainfluenza Virus 1 Not Detected (Not Detect); Parainfluenza Virus 2 Not Detected (Not Detect); Parainfluenza Virus 3 Not Detected (Not Detect); Parainfluenza Virus 4 Not Detected (Not Detect); Respiratory Syncytial Virus Not Detected (Not Detect); SARS-CoV-2 Not Detected (Not Detect)
[2021-12-20] MEDS ORDERED: Albumin 25% 25gram/100mL 25 GM/100 ML IV.SOLN IVPB ONE (13:11)
[2021-12-20] MEDS ORDERED: *HR* Midazolam HCl 5 MG/5 ML VIAL IVP ONE (15:07)
[2021-12-20] MEDS ORDERED: *HR* Succinylcholine 200 MG/10 ML VIAL IVP ONE (15:07)
[2021-12-20] MEDS ORDERED: *HR* Etomidate 20 MG/10 ML AMPUL IVP ONE (15:07)
[2021-12-20 15:30] LABS: Hepatitis B Surface Antigen Nonreactive (Nonreactive)
[2021-12-20 15:58] LABS: Hepatitis C Virus Antibody Nonreactive (Nonreactive)
[2021-12-20 15:59] LABS: Hepatitis B Core IgM Nonreactive (Nonreactive)
[2021-12-20 16:01] LABS: Hepatitis A Antibody IgM Nonreactive (Nonreactive)
[2021-12-20] MEDS: Erythromycin OPTH Oint BOTH EYES SCH ×2 (16:24→20:46)
[2021-12-20 17:31] LABS: Complement C3 79 mg/dL (87-200)
[2021-12-20] MEDS ORDERED: Piperacillin/Tazobactam 3.375 GM in 0.9 % Sodium Chloride Mini Bag 100 ML IVPB SCH (18:00)
[2021-12-21] MEDS: Norepinephrine 4 MG/254 ML IV.SOLN IVC SCH ×5 (00:12→18:12)
[2021-12-21] MEDS: Artificial Tears SOLN 15 ML BOTTLE BOTH EYES SCH ×6 (00:15→20:12)
[2021-12-21] MEDS: Ipratropium/Albuterol Neb 3 ML IH SCH ×4 (03:42→20:26)
[2021-12-21] MEDS: FentaNYL (PF) 1,000 MCG/100 ML IV.SOLN IVC SCH ×2 (04:17→20:19)
[2021-12-21 04:32] LABS: ABG Base Excess -4 mEq/L (-2 to 3); ABG HCO3 18 mEq/L (21-27); ABG Oxygen Saturation 99 % (95-98); ABG PCO2 25 mmHg (35-45); ABG PH 7.48 pH Units (7.32-7.45); ABG PO2 137 mmHg (85-104); ABG TCO2 19 mEq/L (20-26); Blood Gas VT 400 cc
[2021-12-21 04:50] LABS: Basophils # 0.1 K/mcL (0.0-0.2); Eosinophils # 0.1 K/mcL (0.0-0.6); Eosinophils % 1.7 %; Hematocrit 29.5 % (35.3-44.9); Hemoglobin 9.7 g/dL (11.5-15.4); Immature Granulocytes % 0.7 % (0-4); Immature Platelets 7.2 % (1.1-6.1); Lymphocytes # 1.4 K/mcL (0.6-4.6); Lymphocytes % 16.9 %; Mean Corpuscular HGB Conc 32.9 g/dL (31.6-35.5); Mean Corpuscular Volume 88.3 fL (83.0-100.0); Mean Platelet Volume 11.6 fL (9.4-12.4); Monocytes # 0.5 K/mcL (0.0-1.3); Monocytes % 6.4 %; Neutrophils # 6.1 K/mcL (1.6-8.9); Nucleated Red Blood Cells 0.2 /100 WBC (0); Red Blood Count 3.34 M/mcL (3.82-4.97); Red Cell Distribution Width 19.3 % (11.5-14.5); Segmented Neutrophils % 73.3 %; White Blood Count 8.3 K/mcL (4.3-11.1)
[2021-12-21 04:53] LABS: Platelet Count 90 K/mcL (140-400)
[2021-12-21 04:55] LABS: INR 1.4; Prothrombin Time 15.5 Seconds (9.4-12.1)
[2021-12-21 05:07] LABS: Albumin 2.6 g/dL (3.5-5.7); Bilirubin,Direct 0.2 mg/dL (0.0-0.2); Bilirubin,Indirect 0.2 mg/dL (0.0-1.0); Bilirubin,Total 0.4 mg/dL (0.3-1.0); Calcium 7.9 mg/dL (8.6-10.3); Globulin 2.6 g/dL (2.4-3.5); Potassium 3.1 mEq/L (3.5-5.1); Total Protein 5.2 g/dL (6.4-8.9)
[2021-12-21 05:12] LABS: Troponin I 0.19 ng/mL (< 0.04)
[2021-12-21 05:14] LABS: Platelet Estimate Slight Decrease (Normal)
[2021-12-21 05:15] LABS: Anisocytosis 1+ (Not Present)
[2021-12-21] MEDS ORDERED: *HR* Heparin 5,000 UNIT/ML VIAL IVP PRN ×2 (05:17)
[2021-12-21] MEDS ORDERED: *HR* Heparin 5,000 UNIT/ML VIAL IVP ONE (05:17)
[2021-12-21 05:31] LABS: Thyroid Stimulating Hormone 2.436 mcIU/mL (0.340-5.600)
[2021-12-21 05:33] LABS: Folate 13.9 ng/mL (3.0-16.0)
[2021-12-21] MEDS: Pantoprazole 40 MG VIAL IVP SCH (05:39)
[2021-12-21] MEDS: Potassium Chloride 40 MEQ/200 ML BAG IVPB PRN ×2 (05:40→06:40)
[2021-12-21] MEDS ORDERED: Piperacillin/Tazobactam 3.375 GM in 0.9 % Sodium Chloride Mini Bag 100 ML IVPB SCH (06:00)
[2021-12-21 06:13] LABS: Heparin anti-factor XA UFH 0.08 IU/mL (0.30-0.70)
[2021-12-21 06:14] LABS: INR 1.3; Prothrombin Time 14.6 Seconds (9.4-12.1)
[2021-12-21] MEDS: Heparin 25,000UNIT/250ML 1/2NS 25,000 UNIT/250 ML IV.SOLN IVC SCH (06:35)
[2021-12-21] MEDS: Chlorhexidine Rinse 15 ML MOUTHWASH MM SCH ×2 (07:57→20:18)
[2021-12-21] MEDS: Erythromycin OPTH Oint BOTH EYES SCH ×3 (07:58→20:12)
[2021-12-21] MEDS ORDERED: *HR* Metoprolol 5 MG/5 ML VIAL IVP ONE ×2 (12:49→12:50)
[2021-12-21 12:50] LABS: Calcium 7.7 mg/dL (8.6-10.3); Potassium 3.8 mEq/L (3.5-5.1)
[2021-12-21 12:56] LABS: Troponin I 0.69 ng/mL (< 0.04)
[2021-12-21] MEDS ORDERED: Vancomycin 1,500 MG/265 ML IV.SOLN IVPB ONE (15:00)
[2021-12-21 15:02] LABS: ABG Base Excess -6 mEq/L (-2 to 3); ABG HCO3 19 mEq/L (21-27); ABG Oxygen Saturation 100 % (95-98); ABG PCO2 36 mmHg (35-45); ABG PH 7.33 pH Units (7.32-7.45); ABG PO2 209 mmHg (85-104); ABG TCO2 20 mEq/L (20-26); Blood Gas Modality AF; Blood Gas VT 400 cc
[2021-12-21 15:51] LABS: Protein/Creatinine Ratio,Urine 1.31 mg/mg (0.00-0.20)
[2021-12-21 16:24] LABS: Magnesium 1.9 mg/dL (1.6-2.6); Troponin I 0.86 ng/mL (< 0.04)
[2021-12-21] MEDS ORDERED: Magnesium Sulfate 1 GM/102 ML PIGGYBACK IVPB ONE (16:29)
[2021-12-21] MEDS: Piperacillin/Tazobactam 3.375 GM in 0.9 % Sodium Chloride Mini Bag 100 ML IVPB SCH (16:32)
[2021-12-22] MEDS: Norepinephrine 4 MG/254 ML IV.SOLN IVC SCH ×4 (00:01→12:33)
[2021-12-22] MEDS: Artificial Tears SOLN 15 ML BOTTLE BOTH EYES SCH ×6 (00:55→20:22)
[2021-12-22] MEDS: FentaNYL (PF) 1,000 MCG/100 ML IV.SOLN IVC SCH ×3 (02:11→18:46)
[2021-12-22 02:21] LABS: Hemoglobin 9.5 g/dL (11.5-15.4); Red Cell Distribution Width 19.3 % (11.5-14.5)
[2021-12-22 02:23] LABS: Hematocrit 28.4 % (35.3-44.9); Immature Platelets 6.2 % (1.1-6.1); Mean Corpuscular HGB Conc 33.5 g/dL (31.6-35.5); Mean Corpuscular Hemoglobin 29.1 pg (28.0-33.3); Mean Corpuscular Volume 87.1 fL (83.0-100.0); Mean Platelet Volume 11.2 fL (9.4-12.4); Nucleated Red Blood Cells 0.3 /100 WBC (0); Red Blood Count 3.26 M/mcL (3.82-4.97); White Blood Count 9.3 K/mcL (4.3-11.1)
[2021-12-22 02:24] LABS: Platelet Count 90 K/mcL (140-400)
[2021-12-22 02:44] LABS: Albumin 2.5 g/dL (3.5-5.7); Albumin/Globulin Ratio 0.9 (1.1-2.2); Bilirubin,Direct 0.3 mg/dL (0.0-0.2); Bilirubin,Indirect 0.3 mg/dL (0.0-1.0); Bilirubin,Total 0.6 mg/dL (0.3-1.0); Globulin 2.7 g/dL (2.4-3.5); Total Protein 5.2 g/dL (6.4-8.9)
[2021-12-22 02:55] LABS: Lymphocytes # 1.5 K/mcL (0.6-4.6); Monocytes # 0.2 K/mcL (0.0-1.3); Neutrophils # 7.6 K/mcL (1.6-8.9)
[2021-12-22 02:56] LABS: Platelet Estimate Decreased (Normal)
[2021-12-22] MEDS: Ipratropium/Albuterol Neb 3 ML IH SCH ×4 (03:58→21:38)
[2021-12-22 04:55] LABS: ABG Base Excess -5 mEq/L (-2 to 3); ABG HCO3 19 mEq/L (21-27); ABG Oxygen Saturation 99 % (95-98); ABG PCO2 30 mmHg (35-45); ABG PH 7.41 pH Units (7.32-7.45); ABG PO2 116 mmHg (85-104); ABG TCO2 20 mEq/L (20-26); Blood Gas Modality ASSIST CONTROL; Blood Gas VT 400 cc
[2021-12-22 05:18] LABS: Troponin I 1.61 ng/mL (< 0.04)
[2021-12-22] MEDS: Dexmedetomidine HCl 400 MCG/100 ML MLS IVC SCH ×3 (05:21→23:29)
[2021-12-22] MEDS: Piperacillin/Tazobactam 3.375 GM in 0.9 % Sodium Chloride Mini Bag 100 ML IVPB SCH ×2 (05:23→18:03)
[2021-12-22] MEDS: Pantoprazole 40 MG VIAL IVP SCH (05:25)
[2021-12-22 07:03] LABS: Troponin I 1.68 ng/mL (< 0.04)
[2021-12-22 07:20] LABS: Calcium 7.2 mg/dL (8.6-10.3); Potassium 3.7 mEq/L (3.5-5.1)
[2021-12-22] MEDS: Chlorhexidine Rinse 15 ML MOUTHWASH MM SCH ×2 (07:39→20:25)
[2021-12-22] MEDS: Erythromycin OPTH Oint BOTH EYES SCH ×3 (07:40→20:22)
[2021-12-22 09:25] LABS: VBG Ionized Calcium 1.02 mmol/L (1.15-1.35)
[2021-12-22] MEDS: Sodium Bicarbonate 150 MEQ in D5% in Water 1,000 ML IVC SCH (12:45)
[2021-12-22] MEDS ORDERED: Albumin 25% 25gram/100mL 25 GM/100 ML IV.SOLN IVPB ONE (13:38)
[2021-12-22] MEDS ORDERED: Aspirin Enteric Coated 81 MG Tablet PO SCH (14:45)
[2021-12-22 16:23] LABS: Calcium 7.4 mg/dL (8.6-10.3); Potassium 3.7 mEq/L (3.5-5.1)
[2021-12-22] MEDS ORDERED: Iopamidol - 370 500 ML MLS PO ONE (18:22)
[2021-12-22] MEDS: Heparin 25,000UNIT/250ML 1/2NS 25,000 UNIT/250 ML IV.SOLN IVC SCH ×2 (20:21→23:32)
[2021-12-23] MEDS: Sodium Bicarbonate 150 MEQ in D5% in Water 1,000 ML IVC SCH ×3 (00:02→19:14)
[2021-12-23] MEDS: Artificial Tears SOLN 15 ML BOTTLE BOTH EYES SCH ×6 (00:03→20:27)
[2021-12-23] MEDS: FentaNYL (PF) 1,000 MCG/100 ML IV.SOLN IVC SCH ×2 (01:47→10:17)
[2021-12-23] MEDS: Ipratropium/Albuterol Neb 3 ML IH SCH ×4 (03:42→21:41)
[2021-12-23] MEDS: Norepinephrine 4 MG/254 ML IV.SOLN IVC SCH ×2 (03:51→17:00)
[2021-12-23 04:30] LABS: ABG Base Excess -2 mEq/L (-2 to 3); ABG HCO3 21 mEq/L (21-27); ABG Oxygen Saturation 100 % (95-98); ABG PCO2 26 mmHg (35-45); ABG PH 7.51 pH Units (7.32-7.45); ABG PO2 156 mmHg (85-104); ABG TCO2 22 mEq/L (20-26); Blood Gas Modality AF; Blood Gas VT 400 cc
[2021-12-23 04:31] LABS: VBG Ionized Calcium 0.98 mmol/L (1.15-1.35)
[2021-12-23 04:48] LABS: Albumin 2.4 g/dL (3.5-5.7); Albumin/Globulin Ratio 1.1 (1.1-2.2); Bilirubin,Direct 0.3 mg/dL (0.0-0.2); Bilirubin,Indirect 0.3 mg/dL (0.0-1.0); Bilirubin,Total 0.6 mg/dL (0.3-1.0); Calcium 7.1 mg/dL (8.6-10.3); Globulin 2.1 g/dL (2.4-3.5); Magnesium 1.8 mg/dL (1.6-2.6); Potassium 3.1 mEq/L (3.5-5.1); Total Protein 4.5 g/dL (6.4-8.9)
[2021-12-23 04:57] LABS: Troponin I 0.95 ng/mL (< 0.04)
[2021-12-23] MEDS: Piperacillin/Tazobactam 3.375 GM in 0.9 % Sodium Chloride Mini Bag 100 ML IVPB SCH ×2 (05:45→18:14)
[2021-12-23] MEDS: Pantoprazole 40 MG VIAL IVP SCH (05:46)
[2021-12-23] MEDS: Potassium Chloride 40 MEQ/200 ML BAG IVPB PRN (05:46)
[2021-12-23 05:50] LABS: Mean Corpuscular HGB Conc 33.2 g/dL (31.6-35.5); Red Blood Count 2.59 M/mcL (3.82-4.97); Red Cell Distribution Width 19.5 % (11.5-14.5)
[2021-12-23 05:51] LABS: Hematocrit 22.9 % (35.3-44.9); Hemoglobin 7.6 g/dL (11.5-15.4); Mean Corpuscular Hemoglobin 29.3 pg (28.0-33.3); Mean Corpuscular Volume 88.4 fL (83.0-100.0); Mean Platelet Volume 11.7 fL (9.4-12.4); Nucleated Red Blood Cells 0.3 /100 WBC (0); White Blood Count 6.5 K/mcL (4.3-11.1)
[2021-12-23 05:59] LABS: Platelet Count 75 K/mcL (140-400)
[2021-12-23] MEDS: Calcium Gluconate 1gm/50mL 1 GM/50 ML BAG IVPB PRN ×2 (06:11→20:26)
[2021-12-23 06:38] LABS: Basophils # 0.1 K/mcL (0.0-0.2); Lymphocytes # 1.2 K/mcL (0.6-4.6); Monocytes # 0.1 K/mcL (0.0-1.3); Neutrophils # 5.1 K/mcL (1.6-8.9); Platelet Estimate Decreased (Normal)
[2021-12-23] MEDS: Chlorhexidine Rinse 15 ML MOUTHWASH MM SCH ×2 (07:27→20:26)
[2021-12-23] MEDS: Erythromycin OPTH Oint BOTH EYES SCH ×3 (07:27→20:26)
[2021-12-23] MEDS: Albumin 25% 25gram/100mL 25 GM/100 ML IV.SOLN IVC SCH ×2 (09:21→10:51)
[2021-12-23] MEDS: Aspirin 81 MG TAB.CHEW PO SCH (09:21)
[2021-12-23] MEDS: Potassium Phosphate 44 MEQ in 0.9 % Sodium Chloride 250 ML IVPB PRN (09:21)
[2021-12-23] MEDS: Dexmedetomidine HCl 400 MCG/100 ML MLS IVC SCH (10:32)
[2021-12-23 11:10] LABS: Heparin anti-factor XA UFH 0.04 IU/mL (0.30-0.70)
[2021-12-23] MEDS: *HR* Heparin 5,000 UNIT/ML VIAL SQ SCH ×3 (13:54→20:26)
[2021-12-23 16:27] LABS: VBG Ionized Calcium 1.04 mmol/L (1.15-1.35)
[2021-12-23 17:51] LABS: Calcium 7.7 mg/dL (8.6-10.3); Magnesium 2.1 mg/dL (1.6-2.6); Phosphorous 4.5 mg/dL (2.7-4.5); Potassium 4.4 mEq/L (3.5-5.1)
[2021-12-24 00:01] LABS: Alpha 2 Globulin (PEP) 0.79 g/dL (0.48-1.05); Beta Globulin (PEP) 0.55 g/dL (0.48-1.10)
[2021-12-24] MEDS: Dexmedetomidine HCl 400 MCG/100 ML MLS IVC SCH ×2 (00:18→11:17)
[2021-12-24] MEDS: Artificial Tears SOLN 15 ML BOTTLE BOTH EYES SCH ×7 (00:18→23:44)
[2021-12-24] MEDS: Ipratropium/Albuterol Neb 3 ML IH SCH ×4 (03:31→21:14)
[2021-12-24 04:03] LABS: Basophils % 0.6 %; Hemoglobin 7.2 g/dL (11.5-15.4)
[2021-12-24 04:04] LABS: VBG Ionized Calcium 1.03 mmol/L (1.15-1.35)
[2021-12-24 04:05] LABS: Eosinophils # 0.1 K/mcL (0.0-0.6); Eosinophils % 2.4 %; Immature Granulocytes % 1.1 % (0-4); Immature Platelets 5.2 % (1.1-6.1); Lymphocytes % 10.1 %; Mean Corpuscular HGB Conc 32.7 g/dL (31.6-35.5); Mean Corpuscular Hemoglobin 29.4 pg (28.0-33.3); Mean Corpuscular Volume 89.8 fL (83.0-100.0); Mean Platelet Volume 11.9 fL (9.4-12.4); Monocytes # 0.3 K/mcL (0.0-1.3); Monocytes % 6.1 %; Neutrophils # 4.3 K/mcL (1.6-8.9); Nucleated Red Blood Cells 0.4 /100 WBC (0); Red Blood Count 2.45 M/mcL (3.82-4.97); Red Cell Distribution Width 20.2 % (11.5-14.5); Segmented Neutrophils % 79.7 %; White Blood Count 5.4 K/mcL (4.3-11.1)
[2021-12-24 04:06] LABS: Lymphocytes # 0.6 K/mcL (0.6-4.6); Platelet Count 70 K/mcL (140-400)
[2021-12-24 04:25] LABS: Albumin 2.9 g/dL (3.5-5.7); Albumin/Globulin Ratio 1.3 (1.1-2.2); Bilirubin,Direct 0.6 mg/dL (0.0-0.2); Bilirubin,Indirect 0.4 mg/dL (0.0-1.0); Globulin 2.2 g/dL (2.4-3.5); Magnesium 2.1 mg/dL (1.6-2.6); Total Protein 5.1 g/dL (6.4-8.9)
[2021-12-24 04:28] LABS: Anisocytosis 2+ (Not Present); Platelet Estimate Decreased (Normal)
[2021-12-24 04:29] LABS: Troponin I 0.87 ng/mL (< 0.04)
[2021-12-24 04:40] LABS: ABG Base Excess -1 mEq/L (-2 to 3); ABG HCO3 24 mEq/L (21-27); ABG Oxygen Saturation 98 % (95-98); ABG PCO2 41 mmHg (35-45); ABG PH 7.37 pH Units (7.32-7.45); ABG PO2 110 mmHg (85-104); ABG TCO2 25 mEq/L (20-26); Blood Gas Modality AF; Blood Gas VT 400 cc
[2021-12-24 05:37] LABS: Calcium 7.8 mg/dL (8.6-10.3); Potassium 4.2 mEq/L (3.5-5.1)
[2021-12-24] MEDS: *HR* Heparin 5,000 UNIT/ML VIAL SQ SCH ×3 (05:38→20:36)
[2021-12-24] MEDS: Pantoprazole 40 MG VIAL IVP SCH (05:38)
[2021-12-24] MEDS: Piperacillin/Tazobactam 3.375 GM in 0.9 % Sodium Chloride Mini Bag 100 ML IVPB SCH ×2 (05:38→17:03)
[2021-12-24] MEDS: Calcium Gluconate 1gm/50mL 1 GM/50 ML BAG IVPB PRN (05:38)
[2021-12-24] MEDS: Sodium Bicarbonate 150 MEQ in D5% in Water 1,000 ML IVC SCH ×2 (07:08→17:11)
[2021-12-24] MEDS: Erythromycin OPTH Oint BOTH EYES SCH ×2 (07:36→14:06)
[2021-12-24] MEDS: Chlorhexidine Rinse 15 ML MOUTHWASH MM SCH ×2 (07:36→20:37)
[2021-12-24] MEDS: Aspirin 81 MG TAB.CHEW PO SCH (07:36)
[2021-12-24] MEDS ORDERED: Albumin 25% 25gram/100mL 25 GM/100 ML IV.SOLN IVPB ONE (08:12)
[2021-12-24] MEDS ORDERED: Furosemide 40 MG/4 ML VIAL IVP ONE (08:12)
[2021-12-24 11:27] LABS: IFE Reflexed NOT DONE
[2021-12-24] MEDS ORDERED: Vancomycin 1,500 MG/265 ML IV.SOLN IVPB ONE (14:00)
[2021-12-24 16:16] LABS: Hemoglobin 6.5 g/dL (11.5-15.4)
[2021-12-24 16:18] LABS: Hematocrit 20.1 % (35.3-44.9)
[2021-12-24] MEDS ORDERED: 0.9 % Sodium Chloride 250 ML ONE (17:31)
[2021-12-24] MEDS: Saliva Stimulant 44.3ml BOTTLE PO PRN (21:54)
[2021-12-24] MEDS: Nystatin POWDER 30 GM BOTTLE TP PRN (21:54)
[2021-12-25] MEDS: Dexmedetomidine HCl 400 MCG/100 ML MLS IVC SCH ×5 (01:03→23:29)
[2021-12-25] MEDS: Ipratropium/Albuterol Neb 3 ML IH SCH ×4 (03:37→19:47)
[2021-12-25 03:39] LABS: Mean Corpuscular HGB Conc 32.9 g/dL (31.6-35.5); Nucleated Red Blood Cells 0.5 /100 WBC (0); Red Cell Distribution Width 18.6 % (11.5-14.5)
[2021-12-25] MEDS: Artificial Tears SOLN 15 ML BOTTLE BOTH EYES SCH ×6 (03:39→23:29)
[2021-12-25] MEDS: *HR* Heparin 5,000 UNIT/ML VIAL SQ SCH (03:39)
[2021-12-25] MEDS: Sodium Bicarbonate 150 MEQ in D5% in Water 1,000 ML IVC SCH ×2 (03:39→17:16)
[2021-12-25 03:41] LABS: Basophils # 0.1 K/mcL (0.0-0.2); Basophils % 1.4 %; Eosinophils # 0.1 K/mcL (0.0-0.6); Eosinophils % 2.3 %; Hematocrit 28.6 % (35.3-44.9); Hemoglobin 9.4 g/dL (11.5-15.4); Immature Granulocytes % 1.2 % (0-4); Immature Platelets 5.6 % (1.1-6.1); Lymphocytes # 0.4 K/mcL (0.6-4.6); Lymphocytes % 9.1 %; Mean Corpuscular Hemoglobin 29.4 pg (28.0-33.3); Mean Corpuscular Volume 89.4 fL (83.0-100.0); Mean Platelet Volume 10.4 fL (9.4-12.4); Monocytes # 0.2 K/mcL (0.0-1.3); Monocytes % 5.6 %; Segmented Neutrophils % 80.4 %; White Blood Count 4.3 K/mcL (4.3-11.1)
[2021-12-25 03:50] LABS: Neutrophils # 3.5 K/mcL (1.6-8.9); Platelet Count 71 K/mcL (140-400)
[2021-12-25 03:57] LABS: Potassium 4.2 mEq/L (3.5-5.1)
[2021-12-25 04:17] LABS: Hypochromasia Present (Not Present); Platelet Estimate Decreased (Normal)
[2021-12-25 04:18] LABS: Anisocytosis 1+ (Not Present)
[2021-12-25 04:50] LABS: ABG Base Excess -1 mEq/L (-2 to 3); ABG HCO3 24 mEq/L (21-27); ABG Oxygen Saturation 97 % (95-98); ABG PCO2 41 mmHg (35-45); ABG PH 7.37 pH Units (7.32-7.45); ABG PO2 92 mmHg (85-104); ABG TCO2 25 mEq/L (20-26); Blood Gas Modality AF; Blood Gas VT 400 cc
[2021-12-25] MEDS: Pantoprazole 40 MG VIAL IVP SCH (05:41)
[2021-12-25] MEDS: Piperacillin/Tazobactam 3.375 GM in 0.9 % Sodium Chloride Mini Bag 100 ML IVPB SCH ×2 (05:42→17:03)
[2021-12-25] MEDS: Saliva Stimulant 44.3ml BOTTLE PO PRN ×2 (07:02→20:00)
[2021-12-25] MEDS: Chlorhexidine Rinse 15 ML MOUTHWASH MM SCH ×2 (07:02→20:00)
[2021-12-25] MEDS: Aspirin 81 MG TAB.CHEW PO SCH (07:02)
[2021-12-25] MEDS ORDERED: DAPTOmycin 600 MG in 0.9 % Sodium Chloride 100 ML IVPB SCH (11:00)
[2021-12-25 11:04] LABS: Hemoglobin 9.4 g/dL (11.5-15.4)
[2021-12-25 11:06] LABS: Basophils % 0.9 %; Eosinophils # 0.1 K/mcL (0.0-0.6); Eosinophils % 2.2 %; Hematocrit 28.3 % (35.3-44.9); Immature Granulocytes % 1.8 % (0-4); Immature Platelets 5.6 % (1.1-6.1); Lymphocytes # 0.5 K/mcL (0.6-4.6); Lymphocytes % 11.4 %; Mean Corpuscular HGB Conc 33.2 g/dL (31.6-35.5); Mean Corpuscular Volume 90.4 fL (83.0-100.0); Mean Platelet Volume 11.1 fL (9.4-12.4); Monocytes # 0.3 K/mcL (0.0-1.3); Monocytes % 6.5 %; Neutrophils # 3.5 K/mcL (1.6-8.9); Nucleated Red Blood Cells 0.4 /100 WBC (0); Red Blood Count 3.13 M/mcL (3.82-4.97); Red Cell Distribution Width 18.9 % (11.5-14.5); Segmented Neutrophils % 77.2 %; White Blood Count 4.5 K/mcL (4.3-11.1)
[2021-12-25 11:07] LABS: Platelet Count 66 K/mcL (140-400)
[2021-12-25 11:13] LABS: INR 1.3; Prothrombin Time 14.3 Seconds (9.4-12.1)
[2021-12-25 11:15] LABS: Activated Partial Thrombo Time 31.8 Seconds (26.0-36.0)
[2021-12-25] MEDS ORDERED: Iopamidol - 370 500 ML MLS IVP ONE (12:32)
[2021-12-25] MEDS ORDERED: Albumin 25% 25gram/100mL 25 GM/100 ML IV.SOLN IVPB ONE (12:36)
[2021-12-25] MEDS ORDERED: 0.9 % Sodium Chloride 1,000 ML IVC SCH (14:00)
[2021-12-25] MEDS: 0.9 % Sodium Chloride 1,000 ML IVC SCH (14:32)
[2021-12-25 17:05] LABS: Basophils % 0.9 %; Mean Corpuscular HGB Conc 33.3 g/dL (31.6-35.5); Mean Corpuscular Hemoglobin 30.1 pg (28.0-33.3); Mean Corpuscular Volume 90.3 fL (83.0-100.0); Red Blood Count 2.99 M/mcL (3.82-4.97); Red Cell Distribution Width 19.2 % (11.5-14.5)
[2021-12-25 17:07] LABS: Eosinophils # 0.1 K/mcL (0.0-0.6); Eosinophils % 1.7 %; Immature Granulocytes % 2.4 % (0-4); Immature Platelets 6.5 % (1.1-6.1); Lymphocytes # 0.7 K/mcL (0.6-4.6); Mean Platelet Volume 12.1 fL (9.4-12.4); Monocytes # 0.3 K/mcL (0.0-1.3); Monocytes % 6.1 %; Segmented Neutrophils % 71.9 %; White Blood Count 4.2 K/mcL (4.3-11.1)
[2021-12-25 17:09] LABS: Platelet Count 65 K/mcL (140-400)
[2021-12-25 17:33] LABS: Platelet Estimate Decreased (Normal)
[2021-12-25] MEDS: Norepinephrine 4 MG/254 ML IV.SOLN IVC SCH (19:44)
[2021-12-25] MEDS: Nystatin POWDER 30 GM BOTTLE TP PRN (20:00)
[2021-12-25] MEDS: FentaNYL (PF) 1,000 MCG/100 ML IV.SOLN IVC SCH (23:02)
[2021-12-26] MEDS: 0.9 % Sodium Chloride 1,000 ML IVC SCH (03:20)
[2021-12-26] MEDS: Artificial Tears SOLN 15 ML BOTTLE BOTH EYES SCH ×6 (03:20→23:28)
[2021-12-26 03:56] LABS: Immature Granulocytes % 2.5 % (0-4)
[2021-12-26] MEDS: Ipratropium/Albuterol Neb 3 ML IH SCH ×4 (03:57→20:41)
[2021-12-26 03:59] LABS: Basophils # 0.1 K/mcL (0.0-0.2); Basophils % 1.3 %; Eosinophils # 0.1 K/mcL (0.0-0.6); Hematocrit 28.1 % (35.3-44.9); Hemoglobin 9.1 g/dL (11.5-15.4); Immature Platelets 5.4 % (1.1-6.1); Lymphocytes # 0.7 K/mcL (0.6-4.6); Lymphocytes % 16.7 %; Mean Corpuscular HGB Conc 32.4 g/dL (31.6-35.5); Mean Corpuscular Hemoglobin 29.2 pg (28.0-33.3); Mean Corpuscular Volume 90.1 fL (83.0-100.0); Monocytes # 0.2 K/mcL (0.0-1.3); Monocytes % 4.8 %; Neutrophils # 2.9 K/mcL (1.6-8.9); Red Blood Count 3.12 M/mcL (3.82-4.97); Red Cell Distribution Width 19.4 % (11.5-14.5); Segmented Neutrophils % 72.7 %
[2021-12-26 04:01] LABS: Platelet Count 79 K/mcL (140-400)
[2021-12-26 04:18] LABS: Potassium 3.6 mEq/L (3.5-5.1)
[2021-12-26 04:25] LABS: ABG Base Excess -3 mEq/L (-2 to 3); ABG HCO3 22 mEq/L (21-27); ABG Oxygen Saturation 97 % (95-98); ABG PCO2 37 mmHg (35-45); ABG PH 7.38 pH Units (7.32-7.45); ABG PO2 95 mmHg (85-104); ABG TCO2 23 mEq/L (20-26); Blood Gas Modality ASSIST CONTROL; Blood Gas VT 400 cc
[2021-12-26] MEDS: Dexmedetomidine HCl 400 MCG/100 ML MLS IVC SCH ×4 (04:49→21:55)
[2021-12-26] MEDS: Sodium Bicarbonate 150 MEQ in D5% in Water 1,000 ML IVC SCH ×2 (04:50→19:05)
[2021-12-26] MEDS: Potassium Chloride 40 MEQ/200 ML BAG IVPB PRN (05:10)
[2021-12-26] MEDS: Piperacillin/Tazobactam 3.375 GM in 0.9 % Sodium Chloride Mini Bag 100 ML IVPB SCH ×2 (05:13→18:02)
[2021-12-26] MEDS: Pantoprazole 40 MG VIAL IVP SCH (05:16)
[2021-12-26] MEDS: Chlorhexidine Rinse 15 ML MOUTHWASH MM SCH ×2 (07:44→20:05)
[2021-12-26] MEDS: Norepinephrine 4 MG/254 ML IV.SOLN IVC SCH ×2 (10:45→19:07)
[2021-12-26] MEDS: Aspirin 81 MG TAB.CHEW PO SCH (10:45)
[2021-12-26] MEDS ORDERED: Albumin 25% 25gram/100mL 25 GM/100 ML IV.SOLN IVPB ONE (10:51)
[2021-12-26] MEDS ORDERED: Lidocaine -MPF 1% 5 ML AMPUL ONE (10:53)
[2021-12-26] MEDS ORDERED: *HR* Midazolam HCl 5 MG/5 ML VIAL IVP ONE (10:59)
[2021-12-26] MEDS ORDERED: *HR* FentaNYL (PF) 100 MCG/2 ML VIAL ONE (10:59)
[2021-12-26] MEDS ORDERED: Furosemide 40 MG/4 ML VIAL IVP ONE (12:30)
[2021-12-26] MEDS ORDERED: *HR* FentaNYL (PF) 100 MCG/2 ML VIAL IVP ONE (14:11)
[2021-12-26] MEDS ORDERED: *HR* Midazolam HCl 2 MG/2 ML VIAL IVP ONE (14:11)
[2021-12-26] MEDS: *HR* Fondaparinux 2.5 MG/0.5 ML SYRINGE SQ SCH (14:13)
[2021-12-26] MEDS ORDERED: Vancomycin 1 EACH in 0.9 % Sodium Chloride 250 ML IVPB PRN (16:00)
[2021-12-26] MEDS: FentaNYL (PF) 1,000 MCG/100 ML IV.SOLN IVC SCH (19:13)
[2021-12-27] MEDS: Artificial Tears SOLN 15 ML BOTTLE BOTH EYES SCH ×5 (03:26→20:39)
[2021-12-27] MEDS: Norepinephrine 4 MG/254 ML IV.SOLN IVC SCH ×2 (03:26→13:17)
[2021-12-27] MEDS: Sodium Bicarbonate 150 MEQ in D5% in Water 1,000 ML IVC SCH ×2 (03:27→17:26)
[2021-12-27] MEDS: Ipratropium/Albuterol Neb 3 ML IH SCH ×4 (04:34→22:50)
[2021-12-27] MEDS: Dexmedetomidine HCl 400 MCG/100 ML MLS IVC SCH (04:41)
[2021-12-27] MEDS: Piperacillin/Tazobactam 3.375 GM in 0.9 % Sodium Chloride Mini Bag 100 ML IVPB SCH ×2 (05:03→17:06)
[2021-12-27] MEDS: *HR* Fondaparinux 2.5 MG/0.5 ML SYRINGE SQ SCH (05:03)
[2021-12-27 05:09] LABS: VBG Ionized Calcium 1.13 mmol/L (1.15-1.35)
[2021-12-27 05:09] LABS: ABG Base Excess -3 mEq/L (-2 to 3); ABG HCO3 19 mEq/L (21-27); ABG Oxygen Saturation 100 % (95-98); ABG PCO2 23 mmHg (35-45); ABG PH 7.52 pH Units (7.32-7.45); ABG PO2 188 mmHg (85-104); ABG TCO2 20 mEq/L (20-26)
[2021-12-27 05:15] LABS: Hemoglobin 8.7 g/dL (11.5-15.4); Red Cell Distribution Width 19.6 % (11.5-14.5)
[2021-12-27 05:17] LABS: Basophils # 0.1 K/mcL (0.0-0.2); Basophils % 1.4 %; Eosinophils # 0.1 K/mcL (0.0-0.6); Eosinophils % 1.7 %; Hematocrit 25.6 % (35.3-44.9); Immature Granulocytes % 4.6 % (0-4); Immature Platelets 6.4 % (1.1-6.1); Lymphocytes # 0.6 K/mcL (0.6-4.6); Lymphocytes % 14.7 %; Mean Corpuscular Hemoglobin 31.3 pg (28.0-33.3); Mean Corpuscular Volume 92.1 fL (83.0-100.0); Mean Platelet Volume 11.4 fL (9.4-12.4); Monocytes # 0.3 K/mcL (0.0-1.3); Monocytes % 6.8 %; Neutrophils # 2.9 K/mcL (1.6-8.9); Nucleated Red Blood Cells 0.5 /100 WBC (0); Red Blood Count 2.78 M/mcL (3.82-4.97); Segmented Neutrophils % 70.8 %; White Blood Count 4.1 K/mcL (4.3-11.1)
[2021-12-27] MEDS: Pantoprazole 40 MG VIAL IVP SCH (05:25)
[2021-12-27 05:30] LABS: Albumin/Globulin Ratio 1.3 (1.1-2.2); Calcium 8.3 mg/dL (8.6-10.3); Globulin 2.3 g/dL (2.4-3.5); Magnesium 1.8 mg/dL (1.6-2.6); Phosphorous 2.2 mg/dL (2.7-4.5); Potassium 3.6 mEq/L (3.5-5.1); Total Protein 5.3 g/dL (6.4-8.9)
[2021-12-27 05:59] LABS: Platelet Count 91 K/mcL (140-400)
[2021-12-27] MEDS: Potassium Chloride 40 MEQ/200 ML BAG IVPB PRN (06:15)
[2021-12-27] MEDS: Potassium Phosphate 44 MEQ in 0.9 % Sodium Chloride 250 ML IVPB PRN (06:33)
[2021-12-27] MEDS: Aspirin 81 MG TAB.CHEW PO SCH (08:15)
[2021-12-27] MEDS: Chlorhexidine Rinse 15 ML MOUTHWASH MM SCH (08:15)
[2021-12-27] MEDS ORDERED: Albumin 25% 25gram/100mL 25 GM/100 ML IV.SOLN IVPB ONE (10:28)
[2021-12-27] MEDS ORDERED: Furosemide 40 MG/4 ML VIAL IVP ONE (12:00)
[2021-12-27] MEDS: FentaNYL (PF) 1,000 MCG/100 ML IV.SOLN IVC SCH (13:17)
[2021-12-27 17:23] LABS: Magnesium 2.2 mg/dL (1.6-2.6); Phosphorous 4.3 mg/dL (2.7-4.5); Potassium 4.2 mEq/L (3.5-5.1)
[2021-12-28] MEDS: Artificial Tears SOLN 15 ML BOTTLE BOTH EYES SCH ×5 (00:07→17:08)
[2021-12-28] MEDS: Chlorhexidine Rinse 15 ML MOUTHWASH MM SCH ×2 (00:07→08:31)
[2021-12-28] MEDS: Norepinephrine 4 MG/254 ML IV.SOLN IVC SCH ×2 (01:48→12:56)
[2021-12-28] MEDS: Ipratropium/Albuterol Neb 3 ML IH SCH ×4 (03:39→21:44)
[2021-12-28 03:56] LABS: Basophils # 0.1 K/mcL (0.0-0.2); Basophils % 1.4 %; Eosinophils # 0.1 K/mcL (0.0-0.6); Eosinophils % 2.1 %; Hematocrit 29.1 % (35.3-44.9); Hemoglobin 9.5 g/dL (11.5-15.4); Immature Granulocytes % 2.1 % (0-4); Lymphocytes # 0.6 K/mcL (0.6-4.6); Lymphocytes % 9.3 %; Mean Corpuscular HGB Conc 32.6 g/dL (31.6-35.5); Mean Corpuscular Hemoglobin 30.3 pg (28.0-33.3); Mean Corpuscular Volume 92.7 fL (83.0-100.0); Mean Platelet Volume 10.9 fL (9.4-12.4); Monocytes # 0.4 K/mcL (0.0-1.3); Monocytes % 5.6 %; Nucleated Red Blood Cells 0.3 /100 WBC (0); Platelet Count 116 K/mcL (140-400); Red Blood Count 3.14 M/mcL (3.82-4.97); Red Cell Distribution Width 20.4 % (11.5-14.5); Segmented Neutrophils % 79.5 %
[2021-12-28 03:57] LABS: Neutrophils # 5.3 K/mcL (1.6-8.9); White Blood Count 6.6 K/mcL (4.3-11.1)
[2021-12-28 04:01] LABS: VBG Ionized Calcium 1.17 mmol/L (1.15-1.35)
[2021-12-28 04:15] LABS: Albumin 3.3 g/dL (3.5-5.7); Albumin/Globulin Ratio 1.4 (1.1-2.2); Calcium 8.6 mg/dL (8.6-10.3); Globulin 2.4 g/dL (2.4-3.5); Magnesium 2.2 mg/dL (1.6-2.6); Phosphorous 4.3 mg/dL (2.7-4.5); Potassium 4.1 mEq/L (3.5-5.1); Total Protein 5.7 g/dL (6.4-8.9)
[2021-12-28 04:15] LABS: ABG Base Excess -5 mEq/L (-2 to 3); ABG HCO3 22 mEq/L (21-27); ABG Oxygen Saturation 82 % (95-98); ABG PCO2 45 mmHg (35-45); ABG PH 7.29 pH Units (7.32-7.45); ABG PO2 51 mmHg (85-104); ABG TCO2 23 mEq/L (20-26)
[2021-12-28] MEDS: Pantoprazole 40 MG VIAL IVP SCH (05:23)
[2021-12-28] MEDS: Piperacillin/Tazobactam 3.375 GM in 0.9 % Sodium Chloride Mini Bag 100 ML IVPB SCH ×2 (05:23→17:08)
[2021-12-28] MEDS: Aspirin 81 MG TAB.CHEW PO SCH (08:30)
[2021-12-28] MEDS ORDERED: Furosemide 20 MG/2 ML VIAL IVP ONE (13:36)
[2021-12-28] MEDS: *HR* Heparin 5,000 UNIT/ML VIAL SQ SCH (14:46)
[2021-12-28] MEDS: FentaNYL (PF) 1,000 MCG/100 ML IV.SOLN IVC SCH (14:46)
[2021-12-28 16:56] LABS: A.galactomannan Ag Index 0.04
[2021-12-29] MEDS: Artificial Tears SOLN 15 ML BOTTLE BOTH EYES SCH ×8 (02:20→23:51)
[2021-12-29] MEDS: Chlorhexidine Rinse 15 ML MOUTHWASH MM SCH ×3 (02:20→22:24)
[2021-12-29 03:29] LABS: VBG Ionized Calcium 1.17 mmol/L (1.15-1.35)
[2021-12-29 03:31] LABS: Basophils # 0.1 K/mcL (0.0-0.2); Basophils % 0.8 %; Eosinophils % 0.7 %; Hematocrit 28.7 % (35.3-44.9); Hemoglobin 9.1 g/dL (11.5-15.4); Immature Granulocytes % 1.5 % (0-4); Lymphocytes # 0.6 K/mcL (0.6-4.6); Lymphocytes % 9.8 %; Mean Corpuscular HGB Conc 31.7 g/dL (31.6-35.5); Mean Corpuscular Hemoglobin 29.9 pg (28.0-33.3); Mean Corpuscular Volume 94.4 fL (83.0-100.0); Monocytes # 0.3 K/mcL (0.0-1.3); Monocytes % 5.2 %; Neutrophils # 4.9 K/mcL (1.6-8.9); Platelet Count 128 K/mcL (140-400); Red Blood Count 3.04 M/mcL (3.82-4.97); Red Cell Distribution Width 20.7 % (11.5-14.5)
[2021-12-29 03:44] LABS: Albumin/Globulin Ratio 1.2 (1.1-2.2); Bilirubin,Total 0.7 mg/dL (0.3-1.0); Calcium 8.8 mg/dL (8.6-10.3); Globulin 2.6 g/dL (2.4-3.5); Magnesium 2.2 mg/dL (1.6-2.6); Phosphorous 4.3 mg/dL (2.7-4.5); Potassium 3.9 mEq/L (3.5-5.1); Total Protein 5.6 g/dL (6.4-8.9)
[2021-12-29] MEDS: Ipratropium/Albuterol Neb 3 ML IH SCH ×4 (03:46→22:11)
[2021-12-29] MEDS: Piperacillin/Tazobactam 3.375 GM in 0.9 % Sodium Chloride Mini Bag 100 ML IVPB SCH ×2 (06:06→18:13)
[2021-12-29] MEDS: Pantoprazole 40 MG VIAL IVP SCH (06:07)
[2021-12-29] MEDS: *HR* Heparin 5,000 UNIT/ML VIAL SQ SCH ×4 (06:07→23:51)
[2021-12-29] MEDS ORDERED: Albumin 25% 25gram/100mL 25 GM/100 ML IV.SOLN IVPB ONE (07:08)
[2021-12-29] MEDS ORDERED: Furosemide 40 MG/4 ML VIAL IVP ONE (07:08)
[2021-12-29] MEDS: Norepinephrine 4 MG/254 ML IV.SOLN IVC SCH ×3 (07:28→18:25)
[2021-12-29] MEDS: Aspirin 81 MG TAB.CHEW PO SCH (07:29)
[2021-12-29] MEDS ORDERED: D5% in Water 1,000 ML IVC SCH (07:30)
[2021-12-29 07:40] LABS: ABG Base Excess -4 mEq/L (-2 to 3); ABG HCO3 21 mEq/L (21-27); ABG Oxygen Saturation 94 % (95-98); ABG PCO2 37 mmHg (35-45); ABG PH 7.36 pH Units (7.32-7.45); ABG PO2 73 mmHg (85-104); ABG TCO2 22 mEq/L (20-26)
[2021-12-29] MEDS: Metoclopramide 10 MG/2 ML VIAL IVP SCH ×3 (12:00→23:51)
[2021-12-29] MEDS ORDERED: *HR* Dextrose 50 % in Water (Syg) 50 ML SYRINGE IVP PRN (12:01)
[2021-12-29] MEDS ORDERED: Dextrose Gel 15 GM/37.5 ML TUBE PO PRN ×2 (12:01)
[2021-12-29] MEDS ORDERED: D5% in Water 1,000 ML IVC PRN (12:01)
[2021-12-29] MEDS ORDERED: D10% in Water 500 ML IVC PRN (12:17)
[2021-12-29] MEDS: Insulin LISPRO 300 UNITS/3 ML VIAL SUBQ SCH ×3 (13:10→22:25)
[2021-12-29] MEDS: FentaNYL (PF) 1,000 MCG/100 ML IV.SOLN IVC SCH (13:38)
[2021-12-29] MEDS: Dexmedetomidine HCl 400 MCG/100 ML MLS IVC SCH (13:39)
[2021-12-29] MEDS ORDERED: Clinimix E 5%-15% SOLUTION 2,000 ML with MVI, adult with vitamin K 10 ML IVC SCH (17:00)
[2021-12-29 17:46] LABS: Calcium 8.7 mg/dL (8.6-10.3); Potassium 3.4 mEq/L (3.5-5.1)
[2021-12-30] MEDS: Ipratropium/Albuterol Neb 3 ML IH SCH ×4 (03:45→22:48)
[2021-12-30 04:56] LABS: VBG Ionized Calcium 1.13 mmol/L (1.15-1.35)
[2021-12-30 04:56] LABS: Basophils # 0.1 K/mcL (0.0-0.2); Basophils % 1.5 %; Eosinophils # 0.1 K/mcL (0.0-0.6); Eosinophils % 1.5 %; Hematocrit 26.8 % (35.3-44.9); Hemoglobin 8.6 g/dL (11.5-15.4); Immature Granulocytes % 1.7 % (0-4); Lymphocytes # 0.6 K/mcL (0.6-4.6); Mean Corpuscular HGB Conc 32.1 g/dL (31.6-35.5); Mean Corpuscular Hemoglobin 29.5 pg (28.0-33.3); Mean Corpuscular Volume 91.8 fL (83.0-100.0); Mean Platelet Volume 10.8 fL (9.4-12.4); Monocytes # 0.3 K/mcL (0.0-1.3); Monocytes % 5.5 %; Neutrophils # 4.6 K/mcL (1.6-8.9); Nucleated Red Blood Cells 0.3 /100 WBC (0); Platelet Count 158 K/mcL (140-400); Red Blood Count 2.92 M/mcL (3.82-4.97); Red Cell Distribution Width 20.5 % (11.5-14.5); Segmented Neutrophils % 79.8 %; White Blood Count 5.8 K/mcL (4.3-11.1)
[2021-12-30 05:10] LABS: Albumin/Globulin Ratio 1.2 (1.1-2.2); Bilirubin,Total 0.7 mg/dL (0.3-1.0); Calcium 8.8 mg/dL (8.6-10.3); Globulin 2.6 g/dL (2.4-3.5); Phosphorous 2.5 mg/dL (2.7-4.5); Total Protein 5.6 g/dL (6.4-8.9)
[2021-12-30] MEDS: Insulin LISPRO 300 UNITS/3 ML VIAL SUBQ SCH ×6 (07:04→22:29)
[2021-12-30] MEDS: *HR* Heparin 5,000 UNIT/ML VIAL SQ SCH ×3 (07:06→22:29)
[2021-12-30] MEDS: Metoclopramide 10 MG/2 ML VIAL IVP SCH ×4 (07:06→22:32)
[2021-12-30] MEDS: Pantoprazole 40 MG VIAL IVP SCH (07:06)
[2021-12-30] MEDS: Piperacillin/Tazobactam 3.375 GM in 0.9 % Sodium Chloride Mini Bag 100 ML IVPB SCH ×2 (07:07→16:50)
[2021-12-30] MEDS: Artificial Tears SOLN 15 ML BOTTLE BOTH EYES SCH ×2 (07:07→07:36)
[2021-12-30] MEDS: Chlorhexidine Rinse 15 ML MOUTHWASH MM SCH (07:36)
[2021-12-30] MEDS: Aspirin 81 MG TAB.CHEW PO SCH (07:36)
[2021-12-30] MEDS: Potassium Phosphate 44 MEQ in 0.9 % Sodium Chloride 250 ML IVPB PRN (07:37)
[2021-12-30] MEDS ORDERED: Potassium Chloride Elixir 20 MEQ/15 ML UDC GTUBE ONE ×2 (11:30→18:11)
[2021-12-30] MEDS ORDERED: Clinimix E 5%-20% SOLUTION 2,000 ML with MVI, adult with vitamin K 10 ML IVC SCH (17:00)
[2021-12-30 17:38] LABS: Calcium 8.9 mg/dL (8.6-10.3); Potassium 3.5 mEq/L (3.5-5.1)
[2021-12-30] MEDS: Norepinephrine 4 MG/254 ML IV.SOLN IVC SCH (19:12)
[2021-12-30] MEDS: Dexmedetomidine HCl 400 MCG/100 ML MLS IVC SCH (19:13)
[2021-12-30] MEDS: FentaNYL (PF) 1,000 MCG/100 ML IV.SOLN IVC SCH (19:13)
[2021-12-31] MEDS: Insulin LISPRO 300 UNITS/3 ML VIAL SUBQ SCH ×6 (01:56→20:09)
[2021-12-31] MEDS: Ipratropium/Albuterol Neb 3 ML IH SCH ×4 (04:04→22:45)
[2021-12-31 04:37] LABS: Basophils # 0.2 K/mcL (0.0-0.2); Basophils % 2.6 %; Eosinophils # 0.1 K/mcL (0.0-0.6); Eosinophils % 2.4 %; Hematocrit 29.4 % (35.3-44.9); Hemoglobin 9.3 g/dL (11.5-15.4); Lymphocytes # 0.7 K/mcL (0.6-4.6); Lymphocytes % 11.3 %; Mean Corpuscular HGB Conc 31.6 g/dL (31.6-35.5); Mean Corpuscular Hemoglobin 29.6 pg (28.0-33.3); Mean Corpuscular Volume 93.6 fL (83.0-100.0); Mean Platelet Volume 11.1 fL (9.4-12.4); Monocytes # 0.3 K/mcL (0.0-1.3); Monocytes % 5.7 %; Neutrophils # 4.3 K/mcL (1.6-8.9); Nucleated Red Blood Cells 0.7 /100 WBC (0); Platelet Count 180 K/mcL (140-400); Red Blood Count 3.14 M/mcL (3.82-4.97); Red Cell Distribution Width 21.2 % (11.5-14.5); White Blood Count 5.8 K/mcL (4.3-11.1)
[2021-12-31 04:56] LABS: VBG Ionized Calcium 1.21 mmol/L (1.15-1.35)
[2021-12-31 04:58] LABS: Bilirubin,Total 0.8 mg/dL (0.3-1.0); Calcium 8.8 mg/dL (8.6-10.3); Phosphorous 3.1 mg/dL (2.7-4.5); Potassium 4.1 mEq/L (3.5-5.1)
[2021-12-31] MEDS: Metoclopramide 10 MG/2 ML VIAL IVP SCH ×4 (05:04→20:08)
[2021-12-31] MEDS: Piperacillin/Tazobactam 3.375 GM in 0.9 % Sodium Chloride Mini Bag 100 ML IVPB SCH ×2 (05:05→16:58)
[2021-12-31] MEDS: *HR* Heparin 5,000 UNIT/ML VIAL SQ SCH ×3 (05:06→20:08)
[2021-12-31] MEDS: Norepinephrine 4 MG/254 ML IV.SOLN IVC SCH ×2 (05:06→16:53)
[2021-12-31] MEDS: Pantoprazole 40 MG VIAL IVP SCH (05:28)
[2021-12-31] MEDS: Insulin DETEMIR 100 UNIT/ML X5UNITS SUBQ SCH ×2 (08:16→20:09)
[2021-12-31] MEDS ORDERED: 0.9 % Sodium Chloride 1,000 ML ONE (09:28)
[2021-12-31 14:41] LABS: Amylase,Pleural Fluid < 10 Units/L (No Ref Range); Glucose,Pleural Fluid 349 mg/dL (No Ref Range); LDH,Pleural Fluid 61 Units/L (No Ref Range)
[2021-12-31 15:27] LABS: RBC,Pleural Fluid < 2000 RBC/mcL
[2021-12-31 16:31] LABS: Appearance of Pleural Fl Clear (Clear)
[2021-12-31 16:40] LABS: Basophils,Pleural Fluid 0 %; Eosinophils,Pleural Fluid 0 %; Lymphocytes,Pleural Fluid 70.8 %; Monocytes,Pleural Fluid 4.2 %
[2021-12-31] MEDS ORDERED: Clinimix E 5%-20% SOLUTION 2,000 ML with MVI, adult with vitamin K 10 ML IVC SCH (17:00)
[2021-12-31] MEDS ORDERED: Clinimix 5%-20% SOLUTION 2,000 ML with MVI, adult with vitamin K 10 ML, Potassium Pho... IVC SCH (17:00)
[2021-12-31 17:48] LABS: VBG Ionized Calcium 1.21 mmol/L (1.15-1.35)
[2021-12-31 18:03] LABS: Calcium 8.5 mg/dL (8.6-10.3); Phosphorous 2.4 mg/dL (2.7-4.5); Potassium 3.7 mEq/L (3.5-5.1)
[2021-12-31] MEDS: Potassium Chloride 40 MEQ/200 ML BAG IVPB PRN ×2 (20:00→21:00)
[2021-12-31] MEDS: Potassium Phosphate 44 MEQ in 0.9 % Sodium Chloride 250 ML IVPB PRN (23:22)
[2022-01-01] MEDS: Insulin LISPRO 300 UNITS/3 ML VIAL SUBQ SCH ×6 (00:44→21:43)
[2022-01-01] MEDS: Norepinephrine 4 MG/254 ML IV.SOLN IVC SCH (02:31)
[2022-01-01] MEDS: Ipratropium/Albuterol Neb 3 ML IH SCH ×4 (03:24→22:59)
[2022-01-01 04:03] LABS: VBG Ionized Calcium 1.19 mmol/L (1.15-1.35)
[2022-01-01 04:03] LABS: Eosinophils # 0.1 K/mcL (0.0-0.6); Hematocrit 25.2 % (35.3-44.9); Mean Corpuscular HGB Conc 31.7 g/dL (31.6-35.5); Mean Corpuscular Hemoglobin 29.7 pg (28.0-33.3); Mean Corpuscular Volume 93.7 fL (83.0-100.0); Mean Platelet Volume 11.7 fL (9.4-12.4); Monocytes # 0.4 K/mcL (0.0-1.3); Nucleated Red Blood Cells 0.8 /100 WBC (0); Platelet Count 161 K/mcL (140-400); Red Blood Count 2.69 M/mcL (3.82-4.97); Red Cell Distribution Width 21.2 % (11.5-14.5); White Blood Count 4.8 K/mcL (4.3-11.1)
[2022-01-01 04:25] LABS: Albumin 2.6 g/dL (3.5-5.7); Bilirubin,Total 0.6 mg/dL (0.3-1.0); Calcium 8.4 mg/dL (8.6-10.3); Globulin 2.7 g/dL (2.4-3.5); Magnesium 1.9 mg/dL (1.6-2.6); Phosphorous 3.2 mg/dL (2.7-4.5); Potassium 4.8 mEq/L (3.5-5.1); Total Protein 5.3 g/dL (6.4-8.9)
[2022-01-01 04:46] LABS: Lymphocytes # 1.1 K/mcL (0.6-4.6); Neutrophils # 3.3 K/mcL (1.6-8.9)
[2022-01-01 04:47] LABS: Platelet Estimate Normal (Normal)
[2022-01-01] MEDS: Piperacillin/Tazobactam 3.375 GM in 0.9 % Sodium Chloride Mini Bag 100 ML IVPB SCH ×2 (05:06→18:04)
[2022-01-01] MEDS: Pantoprazole 40 MG VIAL IVP SCH (05:07)
[2022-01-01] MEDS: *HR* Heparin 5,000 UNIT/ML VIAL SQ SCH ×3 (05:08→21:44)
[2022-01-01] MEDS: Metoclopramide 10 MG/2 ML VIAL IVP SCH ×3 (05:08→18:04)
[2022-01-01] MEDS: Insulin DETEMIR 100 UNIT/ML X5UNITS SUBQ SCH ×2 (07:25→21:43)
[2022-01-01 08:03] LABS: ABG Base Excess -3 mEq/L (-2 to 3); ABG HCO3 22 mEq/L (21-27); ABG Oxygen Saturation 89 % (95-98); ABG PCO2 37 mmHg (35-45); ABG PH 7.38 pH Units (7.32-7.45); ABG PO2 57 mmHg (85-104); ABG TCO2 23 mEq/L (20-26)
[2022-01-01] MEDS ORDERED: Insulin DETEMIR 100 UNIT/ML X5UNITS SUBQ ONE (11:41)
[2022-01-01] MEDS ORDERED: Clinimix E 5%-20% SOLUTION 2,000 ML, Amino Acids 10% 200 ML with MVI, adult with vita... IVC SCH (17:00)
[2022-01-01] MEDS ORDERED: Clinimix 5%-20% SOLUTION 2,000 ML, Amino Acids 10% 200 ML with MVI, adult with vitami... IVC SCH (17:00)
[2022-01-02] MEDS: Metoclopramide 10 MG/2 ML VIAL IVP SCH ×5 (00:59→23:36)
[2022-01-02] MEDS: Insulin LISPRO 300 UNITS/3 ML VIAL SUBQ SCH ×7 (00:59→23:36)
[2022-01-02 01:40] LABS: Basophils # 0.1 K/mcL (0.0-0.2); Basophils % 2.7 %; Eosinophils # 0.1 K/mcL (0.0-0.6); Eosinophils % 3.1 %; Hematocrit 27.1 % (35.3-44.9); Hemoglobin 8.7 g/dL (11.5-15.4); Immature Granulocytes % 5.1 % (0-4); Lymphocytes # 0.6 K/mcL (0.6-4.6); Lymphocytes % 14.3 %; Mean Corpuscular HGB Conc 32.1 g/dL (31.6-35.5); Mean Corpuscular Hemoglobin 29.8 pg (28.0-33.3); Mean Corpuscular Volume 92.8 fL (83.0-100.0); Mean Platelet Volume 11.4 fL (9.4-12.4); Monocytes # 0.4 K/mcL (0.0-1.3); Monocytes % 9.8 %; Neutrophils # 2.9 K/mcL (1.6-8.9); Nucleated Red Blood Cells 0.4 /100 WBC (0); Platelet Count 163 K/mcL (140-400); Red Blood Count 2.92 M/mcL (3.82-4.97); Red Cell Distribution Width 21.1 % (11.5-14.5); White Blood Count 4.5 K/mcL (4.3-11.1)
[2022-01-02 02:01] LABS: Albumin 2.6 g/dL (3.5-5.7); Albumin/Globulin Ratio 0.9 (1.1-2.2); Bilirubin,Total 0.6 mg/dL (0.3-1.0); Calcium 8.6 mg/dL (8.6-10.3); Magnesium 2.1 mg/dL (1.6-2.6); Phosphorous 2.8 mg/dL (2.7-4.5); Potassium 4.3 mEq/L (3.5-5.1); Total Protein 5.6 g/dL (6.4-8.9)
[2022-01-02 02:28] LABS: Anisocytosis 2+ (Not Present); Platelet Estimate Normal (Normal)
[2022-01-02] MEDS: Ipratropium/Albuterol Neb 3 ML IH SCH ×4 (03:24→22:33)
[2022-01-02] MEDS: Piperacillin/Tazobactam 3.375 GM in 0.9 % Sodium Chloride Mini Bag 100 ML IVPB SCH (05:30)
[2022-01-02] MEDS: *HR* Heparin 5,000 UNIT/ML VIAL SQ SCH ×3 (05:30→21:00)
[2022-01-02] MEDS: Pantoprazole 40 MG VIAL IVP SCH (05:31)
[2022-01-02] MEDS: Insulin DETEMIR 100 UNIT/ML X5UNITS SUBQ SCH ×2 (08:14→20:59)
[2022-01-02] MEDS ORDERED: Morphine Sulfate 2 MG/ML SYRINGE IVP ONE (13:09)
[2022-01-02] MEDS ORDERED: Insulin DETEMIR 100 UNIT/ML X5UNITS SUBQ ONE (13:15)
[2022-01-02] MEDS ORDERED: Morphine Sulfate Oral CONC 10 MG/0.5 ML ORAL.SYG SL PRN (13:20)
[2022-01-02 16:08] LABS: ABG Base Excess -3 mEq/L (-2 to 3); ABG HCO3 22 mEq/L (21-27); ABG Oxygen Saturation 96 % (95-98); ABG PCO2 38 mmHg (35-45); ABG PH 7.37 pH Units (7.32-7.45); ABG PO2 87 mmHg (85-104); ABG TCO2 24 mEq/L (20-26)
[2022-01-02] MEDS ORDERED: Clinimix 5%-20% SOLUTION 2,000 ML with Amino Acids 10% 200 ML, MVI, adult with vitami... IVC SCH (17:00)
[2022-01-02] MEDS: Saliva Stimulant 44.3ml BOTTLE PO PRN (18:01)
[2022-01-03] MEDS: Insulin LISPRO 300 UNITS/3 ML VIAL SUBQ SCH ×5 (03:50→20:07)
[2022-01-03] MEDS: Ipratropium/Albuterol Neb 3 ML IH SCH ×4 (04:12→22:47)
[2022-01-03 04:31] LABS: Albumin 2.4 g/dL (3.5-5.7); Albumin/Globulin Ratio 0.8 (1.1-2.2); Bilirubin,Total 0.5 mg/dL (0.3-1.0); Calcium 8.7 mg/dL (8.6-10.3); Globulin 3.2 g/dL (2.4-3.5); Phosphorous 2.8 mg/dL (2.7-4.5); Potassium 4.2 mEq/L (3.5-5.1); Total Protein 5.6 g/dL (6.4-8.9)
[2022-01-03] MEDS: *HR* Heparin 5,000 UNIT/ML VIAL SQ SCH ×2 (05:26→12:45)
[2022-01-03] MEDS: Pantoprazole 40 MG VIAL IVP SCH (05:26)
[2022-01-03] MEDS: Metoclopramide 10 MG/2 ML VIAL IVP SCH ×3 (05:26→17:09)
[2022-01-03] MEDS: Insulin DETEMIR 100 UNIT/ML X5UNITS SUBQ SCH ×2 (10:00→20:07)
[2022-01-03] MEDS ORDERED: Heparin 1,000 UNITS/500 mL 500 ML ONE (10:01)
[2022-01-03 11:39] LABS: ABG Base Excess -4 mEq/L (-2 to 3); ABG Chloride 113 mEq/L (98-107); ABG Glucose 293 mg/dL (60-95); ABG HCO3 22 mEq/L (21-27); ABG Ionized Calcium 1.35 mmol/L (1.15-1.35); ABG Oxygen Saturation 95 % (95-98); ABG PCO2 39 mmHg (35-45); ABG PH 7.35 pH Units (7.32-7.45); ABG PO2 80 mmHg (85-104); ABG TCO2 23 mEq/L (20-26)
[2022-01-03] MEDS ORDERED: Clinimix 5%-20% SOLUTION 2,000 ML with Amino Acids 10% 200 ML, MVI, adult with vitami... IVC SCH (17:00)
[2022-01-04] MEDS: Metoclopramide 10 MG/2 ML VIAL IVP SCH ×5 (01:41→23:30)
[2022-01-04] MEDS: Insulin LISPRO 300 UNITS/3 ML VIAL SUBQ SCH ×7 (04:24→23:30)
[2022-01-04] MEDS: Ipratropium/Albuterol Neb 3 ML IH SCH ×4 (04:46→23:03)
[2022-01-04 04:47] LABS: Albumin 2.3 g/dL (3.5-5.7); Albumin/Globulin Ratio 0.7 (1.1-2.2); Bilirubin,Total 0.4 mg/dL (0.3-1.0); Calcium 8.7 mg/dL (8.6-10.3); Globulin 3.1 g/dL (2.4-3.5); Magnesium 1.9 mg/dL (1.6-2.6); Phosphorous 3.1 mg/dL (2.7-4.5); Potassium 4.3 mEq/L (3.5-5.1); Total Protein 5.4 g/dL (6.4-8.9)
[2022-01-04] MEDS: Pantoprazole 40 MG VIAL IVP SCH (06:32)
[2022-01-04] MEDS: *HR* Heparin 5,000 UNIT/ML VIAL SQ SCH ×4 (06:32→20:12)
[2022-01-04] MEDS: Insulin DETEMIR 100 UNIT/ML X5UNITS SUBQ SCH ×2 (07:58→20:12)
[2022-01-04 11:45] LABS: Albumin 2.3 g/dL (3.5-5.7); Albumin/Globulin Ratio 0.7 (1.1-2.2); Bilirubin,Total 0.4 mg/dL (0.3-1.0); Calcium 8.8 mg/dL (8.6-10.3); Globulin 3.2 g/dL (2.4-3.5); Potassium 4.2 mEq/L (3.5-5.1); Total Protein 5.5 g/dL (6.4-8.9)
[2022-01-04] MEDS ORDERED: E-Z-HD (BARIUM SULF) SUSPENSION PO ONE (16:04)
[2022-01-04] MEDS ORDERED: E-Z-PAQUE (BARIUM SULF) SUSP 1 BOTTLE PO ONE (16:04)
[2022-01-04] MEDS ORDERED: Clinimix E 5%-15% SOLUTION 2,000 ML, Amino Acids 10% 200 ML with MVI, adult with vita... IVC SCH ×2 (17:00)
[2022-01-05] MEDS: Insulin LISPRO 300 UNITS/3 ML VIAL SUBQ SCH ×5 (03:00→20:32)
[2022-01-05] MEDS: Ipratropium/Albuterol Neb 3 ML IH SCH ×4 (04:33→22:43)
[2022-01-05] MEDS: Metoclopramide 10 MG/2 ML VIAL IVP SCH ×4 (05:19→23:13)
[2022-01-05] MEDS: Pantoprazole 40 MG VIAL IVP SCH (05:19)
[2022-01-05] MEDS: *HR* Heparin 5,000 UNIT/ML VIAL SQ SCH ×3 (05:19→20:31)
[2022-01-05 05:43] LABS: Albumin 2.5 g/dL (3.5-5.7); Albumin/Globulin Ratio 0.7 (1.1-2.2); Bilirubin,Total 0.4 mg/dL (0.3-1.0); Calcium 9.2 mg/dL (8.6-10.3); Globulin 3.4 g/dL (2.4-3.5); Phosphorous 3.1 mg/dL (2.7-4.5); Potassium 4.8 mEq/L (3.5-5.1); Total Protein 5.9 g/dL (6.4-8.9)
[2022-01-05] MEDS: Insulin DETEMIR 100 UNIT/ML X5UNITS SUBQ SCH ×2 (08:28→20:31)
[2022-01-05] MEDS ORDERED: Clinimix E 5%-15% SOLUTION 2,000 ML, Amino Acids 10% 200 ML with MVI, adult with vita... IVC SCH (17:00)
[2022-01-06] MEDS: Insulin LISPRO 300 UNITS/3 ML VIAL SUBQ SCH ×6 (00:46→20:54)
[2022-01-06] MEDS: Ipratropium/Albuterol Neb 3 ML IH SCH ×4 (03:52→21:14)
[2022-01-06 04:30] LABS: Albumin 2.4 g/dL (3.5-5.7); Albumin/Globulin Ratio 0.8 (1.1-2.2); Bilirubin,Total 0.4 mg/dL (0.3-1.0); Calcium 8.9 mg/dL (8.6-10.3); Globulin 3.1 g/dL (2.4-3.5); Phosphorous 3.7 mg/dL (2.7-4.5); Potassium 4.9 mEq/L (3.5-5.1); Total Protein 5.5 g/dL (6.4-8.9)
[2022-01-06] MEDS: Pantoprazole 40 MG VIAL IVP SCH (05:46)
[2022-01-06] MEDS: Metoclopramide 10 MG/2 ML VIAL IVP SCH (05:46)
[2022-01-06] MEDS: *HR* Heparin 5,000 UNIT/ML VIAL SQ SCH ×3 (05:46→20:59)
[2022-01-06] MEDS: Insulin DETEMIR 100 UNIT/ML X5UNITS SUBQ SCH ×2 (09:45→20:59)
[2022-01-06] MEDS ORDERED: Clinimix E 5%-15% SOLUTION 2,000 ML, Amino Acids 10% 200 ML with MVI, adult with vita... IVC SCH (17:00)
[2022-01-07] MEDS: Insulin LISPRO 300 UNITS/3 ML VIAL SUBQ SCH ×7 (00:43→23:45)
[2022-01-07 03:06] LABS: Hematocrit 25.2 % (35.3-44.9); Hemoglobin 8.1 g/dL (11.5-15.4); Mean Corpuscular HGB Conc 32.1 g/dL (31.6-35.5); Mean Corpuscular Volume 93.3 fL (83.0-100.0); Mean Platelet Volume 12.3 fL (9.4-12.4); Platelet Count 190 K/mcL (140-400); Red Cell Distribution Width 21.6 % (11.5-14.5); White Blood Count 5.4 K/mcL (4.3-11.1)
[2022-01-07 03:21] LABS: Albumin 2.6 g/dL (3.5-5.7); Albumin/Globulin Ratio 0.7 (1.1-2.2); Bilirubin,Total 0.4 mg/dL (0.3-1.0); Calcium 9.4 mg/dL (8.6-10.3); Globulin 3.5 g/dL (2.4-3.5); Magnesium 2.1 mg/dL (1.6-2.6); Phosphorous 3.2 mg/dL (2.7-4.5); Potassium 5.1 mEq/L (3.5-5.1); Total Protein 6.1 g/dL (6.4-8.9)
[2022-01-07] MEDS: Ipratropium/Albuterol Neb 3 ML IH SCH ×2 (04:40→10:29)
[2022-01-07] MEDS: *HR* Heparin 5,000 UNIT/ML VIAL SQ SCH ×3 (06:24→20:47)
[2022-01-07] MEDS: Pantoprazole 40 MG VIAL IVP SCH (06:24)
[2022-01-07] MEDS: Insulin DETEMIR 100 UNIT/ML X5UNITS SUBQ SCH ×2 (08:20→20:47)
[2022-01-07 11:24] LABS: VBG HCO3 23 mEq/L (21-27); VBG PCO2 54 mmHg (41-51); VBG PH 7.23 pH Units (7.32-7.42); VBG PO2 104 mmHg (25-50)
[2022-01-07] MEDS: Norepinephrine 4 MG/254 ML IV.SOLN IVC SCH (11:30)
[2022-01-07] MEDS: Dexmedetomidine HCl 400 MCG/100 ML MLS IVC SCH ×3 (11:30→21:32)
[2022-01-07] MEDS ORDERED: Ipratropium/Albuterol Neb 3 ML IH PRN (11:54)
[2022-01-07] MEDS ORDERED: Artificial Tears SOLN 15 ML BOTTLE BOTH EYES SCH (12:00)
[2022-01-07] MEDS: FentaNYL (PF) 1,000 MCG/100 ML IV.SOLN IVC SCH ×2 (12:20→17:08)
[2022-01-07] MEDS: Chlorhexidine Rinse 15 ML MOUTHWASH MM SCH ×2 (13:03→20:47)
[2022-01-07 14:01] LABS: ABG Base Excess -5 mEq/L (-2 to 3); ABG HCO3 23 mEq/L (21-27); ABG Oxygen Saturation 99 % (95-98); ABG PCO2 54 mmHg (35-45); ABG PH 7.23 pH Units (7.32-7.45); ABG PO2 150 mmHg (85-104); ABG TCO2 24 mEq/L (20-26); Blood Gas Modality AF; Blood Gas VT 400 cc
[2022-01-07] MEDS: Artificial Tears SOLN 15 ML BOTTLE BOTH EYES SCH ×3 (15:53→23:19)
[2022-01-07] MEDS: Albumin 25% 25gram/100mL 25 GM/100 ML IV.SOLN IVPB SCH ×2 (15:53→23:20)
[2022-01-07] MEDS: Cefepime HCl 2,000 MG in 0.9 % Sodium Chloride 10 ML IVP SCH ×2 (16:10→23:20)
[2022-01-07] MEDS: MetroNIDAZOLE 500 MG/100 ML 500 MG/100 ML BAG IVPB SCH ×2 (17:00→23:19)
[2022-01-07] MEDS ORDERED: Clinimix E 5%-15% SOLUTION 2,000 ML, Amino Acids 10% 200 ML with MVI, adult with vita... IVC SCH (17:00)
[2022-01-07 17:26] LABS: Adenovirus Not Detected (Not Detect); Coronavirus 229E Not Detected (Not Detect); Coronavirus HKU1 Not Detected (Not Detect); Coronavirus NL63 Not Detected (Not Detect); Coronavirus OC43 Not Detected (Not Detect); SARS-CoV-2 Not Detected (Not Detect)
[2022-01-07 17:27] LABS: Bordetella Pertussis Not Detected (Not Detect); Chlamydophila pneumoniae Not Detected (Not Detect); Human Metapneumovirus Not Detected (Not Detect); Human Rhinovirus/Enterovirus Not Detected (Not Detect); Influenza A Subtype 2009 H1 Not Detected (Not Detect); Influenza B Not Detected (Not Detect); Mycoplasma pneumoniae Not Detected (Not Detect); Parainfluenza Virus 1 Not Detected (Not Detect); Parainfluenza Virus 2 Not Detected (Not Detect); Parainfluenza Virus 3 Not Detected (Not Detect); Parainfluenza Virus 4 Not Detected (Not Detect); Respiratory Syncytial Virus Not Detected (Not Detect)
[2022-01-07 17:37] LABS: ABG Base Excess -4 mEq/L (-2 to 3); ABG HCO3 22 mEq/L (21-27); ABG Oxygen Saturation 100 % (95-98); ABG PCO2 46 mmHg (35-45); ABG PH 7.29 pH Units (7.32-7.45); ABG PO2 193 mmHg (85-104); ABG TCO2 24 mEq/L (20-26); Blood Gas Modality AF; Blood Gas VT 400 cc
[2022-01-07] MEDS ORDERED: *HR* Etomidate 20 MG/10 ML AMPUL IVP ONE (18:09)
[2022-01-07] MEDS ORDERED: *HR* Midazolam HCl 2 MG/2 ML VIAL IVP ONE (18:09)
[2022-01-07 20:57] LABS: Bacteria,Urine Few per hpf (None-Few); Bilirubin,Urine Negative (Negative); Blood,Urine Large (Negative); Budding Yeast,Urine Many per hpf (None Seen); Clarity,Urine Turbid (Clear); Color,Urine Light-Yellow (Yellow); Glucose,Urine (UA) 300 mg/dL (Normal); Hyaline Casts,Urine Many per lpf (None Seen); Ketones,Urine Negative (Negative); Leukocyte Esterase,Urine Large (Negative); Mucus,Urine Few per lpf (None-Few); Nitrite,Urine Negative (Negative); Protein,Urine 50 mg/dL (Neg-Trace); RBC,Urine TNTC per hpf (0-3); Specific Gravity,Urine 1.013 (1.010-1.025); Urobilinogen,Urine Normal (Normal); WBC,Urine TNTC per hpf (0-3)
[2022-01-08] MEDS: FentaNYL (PF) 1,000 MCG/100 ML IV.SOLN IVC SCH ×3 (02:05→16:31)
[2022-01-08] MEDS: Dexmedetomidine HCl 400 MCG/100 ML MLS IVC SCH ×4 (02:42→21:53)
[2022-01-08 04:16] LABS: Hematocrit 23.7 % (35.3-44.9); Hemoglobin 7.4 g/dL (11.5-15.4); Immature Platelets 9.1 % (1.1-6.1); Mean Corpuscular HGB Conc 31.2 g/dL (31.6-35.5); Mean Corpuscular Hemoglobin 29.8 pg (28.0-33.3); Mean Corpuscular Volume 95.6 fL (83.0-100.0); Mean Platelet Volume 12.2 fL (9.4-12.4); Red Blood Count 2.48 M/mcL (3.82-4.97); Red Cell Distribution Width 21.6 % (11.5-14.5); White Blood Count 3.5 K/mcL (4.3-11.1)
[2022-01-08 04:23] LABS: ABG Base Excess -5 mEq/L (-2 to 3); ABG HCO3 22 mEq/L (21-27); ABG Oxygen Saturation 98 % (95-98); ABG PCO2 44 mmHg (35-45); ABG PO2 122 mmHg (85-104); ABG TCO2 23 mEq/L (20-26); Blood Gas Modality AF; Blood Gas VT 400 cc
[2022-01-08 04:36] LABS: Bilirubin,Total 0.5 mg/dL (0.3-1.0); Calcium 9.2 mg/dL (8.6-10.3); Globulin 3.1 g/dL (2.4-3.5); Phosphorous 3.9 mg/dL (2.7-4.5); Total Protein 6.1 g/dL (6.4-8.9)
[2022-01-08] MEDS: Artificial Tears SOLN 15 ML BOTTLE BOTH EYES SCH ×5 (05:11→19:34)
[2022-01-08] MEDS: Norepinephrine 4 MG/254 ML IV.SOLN IVC SCH ×3 (05:11→18:17)
[2022-01-08] MEDS: Insulin LISPRO 300 UNITS/3 ML VIAL SUBQ SCH ×5 (05:11→19:41)
[2022-01-08] MEDS: *HR* Heparin 5,000 UNIT/ML VIAL SQ SCH ×2 (05:22→14:15)
[2022-01-08] MEDS: Pantoprazole 40 MG VIAL IVP SCH (05:22)
[2022-01-08] MEDS: MetroNIDAZOLE 500 MG/100 ML 500 MG/100 ML BAG IVPB SCH ×2 (07:52→15:29)
[2022-01-08] MEDS: Chlorhexidine Rinse 15 ML MOUTHWASH MM SCH ×2 (07:52→19:43)
[2022-01-08] MEDS: Albumin 25% 25gram/100mL 25 GM/100 ML IV.SOLN IVPB SCH ×2 (07:52→15:29)
[2022-01-08] MEDS: Cefepime HCl 2,000 MG in 0.9 % Sodium Chloride 10 ML IVP SCH ×2 (07:52→19:43)
[2022-01-08] MEDS: Insulin DETEMIR 100 UNIT/ML X5UNITS SUBQ SCH ×2 (08:41→19:45)
[2022-01-08] MEDS: Bumetanide 1 MG/4 ML VIAL IVP SCH ×2 (12:05→16:23)
[2022-01-08] MEDS ORDERED: Clinimix E 5%-15% SOLUTION 2,000 ML, Amino Acids 10% 200 ML with MVI, adult with vita... IVC SCH (17:00)
[2022-01-09] MEDS: MetroNIDAZOLE 500 MG/100 ML 500 MG/100 ML BAG IVPB SCH ×4 (00:30→23:41)
[2022-01-09] MEDS: Albumin 25% 25gram/100mL 25 GM/100 ML IV.SOLN IVPB SCH ×3 (00:30→14:36)
[2022-01-09] MEDS: Artificial Tears SOLN 15 ML BOTTLE BOTH EYES SCH ×7 (00:31→23:41)
[2022-01-09] MEDS: *HR* Heparin 5,000 UNIT/ML VIAL SQ SCH ×4 (00:32→20:14)
[2022-01-09] MEDS: Insulin LISPRO 300 UNITS/3 ML VIAL SUBQ SCH ×7 (00:33→23:41)
[2022-01-09] MEDS: FentaNYL (PF) 1,000 MCG/100 ML IV.SOLN IVC SCH ×5 (00:33→20:39)
[2022-01-09] MEDS: Dexmedetomidine HCl 400 MCG/100 ML MLS IVC SCH ×5 (03:08→20:27)
[2022-01-09 03:33] LABS: Hematocrit 24.6 % (35.3-44.9); Hemoglobin 7.9 g/dL (11.5-15.4); Mean Corpuscular HGB Conc 32.1 g/dL (31.6-35.5); Mean Corpuscular Hemoglobin 30.5 pg (28.0-33.3); Mean Platelet Volume 12.1 fL (9.4-12.4); Platelet Count 160 K/mcL (140-400); Red Blood Count 2.59 M/mcL (3.82-4.97); Red Cell Distribution Width 21.5 % (11.5-14.5)
[2022-01-09 03:37] LABS: White Blood Count 9.5 K/mcL (4.3-11.1)
[2022-01-09 04:33] LABS: ABG Base Excess -7 mEq/L (-2 to 3); ABG HCO3 20 mEq/L (21-27); ABG Oxygen Saturation 98 % (95-98); ABG PCO2 42 mmHg (35-45); ABG PH 7.28 pH Units (7.32-7.45); ABG PO2 114 mmHg (85-104); ABG TCO2 21 mEq/L (20-26); Blood Gas VT 400 cc
[2022-01-09 05:28] LABS: Albumin 3.6 g/dL (3.5-5.7); Albumin/Globulin Ratio 1.2 (1.1-2.2); Bilirubin,Total 0.6 mg/dL (0.3-1.0); Calcium 9.3 mg/dL (8.6-10.3); Globulin 2.9 g/dL (2.4-3.5); Phosphorous 3.9 mg/dL (2.7-4.5); Potassium 5.7 mEq/L (3.5-5.1); Total Protein 6.5 g/dL (6.4-8.9)
[2022-01-09 05:41] LABS: Thyroid Stimulating Hormone 5.057 mcIU/mL (0.340-5.600)
[2022-01-09] MEDS: Norepinephrine 4 MG/254 ML IV.SOLN IVC SCH (06:16)
[2022-01-09] MEDS: Pantoprazole 40 MG VIAL IVP SCH (06:47)
[2022-01-09] MEDS: Cefepime HCl 2,000 MG in 0.9 % Sodium Chloride 10 ML IVP SCH ×2 (07:30→20:07)
[2022-01-09] MEDS: Bumetanide 1 MG/4 ML VIAL IVP SCH ×2 (07:39→15:38)
[2022-01-09] MEDS: Chlorhexidine Rinse 15 ML MOUTHWASH MM SCH ×2 (07:39→20:07)
[2022-01-09] MEDS: Insulin DETEMIR 100 UNIT/ML X5UNITS SUBQ SCH ×2 (08:00→20:08)
[2022-01-09] MEDS: SODIUM ZIRCONIUM CYCLOSILICATE 5 GM POWD.PACK PO SCH ×3 (08:02→20:07)
[2022-01-09 14:51] LABS: Calcium 9.3 mg/dL (8.6-10.3); Potassium 5.5 mEq/L (3.5-5.1)
[2022-01-09] MEDS ORDERED: Clinimix 5%-20% SOLUTION 2,000 ML with MVI, adult with vitamin K 10 ML, Sodium Phosph... IVC SCH (17:00)
[2022-01-10] MEDS: Dexmedetomidine HCl 400 MCG/100 ML MLS IVC SCH ×6 (00:58→22:48)
[2022-01-10] MEDS: FentaNYL (PF) 1,000 MCG/100 ML IV.SOLN IVC SCH ×4 (01:27→20:59)
[2022-01-10 04:16] LABS: VBG Ionized Calcium 1.37 mmol/L (1.15-1.35)
[2022-01-10 04:34] LABS: ABG Base Excess -7 mEq/L (-2 to 3); ABG HCO3 20 mEq/L (21-27); ABG Oxygen Saturation 97 % (95-98); ABG PCO2 48 mmHg (35-45); ABG PH 7.23 pH Units (7.32-7.45); ABG PO2 111 mmHg (85-104); ABG TCO2 22 mEq/L (20-26); Blood Gas Modality AF; Blood Gas VT 400 cc
[2022-01-10 04:38] LABS: Hematocrit 23.5 % (35.3-44.9); Hemoglobin 7.3 g/dL (11.5-15.4); Mean Corpuscular HGB Conc 31.1 g/dL (31.6-35.5); Mean Corpuscular Hemoglobin 29.9 pg (28.0-33.3); Mean Corpuscular Volume 96.3 fL (83.0-100.0); Mean Platelet Volume 11.8 fL (9.4-12.4); Platelet Count 162 K/mcL (140-400); Red Blood Count 2.44 M/mcL (3.82-4.97); Red Cell Distribution Width 21.6 % (11.5-14.5); White Blood Count 7.9 K/mcL (4.3-11.1)
[2022-01-10] MEDS: Artificial Tears SOLN 15 ML BOTTLE BOTH EYES SCH ×6 (04:39→22:48)
[2022-01-10] MEDS: Insulin LISPRO 300 UNITS/3 ML VIAL SUBQ SCH ×5 (04:39→20:57)
[2022-01-10 04:56] LABS: Albumin 3.5 g/dL (3.5-5.7); Albumin/Globulin Ratio 1.3 (1.1-2.2); Bilirubin,Total 0.6 mg/dL (0.3-1.0); Calcium 9.2 mg/dL (8.6-10.3); Globulin 2.6 g/dL (2.4-3.5); Phosphorous 4.8 mg/dL (2.7-4.5); Potassium 4.7 mEq/L (3.5-5.1); Total Protein 6.1 g/dL (6.4-8.9)
[2022-01-10] MEDS: Pantoprazole 40 MG VIAL IVP SCH (05:19)
[2022-01-10] MEDS: *HR* Heparin 5,000 UNIT/ML VIAL SQ SCH ×3 (05:19→20:59)
[2022-01-10] MEDS: Chlorhexidine Rinse 15 ML MOUTHWASH MM SCH ×2 (08:08→20:58)
[2022-01-10] MEDS: Bumetanide 1 MG/4 ML VIAL IVP SCH ×2 (08:09→17:15)
[2022-01-10] MEDS: Cefepime HCl 2,000 MG in 0.9 % Sodium Chloride 10 ML IVP SCH ×2 (08:09→20:58)
[2022-01-10] MEDS: Insulin DETEMIR 100 UNIT/ML X5UNITS SUBQ SCH ×2 (08:10→20:58)
[2022-01-10] MEDS: MetroNIDAZOLE 500 MG/100 ML 500 MG/100 ML BAG IVPB SCH (08:26)
[2022-01-10] MEDS ORDERED: Clinimix 5%-20% SOLUTION 2,000 ML with MVI, adult with vitamin K 10 ML, Sodium Phosph... IV SCH (17:00)
[2022-01-10] MEDS ORDERED: Clinimix 5%-20% SOLUTION 2,000 ML with Amino Acids 10% 0 ML, MVI, adult with vitamin ... IVC SCH (17:00)
[2022-01-10] MEDS: Norepinephrine 4 MG/254 ML IV.SOLN IVC SCH ×2 (20:54→23:43)
[2022-01-11] MEDS: Insulin LISPRO 300 UNITS/3 ML VIAL SUBQ SCH ×7 (00:12→23:23)
[2022-01-11] MEDS: FentaNYL (PF) 1,000 MCG/100 ML IV.SOLN IVC SCH ×4 (03:18→20:26)
[2022-01-11] MEDS: Dexmedetomidine HCl 400 MCG/100 ML MLS IVC SCH ×5 (03:18→20:25)
[2022-01-11] MEDS: Artificial Tears SOLN 15 ML BOTTLE BOTH EYES SCH ×6 (03:18→23:22)
[2022-01-11 03:38] LABS: VBG Ionized Calcium 1.36 mmol/L (1.15-1.35)
[2022-01-11 03:59] LABS: Eosinophils # 0.3 K/mcL (0.0-0.6); Hematocrit 23.5 % (35.3-44.9); Hemoglobin 7.4 g/dL (11.5-15.4); Mean Corpuscular HGB Conc 31.5 g/dL (31.6-35.5); Mean Corpuscular Hemoglobin 29.8 pg (28.0-33.3); Mean Corpuscular Volume 94.8 fL (83.0-100.0); Mean Platelet Volume 11.5 fL (9.4-12.4); Nucleated Red Blood Cells 0.6 /100 WBC (0); Platelet Count 164 K/mcL (140-400); Red Blood Count 2.48 M/mcL (3.82-4.97); Red Cell Distribution Width 21.5 % (11.5-14.5); White Blood Count 8.8 K/mcL (4.3-11.1)
[2022-01-11 04:13] LABS: Albumin 3.2 g/dL (3.5-5.7); Albumin/Globulin Ratio 1.1 (1.1-2.2); Bilirubin,Total 0.5 mg/dL (0.3-1.0); Calcium 9.2 mg/dL (8.6-10.3); Phosphorous 3.9 mg/dL (2.7-4.5); Total Protein 6.2 g/dL (6.4-8.9)
[2022-01-11 04:36] LABS: ABG Base Excess -6 mEq/L (-2 to 3); ABG HCO3 21 mEq/L (21-27); ABG Oxygen Saturation 98 % (95-98); ABG PCO2 42 mmHg (35-45); ABG PO2 110 mmHg (85-104); ABG TCO2 22 mEq/L (20-26); Blood Gas Modality AF; Blood Gas VT 450 cc
[2022-01-11 04:40] LABS: Lymphocytes # 1.4 K/mcL (0.6-4.6); Monocytes # 1.1 K/mcL (0.0-1.3); Neutrophils # 5.5 K/mcL (1.6-8.9)
[2022-01-11 04:41] LABS: Anisocytosis 2+ (Not Present); Basophilic Stippling 1+ (Not Present); Platelet Estimate Normal (Normal); Polychromasia 1+ (Not Present)
[2022-01-11] MEDS: *HR* Heparin 5,000 UNIT/ML VIAL SQ SCH ×3 (05:01→20:23)
[2022-01-11] MEDS: Pantoprazole 40 MG VIAL IVP SCH (05:47)
[2022-01-11] MEDS: Chlorhexidine Rinse 15 ML MOUTHWASH MM SCH ×2 (08:57→20:22)
[2022-01-11] MEDS: Bumetanide 1 MG/4 ML VIAL IVP SCH ×2 (08:57→16:29)
[2022-01-11] MEDS: Cefepime HCl 2,000 MG in 0.9 % Sodium Chloride 10 ML IVP SCH ×2 (08:57→20:21)
[2022-01-11] MEDS: Insulin DETEMIR 100 UNIT/ML X5UNITS SUBQ SCH ×2 (09:01→20:22)
[2022-01-11] MEDS ORDERED: Insulin DETEMIR 100 UNIT/ML X5UNITS SUBQ ONE (11:09)
[2022-01-11] MEDS: Norepinephrine 4 MG/254 ML IV.SOLN IVC SCH (11:40)
[2022-01-11] MEDS ORDERED: Clinimix 5%-20% SOLUTION 2,000 ML with MVI, adult with vitamin K 10 ML, Sodium Phosph... IVC SCH (17:00)
[2022-01-12] MEDS: Dexmedetomidine HCl 400 MCG/100 ML MLS IVC SCH ×3 (01:26→09:00)
[2022-01-12] MEDS: Norepinephrine 4 MG/254 ML IV.SOLN IVC SCH ×2 (02:26→13:49)
[2022-01-12] MEDS: Insulin LISPRO 300 UNITS/3 ML VIAL SUBQ SCH ×3 (03:22→12:45)
[2022-01-12] MEDS: Artificial Tears SOLN 15 ML BOTTLE BOTH EYES SCH ×3 (03:22→13:35)
[2022-01-12] MEDS: FentaNYL (PF) 1,000 MCG/100 ML IV.SOLN IVC SCH (03:45)
[2022-01-12 04:17] LABS: ABG Base Excess -6 mEq/L (-2 to 3); ABG HCO3 19 mEq/L (21-27); ABG Oxygen Saturation 98 % (95-98); ABG PCO2 36 mmHg (35-45); ABG PH 7.33 pH Units (7.32-7.45); ABG PO2 118 mmHg (85-104); ABG TCO2 20 mEq/L (20-26); Blood Gas Modality AF; Blood Gas VT 450 cc
[2022-01-12 04:53] LABS: Red Blood Count 2.54 M/mcL (3.82-4.97)
[2022-01-12] MEDS: Pantoprazole 40 MG VIAL IVP SCH (05:07)
[2022-01-12] MEDS: *HR* Heparin 5,000 UNIT/ML VIAL SQ SCH ×2 (05:07→13:48)
[2022-01-12 05:15] LABS: Albumin 3.2 g/dL (3.5-5.7); Bilirubin,Total 0.5 mg/dL (0.3-1.0); Calcium 9.2 mg/dL (8.6-10.3); Globulin 3.2 g/dL (2.4-3.5); Phosphorous 3.1 mg/dL (2.7-4.5); Potassium 3.9 mEq/L (3.5-5.1); Total Protein 6.4 g/dL (6.4-8.9)
[2022-01-12 05:17] LABS: Hematocrit 24.3 % (35.3-44.9); Hemoglobin 7.7 g/dL (11.5-15.4); Mean Corpuscular HGB Conc 31.7 g/dL (31.6-35.5); Mean Corpuscular Hemoglobin 30.3 pg (28.0-33.3); Mean Corpuscular Volume 95.7 fL (83.0-100.0); Mean Platelet Volume 12.2 fL (9.4-12.4); Nucleated Red Blood Cells 0.8 /100 WBC (0); Platelet Count 211 K/mcL (140-400); Red Cell Distribution Width 22.2 % (11.5-14.5); White Blood Count 13.5 K/mcL (4.3-11.1)
[2022-01-12 06:33] LABS: Eosinophils # 0.3 K/mcL (0.0-0.6); Lymphocytes # 1.6 K/mcL (0.6-4.6); Monocytes # 1.6 K/mcL (0.0-1.3); Neutrophils # 8.9 K/mcL (1.6-8.9); Platelet Estimate Normal (Normal)
[2022-01-12] MEDS: Cefepime HCl 2,000 MG in 0.9 % Sodium Chloride 10 ML IVP SCH (07:17)
[2022-01-12] MEDS: Bumetanide 1 MG/4 ML VIAL IVP SCH (07:18)
[2022-01-12] MEDS: Chlorhexidine Rinse 15 ML MOUTHWASH MM SCH (07:18)
[2022-01-12] MEDS: Insulin DETEMIR 100 UNIT/ML X5UNITS SUBQ SCH (07:27)
[2022-01-12 11:45] VITALS: TEMP 98.9
[2022-01-12 14:08] VITALS: BP 129/43; PULSE 97; O2SAT 94
[2022-01-12] MEDS ORDERED: *HR* LORazepam 2 MG/ML VIAL ONE (15:15)
[2022-01-12] MEDS ORDERED: Morphine Sulfate 2 MG/ML SYRINGE IVP PRN (15:16)
[2022-01-12] MEDS ORDERED: *HR* LORazepam 2 MG/ML VIAL IVP PRN (15:17)
[2022-01-12] MEDS ORDERED: Glycopyrrolate 0.2 MG/ML VIAL IVP ONE (15:24)
[2022-01-12] MEDS ORDERED: Clinimix 5%-20% SOLUTION 2,000 ML with MVI, adult with vitamin K 10 ML, Sodium Phosph... IVC SCH (17:00)
== END 2022-01-12 18:10 | disposition expired | DRG 853 ==
LOC: SUATTDRO 12-20 02:33 → ICNU 12-20 02:33 → 2NNU 01-01 19:24 → ICNU 01-07 12:20
PROVIDERS: ADMIT Internal Medicine; ATTEND Pediatrics